=== PATIENT | male | born 1940 | race Caucasian/White ===

== ENCOUNTER 2018-03-14 10:21 | Emergency (ER) | payer MEDICARE, BC, SELFPAY ==
[2018-03-14 10:36] VITALS: BP 116/73; PULSE 77; RESP 20; TEMP 36.7; O2SAT 95
--- NOTE | 2018-03-14 11:10 | W.ED.GENAD ---
Discharge Plan Disposition Patient Disposition: HOME Condition: Improving Discharge Details Chief Complaint: EarProblem Clinical Impression: Bilateral impacted cerumen Primary Care Provider: ARACELI MOSER ED Provider: Leonila Cartagena Home Meds and New Rx's Prescriptions: Continue carbamide peroxide [Ear Wax Treatment] 15 ML drops 4 ml Otic DAILY PRN PRNQty: 1 RF: 0 atorvastatin [Lipitor] 20 MG tablet 20 mg PO QPM RF: 0 amlodipine 5 MG tablet 10 mg PO HS RF: 0 aspirin [Aspir-81] 81 MG tablet,delayed release (DR/EC) 81 mg PO QAM RF: 0 multivitamin 1 EACH capsule 1 ea PO QAM RF: 0 cholecalciferol (vitamin D3) 1,000 UNITS tablet 2,000 units PO HS RF: 0 lisinopril 20 MG tablet 20 mg PO HS RF: 0 tamsulosin [Flomax] 0.4 MG capsule 0.4 mg PO DAILY Qty: 13 RF: 0 Discharge Instructions Instructions: Cerumen Impaction (ED) Additional Instructions: Use the Debrox earwax softening drops for the next 4 days. Please instill 4-10 drops twice daily. Please follow-up with her primary care this week. Hoping with the use of the softening drops they may have an easier time at removal of the earwax. If you develop fever/chills, pain, or other new/worsening symptoms please seek care urgently once again Referrals: ARACELI MOSER [Primary Care Provider] - Discharge Data Discharge Date/Time-TO BE ENTERED AT DEPARTURE: 03/14/18 11:39 Medical Decision Making MDM Narrative Medical decision making narrative: Patient presents today with chief complaint of both ears being plugged. On exam, patient is noted to have impacted cerumen in the right and left ears with the right being worse than the left. His hearing seems to be fairly intact, and after raise my voice to speak with him. He has no change in his voice. He does not have any pain on palpation. No mastoid tenderness. No fevers or chills. Patient is afebrile and nontoxic-appearing. Exam is otherwise benign. I have asked nursing staff to flush his ears Nursing staff attempted to dislodge cerumen impaction. They cleaned out the right ear for unsuccessful at clearing at the central most aspect of the cerumen. Patient began endorsing dizziness when he was experiencing the flushing. Reports that when he has had this done at his local ER, they use a different method that is more continuous. He denies any pain. We do not have another option here to flush out the patient's ear in this department. I was able to see that much of the cerumen has been broken up on the right and I am now able to see around the cerumen to the eardrum on both the superior and inferior aspects of the collection. The left ear was not attempted. I did advise the patient that at this point as his hearing is improved in the right and cerumen does not appear much improved, we approached the left and see for able to break this up. Patient declines. Prefers to to follow-up with his primary care in [place]. I advised that he use Debrox ear softening drops for the next 4 days prior to being evaluated by them as this may help with more readily extracting the cerumen. Patient was given return precautions. All his questions and concerns were addressed and he is in agreement with this plan. HPI - General Adult General Mode of arrival: ambulatory. Date/Time Provider Initiated Documentation: 03/14/18 10:57. Limitations to Documentation: no limitations. Information obtained by: patient. HPI Narrative: Patient is a 77-year-old male presenting today with chief complaint of ears plugged. He reports that approximately once a year he needs to seek care medical professional have his ears flushed. Typically goes to the emergency department for this. Patient reports he is from [place] and has a primary care there. He states for the past 4 days his right ear has been plugged. Reports that the left ear is more intermittent. States that the right ear has diminished hearing but the left remains intact. He denies any pain. No fevers or chills. Feels that this is his typical of a buildup of cerumen. Does not use Q-tips to clean his ear. He does report that he occasionally uses a hairpin to clean out his ears. He has tried softening drops over the past few days which have not relieved his symptoms. Related Data Home Medications Medication Instructions Recorded Confirmed amlodipine 10 mg PO HS 01/09/13 03/14/18 aspirin [Aspir-81] 81 mg PO QAM 01/09/13 03/14/18 atorvastatin [Lipitor] 20 mg PO QPM 01/09/13 03/14/18 cholecalciferol (vitamin D3) 2,000 units PO HS 01/09/13 03/14/18 multivitamin 1 ea PO QAM 01/09/13 03/14/18 lisinopril 20 mg PO HS 01/14/18 03/14/18 Previous Rx's Medication Instructions Recorded carbamide peroxide [Ear Wax 4 ml OTIC DAILY PRN PRN #1 btl 01/09/13 Treatment] tamsulosin [Flomax] 0.4 mg PO DAILY #13 cap.er.24h 01/14/18 Allergies Allergy/AdvReac Type Severity Reaction Status Date / Time No Known Allergies Allergy Unverified 03/14/18 10:37 General Stated Complaint: EarProblem MAYELIN: 5 Review of Systems Constitutional Reports as per HPI, Denies chills, Denies fever(s) and Denies headache(s) Eyes Patient Reports system reviewed and no additional complaints, except as docu ENT Reports as per HPI, Reports abnormal hearing, Denies vertigo, Denies dizziness, Denies ear discharge, Denies headache(s), Denies hearing loss (diminished hearing in right ear), Denies nasal discharge and Denies nasal obstruction Cardiovascular Denies chest pain Respiratory Denies cough Integumentary/Breasts Reports system reviewed and no additional complaints, except as docu Neurologic Reports abnormal hearing, Denies vertigo, Denies dizziness and Denies headache(s) [facility] Social History Smoking/Tobacco Use Status: Never Exam Const General: cooperative, healthy appearing, comfortable, no acute distress, well developed and well groomed Nutritional Appearance: average body habitus Orientation: alert and awake [facility] Head: normal to inspection, normocephalic and atraumatic Ears: hearing grossly abnormal bilaterally (diminished on the right side), external ears normal and TM's abnormal bilaterally (unable to visualize secondayr to cerumen impaction bilaterally) General nose exam: external nose normal Mouth: oral mucosae normal, lip normal and moist mucous membranes Throat: posterior oropharynx normal Eyes General: appearance normal, both eyes and all related structures Resp Effort & Inspection: normal respiratory effort, able to speak in complete sentences and no respiratory distress Auscultation: clear to auscultation bilaterally Cardio Rate: regular rate Rhythm: regular rhythm Heart Sounds: S1 normal and S2 normal Skin General skin exam: no rashes or lesions noted Lesions: no lesions Rashes: no rashes Trauma: no lacerations or abrasions Neuro General: alert, awake and oriented x3 Cognition: normal cognition Speech: speech normal Gait: normal gait Psych Appearance: grossly normal and well kempt Mental Status: mental status grossly normal Speech and Movement: speech and movement normal Mood: congruent mood Course Vital Signs Temperature 36.7 C 03/14/18 10:36 Pulse 77 03/14/18 10:36 Respiratory Rate 20 03/14/18 10:36 Blood Pressure 116/73 03/14/18 10:36 Pulse Oximetry 95 03/14/18 10:36 Temperature 36.7 C 03/14/18 10:36 Pulse 77 03/14/18 10:36 Respiratory Rate 20 03/14/18 10:36 Blood Pressure 116/73 03/14/18 10:36 Pulse Oximetry 95 03/14/18 10:36
== END 2018-03-14 11:39 | disposition home or self-care (01) ==
LOC: ER 11:40
PROVIDERS: Emergency Provider Physician Assistant
DX: H61.23 Impacted cerumen, bilateral (principal)
CPT/HCPCS: 69209; 99282

== ENCOUNTER 2018-03-17 00:50 | Outpatient (CLI) | payer BC, SELFPAY ==
--- NOTE | 2018-03-17 09:18 | DI.US_ITS ---
SYMPTOM/DIAGNOSIS: RT URETERAL STONE N20.1, ? HYDRONEPHROSIS RENAL ULTRASOUND: Comparison is made with CT abdomen and pelvis dated 14 January 2018. The right kidney measures 11.6 cm in length. There is no evidence of hydronephrosis. Calcifications are again demonstrated at the lower pole, largest measuring 10 mm. A 10 mm calcification is seen at the lower pole of the left kidney. Left renal cysts are seen. Pre-void bladder volume measures 170 cc. There is a 20 cc post void residual. Both ureteral jets were visualized. IMPRESSION: Bilateral lower pole nephrolithiasis. No evidence of hydronephrosis.
== END 2018-03-17 01:10 ==
PROVIDERS: Visit Provider Urology
DX: N20.1 Calculus of ureter (principal); N20.0 Calculus of kidney
CPT/HCPCS: 76770

== ENCOUNTER → 2018-03-17 08:22 | Outpatient (BNVA) | payer MEDICARE, BC, SELFPAY | PROVIDERS: Visit Provider Urology | DX: N20.9 Urinary calculus, unspecified (principal); Z48.89 Encounter for other specified surgical aftercare | CPT/HCPCS: 99213 ==

== ENCOUNTER → 2018-05-01 07:47 | Outpatient (BNVA) | payer MEDICARE, BC, SELFPAY | PROVIDERS: Visit Provider Urology | DX: R82.90 Unspecified abnormal findings in urine (principal); Z87.442 Personal history of urinary calculi; I10 Essential (primary) hypertension | CPT/HCPCS: 81003; 99213 ==

== ENCOUNTER → 2018-07-06 08:00 | Outpatient (BNVA) | payer MEDICARE, BC, SELFPAY | PROVIDERS: Visit Provider Urology | DX: N20.9 Urinary calculus, unspecified (principal); I10 Essential (primary) hypertension | CPT/HCPCS: 81003; 99213 ==

== ENCOUNTER → 2019-01-04 07:53 | Outpatient (BNVA) | payer MEDICARE, BC, SELFPAY | PROVIDERS: Visit Provider Urology | DX: N20.0 Calculus of kidney (principal); R31.9 Hematuria, unspecified; I10 Essential (primary) hypertension | CPT/HCPCS: 81003; 99213 ==

== ENCOUNTER 2019-03-30 01:16 | Outpatient (CLI) | payer MEDICARE, BC, SELFPAY ==
--- NOTE | 2019-03-30 08:06 | DI.US_ITS ---
EXAM: US RENAL CLINICAL HISTORY: monitor known stones. TECHNIQUE: Ultrasound performed using standard protocol. COMPARISON: US renal from 03/17/2018 FINDINGS: Right kidney measures 13.5 cm and contains an 8 mm calculus. There is no evidence of obstruction. Th e left kidney measures 12.5 cm and contains an 8 mm calculus. There is no evidence of obstruction. T he prevoid bladder contains 128 cc, the postvoid bladder contains 25 cc. IMPRESSION: Bilateral non-obstructing nephrolithiasis is demonstrated.
== END 2019-03-30 01:36 ==
PROVIDERS: Visit Provider Urology
DX: N20.0 Calculus of kidney (principal); I10 Essential (primary) hypertension
CPT/HCPCS: 76770; 99213

== ENCOUNTER 2019-03-31 14:28 | Inpatient (IN) | payer MEDICARE, BC, SELFPAY ==
[2019-03-31] VITALS (36 sets, daily range): BP systolic 94–132; BP diastolic 61–94; PULSE 98–175; RESP 16–121; TEMP 36.6–37.9; O2SAT 91–94
--- NOTE | 2019-03-31 14:52 | ED.GENADUL_ITS ---
Discharge Plan Disposition Patient Disposition: [facility] INPATIENT Condition: Stable Discharge Details Chief Complaint: SOB Clinical Impression: Elevated troponin, Shortness of breath Primary Care Provider: Neha,Local ED Provider: Easton Bobby Home Meds and New Rx's Prescriptions: No Action omeprazole 40 mg capsule,delayed release(DR/EC) 40 mg PO DAILY RF: 0 carbamide peroxide [Ear Wax Treatment] 15 ML drops 4 ml Otic DAILY PRN PRNQty: 1 RF: 0 atorvastatin [Lipitor] 20 MG tablet 20 mg PO QPM RF: 0 amlodipine 5 MG tablet 10 mg PO HS RF: 0 aspirin [Aspir-81] 81 MG tablet,delayed release (DR/EC) 81 mg PO QAM RF: 0 multivitamin 1 EACH capsule 1 ea PO QAM RF: 0 cholecalciferol (vitamin D3) 1,000 UNITS tablet 2,000 units PO HS RF: 0 potassium chloride 10 mEq Capsule, Extended Release 10 meq PO DAILY AM RF: 0 lisinopril 20 MG tablet 20 mg PO HS RF: 0 Medical Decision Making 78 yo male with hx of htn, hld, comes in with 2 weeks of worsening shortness of breath and dry cough. Deepthi chest pain or pressure, denies any hx of smoking, alcohol use or drug use. No hx of heart disease. He is in no distress on exam, has o2 saturations on room air of 90-93% with crackles at the bases bilaterally, no wheezing. Will obtain ecg, lab work to eval for anemia, ischemic and xray to eval for possible pna given his coughthough I suspect based on his exams he has mild chf. Pt's labs show indeterminate troponin of 0.2 and probnp of over 3000. No infiltrates on xray. Given his symptoms and lab abnormalities will admit for observation and possible echo in the AM. will also give a dose of lasix Differential Diagnosis Differential Diagnosis: chf, pna, acs Medical Records Medical records reviewed: Yes I reviewed the patient's medical records. Imaging Data Radiologic Study: Attestation: I personally reviewed and interpreted this imaging study as follows: Imaging: X-Ray My impression: no acute findings Lab Data Lab results reviewed: Yes I reviewed the patient's lab results. ECG Data Attestation: I personally reviewed and interpreted this ECG (s) as follows: Prior ECG tracings: available for review Interpretation: sinus tachycardia rhythm, rate of 111, pr 172, no acute st t wave changes compared to old ekg HPI General Mode of arrival: ambulatory . Date/Time Provider Initiated Documentation: 03/31/19 14:49 . Limitations to Documentation: no limitations . Information obtained by: patient . History of Present Illness 78 year old M presents to the emergency department with the chief complaint of shortness of breath, described as moderate, and it has been constant. No relieving factors improve symptom(s), No exacerbating factors reported . Patient did receive the following treatments prior to arrival, none Related Data Home Medications Medication Instructions Recorded Confirmed amlodipine 10 mg PO HS 01/09/13 03/31/19 aspirin [Aspir-81] 81 mg PO QAM 01/09/13 03/31/19 atorvastatin [Lipitor] 20 mg PO QPM 01/09/13 03/31/19 carbamide peroxide [Ear Wax 4 ml OTIC DAILY PRN PRN #1 btl 01/09/13 03/31/19 Treatment] cholecalciferol (vitamin D3) 2,000 units PO HS 01/09/13 03/31/19 multivitamin 1 ea PO QAM 01/09/13 03/31/19 lisinopril 20 mg PO HS 01/14/18 03/31/19 omeprazole 40 mg capsule,delayed 40 mg PO DAILY 05/01/18 03/31/19 release potassium chloride 10 meq PO DAILY AM 03/31/19 03/31/19 Previous Rx's Medication Instructions Recorded carbamide peroxide [Ear Wax 4 ml OTIC DAILY PRN PRN #1 btl 01/09/13 Treatment] Allergies Allergy/AdvReac Type Severity Reaction Status Date / Time No Known Allergies Allergy Verified 03/31/19 14:46 General Stated Complaint: SOB MAYELIN: 2 Review of Systems Review of Systems ROS Unobtainable: All systems reviewed & are unremarkable except as noted in HPI and below Constitutional Constitutional: Denies chills, Denies fever(s) and Denies weakness ENT Ears, Nose, Mouth, and Throat: Denies change in voice Cardiovascular Cardiovascular: Denies chest pain Gastrointestinal Gastrointestinal: Denies abdominal pain, Denies nausea and Denies vomiting Musculoskeletal Musculoskeletal: Denies joint swelling Neurologic Neurologic: Denies weakness [facility] Medical History (Updated 03/17/18 @ 10:52 by Josiah Isaac MD) Hyperlipidemia (Chronic) Hypertension (Chronic) Uric acid stone in urine (Acute) Surgical History (Updated 03/17/18 @ 10:47 by Josiah Isaac MD) S/P cystoscopy with ureteral stent placement (Resolved) Social History (Updated 03/17/18 @ 09:13 by Sandra Corrigan RN) Smoking/Tobacco Use Status: Never Alcohol Intake: never Drug use: Never Substance use type: does not use Do you feel safe at home: Yes Do you feel safe in your relationship?: Yes Exam Const General: no acute distress Orientation: alert HENMT Head: normal to inspection Ears: external ears normal General nose exam: external nose normal Mouth: moist mucous membranes Eyes General: appearance normal, both eyes and all related structures Neck Neck: normal visual inspection Resp Effort & Inspection: normal respiratory effort and able to speak in complete sentences Cardio Rate: regular rate Skin General skin exam: no rashes or lesions noted Neuro General: alert and oriented x3 Extrem General: normal to inspection Psych Mental Status: mental status grossly normal Course Vital Signs Vital signs: Vital Signs Temperature 36.6 C 03/31/19 14:44 Pulse 114 H 03/31/19 14:44 Respiratory Rate 121 H 03/31/19 14:44 Blood Pressure 121/94 H 03/31/19 14:44 Pulse Oximetry 92 L 03/31/19 14:44 Temperature 36.6 C 03/31/19 14:44 Temperature Source Temporal Artery Scan 03/31/19 14:44 Pulse 114 H 03/31/19 14:44 Respiratory Rate 121 H 03/31/19 14:44 Blood Pressure 121/94 H 03/31/19 14:44 Blood Pressure Position Sitting 03/31/19 14:44 Pulse Oximetry 92 L 03/31/19 14:44 Oxygen Delivery Method Room Air 03/31/19 14:44 Oxygen Flow Rate 0 03/31/19 14:44 Pain Level 0 03/31/19 14:44
--- NOTE | 2019-03-31 15:03 | DI.RAD_ITS ---
EXAM: XR CHEST 2V PA LATERAL INDICATION: shortness of breath. COMPARISON: CHEST 2 VIEWS PA,LAT from 12/01/2010 TECHNIQUE: 2D digital imaging was performed. FINDINGS: Mild scarring is noted at the lung bases. There is no evidence of an infiltrate. There is no definit e pleural effusion. The heart is not enlarged. There is mild ectasia of the thoracic aorta. There i s no acute bony abnormality. IMPRESSION: No evidence of acute cardiopulmonary disease.
[2019-03-31 15:30] LABS: Abs Immature Grans 0.07 k/cumm (0.0-0.09); Absolute Basophil Count 0.03 k/cumm (0.0-0.2); Absolute Eosinophil Count 0.17 k/cumm (0.0-0.7); Absolute Lymphocyte Count 1.23 k/cumm (1.2-3.4); Basophils % 0.3; Eosinophils % 1.5; HCT 41.3 % (40.0-50.0); HGB 13.7 g/dL (13.5-17.5); Immature Grans % 0.6; Lymphocytes % 11.2; Mean Corp. HGB Concentration 33.2 g/dL (32.0-36.0); Mean Corpuscular Hemoglobin 30.8 pg (27.0-33.0); Mean Corpuscular Volume 92.8 fL (80-95); Mean Platelet Volume 10.5 fL (8.0-11.0); Monocytes % 9.1; Neutrophils % 77.3; Platelet Count 282 x1000/uL (130-400); RBC 4.45 m/cumm (4.50-6.00); RBC Distribution Width 14.3 % (11.8-14.1)
--- NOTE | 2019-03-31 15:30 | NUR.NOTE ---
Nursing Note: Difficulty obtaining IV access, MD Crane notified. states that he will wait for labs to assess if patient requires an IV
--- NOTE | 2019-03-31 15:30 | NUR.NOTE ---
Nursing Note: Pt resting in stretcher, no signs of distress. pt states, I have had this cough for two weeks and have been very tired. DENIES SOB
[2019-03-31 15:42] LABS: INR 1.1 (0.9-1.1); PTT Activated 18.4 sec (21.0-31.4); Prothrombin Time 11.1 sec (9.3-11.0)
[2019-03-31 16:06] LABS: NT-proBNP 3100 pg/mL
[2019-03-31 16:46] LABS: ALT 23 U/L (16-63); AST 17 U/L (15-37); Albumin 3.5 g/dL (3.4-5.0); Alkaline Phosphatase 112 U/L (46-116); Anion Gap 9.8 mmol/L (3-11); BUN 27 mg/dL (7-18); Bilirubin, Total 1.4 mg/dL (0.2-1.0); CO2 26.2 mmol/L (21.0-32.0); CREATININE 1.57 mg/dL (0.70-1.30); Calcium 9.2 mg/dL (8.5-10.1); Chloride 105 mmol/L (98-107); Estimated GFR 43.17 (mL/min/1.73m2); Glucose 98 mg/dL (70-100); Magnesium 2.1 mg/dL (1.8-2.4); Sodium 141 mmol/L (136-145); Total Protein 7.8 g/dL (6.4-8.2)
[2019-03-31 16:50] LABS: Potassium 4.9 mmol/L (3.5-5.1); Troponin I 0.27 ng/mL (0.00-0.06)
--- NOTE | 2019-03-31 16:53 | DI.VRAD_ITS ---
PROCEDURE INFORMATION: Exam: XR Chest, 2 Views Exam date and time: 03/31/2019 4:05 PM Clinical history: 78 years old, male; Shortness of breath TECHNIQUE: Imaging protocol: XR of the chest Views: 2 views. COMPARISON: No relevant prior studies available. FINDINGS: Lungs: There's mild scarring at the lung bases. There is no acute consolidation in the lungs. Pleural space: There is minimal blunting of the left costophrenic angle most likely minimal pleural thickening. Heart/Mediastinum: Unremarkable. No cardiomegaly. Vasculature: There is mild ectasia of the thoracic aorta. Bones/joints: There is mild spondylosis of the mid-lower thoracic spine. IMPRESSION: Chronic changes but no acute cardiopulmonary process. Dictated and Authenticated by: Easton Puente MD. Ordering:JENNIFER Mccormack MD
[2019-03-31] MEDS: Furosemide 20 MG/2 ML VIAL IVP (17:16)
[2019-03-31] MEDS: Aspirin 81 MG CHEW 324 MG CH (17:16)
--- NOTE | 2019-03-31 18:04 | W.PM.HP.N ---
Date of service: 03/31/19 Time of Service: 18:04 Assessment and Plan Assessment and plan (1) Congestive heart failure (CHF): Status: Chronic Assessment and plan: Markedly elevated B and P, dyspnea on exertion, elevated troponin. Suspicion is high for possible underlying coronary artery disease and acute coronary syndrome. We will trend his troponins and monitor on telemetry overnight. Check echocardiogram in the a.m. as we have no baseline functioning. His EKG's suggestive of anterior MN in the past though he has no history of this. I suspect that there could be some left ventricular dysfunction. He received a dose of furosemide in the ER and appears to be stable. Reassess in the a.m. Cardiac prudent diet. (2) Elevated troponin: Status: Acute Assessment and plan: Trend troponins overnight. Treat acute coronary syndrome as indicated. Monitor on telemetry. Hold on heparinization at this point. Continue low-dose aspirin therapy. History of Present Illness History of Present Illness Chief Complaint: Congestive heart failure Narrative: This is a 78-year-old man who divides his time between [place] and [place]. 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 He denied any chest pain or chest pressure. He did not have pain radiating to his neck or arm. He did describe some right sided chest discomfort that was fleeting. He has no history of congestive heart failure or myocardial infarction. Both he and his admit that this is unusual for him thus he was evaluated in the emergency room. In the emergency room his EKG was largely unremarkable other than poor anterior forces which were present in 2010. Initial troponin was 0.27. Chest x-ray unremarkable. He is admitted for telemetry and further trending of troponins. Review of Systems Review of Systems ROS Unobtainable: All systems reviewed & are unremarkable except as noted in HPI and below Constitutional Constitutional: Denies excessive sweating, Denies frequent falls, Denies headache(s) and Reports weakness Eyes Eyes: Reports system reviewed and no additional complaints, except as docu ENT Ears, Nose, Mouth, and Throat: Reports system reviewed and no additional complaints, except as docu, Denies dizziness, Denies headache(s) and Denies throat swelling Cardiovascular Cardiovascular: Reports chest pain (Right upper chest, resolved), Reports diaphoresis, Denies edema, Denies irregular heart rhythm, Reports dyspnea, Reports dyspnea on exertion, Denies orthopnea and Denies paroxysmal nocturnal dyspnea Respiratory Respiratory: Denies change in phlegm color, Denies cough, Denies excessive phlegm production, Reports dyspnea and Reports dyspnea on exertion Gastrointestinal Gastrointestinal: Denies diarrhea, Denies nausea and Denies vomiting Genitourinary Genitourinary: Denies urinary frequency and Denies urinary incontinence Musculoskeletal Musculoskeletal: Denies back pain, Reports deformity (Left ankle fused, limited range of motion) and Reports muscle weakness (Right leg) Integumentary/Breasts Skin/Breast: Denies rash, Denies sores and Reports wounds (Third-degree faulkner left lower leg greater than right, healed) Neurologic Neurologic: Denies confusion, Denies dizziness, Denies frequent falls, Denies headache(s), Reports focal weakness (Right leg), Denies sensory deficit and Reports weakness Psychiatric Psychiatric: Denies confusion, Denies depression and Denies suicidal ideation Endocrine Endocrine: Denies cold intolerance and Denies excessive sweating Hematologic/Lymphatic Hematologic/Lymphatic: Denies easy bleeding and Denies easy bruising Allergic/Immunologic Allergic/Immunologic: Denies urticaria and Denies throat swelling [facility] Medical History (Updated 03/31/19 @ 18:21 by Easton Loco MD) Faulkner classified according to extent of body surface involved (Acute) Age 12, playing with matches, history of multiple skin grafting HNP (herniated nucleus pulposus), lumbar (Acute) Hyperlipidemia (Chronic) Hypertension (Chronic) Uric acid stone in urine (Resolved) Surgical History (Updated 03/31/19 @ 18:11 by Easton Loco MD) H/O ankle fusion (Acute) S/P cystoscopy with ureteral stent placement (Resolved) Social History Smoking/Tobacco Use Status: Never Alcohol Intake: never Drug use: Never Substance use type: does not use Do you feel safe at home: Yes Do you feel safe in your relationship?: Yes Meds Home Medications and Allergies Home Medications Medication Instructions Recorded Confirmed Type amlodipine 10 mg PO HS 01/09/13 03/31/19 History aspirin [Aspir-81] 81 mg PO QAM 01/09/13 03/31/19 History atorvastatin [Lipitor] 20 mg PO QPM 01/09/13 03/31/19 History carbamide peroxide [Ear Wax 4 ml OTIC DAILY PRN PRN #1 btl 01/09/13 03/31/19 Rx Treatment] cholecalciferol (vitamin D3) 2,000 units PO HS 01/09/13 03/31/19 History multivitamin 1 ea PO QAM 01/09/13 03/31/19 History lisinopril 20 mg PO HS 01/14/18 03/31/19 History omeprazole 40 mg capsule,delayed 40 mg PO DAILY 05/01/18 03/31/19 History release potassium chloride 10 meq PO DAILY AM 03/31/19 03/31/19 History Allergies Allergy/AdvReac Type Severity Reaction Status Date / Time No Known Allergies Allergy Verified 03/31/19 14:46 Exam Const General: cooperative, no acute distress and disheveled Nutritional Appearance: overweight Orientation: alert, awake and oriented x3 HENMT Head: normal to inspection Ears: hearing grossly normal bilaterally General nose exam: external nose normal Face and sinus: normal facial exam Eyes General: appearance normal, both eyes and all related structures Neck Neck: other (Very full neck with redundant skin, symmetrical, no abnormality) Chest Chest: normal inspection of the chest Resp Effort & Inspection: normal respiratory effort Auscultation: clear to auscultation bilaterally Cardio Rate: regular rate Rhythm: regular rhythm Heart Sounds: no murmurs GI Inspection: normal to inspection Palpation: soft, no masses and nontender Back/Spine/Pelvis Back: no CVA tenderness Thoracic/Lumbar Spine: thoracic and lumbar spine normal to inspection Skin General skin exam: scars (Scars on both lower extremities left greater than right from previous faulkner) Neuro Motor: strength abnormal (Decreased strength of right lower extremity) Extrem Left lower extremity: ankle (Ankle joint fused with solid bony deformity, limited range of motion) Psych Appearance: grossly normal Mental Status: mental status grossly normal Speech and Movement: speech and movement normal Mood: congruent mood Results Labs Result diagrams: 03/31/19 15:17 03/31/19 16:20 Labs: Laboratory Results - last 24 hr 03/31/19 03/31/19 03/31/19 15:17 15:17 16:20 WBC 11.00 H RBC 4.45 L Hgb 13.7 Hct 41.3 MCV 92.8 MCH 30.8 MCHC 33.2 RDW 14.3 H Plt Count 282 MPV 10.5 Immature Gran % 0.6 Neutrophils % 77.3 Lymphocytes % 11.2 Monocytes % 9.1 Eosinophils % 1.5 Basophils % 0.3 Absolute Neutrophils 8.50 H Absolute Lymphocytes 1.23 Absolute Monocytes 1.00 H Absolute Eosinophils 0.17 Absolute Basophils 0.03 PT 11.1 H INR 1.1 APTT 18.4 L Sodium 141 Potassium 4.9 Chloride 105 Carbon Dioxide 26.2 Anion Gap 9.8 BUN 27 H Creatinine 1.57 H Estimated GFR/1.73 m2 43.17 Glucose 98 Calcium 9.2 Magnesium 2.1 Total Bilirubin 1.4 H AST 17 ALT 23 Alkaline Phosphatase 112 Troponin I 0.27 H* NT-Pro-B Natriuret Pep 3100 H Total Protein 7.8 Albumin 3.5 Last Vital Signs Temp 36.6 C 03/31/19 14:44 Pulse 100 H 03/31/19 15:30 Resp 16 03/31/19 16:31 BP 111/72 03/31/19 15:30 Pulse Ox 94 L 03/31/19 15:40
[2019-03-31] MEDS: Atorvastatin 20 MG TAB PO (20:08)
[2019-03-31 20:12] LABS: Troponin I 0.22 ng/mL (0.00-0.06)
--- NOTE | 2019-03-31 20:32 | NUR.NOTE ---
Nursing Note: Pt is admitted in Rm 207, AO X 3. presented with SOB on exertion this morning. Left leg and foot is very dry and scaly with white spots of skin, calluses noticed. Scars noticed due to previous surgery 2 yrs ago, skin graft done on left leg due to calcium deposits deficiency and left ankle was diffused, unable to bend knees and no sensation felt according to pt. Uses crutches on short interval walking.Toenails and fingernails long and dirty. Education provided and needs reinforcement. Oriented to call lights system.
[2019-03-31] MEDS: Lisinopril 20 MG TAB PO (21:37)
[2019-03-31] MEDS: amLODIPine 5 MG TAB 10 MG PO (21:37)
[2019-04-01] VITALS (9 sets, daily range): BP systolic 106–120; BP diastolic 75–84; PULSE 94–142; RESP 18–19; TEMP 37.2–37.5; O2SAT 93–95
[2019-04-01 01:17] LABS: Troponin I 0.15 ng/mL (0.00-0.06)
[2019-04-01] MEDS: Potassium Chloride 10 MEQ CAPCR PO (06:31)
[2019-04-01 07:35] LABS: HCT 40.2 % (40.0-50.0); HGB 13.4 g/dL (13.5-17.5); Mean Corp. HGB Concentration 33.3 g/dL (32.0-36.0); Mean Corpuscular Hemoglobin 30.7 pg (27.0-33.0); Mean Corpuscular Volume 92.2 fL (80-95); Mean Platelet Volume 10.4 fL (8.0-11.0); Platelet Count 273 x1000/uL (130-400); RBC 4.36 m/cumm (4.50-6.00); RBC Distribution Width 14.2 % (11.8-14.1); White Blood Cell Count 9.75 k/cumm (4.4-10.8)
[2019-04-01] MEDS: Aspirin E.C. 81 MG TABEC PO (07:40)
[2019-04-01] MEDS: Omeprazole 20 MG CAPCR 40 MG PO (07:40)
[2019-04-01] MEDS: Enoxaparin 40 MG/0.4 ML SYR SC (07:40)
[2019-04-01 07:45] LABS: Anion Gap 9.3 mmol/L (3-11); BUN 29 mg/dL (7-18); CO2 23.7 mmol/L (21.0-32.0); CREATININE 1.51 mg/dL (0.70-1.30); Calcium 8.8 mg/dL (8.5-10.1); Chloride 106 mmol/L (98-107); Estimated GFR 45.15 (mL/min/1.73m2); Glucose 103 mg/dL (70-100); Potassium 4.6 mmol/L (3.5-5.1); Sodium 139 mmol/L (136-145)
[2019-04-01 09:11] LABS: D-Dimer > 7500 ng/mlFEU (<500)
--- NOTE | 2019-04-01 10:30 | MERGE_ITS ---
*[facility]* *[facility]* [address] [place] [address] Date of study: 04/01/2019 Transthoracic Echocardiography M-mode, complete 2D, complete spectral Doppler, and color Doppler *STUDY CONCLUSIONS* Impressions: In the right clinical context the findings on echo could be consistent with a diagnosis of pulmonary embolus. Summary: 1. Left ventricle: The cavity size was normal. Wall thickness was normal. Systolic function was normal. The estimated ejection fraction was 55-60%. Wall motion was normal; there were no regional wall motion abnormalities. 2. Right ventricle: The cavity size was dilated. Systolic function was reduced. Severe hypokinesis of RV apex. 3. Ventricular septum: The contour showed systolic flattening. These changes are consistent with RV pressure overload. 4. Left atrium: The atrium was mildly dilated. 5. Pulmonary arteries: Pulmonary systolic pressure was increased, in the range of 50mm Hg to 55mm Hg. 6. Inferior vena cava: The vessel was normal in size. The respirophasic diameter changes were in the normal range (greater than or equal to 50%), consistent with normal central venous pressure. *PATIENT PRESENTATION* Height: 180.3cm (71in ) S/D Pressure: 132 / 90 Weight: 112.9kg (248.5lb ) BSA: 2.42m^2 Test start time: 10:30 AM. Test stop time: 11:20 AM. CONSULTING Easton Loco, Easton Scherer ERECTOR OPERATOR Danyell Curtis *PROCEDURE DATA* Procedure information: This study was interpreted by [facility]. Pertinent images and digital data are archived for permanent storage and are available for subsequent review. No prior study was available for comparison. Study status: Routine. Transthoracic echocardiography. M-mode, complete 2D, complete spectral Doppler, and color Doppler. A Transthoracic Echocardiogram was performed. Scanning was performed from the parasternal, apical, subcostal, and suprasternal notch acoustic windows. Images were obtained using an [employer] 2000 cardiac ultrasound machine. Study completion: The patient tolerated the procedure well. There were no complications. History: PMH: CHF. *CARDIAC ANATOMY* Left ventricle: The cavity size was normal. Wall thickness was normal. Systolic function was normal. The estimated ejection fraction was 55-60%. Wall motion was normal; there were no regional wall motion abnormalities. Aortic valve: Trileaflet; mildly thickened, mildly calcified leaflets. Mobility was not restricted. Doppler: Transvalvular velocity was within the normal range. There was no stenosis. There was no significant regurgitation. VTI ratio of LVOT to aortic valve: 1.06. Valve area (VTI): 3.6cm^2. Indexed valve area (VTI): 1.5cm^2/m^2. Peak velocity ratio of LVOT to aortic valve: 0.72. Valve area (Vmax): 2.4cm^2. Indexed valve area (Vmax): 1cm^2/m^2. Mean velocity ratio of LVOT to aortic valve: 0.6. Valve area (Vmean): 2cm^2. Indexed valve area (Vmean): 0.8cm^2/m^2. Mean gradient (S): 5.5mm Hg. Peak gradient (S): 8.2mm Hg. Aorta: Aortic root: The aortic root was normal in size. Ascending aorta: The ascending aorta was normal in size. Mitral valve: Structurally normal valve. Mobility was not restricted. Doppler: Transvalvular velocity was within the normal range. There was no evidence for stenosis. There was trivial regurgitation. Left atrium: The atrium was mildly dilated. Right ventricle: The cavity size was dilated. Systolic function was reduced. Severe hypokinesis of RV apex. Ventricular septum: The contour showed systolic flattening. These changes are consistent with RV pressure overload. Pulmonic valve: Poorly visualized. Doppler: Transvalvular velocity was within the normal range. There was no evidence for stenosis. There was no significant regurgitation. Tricuspid valve: Structurally normal valve. Doppler: Transvalvular velocity was within the normal range. There was no evidence for stenosis. There was mild regurgitation. Pulmonary artery: Poorly visualized. Pulmonary systolic pressure was increased, in the range of 50mm Hg to 55mm Hg. Right atrium: The atrium was dilated. Pericardium: There was no pericardial effusion. Systemic veins: Inferior vena cava: The vessel was normal in size. The respirophasic diameter changes were in the normal range (greater than or equal to 50%), consistent with normal central venous pressure. Measurements Left ventricle Value Reference LV ID, ED, PLAX 4.5 cm 3.5 - 6.0 LV ID, ES, PLAX 3.4 cm 2.1 - 4.0 LV PW thickness, ED, PLAX 0.8 cm LV e', lateral 0.042 m/sec Ventricular septum Value Reference IVS thickness, ED, PLAX 0.9 cm LVOT Value Reference LVOT ID, A-P 2.1 cm LVOT area 3.4 cm^2 LVOT peak velocity, S 1.04 m/sec LVOT mean velocity, S 0.69 m/sec LVOT VTI, S 19.1 cm LVOT peak gradient, S 4.3 mm Hg LVOT mean gradient, S 2.2 mm Hg Stroke volume (SV), LVOT DP 64 ml Stroke index (SV/bsa), LVOT DP 27 ml/m^2 Aortic valve Value Reference Aortic valve peak velocity, S 1.4 m/sec Aortic valve mean velocity, S 1.1 m/sec Aortic valve VTI, S 18.0 cm Aortic mean gradient, S 5.5 mm Hg Aortic peak gradient, S 8.2 mm Hg VTI ratio, LVOT/AV 1.06 Aortic valve area, VTI 3.6 cm^2 Velocity ratio, peak, LVOT/AV 0.72 Aortic valve area, peak velocity 2.4 cm^2 Velocity ratio, mean, LVOT/AV 0.6 Aortic valve area, mean velocity 2 cm^2 Aortic valve area/bsa, mean velocity 0.8 cm^2/m^2 Aorta Value Reference Aortic root ID, ED 3.4 cm Ascending aorta ID, A-P, S 3.7 cm Left atrium Value Reference LA ID, A-P, ES 3.3 cm LA ID/bsa, A-P 1.4 cm/m^2 <=2.2 LA/aortic root ratio 0.96 Tricuspid valve Value Reference Tricuspid regurg peak velocity 3.4 m/sec Tricuspid peak RV-RA gradient 47.3 mm Hg Right atrium Value Reference RA area, ES, A4C (H) 23.2 cm^2 8.3 - 19.5 Legend: (L) and (H) valeria values outside specified reference range. I have personally reviewed the images and have reviewed and edited the reported findings. Electronically signed by Todd Wright 04/01/2019 12:05
--- NOTE | 2019-04-01 12:09 | PHARADMIT ---
Addendum entered by Yoseph Emanuel III 04/02/19 10:17: Pharmacy Note Subjective MD reports PEs everywhere, Saddle too, to call [facility] to review this case. What's the end point. Objective VS-OK SA-O@-95% SCr-1.75 (up)Lytes,H&H,Plts,WBC-OK wgt-107.6 Kg Assessment On Lovenox 110mg SC q12hrs, Home meds ordered Plan Awaiting feed back from [facility] Original Note: Admission Pharmacy Clinical Review CHF/RO WV Code Status Full Code Current Weight 107.8 kg Renally Cleared and Narrow Therapeutic Index Meds CrCl ~52 based on ABW QTc Value / Action Taken QTc 448 BP Control, Fever BP 118/76, HR 94 this AM (142 at midnight) Electrolytes reviewed Na 139, K+ 4.6, Mg 2.1 DVT Prophylaxis LMWH 110mg BID Opiate Usage / Scheduled Bowel Regimen Ordered none, prn Plt/SCr for Heparin / Enoxaparin Plt 273, Scr 1.51 INR for Warfarin H/H stable, WBC/Bands H/H 13.4/40.2 Antibiotic appropriateness Cultures and Sensitivities Surgical ABX d/c within 24 hr DM control / Insulin Dosing Heart Failure (Check EF%) (FERNANDO's, B-Block, Diuretics) amlodipine, lisinopril IV to PO Switch Home Meds Reviewed Yes, all ok Home Meds Not Ordered Vitamin D3, MVI Comments Elevated troponin, received dose of furosemide in the ED, started on BID LMWH today
[2019-04-01] MEDS: Omnipaque 350 MG/ML 100 ML BTL IJ (12:55)
--- NOTE | 2019-04-01 12:59 | DI.CT_ITS ---
EXAM: CT CHEST PE CTA CLINICAL HISTORY: Congestive heart failure, suspected PE. TECHNIQUE: Axial CT angiography was performed with multi-slice acquisition and multi-planar and/or [address] angiography of the chest was performed with bolus infusion of 100 cc of Omnipaque 350. COMPARISON: RENAL COLIC WO CONTRAST from 01/14/2018 XR CHEST 2V PA LATERAL from 03/31/2019 FINDINGS: Images obtained through the upper abdomen show unremarkable appearance of visualized portions of live r, spleen, pancreas and adrenals. No mediastinal or hilar adenopathy seen. Tracheobronchial tree ap pears intact. There are areas of atelectasis in the right lung base and minimal areas of consolidati ve opacity may also be present in the right lung base. Otherwise lungs are predominantly clear, mini mal linear densities in left lung base. There is a saddle pulmonary embolus and there is embolus in all lobar vessels and multiple segmental and subsegmental vessels with a large clot burden. There is leftward convexity of the interventricul ar septum and enlargement of the right ventricle consistent with right heart strain. IMPRESSION: Findings consistent with major pulmonary embolus as described above with associated right heart strai n and possible small peripheral right basilar infarct.
--- NOTE | 2019-04-01 13:00 | PDOC.CMIN ---
- If Service Date Differs Date of service: 04/01/19 Time of Service: 13:00 Care Management Initial Assess REASON FOR HOSPITALIZATION:: Elevated Triponin, SOB PAST MEDICAL HISTORY/PAST SURGICAL HISTORY:: Medical History. Hyperlipidemia (Chronic). Hypertension (Chronic). Uric acid stone in urine (Acute). Surgical History. 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 He is very independent at baseline, although he has used crutches in recent history due to an unrelated injury. He is to Noemy Barrera who loves to cook and garden, and feeds him well. CURRENT FUNCTIONAL STATUS:: Josep was sitting up in his bed during the conversation with CM. He stated that he wants to go home, but he also wants to get to the bottom of what is happening to him. He reported that he isn't short of breath- he just gets tired easily and has to sit down after excerting himself. He also reported that he hopes that he will get to go home today. CM discussed with him that the Dr ordered tests in order to find out what is wrong and that they will want to review the results with him before he goes home. CM will continue to follow. ADVANCE DIRECTIVES:: None on file. Has patient been provided with information about the portal?: No Did the patient sign up for the portal?: No CODE STATUS:: Full Code INSURANCE COVERAGE / FINANCIAL ISSUES:: [facility]/ BCBS CURRENT HOME/COMMUNITY SERVICES/EQUIPMENT:: Josep has crutches from a previous, unrelated injury, but is otherwise independent. PRIMARY CARE PHYSICIAN:: Out of area POTENTIAL DISCHARGE NEEDS:: Evaluations for further needs, follow up appointments. PATIENT/FAMILY EDUCATION NEEDS:: Review of community based supports, discharge plan, discussion of self care needs including Ask Me Three ANTICIPATED BARRIERS TO DISCHARGE:: None identified TRANSPORTATION:: Josep's , Noemy Barrera, will drive him home via private vehicle. PLAN:: Anticipate Josep will return home with no additional services when medically cleared. He will have follow up appointments. CM will continue to support patient with decision making regarding discharge planning.
[2019-04-01] MEDS: Enoxaparin 80 MG/0.8 ML SYR 70 MG SC (13:16)
--- NOTE | 2019-04-01 19:16 | W.PM.PROGNOT ---
Date of Service Date of service: 04/01/19 Time of Service: 13:30 Assessment and Plan Assessment and plan (1) Multiple pulmonary emboli: Status: Acute Assessment and plan: causing R heart strain and acute pulmonary hypertension. This is the likely reason why the patient had an elevated troponin. Will treat with SC lovenox. Will consult with pulmonology as to when it is safe to transition this patient to a DOAC. Treat with gentle IVF, carefully monitoring respiratory status. (2) Pulmonary hypertension: Status: Acute Assessment and plan: As above (3) Right heart failure: Status: Acute Assessment and plan: As above (4) Elevated troponin: Status: Acute Assessment and plan: As above - no further ischemic workup. (5) CKD (chronic kidney disease): Status: Acute Assessment and plan: Hold micheal-i and provide gentle hydration since the patient received IV contrast (6) Hypertension: Status: Chronic Assessment and plan: Hold micheal-i. The patient has actually been borderline hypotensive, possibly as a result of the PE's. (7) Hyperlipidemia: Status: Chronic Assessment and plan: continue atorvastatin (8) DVT prophylaxis: Status: Acute Assessment and plan: On therapeutic lovenox (9) Discharge planning issues: Status: Acute Assessment and plan: Full code Subjective Subjective Interval history since last seen: Mr Comer gets angry when I ask him if he is short of breath - he states he is not, but he looks like he is. Denies dizziness, chest pain, palpitations, nausea, vomiting. He has remained in sinus tachycardia 90-120's on telemetry with a burst of atrial fibrillation for 4 seconds while asleep. He agrees to stay once I told him that he had multiple blood clots in his lungs, but initially wanted to leave [facility]. Exam Narrative Exam Narrative: General: impulsive, pleasant elderly male, mildly tachypnic while laying flat in bed HEENT: EOMI, MMM Heart: RRR, mildly tachycardic Lungs: CTAB GI: abdomen is soft, nontender, nondistended Extremities: distal BLE's with skin grafts and +1 edema Objective Objective Clinical Data: Abnormal lab results 03/31/19 04/01/19 04/01/19 Range/Units 19:25 00:30 07:15 RBC (4.50-6.00) m/cumm Hgb (13.5-17.5) g/dL RDW (11.8-14.1) % D-Dimer (<500) ng/mlFEU BUN 29 H (7-18) mg/dL Creatinine 1.51 H (0.70-1.30) mg/dL Glucose 103 H (70-100) mg/dL Troponin I 0.22 H* 0.15 H* (0.00-0.06) ng/mL 04/01/19 04/01/19 Range/Units 07:15 08:00 RBC 4.36 L (4.50-6.00) m/cumm Hgb 13.4 L (13.5-17.5) g/dL RDW 14.2 H (11.8-14.1) % D-Dimer > 7500 H (<500) ng/mlFEU BUN (7-18) mg/dL Creatinine (0.70-1.30) mg/dL Glucose (70-100) mg/dL Troponin I (0.00-0.06) ng/mL Vital Signs Temperature 37.2 C 04/01/19 16:12 Temperature Source Tympanic 04/01/19 16:12 Pulse 103 H 04/01/19 16:12 Pulse Rhythm Regular 04/01/19 15:30 Pulse 175 H 03/31/19 15:45 Respiratory Rate 18 04/01/19 16:12 Respiratory Effort 04/01/19 15:30 Respiratory Depth Normal 04/01/19 15:30 Respiratory Pattern Normal 04/01/19 15:30 Blood Pressure 112/77 04/01/19 16:12 Blood Pressure Mean 81 03/31/19 18:16 Blood Pressure Position Sitting 03/31/19 14:44 Pulse Oximetry 95 04/01/19 16:12 Oxygen Delivery Method Room Air 04/01/19 16:12 Oxygen Flow Rate 0 04/01/19 16:12 Pain Level 0 04/01/19 16:12 Comment 03/31/19 23:34 Intake & Output 03/31/19 04/01/19 04/01/19 23:59 11:59 23:59 Intake Total 200 / 440 240 / 440 Output Total 950 / 950 Balance -950 / -950 200 / 440 240 / 440 Weight 113.398 kg 107.8 kg Intake: Oral 200 / 440 240 / 440 Output: Urine 950 / 950 Other: Urine Color Yellow Urine Appearance Clear Voiding Methods Urinal Laboratory Results WBC 9.75 k/cumm (4.4-10.8) 04/01/19 07:15 RBC 4.36 m/cumm (4.50-6.00) L 04/01/19 07:15 Hgb 13.4 g/dL (13.5-17.5) L 04/01/19 07:15 Hct 40.2 % (40.0-50.0) 04/01/19 07:15 MCV 92.2 fL (80-95) 04/01/19 07:15 MCH 30.7 pg (27.0-33.0) 04/01/19 07:15 MCHC 33.3 g/dL (32.0-36.0) 04/01/19 07:15 RDW 14.2 % (11.8-14.1) H 04/01/19 07:15 Plt Count 273 x1000/uL (130-400) 04/01/19 07:15 MPV 10.4 fL (8.0-11.0) 04/01/19 07:15 Immature Gran % 0.6 03/31/19 15:17 Neutrophils % 77.3 03/31/19 15:17 Lymphocytes % 11.2 03/31/19 15:17 Monocytes % 9.1 03/31/19 15:17 Eosinophils % 1.5 03/31/19 15:17 Basophils % 0.3 03/31/19 15:17 Absolute Neutrophils 8.50 k/cumm (1.2-6.7) H 03/31/19 15:17 Absolute Lymphocytes 1.23 k/cumm (1.2-3.4) 03/31/19 15:17 Absolute Monocytes 1.00 k/cumm (0.11-0.7) H 03/31/19 15:17 Absolute Eosinophils 0.17 k/cumm (0.0-0.7) 03/31/19 15:17 Absolute Basophils 0.03 k/cumm (0.0-0.2) 03/31/19 15:17 PT 11.1 sec (9.3-11.0) H 03/31/19 15:17 INR 1.1 (0.9-1.1) 03/31/19 15:17 APTT 18.4 sec (21.0-31.4) L 03/31/19 15:17 D-Dimer > 7500 ng/mlFEU (<500) H 04/01/19 08:00 Sodium 139 mmol/L (136-145) 04/01/19 07:15 Potassium 4.6 mmol/L (3.5-5.1) 04/01/19 07:15 Chloride 106 mmol/L (98-107) 04/01/19 07:15 Carbon Dioxide 23.7 mmol/L (21.0-32.0) 04/01/19 07:15 Anion Gap 9.3 mmol/L (3-11) 04/01/19 07:15 BUN 29 mg/dL (7-18) H 04/01/19 07:15 Creatinine 1.51 mg/dL (0.70-1.30) H 04/01/19 07:15 Estimated GFR/1.73 m2 45.15 (mL/min/1.73m2) 04/01/19 07:15 Glucose 103 mg/dL (70-100) H 04/01/19 07:15 Calcium 8.8 mg/dL (8.5-10.1) 04/01/19 07:15 Magnesium 2.1 mg/dL (1.8-2.4) 03/31/19 16:20 Total Bilirubin 1.4 mg/dL (0.2-1.0) H 03/31/19 16:20 AST 17 U/L (15-37) 03/31/19 16:20 ALT 23 U/L (16-63) 03/31/19 16:20 Alkaline Phosphatase 112 U/L (46-116) 03/31/19 16:20 Troponin I 0.15 ng/mL (0.00-0.06) H* 04/01/19 00:30 NT-Pro-B Natriuret Pep 3100 pg/mL (-299) H 03/31/19 16:20 Total Protein 7.8 g/dL (6.4-8.2) 03/31/19 16:20 Albumin 3.5 g/dL (3.4-5.0) 03/31/19 16:20 Echo: Impressions: In the right clinical context the findings on echo could be consistent with a diagnosis of pulmonary embolus. Summary: 1. Left ventricle: The cavity size was normal. Wall thickness was normal. Systolic function was normal. The estimated ejection fraction was 55-60%. Wall motion was normal; there were no regional wall motion abnormalities. 2. Right ventricle: The cavity size was dilated. Systolic function was reduced. Severe hypokinesis of RV apex. 3. Ventricular septum: The contour showed systolic flattening. These changes are consistent with RV pressure overload. 4. Left atrium: The atrium was mildly dilated. 5. Pulmonary arteries: Pulmonary systolic pressure was increased, in the range of 50mm Hg to 55mm Hg. 6. Inferior vena cava: The vessel was normal in size. The respirophasic diameter changes were in the normal range (greater than or equal to 50%), consistent with normal central venous pressure. CTA chest: Findings consistent with major pulmonary embolus as described above with associated right heart strain and possible small peripheral right basilar infarct.
[2019-04-01] MEDS: Atorvastatin 20 MG TAB PO (20:52)
[2019-04-02] VITALS (9 sets, daily range): BP systolic 95–116; BP diastolic 62–76; PULSE 85–110; RESP 18–20; TEMP 36.7–37.9; O2SAT 95
[2019-04-02] MEDS: Potassium Chloride 10 MEQ CAPCR PO (07:12)
[2019-04-02] MEDS: Aspirin E.C. 81 MG TABEC PO (07:39)
[2019-04-02] MEDS: Omeprazole 20 MG CAPCR 40 MG PO (07:39)
[2019-04-02] MEDS: Normal Saline 1,000 ML 75 ML IV (07:55)
[2019-04-02] MEDS: Normal Saline Flush 10 ML SYR IVP (07:55)
--- NOTE | 2019-04-02 08:00 | DI.US_ITS ---
EXAM: US EXTREMITY VENOUS BI CLINICAL HISTORY: Multiple PE's, concern for DVT. TECHNIQUE: Ultrasound performed using standard protocol. COMPARISON: US ECHOCARDIOGRAM from 04/01/2019 FINDINGS: Duplex venous ultrasound of both lower extremities was performed according to the usual protocol. There is no evidence of deep venous thrombosis or superficial thrombosis in the left lower extremity. There is visible thrombus in the popliteal vein on the right axis standing into posterior tibial and peroneal veins. There is also lesser saphenous superficial thrombosis noted on the right. IMPRESSION: Conclusion examination is positive for DVT of the popliteal vein and calf veins on the right. Evaluation of the left lower extremity is negative for DVT.
[2019-04-02 08:41] LABS: Abs Immature Grans 0.05 k/cumm (0.0-0.09); Absolute Basophil Count 0.03 k/cumm (0.0-0.2); Absolute Lymphocyte Count 1.48 k/cumm (1.2-3.4); Absolute Neutrophil Count 7.41 k/cumm (1.2-6.7); Basophils % 0.3; HCT 41.5 % (40.0-50.0); HGB 13.7 g/dL (13.5-17.5); Immature Grans % 0.5; Lymphocytes % 14.6; Mean Corpuscular Hemoglobin 30.6 pg (27.0-33.0); Mean Corpuscular Volume 92.6 fL (80-95); Mean Platelet Volume 10.3 fL (8.0-11.0); Monocytes % 9.8; Neutrophils % 72.8; Platelet Count 294 x1000/uL (130-400); RBC 4.48 m/cumm (4.50-6.00); RBC Distribution Width 14.3 % (11.8-14.1); White Blood Cell Count 10.17 k/cumm (4.4-10.8)
[2019-04-02 08:56] LABS: Anion Gap 10.9 mmol/L (3-11); BUN 30 mg/dL (7-18); CO2 23.1 mmol/L (21.0-32.0); CREATININE 1.75 mg/dL (0.70-1.30); Calcium 8.4 mg/dL (8.5-10.1); Chloride 103 mmol/L (98-107); Estimated GFR 38.09 (mL/min/1.73m2); Glucose 132 mg/dL (70-100); Magnesium 2.1 mg/dL (1.8-2.4); Potassium 4.6 mmol/L (3.5-5.1); Sodium 137 mmol/L (136-145)
[2019-04-02 08:58] LABS: Troponin I < 0.05 ng/mL (0.00-0.06)
[2019-04-02] MEDS: Enoxaparin 120 MG/0.8 ML SYR 110 MG SC ×3 (11:20→23:58)
--- NOTE | 2019-04-02 12:08 | PDOC.CMPRO ---
- If Service Date Differs Date of service: 04/02/19 Time of Service: 12:09 Care Management Progress Note S/O: Josep was sitting in his chair when CM met with him. He was upset that he is still here and reported that he felt that he was chained here because he is receiving IV fluids. CM discussed with him that the providers are trying to keep him well and find out why he is having the symptoms he is experiencing in order to improve his quality of life. He was not agreeable during the conversation and stated that he knows that he can leave if he wants to. CM encouraged him to stay, but also supported his right to direct his plan of care. A: Josep is a 78 year old Male admitted on 03/31/2019 with multiple emboli. P: Anticipate Josep will transfer to [facility] by ambulance as soon as there is an available bed. CM will continue to follow.
--- NOTE | 2019-04-02 14:04 | NUR.NOTE ---
Nursing went in to check on patient, patient stated I've been waiting for hours though nursing had been in around 60 minutes prior. Patient proceeded to tell nursing The doctor told me I don't need this anymore Indicating his IV fluids. Nursing double checked and fluid order is still active. At this time patient is refusing to be connected to IV fluids. Charge nurse aware. Nursing Note:
--- NOTE | 2019-04-02 19:39 | W.PM.PROGNOT ---
Date of Service Date of service: 04/02/19 Time of Service: 15:00 Assessment and Plan Assessment and plan (1) Multiple pulmonary emboli: Status: Acute Assessment and plan: causing R heart strain and acute pulmonary hypertension. This is the likely reason why the patient had an elevated troponin. Continue SC lovenox for the next 24 hours prior to conversion to a DOAC D/c IVF. Will consult PT to evaluate mainly endurance - the patient needs to not get as tired/dyspneic when ambulating before we can discharge him home. (2) Deep vein thrombosis (DVT) of popliteal vein of right lower extremity: Status: Acute Assessment and plan: on anticoagulation with SC lovenox at this time (3) Pulmonary hypertension: Status: Acute Assessment and plan: As above (4) Right heart failure: Status: Acute Assessment and plan: As above (5) Elevated troponin: Status: Acute Assessment and plan: As above - no further ischemic workup. (6) CKD (chronic kidney disease): Status: Acute Assessment and plan: Cr a little worse today, possibly due to IV contrast with CTA yesterday. I d/c'ed IVF as I do not think that the patien can tolerate any more. Hold micheal-i and continue to monitor Cr. (7) Hypertension: Status: Chronic Assessment and plan: Hold micheal-i. The patient has actually been borderline hypotensive, possibly as a result of the PE's. (8) Hyperlipidemia: Status: Chronic Assessment and plan: continue atorvastatin (9) DVT prophylaxis: Status: Acute Assessment and plan: On therapeutic lovenox (10) Discharge planning issues: Status: Acute Assessment and plan: Full code Subjective Subjective Interval history since last seen: Mr Comer states that he is not so much short of breath on exertion as he gets so tired just from a few steps that he has to sit down. He denies dizziness, chest pain, shortness of breath, nausea, vomiting. His case was reviewed by [facility] PE team - he is not felt to be a candidate for thrombolysis. Recommendation was made to keep the patient in the hospital until he was no longer as symptomatic and to initiate DOACs prior to discharge. Exam Narrative Exam Narrative: General: elderly obese male, A&Ox3, very pleasant with me today HEENT: EOMI, MMM Heart: RRR, no m/r/g Lungs: wheezing on expiration B GI: abdomen is soft, nontender, nondistended Extremities: distal BLE's with skin grafts and +1 edema Objective Objective Clinical Data: Abnormal lab results 04/02/19 04/02/19 Range/Units 08:35 08:35 RBC 4.48 L (4.50-6.00) m/cumm RDW 14.3 H (11.8-14.1) % Absolute Neutrophils 7.41 H (1.2-6.7) k/cumm Absolute Monocytes 1.00 H (0.11-0.7) k/cumm BUN 30 H (7-18) mg/dL Creatinine 1.75 H (0.70-1.30) mg/dL Glucose 132 H (70-100) mg/dL Calcium 8.4 L (8.5-10.1) mg/dL Vital Signs Temperature 37.9 C H 04/02/19 19:35 Temperature Source Temporal Artery Scan 04/02/19 19:35 Pulse 102 H 04/02/19 19:35 Pulse Rhythm Regular 04/02/19 16:13 Pulse 175 H 03/31/19 15:45 Respiratory Rate 18 04/02/19 19:35 Respiratory Effort 04/02/19 16:13 Respiratory Depth Normal 04/02/19 16:13 Respiratory Pattern Normal 04/02/19 16:13 Blood Pressure 116/62 04/02/19 19:35 Blood Pressure Mean 81 03/31/19 18:16 Blood Pressure Position Sitting 03/31/19 14:44 Pulse Oximetry 95 04/02/19 19:35 Oxygen Delivery Method Room Air 04/02/19 19:35 Oxygen Flow Rate 0 04/02/19 19:35 Pain Level 0 04/02/19 19:35 Comment 04/02/19 11:05 Intake & Output 04/01/19 04/02/19 04/02/19 23:59 11:59 23:59 Intake Total 240 / 440 700 / 710 Balance 240 / 440 700 / 710 Weight 107.6 kg Intake: IV 460 / 470 Oral 240 / 440 240 / 240 Laboratory Results WBC 10.17 k/cumm (4.4-10.8) 04/02/19 08:35 RBC 4.48 m/cumm (4.50-6.00) L 04/02/19 08:35 Hgb 13.7 g/dL (13.5-17.5) 04/02/19 08:35 Hct 41.5 % (40.0-50.0) 04/02/19 08:35 MCV 92.6 fL (80-95) 04/02/19 08:35 MCH 30.6 pg (27.0-33.0) 04/02/19 08:35 MCHC 33.0 g/dL (32.0-36.0) 04/02/19 08:35 RDW 14.3 % (11.8-14.1) H 04/02/19 08:35 Plt Count 294 x1000/uL (130-400) 04/02/19 08:35 MPV 10.3 fL (8.0-11.0) 04/02/19 08:35 Immature Gran % 0.5 04/02/19 08:35 Neutrophils % 72.8 04/02/19 08:35 Lymphocytes % 14.6 04/02/19 08:35 Monocytes % 9.8 04/02/19 08:35 Eosinophils % 2.0 04/02/19 08:35 Basophils % 0.3 04/02/19 08:35 Absolute Neutrophils 7.41 k/cumm (1.2-6.7) H 04/02/19 08:35 Absolute Lymphocytes 1.48 k/cumm (1.2-3.4) 04/02/19 08:35 Absolute Monocytes 1.00 k/cumm (0.11-0.7) H 04/02/19 08:35 Absolute Eosinophils 0.20 k/cumm (0.0-0.7) 04/02/19 08:35 Absolute Basophils 0.03 k/cumm (0.0-0.2) 04/02/19 08:35 PT 11.1 sec (9.3-11.0) H 03/31/19 15:17 INR 1.1 (0.9-1.1) 03/31/19 15:17 APTT 18.4 sec (21.0-31.4) L 03/31/19 15:17 D-Dimer > 7500 ng/mlFEU (<500) H 04/01/19 08:00 Sodium 137 mmol/L (136-145) 04/02/19 08:35 Potassium 4.6 mmol/L (3.5-5.1) 04/02/19 08:35 Chloride 103 mmol/L (98-107) 04/02/19 08:35 Carbon Dioxide 23.1 mmol/L (21.0-32.0) 04/02/19 08:35 Anion Gap 10.9 mmol/L (3-11) 04/02/19 08:35 BUN 30 mg/dL (7-18) H 04/02/19 08:35 Creatinine 1.75 mg/dL (0.70-1.30) H 04/02/19 08:35 Estimated GFR/1.73 m2 38.09 (mL/min/1.73m2) 04/02/19 08:35 Glucose 132 mg/dL (70-100) H 04/02/19 08:35 Calcium 8.4 mg/dL (8.5-10.1) L 04/02/19 08:35 Magnesium 2.1 mg/dL (1.8-2.4) 04/02/19 08:35 Total Bilirubin 1.4 mg/dL (0.2-1.0) H 03/31/19 16:20 AST 17 U/L (15-37) 03/31/19 16:20 ALT 23 U/L (16-63) 03/31/19 16:20 Alkaline Phosphatase 112 U/L (46-116) 03/31/19 16:20 Troponin I < 0.05 ng/mL (0.00-0.06) 04/02/19 08:35 NT-Pro-B Natriuret Pep 3100 pg/mL (-299) H 03/31/19 16:20 Total Protein 7.8 g/dL (6.4-8.2) 03/31/19 16:20 Albumin 3.5 g/dL (3.4-5.0) 03/31/19 16:20 US venous BLE's: examination is positive for DVT of the popliteal vein and calf veins on the right. Evaluation of the left lower extremity is negative for DVT.
[2019-04-02] MEDS: Atorvastatin 20 MG TAB PO (19:52)
[2019-04-03] VITALS (9 sets, daily range): BP systolic 102–136; BP diastolic 70–90; PULSE 82–93; RESP 18–19; TEMP 36.6–37.2; O2SAT 95–96
[2019-04-03 07:40] LABS: Abs Immature Grans 0.09 k/cumm (0.0-0.09); Absolute Basophil Count 0.03 k/cumm (0.0-0.2); Absolute Eosinophil Count 0.25 k/cumm (0.0-0.7); Absolute Lymphocyte Count 1.53 k/cumm (1.2-3.4); Absolute Monocyte Count 0.82 k/cumm (0.11-0.7); Absolute Neutrophil Count 6.06 k/cumm (1.2-6.7); Basophils % 0.3; Eosinophils % 2.8; HCT 37.7 % (40.0-50.0); HGB 12.5 g/dL (13.5-17.5); Lymphocytes % 17.4; Mean Corp. HGB Concentration 33.2 g/dL (32.0-36.0); Mean Corpuscular Hemoglobin 30.8 pg (27.0-33.0); Mean Corpuscular Volume 92.9 fL (80-95); Mean Platelet Volume 10.5 fL (8.0-11.0); Monocytes % 9.3; Neutrophils % 69.2; Platelet Count 295 x1000/uL (130-400); RBC 4.06 m/cumm (4.50-6.00); White Blood Cell Count 8.78 k/cumm (4.4-10.8)
[2019-04-03] MEDS: Aspirin E.C. 81 MG TABEC PO (07:42)
[2019-04-03 07:48] LABS: Anion Gap 10.4 mmol/L (3-11); BUN 29 mg/dL (7-18); CO2 22.6 mmol/L (21.0-32.0); CREATININE 1.57 mg/dL (0.70-1.30); Calcium 8.2 mg/dL (8.5-10.1); Chloride 105 mmol/L (98-107); Estimated GFR 43.17 (mL/min/1.73m2); Glucose 130 mg/dL (70-100); Magnesium 2.2 mg/dL (1.8-2.4); Potassium 4.2 mmol/L (3.5-5.1); Sodium 138 mmol/L (136-145)
--- NOTE | 2019-04-03 09:55 | IN_ITS ---
Date of service: 04/03/19 Time of Service: 09:15 PT Notes Inpatient Physical Therapy Evaluation Date: 04/03/19 Referring Doctor: Dr. Escamilla PT Orders: PT CONSULT: limited ability to ambulate; evaluate endurance Precautions: fall, standard Patient Profile/Admitting Diagnosis: 78-year-old male admitted from the emergency room after presenting with CRZU. Patient was found to have multiple pulmonary emboli, pulmonary hypertension, CKD. 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 Normally ambulates independently, although has been using a single crutch since onset of RLE radiculopathy 3 weeks ago. He lives in a single level home with full flight of outdoor stairs to enter. Bilateral rails. 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 Current Functional Limitations: Patient denies any limitations. Denies CRUZ. Equipment Owned/DME: bilat ax crutches (currently utilizes single crutch) Subjective: Patient states that he is feeling fine. He is anxious to return home, which he is hoping to do today. He verbalizes his distrust of PTs and health pediatric critical care nurse in general, although agrees to PT consult today if it will get me out of here. Objective: General Observation: Resting in bed at initiation of session. No lines. Mental Status: A&Ox3. Agitated throughout session. Pain: denies Vital Signs: Resting HR 89, SaO2 98 on room air. ROM: Right Upper Extremity: WNL Left Upper Extremity: WNL Right Lower Extremity: WNL Left Lower Extremity: WNL, with the exception of left ankle, which allows 10 degree arc of motion into PF/DF. Strength: Right Upper Extremity: WFL Left Upper Extremity: WFL Right Lower Extremity: Hip flexion 4/5. Quads 4+/5. HS 5/5. Ankle DF 5/5. EHL 4/5. Left Lower Extremity: Hip flexion 5/5. Quads 5/5. HS 5/5. Ankle DF not assessed due to ankle fusion. EHL 4/5. Sensation: intact to light touch distally Bed Mobility/Transfers: supine-sit: independent Sit to stand: Independent Stand to sit: Independent Sit to supine: Independent Gait: Patient ambulates 15 feet with supervision, no assistive device. He demonstrates moderate antalgia, which he reports is his baseline. He ambulates longer distances in the hallways with single crutch and left upper extremity, with initial improvements in gait mechanics although increasing antalgia distance. He manages 6 inch therapeutic stairs with single rail x 2 steps, ascending and descending, with supervision only. 6MWT: Resting vitals show heart rate 89, SaO2 98% on room air. Patient ambulance 600 feet with single crutch in left upper extremity. Requires standing rest period x2 due to increasing CRUZ and heart rate, despite patient's insistence that he was not short of breath. Breathing rate increases to 24 bpm, heart rate at 130 at highest point. Rapidly recovers to low 100s with standing rest. Ending vitals show heart rate 110, SaO2 91%. After seated rest, heart rate 100, SaO2 95%. Balance: Static Sitting: Normal Dynamic Sitting: Normal Static Standing: Good Dynamic Standing: Fair Special Tests: Mobility Limitations Standardized Measure [facility] AM-PAC 6 clicks Basic Mobility Inpatient Short Form: Raw Score: 24 CMS Score: 0% deficit Informed Consent/Education: Patient instructed in purpose of PT consult and plan of care. Assessment: Patient is a 78 year old male referred to physical therapy services with the diagnosis of multiple PEs. Patient presents with clinical signs and symptoms consistent with decreased activity tolerance consistent with medical diagnosis, as demonstrated by the following impairment level findings: 1. 6-minute walk test results below age norm 2. CRUZ with community distance ambulation Impairments are contributing to the following functional limitations: 1. Decreased activity tolerance Patient is assessed as a Moderate 15397 complexity based on the following: History: 78-year-old male admitted for medical management of multiple PEs, and the presence of underlying mobility issues related to HNP with right lower extremity radiculopathy, and chronic left ankle fusion. Patient is extremely anxious to return home, and is quite agitated throughout today's session. Although he would benefit from ongoing PT intervention on an outpatient basis to maximize activity tolerance and mobility, patient is not agreeable to this plan. Examination: functional limitations as noted above Presentation: evolving Decision Making: moderate complexity Plan of Care/Treatment Plan: No further PT intervention in acute care setting. Patient demonstrates suffici ent safety and mobility to allow for safe transition home once medically stable. DISCHARGE RECOMMENDATIONS: Home TREATMENT CODE/TIME: 89581 (9:15-9:45) Claudine Hale, PT, DPT [facility]
--- NOTE | 2019-04-03 11:49 | W.PM.PROGNOT ---
Date of Service Date of service: 04/03/19 Time of Service: 11:49 Assessment and Plan Assessment and plan (1) Multiple pulmonary emboli: Status: Acute Assessment and plan: Multiple PEs with mention of saddle embolism, Emboli in all lobar vessels, and multiple segmantal and subsegmental vessels with large clot burden - also with concurrent evidence of RV strain, RV Systolic dysfunction, and PHTN by ECHO. As patient was deemed as hemodynamically stable Thrombolysis/Thrombectomy were bypassed. Mr. Wright remains stable, with resolution of tachycardia. He is normotensive, but is off his usual antihypertensive medications. - Continue therapeutic Enoxaparin. - Etiology may be long durations of inactivity, lengthy car trips in patient with hx of trauma to the Lower Extremities. However, no prior colonoscopy, and cannot definitively rule out malignancy - check CT a/p today. - Discussed with Heme/Onc at [facility] - recommendations for continuation of therapeutic lovenox as opposed to changing to a DOAC, with follow-up at the [facility] in the near future. - Also with recommendations for checking a Lovenox level - Unfortunately this test is a send out for this institution, and relayed to the [facility], and would not be drawn and sent until tomorrow evening, and patient is set for discharge prior to that. No levels were checked at this time. (2) Right heart failure: Status: Acute Assessment and plan: Evidence of RV strain and failure in setting of significant clot burden - also as likely cause for minimal elevation in troponin. Continue treatment of DVT/PE as above, and monitor clinically. May benefit from repeat ECHO in the future, and continued elevation in PAP, also consider sleep study as outpatient to rule out underlying SUAD in obese gentleman. (3) Deep vein thrombosis (DVT) of popliteal vein of right lower extremity: Status: Acute Assessment and plan: As above. (4) CKD (chronic kidney disease): Status: Acute Assessment and plan: Creatinine appears stable. FERNANDO-I remains on hold as creatinine had increased yesterday post IV Dye administration. Current value improved and stable. Monitor. (5) Hypertension: Status: Chronic Assessment and plan: Patient is normotensive but remains off his Amlodipine and Lisinopril - this is likely as a result of his PEs and significant Clot burden. Will continue to monitor vitals and blood pressure off antihypertensive therapy, and aim to reintroduce slowly as an outpatient. (6) DVT prophylaxis: Status: Acute Assessment and plan: On active anticoagulation as above. Subjective Subjective Interval history since last seen: 78 year old man admitted from [facility] Emergency Department on 04/01 with a diagnosis of PE. Mr. Wright has a past Medical History significant for CKD, b/l non-obstructive nephrolithiasis, HTN, and dyslipidemia. He also has a prior history of bilateral lower extremity faulkner as a child, with multiple prior skin grafts. The patient divides his time between his home locally and in [place], and drives back and forth approximately twice a week with lengthy car rides. He presented to the hospital with reported sensation of fatigue, and found to have a minimally elevated troponin. ECHO was obtained and showed evidence of right heart dysfunction and PHTN, with subsequent CTA of the chest showing PEs with significant clot burden - mention of saddle embolus, emboli in all lobar vessels, and large clot burden in multiple segmental/subsegmental vessels. There was also mention of right heart strain. Discussion was had regarding potential Thrombolysis or Thrombectomy, but given that he was hemodynamically stable the patient was maintained on active anticoagulation with SC Enoxaparin. This morning Mr. Wright reports improvement in his fatigue, and continues to deny dyspnea. His tachycardia has improved and he has a normal HR this morning. No overnight events reported. Remains afebrile. Exam Narrative Exam Narrative: General: Patient appears comfortable, AAOX3, NAD Neck: Supple CV: Regular, nontachycardic, S1S2, No rubs, murmurs, or gallops. Pulmonary: Clear to auscultation bilaterally, no crackles, wheezing, or rhonchi Abdomen: + Bowel Sounds, soft, nontender, nondistended, obese in contour Vascular: No lower extremity edema. B/l LEs with skin grafts. Psych: Normal mood and affect. Objective Objective Clinical Data: Abnormal lab results 04/03/19 04/03/19 Range/Units 06:25 06:25 RBC 4.06 L (4.50-6.00) m/cumm Hgb 12.5 L (13.5-17.5) g/dL Hct 37.7 L (40.0-50.0) % Absolute Monocytes 0.82 H (0.11-0.7) k/cumm BUN 29 H (7-18) mg/dL Creatinine 1.57 H (0.70-1.30) mg/dL Glucose 130 H (70-100) mg/dL Calcium 8.2 L (8.5-10.1) mg/dL Vital Signs Temperature 36.6 C 04/03/19 11:43 Temperature Source Tympanic 04/03/19 11:43 Pulse 88 04/03/19 11:43 Pulse Rhythm Regular 04/03/19 03:45 Pulse 175 H 03/31/19 15:45 Respiratory Rate 19 04/03/19 11:43 Respiratory Effort Non-Labored 04/03/19 07:43 Respiratory Depth Normal 04/03/19 07:43 Respiratory Pattern Normal 04/03/19 07:43 Blood Pressure 136/90 04/03/19 11:43 Blood Pressure Mean 81 03/31/19 18:16 Blood Pressure Position Sitting 03/31/19 14:44 Pulse Oximetry 96 04/03/19 11:43 Oxygen Delivery Method Room Air 04/03/19 11:43 Oxygen Flow Rate 0 04/03/19 11:43 Pain Level 0 04/03/19 11:43 Comment 04/02/19 11:05 Intake & Output 04/02/19 04/02/19 04/03/19 11:59 23:59 11:59 Intake Total 710 700 / 710 600 / 600 Balance 10 / 710 700 / 710 600 / 600 Weight 107.6 kg Intake: IV 10 / 470 460 / 470 Oral 240 / 240 600 / 600 Other: Urine Appearance Clear Comment reports voiding in BR independently Laboratory Results WBC 8.78 k/cumm (4.4-10.8) 04/03/19 06:25 RBC 4.06 m/cumm (4.50-6.00) L 04/03/19 06:25 Hgb 12.5 g/dL (13.5-17.5) L 04/03/19 06:25 Hct 37.7 % (40.0-50.0) L 04/03/19 06:25 MCV 92.9 fL (80-95) 04/03/19 06:25 MCH 30.8 pg (27.0-33.0) 04/03/19 06:25 MCHC 33.2 g/dL (32.0-36.0) 04/03/19 06:25 RDW 14.0 % (11.8-14.1) 04/03/19 06:25 Plt Count 295 x1000/uL (130-400) 04/03/19 06:25 MPV 10.5 fL (8.0-11.0) 04/03/19 06:25 Immature Gran % 1.0 04/03/19 06:25 Neutrophils % 69.2 04/03/19 06:25 Lymphocytes % 17.4 04/03/19 06:25 Monocytes % 9.3 04/03/19 06:25 Eosinophils % 2.8 04/03/19 06:25 Basophils % 0.3 04/03/19 06:25 Absolute Neutrophils 6.06 k/cumm (1.2-6.7) 04/03/19 06:25 Absolute Lymphocytes 1.53 k/cumm (1.2-3.4) 04/03/19 06:25 Absolute Monocytes 0.82 k/cumm (0.11-0.7) H 04/03/19 06:25 Absolute Eosinophils 0.25 k/cumm (0.0-0.7) 04/03/19 06:25 Absolute Basophils 0.03 k/cumm (0.0-0.2) 04/03/19 06:25 PT 11.1 sec (9.3-11.0) H 03/31/19 15:17 INR 1.1 (0.9-1.1) 03/31/19 15:17 APTT 18.4 sec (21.0-31.4) L 03/31/19 15:17 D-Dimer > 7500 ng/mlFEU (<500) H 04/01/19 08:00 Sodium 138 mmol/L (136-145) 04/03/19 06:25 Potassium 4.2 mmol/L (3.5-5.1) 04/03/19 06:25 Chloride 105 mmol/L (98-107) 04/03/19 06:25 Carbon Dioxide 22.6 mmol/L (21.0-32.0) 04/03/19 06:25 Anion Gap 10.4 mmol/L (3-11) 04/03/19 06:25 BUN 29 mg/dL (7-18) H 04/03/19 06:25 Creatinine 1.57 mg/dL (0.70-1.30) H 04/03/19 06:25 Estimated GFR/1.73 m2 43.17 (mL/min/1.73m2) 04/03/19 06:25 Glucose 130 mg/dL (70-100) H 04/03/19 06:25 Calcium 8.2 mg/dL (8.5-10.1) L 04/03/19 06:25 Magnesium 2.2 mg/dL (1.8-2.4) 04/03/19 06:25 Total Bilirubin 1.4 mg/dL (0.2-1.0) H 03/31/19 16:20 AST 17 U/L (15-37) 03/31/19 16:20 ALT 23 U/L (16-63) 03/31/19 16:20 Alkaline Phosphatase 112 U/L (46-116) 03/31/19 16:20 Troponin I < 0.05 ng/mL (0.00-0.06) 04/02/19 08:35 NT-Pro-B Natriuret Pep 3100 pg/mL (-299) H 03/31/19 16:20 Total Protein 7.8 g/dL (6.4-8.2) 03/31/19 16:20 Albumin 3.5 g/dL (3.4-5.0) 03/31/19 16:20 Objective Narrative Objective Narrative: Exam(s) a CT:CT chest PE CTA EXAM: CT CHEST PE CTA CLINICAL HISTORY: Congestive heart failure, suspected PE. TECHNIQUE: Axial CT angiography was performed with multi-slice acquisition and multi-planar and/or [address] angiography of the chest was performed with bolus infusion of 100 cc of Omnipaque 350. COMPARISON: RENAL COLIC WO CONTRAST from 01/14/2018 XR CHEST 2V PA LATERAL from 03/31/2019 FINDINGS: Images obtained through the upper abdomen show unremarkable appearance of visualized portions of liver, spleen, pancreas and adrenals. No mediastinal or hilar adenopathy seen. Tracheobronchial tree appears intact. There are areas of atelectasis in the right lung base and minimal areas of consolidative opacity may also be present in the right lung base. Otherwise lungs are predominantly clear, minimal linear densities in left lung base. There is a saddle pulmonary embolus and there is embolus in all lobar vessels and multiple segmental and subsegmental vessels with a large clot burden. There is leftward convexity of the interventricular septum and enlargement of the right ventricle consistent with right heart strain. IMPRESSION: Findings consistent with major pulmonary embolus as described above with associated right heart strain and possible small peripheral right basilar infarct. ------ Exam(s) a US:US extremity venous BI EXAM: US EXTREMITY VENOUS BI CLINICAL HISTORY: Multiple PE's, concern for DVT. TECHNIQUE: Ultrasound performed using standard protocol. COMPARISON: US ECHOCARDIOGRAM from 04/01/2019 FINDINGS: Duplex venous ultrasound of both lower extremities was performed according to the usual protocol. There is no evidence of deep venous thrombosis or superficial thrombosis in the left lower extremity. There is visible thrombus in the popliteal vein on the right axis standing into posterior tibial and peroneal veins. There is also lesser saphenous superficial thrombosis noted on the right. IMPRESSION: Conclusion examination is positive for DVT of the popliteal vein and calf veins on the right. Evaluation of the left lower extremity is negative for DVT. --------- Exam(s) a US:US echocardiogram Date of study: 04/01/2019 Transthoracic Echocardiography M-mode, complete 2D, complete spectral Doppler, and color Doppler *STUDY CONCLUSIONS* Impressions: In the right clinical context the findings on echo could be consistent with a diagnosis of pulmonary embolus. Summary: 1. Left ventricle: The cavity size was normal. Wall thickness was normal. Systolic function was normal. The estimated ejection fraction was 55-60%. Wall motion was normal; there were no regional wall motion abnormalities. 2. Right ventricle: The cavity size was dilated. Systolic function was reduced. Severe hypokinesis of RV apex. 3. Ventricular septum: The contour showed systolic flattening. These changes are consistent with RV pressure overload. 4. Left atrium: The atrium was mildly dilated. 5. Pulmonary arteries: Pulmonary systolic pressure was increased, in the range of 50mm Hg to 55mm Hg. 6. Inferior vena cava: The vessel was normal in size. The respirophasic diameter changes were in the normal range (greater than or equal to 50%), consistent with normal central venous pressure.
[2019-04-03] MEDS: Enoxaparin 120 MG/0.8 ML SYR 110 MG SC (12:30)
--- NOTE | 2019-04-03 13:55 | DI.CT_ITS ---
EXAM: CT ABDOMEN PELVIS WO CLINICAL HISTORY: PEs. TECHNIQUE: .Imaging Protocol: Axial computed tomography images with coronal and sagittal reformatted images were created and reviewed CONTRAST MATERIAL: Intravenous: Omnipaque 350 Contrast volume:0 mL contrast route:IV - Oral:Yes COMPARISON: RENAL COLIC WO CONTRAST from 01/14/2018 CT CHEST PE CTA from 04/01/2019 FINDINGS: ABDOMEN: Lung Bases: Small airspace opacities are present in the lower lobes. This may represent atelectasis or pneumonia. Please correlate clinically. Liver: Normal density. No measurable mass. Gallbladder and biliary tract: There are several stones seen within the gallbladder. There is no rogelio iary ductal dilatation. Pancreas: Normal density, no abnormal calcifications or inflammatory process. Spleen: Normal. Kidneys: Normal size, contour and axis. There is bilateral nephrolithiasis. There is no evidence of obstructive uropathy. There are bilateral renal cysts no masses seen. Adrenal glands: No masses seen. Abdominal Aorta: Abdominal portion non-dilated. No significant abdominal or pelvic adenopathy is pres ent. PELVIS: Bladder: Symmetric distention, no gross wall thickening. The reproductive organs are grossly unremark able. Bowel: There is colonic diverticulosis. There is no evidence of acute diverticulitis. There is a no rmal appendix in the right lower quadrant of the abdomen. There is a small hiatal hernia. There is no evidence of bowel obstruction or bowel inflammatory or infectious process. Peritoneal cavity: No ascites, collection or mesenteric inflammatory response. Bones: Multilevel degenerative changes are seen throughout the spine. IMPRESSION: No evidence of an acute abdominal or pelvic process Airspace opacities in the lung bases. This may represent scarring, atelectasis, or pneumonia. DATA REPOSITORY: All CT scans at this facility are submitted to the National Radiology Data Registry (NRDR) Dose Index Registry (DIR) with the [employer] (A[employer]). RADIATION OPTIMIZATION: All CT scans at this facility use at least one of these dose optimization te chniques: automated exposure control; mA and/or kV adjustment per patient size (includes targeted exa ms where dose is matched to clinical indication); or iterative reconstruction.
--- NOTE | 2019-04-03 14:40 | DI.VRAD_ITS ---
PROCEDURE INFORMATION: Exam: CT Abdomen and Pelvis Without Contrast Exam date and time: 04/03/2019 1:51 PM Clinical history: 78 years old, male; Other: Rule out occult malignancy TECHNIQUE: Imaging protocol: Computed tomography of the abdomen and pelvis without contrast. Radiation optimization: All CT scans at this facility use at least one of these dose optimization techniques: automated exposure control; mA and/or kV adjustment per patient size (includes targeted exams where dose is matched to clinical indication); or iterative reconstruction. COMPARISON: CT RENAL COLIC WO CONTRAST 01/14/2018 5:03 AM FINDINGS: Mild bibasilar lung scarring. Small hiatal hernia. Cholelithiasis. Nonobstructing bilateral nephrolithiasis. No ureteral stones. Appendix is normal. Air within the anterior abdominal wall subcutaneous tissues suggesting recent injections. Fat-containing left internal hernia. No focal inflammatory process. Note of bowel obstruction. No obstructive uropathy. No significant free fluid. IMPRESSION: Incidental findings as described with no other specific etiology identified for the patient's symptoms. Dictated and Authenticated by: Cem Zaman MD. Ordering:TILA Bolden MD
--- NOTE | 2019-04-03 17:07 | PDOC.CMPRO ---
- If Service Date Differs Date of service: 04/03/19 Time of Service: 17:07 Care Management Progress Note S/O: Josep is sitting up in his chair his family is present and supportive. Josep will need Lovenox as outpatient for anticoagulation due to his clot burden and cardiac involvement. He was seen by PT and cleared by PT including exhibiting the ability to do stairs. A: Josep is a 78 year old Male admitted on 03/31/2019 with multiple emboli with large clot burden and RV strain. P: Anticipate Josep will be discharged home on Lovenox teaching was ordered to patient and family. Josep will need new home health nursing, and follow up with his primary care. Spouse to transport when medically ready.
[2019-04-03] MEDS: Atorvastatin 20 MG TAB PO (19:58)
[2019-04-04] VITALS (9 sets, daily range): BP systolic 95–139; BP diastolic 66–86; PULSE 82–116; RESP 18–28; TEMP 36–36.9; O2SAT 94–98
[2019-04-04] MEDS: Enoxaparin 120 MG/0.8 ML SYR 110 MG SC ×2 (02:00→12:56)
[2019-04-04 07:17] LABS: Abs Immature Grans 0.09 k/cumm (0.0-0.09); Absolute Basophil Count 0.03 k/cumm (0.0-0.2); Absolute Eosinophil Count 0.28 k/cumm (0.0-0.7); Absolute Lymphocyte Count 1.52 k/cumm (1.2-3.4); Absolute Monocyte Count 0.65 k/cumm (0.11-0.7); Absolute Neutrophil Count 4.79 k/cumm (1.2-6.7); Basophils % 0.4; Eosinophils % 3.8; HCT 38.8 % (40.0-50.0); HGB 12.8 g/dL (13.5-17.5); Immature Grans % 1.2; Lymphocytes % 20.7; Mean Corpuscular Hemoglobin 30.4 pg (27.0-33.0); Mean Corpuscular Volume 92.2 fL (80-95); Mean Platelet Volume 10.5 fL (8.0-11.0); Monocytes % 8.8; Neutrophils % 65.1; Platelet Count 334 x1000/uL (130-400); RBC 4.21 m/cumm (4.50-6.00); RBC Distribution Width 14.1 % (11.8-14.1); White Blood Cell Count 7.36 k/cumm (4.4-10.8)
[2019-04-04 07:23] LABS: Anion Gap 10.6 mmol/L (3-11); BUN 25 mg/dL (7-18); CO2 24.4 mmol/L (21.0-32.0); CREATININE 1.45 mg/dL (0.70-1.30); Calcium 8.5 mg/dL (8.5-10.1); Chloride 104 mmol/L (98-107); Estimated GFR 47.32 (mL/min/1.73m2); Glucose 96 mg/dL (70-100); Magnesium 2.2 mg/dL (1.8-2.4); Potassium 4.7 mmol/L (3.5-5.1); Sodium 139 mmol/L (136-145)
[2019-04-04] MEDS: Aspirin E.C. 81 MG TABEC PO (07:58)
--- NOTE | 2019-04-04 09:21 | PDOC.CMDIS ---
- If Service Date Differs Date of service: 04/04/19 Time of Service: 09:21 LACE Index Scoring Tool - Questions: Length of Stay (in days): 4 - 6 Acuity (Admit via E.D.?): Yes E.D. Visits: 1 - Answers: Total Score: 8 Risk of Readmission: Low Risk Care Management Discharge Reason for Hospitalization: Elevated Triponin, SOB Discharge Plan: Josep will be discharged home today on Lovenox teaching was done by nursing and he was able to slef inject medication. He will need to follow up at [facility] hematology, hypercoagable clinic contact number is [phone] and their fax is [phone]. CM faxed referral with demographics they will contact patient directly to schedule an appointment. CM also sent a referral message to [facility]. Patient was discharged home with three doses of Lovenox and will has a prescription in hand for lovenox which he will bring to [facility] pharmacy. CM faxed a copy of the script to [facility] as well. Patient declines any new home health services. Patient/Family Education Needs: Discharge education, limitations and follow up plan of care including ask me three and self management.
--- NOTE | 2019-04-04 11:05 | DSE_ITS ---
Date of service: 04/04/19 Time of Service: 11:05 DS: Diagnosis Discharge Diagnosis (1) Multiple pulmonary emboli: Status: Acute (2) Right heart failure: Status: Acute (3) Deep vein thrombosis (DVT) of popliteal vein of right lower extremity: Status: Acute (4) CKD (chronic kidney disease): Status: Acute (5) Hypertension: Status: Chronic Discharge Plan Disposition Patient Disposition: HOME Condition: Stable Discharge Details Chief Complaint: SOB Clinical Impression: Elevated troponin, Shortness of breath Reason For Visit: CONGESTIVE HEART FAILURE/RULE OUT MO Admit Date/Time: 04/01/19 17:59 Admit Provider: Easton Loco Attending Provider: Easton Loco [facility] Easton Bobby Hospital Course Hospital Course: Chief Complaint: Fatigue HPI: 78 year old man admitted from [facility] Emergency Department on 04/01 with an initial evidence of elevated troponin, ultimately diagnosed with Pulmonary Emboli. Mr. Wright has a past Medical History significant for CKD, b/l non- obstructive nephrolithiasis, HTN, and dyslipidemia. He also has a prior history of bilateral lower extremity faulkner as a child, with multiple prior skin grafts. The patient divides his time between his home locally and in [place], and drives back and forth approximately twice a week with lengthy car rides. He has also been recently hampered by lower back discomfort with lower extremity radicular type symptoms, and has been much less active at home. He presented to the hospital with reported sensation of fatigue, and found to have a minimally elevated troponin. ECHO was obtained and showed evidence of right heart dysfunction and PHTN, with subsequent CTA of the chest showing PEs with significant clot burden - mention of saddle embolus, emboli in all lobar vessels, and large clot burden in multiple segmental/subsegmental vessels. There was also mention of right heart strain. Discussion was had regarding potential Thrombolysis or Thrombectomy, but given that he was hemodynamically stable the patient was maintained on active anticoagulation with SC Enoxaparin. This morning Mr. Wright reports improvement in his fatigue, and continues to deny dyspnea. His tachycardia has improved and he has a normal HR while at rest, and only minimally elevated with ambulation. He remains on room air even with a ctivity. Ultrasound findings showed residual RLE DVT burden in the popliteal and calf veins. CT abdomen and pelvis did not show evidence of malignancy, and the patient's confirms colonoscopy is up to date. No overnight events reported. Remains afebrile. Hospital Course: (1) Multiple pulmonary emboli: Multiple PEs with mention of saddle embolism, Emboli in all lobar vessels, and multiple segmantal and subsegmental vessels with large clot burden - also with concurrent evidence of RV strain, RV Systolic dysfunction, and PHTN by ECHO, as well as residual DVTs in the right popliteal and calf veins. As patient was deemed as hemodynamically stable Thrombolysis/Thrombectomy were bypassed. Mr. Wright remains stable, with resolution of tachycardia at rest. He is normotensive to minimally hypotensive, but is off his usual antihypertensive medications. Discussed case at length with Hem/Onc at [facility], with plans for the following. - Continue therapeutic Enoxaparin. Given uncertainty about etiology for thrombosis/thromboembolism, and given clot burden will hold off on DOAC therapy for now. - Follow-up is being arranged at the Thrombosis and Hemostasis Clinic at [facility] for the very near future. - Also with recommendations for checking a Lovenox level - Unfortunately this test is a send out for this institution, and relayed to the [facility], and would not be drawn and sent prior to discharge. Given patient's CKD, do recommend checking this once patient presents to the Hematology clinic. - Plan on holding off on home antihypertensive therapy until blood pressure become elevated. This needs to be followed up on, and as patient does not have a local PCP one will obtained for him prior to discharge, with follow-up scheduled within 1 week of hospital d/c. (2) Right heart failure: Evidence of RV strain and failure in setting of significant clot burden - also as likely cause for minimal elevation in troponin. Continue treatment of DVT/PE as above, and monitor clinically. May benefit from repeat ECHO in the future, and if continued elevation in Pulmonary pressures, also consider sleep study as outpatient to rule out underlying SUAD in obese gentleman. (3) Deep vein thrombosis (DVT) of popliteal vein of right lower extremity: As above. (4) CKD (chronic kidney disease): Creatinine appears stable. FERNANDO-I remains on hold as above. Current value improved and stable and improved. (5) Hypertension: Patient is normotensive to mildly hypotensive, but remains off his Amlodipine and Lisinopril - this is likely as a result of his PEs and significant Clot burden. Will continue to monitor vitals and blood pressure off antihypertensive therapy, and aim to reintroduce slowly as an outpatient. (6) Abnormal CT findings: CT of the a/p yesterday demonstrated atelectasis vs. infiltrates in the lung bases. Patient has remained afebrile, with a normal WBC, and lack of new cough or pulmonary symptoms. Clinically doubt infection. Monitor for any signs of developing infection following discharge. Home Meds and New Rx's Prescriptions: New enoxaparin [Lovenox] 120 mg/0.8 mL Syringe 110 mg subcut Q12H Qty: 0 RF: 0 Continued omeprazole 40 mg capsule,delayed release(DR/EC) 40 mg PO DAILY RF: 0 carbamide peroxide [Ear Wax Treatment] 15 ML drops 4 ml Otic DAILY PRN PRNQty: 1 RF: 0 atorvastatin [Lipitor] 20 MG tablet 20 mg PO QPM RF: 0 aspirin [Aspir-81] 81 MG tablet,delayed release (DR/EC) 81 mg PO QAM RF: 0 multivitamin 1 EACH capsule 1 ea PO QAM RF: 0 cholecalciferol (vitamin D3) 1,000 UNITS tablet 2,000 units PO HS RF: 0 potassium chloride 10 mEq Capsule, Extended Release 10 meq PO DAILY AM RF: 0 Discontinued amlodipine 5 MG tablet 10 mg PO HS RF: 0 lisinopril 20 MG tablet 20 mg PO HS RF: 0 Discharge Instructions Instructions: Pulmonary Embolism (DC), Pulmonary Embolism (GEN) Additional Instructions: Please see a primary care provider within 1 week of discharge - your block and case maker will be providing you information for an appointment. You should be evaluated at the [facility]'s Hematology and Oncology Thrombosis and Hemostasis clinic. We are actively working on providing you with an appointment, but their number is [phone] incase you need this. Activity:: No strenuous activity Equipment/Supplies:: No Equipment Needed Diet:: Low Sodium Discharge Orders Discharge Orders: Discharge Order (Routine); Ordered 04/04/19 Ordered By: Yuan Goldsmith DS: Summary Status at Discharge Functional status at discharge: independent ambulation Overall status at discharge: patient is back to baseline Mental Status: mental status grossly normal Speech and Movement: speech and movement normal Mood: congruent mood Affect: normal affect Exam Narrative Exam Narrative: General: Patient appears comfortable, AAOX3, NAD Neck: Supple CV: Regular, nontachycardic, S1S2, No rubs, murmurs, or gallops. Pulmonary: Clear to auscultation bilaterally, no crackles, wheezing, or rhonchi Abdomen: + Bowel Sounds, soft, nontender, nondistended, obese in contour Vascular: No lower extremity edema. B/l LEs with skin grafts. Psych: Normal mood and affect. Psych Mental Status: mental status grossly normal Speech and Movement: speech and movement normal Mood: congruent mood Affect: normal affect DS: Data Vitals/I&O Vitals and I&O: Vital Signs Temperature 36.0 C L 04/04/19 07:30 Temperature Source Tympanic 04/04/19 07:30 Pulse 102 H 04/04/19 10:15 Pulse Rhythm Regular 04/04/19 08:51 Pulse 175 H 03/31/19 15:45 Respiratory Rate 24 04/04/19 10:15 Respiratory Effort Non-Labored 04/04/19 08:51 Respiratory Depth Normal 04/04/19 08:51 Respiratory Pattern Normal 04/04/19 08:51 Blood Pressure 139/86 04/04/19 10:15 Blood Pressure Mean 81 03/31/19 18:16 Blood Pressure Position Sitting 03/31/19 14:44 Pulse Oximetry 97 04/04/19 10:15 Oxygen Delivery Method Room Air 04/04/19 10:22 Oxygen Flow Rate 0 04/04/19 10:22 Pain Level 0 04/04/19 07:30 Comment 04/04/19 10:15 Intake & Output 04/03/19 04/03/19 04/04/19 11:59 23:59 11:59 Intake Total 840 / 1080 240 / 1080 360 / 360 Balance 840 / 1080 240 / 1080 360 / 360 Intake: Oral 840 / 1080 240 / 1080 360 / 360 Other: Urine Color Yellow Pale Yellow Urine Appearance Clear Clear Urine Odor Normal None Comment reports voiding in BR independently Pt voiding ad angelica. Pt states it has been fine Stool Size Moderate Stool Characteristics Soft Formed Brown Voiding Methods Toilet Toilet Data Completed and Pending Completed studies during hospitalization [Text1]: Exam(s) 03/31 a RAD:XR chest 2V PA & lateral EXAM: XR CHEST 2V PA LATERAL INDICATION: shortness of breath. COMPARISON: CHEST 2 VIEWS PA,LAT from 12/01/2010 TECHNIQUE: 2D digital imaging was performed. FINDINGS: Mild scarring is noted at the lung bases. There is no evidence of an infiltrate. There is no definite pleural effusion. The heart is not enlarged. There is mild ectasia of the thoracic aorta. There is no acute bony abnormality. IMPRESSION: No evidence of acute cardiopulmonary disease. ------ Exam(s) a US:US echocardiogram Date of study: 04/01/2019 Transthoracic Echocardiography M-mode, complete 2D, complete spectral Doppler, and color Doppler *STUDY CONCLUSIONS* Impressions: In the right clinical context the findings on echo could be consistent with a diagnosis of pulmonary embolus. Summary: 1. Left ventricle: The cavity size was normal. Wall thickness was normal. Systolic function was normal. The estimated ejection fraction was 55-60%. Wall motion was normal; there were no regional wall motion abnormalities. 2. Right ventricle: The cavity size was dilated. Systolic function was reduced. Severe hypokinesis of RV apex. 3. Ventricular septum: The contour showed systolic flattening. These changes are consistent with RV pressure overload. 4. Left atrium: The atrium was mildly dilated. 5. Pulmonary arteries: Pulmonary systolic pressure was increased, in the range of 50mm Hg to 55mm Hg. 6. Inferior vena cava: The vessel was normal in size. The respirophasic diameter changes were in the normal range (greater than or equal to 50%), consistent with normal central venous pressure. Exam(s) 04/[address]:CT chest PE CTA EXAM: CT CHEST PE CTA CLINICAL HISTORY: Congestive heart failure, suspected PE. TECHNIQUE: Axial CT angiography was performed with multi-slice acquisition and multi-planar and/or [address] angiography of the chest was performed with bolus infusion of 100 cc of Omnipaque 350. COMPARISON: RENAL COLIC WO CONTRAST from 01/14/2018 XR CHEST 2V PA LATERAL from 03/31/2019 FINDINGS: Images obtained through the upper abdomen show unremarkable appearance of visualized portions of liver, spleen, pancreas and adrenals. No mediastinal or hilar adenopathy seen. Tracheobronchial tree appears intact. There are areas of atelectasis in the right lung base and minimal areas of consolidative opacity may also be present in the right lung base. Otherwise lungs are predominantly clear, minimal linear densities in left lung base. There is a saddle pulmonary embolus and there is embolus in all lobar vessels and multiple segmental and subsegmental vessels with a large clot burden. There is leftward convexity of the interventricular septum and enlargement of the right ventricle consistent with right heart strain. IMPRESSION: Findings consistent with major pulmonary embolus as described above with associated right heart strain and possible small peripheral right basilar infarct. -------- Exam(s) 04/02 a US:US extremity venous BI EXAM: US EXTREMITY VENOUS BI CLINICAL HISTORY: Multiple PE's, concern for DVT. TECHNIQUE: Ultrasound performed using standard protocol. COMPARISON: US ECHOCARDIOGRAM from 04/01/2019 FINDINGS: Duplex venous ultrasound of both lower extremities was performed according to the usual protocol. There is no evidence of deep venous thrombosis or superficial thrombosis in the left lower extremity. There is visible thrombus in the popliteal vein on the right axis standing into posterior tibial and peroneal veins. There is also lesser saphenous superficial thrombosis noted on the right. IMPRESSION: Conclusion examination is positive for DVT of the popliteal vein and calf veins on the right. Evaluation of the left lower extremity is negative for DVT. Exam(s) a CT:CT abdomen & pelvis wo EXAM: CT ABDOMEN PELVIS WO CLINICAL HISTORY: PEs. TECHNIQUE: .Imaging Protocol: Axial computed tomography images with coronal and sagittal reformatted images were created and reviewed CONTRAST MATERIAL: Intravenous: Omnipaque 350 Contrast volume:0 mL contrast route:IV - Oral:Yes COMPARISON: RENAL COLIC WO CONTRAST from 01/14/2018 CT CHEST PE CTA from 04/01/2019 FINDINGS: ABDOMEN: Lung Bases: Small airspace opacities are present in the lower lobes. This may represent atelectasis or pneumonia. Please correlate clinically. Liver: Normal density. No measurable mass. Gallbladder and biliary tract: There are several stones seen within the gallbladder. There is no biliary ductal dilatation. Pancreas: Normal density, no abnormal calcifications or inflammatory process. Spleen: Normal. Kidneys: Normal size, contour and axis. There is bilateral nephrolithiasis. There is no evidence of obstructive uropathy. There are bilateral renal cysts no masses seen. Adrenal glands: No masses seen. Abdominal Aorta: Abdominal portion non-dilated. No significant abdominal or pelvic adenopathy is present. PELVIS: Bladder: Symmetric distention, no gross wall thickening. The reproductive organs are grossly unremarkable. Bowel: There is colonic diverticulosis. There is no evidence of acute diverticulitis. There is a normal appendix in the right lower quadrant of the abdomen. There is a small hiatal hernia. There is no evidence of bowel obstruction or bowel inflammatory or infectious process. Peritoneal cavity: No ascites, collection or mesenteric inflammatory response. Bones: Multilevel degenerative changes are seen throughout the spine. IMPRESSION: No evidence of an acute abdominal or pelvic process Airspace opacities in the lung bases. This may represent scarring, atelectasis, or pneumonia. Labs on day of discharge: Labs from last 24 hours 04/04/19 04/04/19 06:43 06:43 WBC 7.36 RBC 4.21 L Hgb 12.8 L Hct 38.8 L MCV 92.2 MCH 30.4 MCHC 33.0 RDW 14.1 Plt Count 334 MPV 10.5 Immature Gran % 1.2 Neutrophils % 65.1 Lymphocytes % 20.7 Monocytes % 8.8 Eosinophils % 3.8 Basophils % 0.4 Absolute Neutrophils 4.79 Absolute Lymphocytes 1.52 Absolute Monocytes 0.65 Absolute Eosinophils 0.28 Absolute Basophils 0.03 Sodium 139 Potassium 4.7 Chloride 104 Carbon Dioxide 24.4 Anion Gap 10.6 BUN 25 H Creatinine 1.45 H Estimated GFR/1.73 m2 47.32 Glucose 96 Calcium 8.5 Magnesium 2.2 [facility] Medical History Faulkner classified according to extent of body surface involved (Acute) Age 12, playing with matches, history of multiple skin grafting HNP (herniated nucleus pulposus), lumbar (Acute) Hyperlipidemia (Chronic) Hypertension (Chronic) Uric acid stone in urine (Resolved) Surgical History H/O ankle fusion (Acute) S/P cystoscopy with ureteral stent placement (Resolved) Social History Smoking/Tobacco Use Status: Never Alcohol Intake: never Drug use: Never Substance use type: does not use Do you feel safe at home: Yes Do you feel safe in your relationship?: Yes
== END 2019-04-04 13:43 | disposition home or self-care (01) | DRG 176 ==
LOC: ER 18:05 → MS 18:44
PROVIDERS: Internal Medicine; Admitting Provider Family Medicine; Emergency Provider Emergency Medicine; Visit Provider Internal Medicine
DX: I26.02 Saddle embolus of pulmonary artery with acute cor pulmonale (principal); I82.431 Acute embolism and thrombosis of right popliteal vein; I13.0 Hypertensive heart and chronic kidney disease with heart failure and stage 1 through stage 4 chronic kidney disease, or unspecified chronic kidney disease; I82.4Z1 Acute embolism and thrombosis of unspecified deep veins of right distal lower extremity; I26.09 Other pulmonary embolism with acute cor pulmonale; I50.811 Acute right heart failure; R74.8 Abnormal levels of other serum enzymes; R53.83 Other fatigue; R91.8 Other nonspecific abnormal finding of lung field; N18.9 Chronic kidney disease, unspecified; E78.5 Hyperlipidemia, unspecified; R00.0 Tachycardia, unspecified
CPT/HCPCS: 36415; 71275; 80048; 80053; 85027; 93005; 93306; 97162; 99220; 99233; 99239; 99285; J1650; 71046; 74176; 83735; 83880; 84484; 85025; 85379; 85610; 85730; 93010; 93970; G0378; J1941; J3490

== ENCOUNTER → 2019-04-01 08:05 | Outpatient (BNVA) | payer MEDICARE, BC, SELFPAY | PROVIDERS: Visit Provider Internal Medicine Cardiovascular Disease | DX: R69 Illness, unspecified (principal) ==

== ENCOUNTER 2019-04-07 10:10 | Outpatient (CLI) | payer MEDICARE, BC, SELFPAY ==
[2019-04-07 22:47] LABS: Heparin Level, Low Mol Weight 1.55 IU/mL
== END 2019-04-07 10:30 ==
LOC: LOS 10:10 → LBO 10:30
PROVIDERS: PCP Family Medicine; Visit Provider Family Medicine
DX: Z79.899 Other long term (current) drug therapy; I26.99 Other pulmonary embolism without acute cor pulmonale
CPT/HCPCS: 36415; 85520

== ENCOUNTER 2019-04-26 23:43 | Inpatient (IN) | payer MEDICARE, BC, SELFPAY ==
--- NOTE | 2019-04-26 00:20 | DI.CT_ITS ---
EXAM: CT HEAD WO CLINICAL HISTORY: syncope, fell hit head TECHNIQUE: Noncontrast. COMPARISON: No exams were available for comparison FINDINGS: There is moderate atrophy. There is ventricular dilatation likely secondary to atrophy. There white m atter changes consistent with small vessel disease. No intracranial hemorrhage, mass or acute infarct is seen. There is no evidence of skull fracture. There is mucous retention in the right maxillary si nus. IMPRESSION: Atrophy and white matter changes of small vessel disease. No acute abnormality.
--- NOTE | 2019-04-26 00:45 | DI.CT_ITS ---
EXAM: CT ABDOMEN AND PELVIS WO CLINICAL HISTORY: right lower hip and back pain, on thinners TECHNIQUE: Noncontrast COMPARISON: CT ABDOMEN AND PELVIS WO from 04/03/2019 FINDINGS: The lung bases show minimal scarring. There is a small hiatal hernia. Gallstones are noted. There is no gallbladder distention, wall thickening or biliary dilatation. There is mild fatty infiltratio n of the liver. The spleen, adrenals and pancreas are unremarkable. There are bilateral nonobstruct ing stones at the lower poles of both kidneys as well as bilateral renal cysts. The aorta is normal in diameter. The bladder and prostate are unremarkable. There is increased stool seen in the rectum . There is mild diverticulosis of the descending and sigmoid colon but no evidence of diverticulitis . The appendix appears normal. There is no small bowel dilatation. There is a fatty-containing lef t inguinal hernia. There is some air in the anterior abdominal soft tissues related to injections. Degenerative changes are seen in the spine. IMPRESSION: No acute abnormality.
--- NOTE | 2019-04-26 00:50 | DI.CT_ITS ---
EXAM: CT LUMBAR SPINE WO CLINICAL HISTORY: right lower hip and back pain, on thinners TECHNIQUE: Noncontrast. The exam was reconstructed from the abdomen and pelvic CT. COMPARISON: No exams were available for comparison FINDINGS: There is no evidence of lumbar spine fracture. There are degenerative disc changes, greatest at L4-5 and L5-S1. There is disc bulging as well as facet joint degenerative changes. There is moderate chucho tral canal stenosis at L3-4 and severe central canal stenosis at L4-5. Neural foraminal narrowing is noted at multiple levels. IMPRESSION: Degenerative changes causing central canal stenosis and neural foraminal narrowing, greatest at L3-4 and L4-5. No evidence of acute fracture.
--- NOTE | 2019-04-26 01:42 | DI.CT_ITS ---
EXAM: CT CHEST PE CTA CLINICAL HISTORY: TECHNIQUE: Axial CT angiography was performed with multi-slice acquisition and multi-planar and/or 3 D reconstructions. COMPARISON: CT CHEST PE CTA from 04/01/2019 FINDINGS: Previously noted pulmonary emboli are no longer seen. There are no findings to indicate heart strain . There is no evidence of aortic aneurysm or dissection. There is basilar atelectasis. No pulmonar y infiltrates are seen. There are no pleural or pericardial effusions. There is a small hiatal yazan ia. Gallstones are incidentally noted. There are no thoracic compression fractures. IMPRESSION: Interval resolution of pulmonary emboli. No acute abnormality.
[2019-04-26 23:46] VITALS: PULSE 98; RESP 15; O2SAT 94
[2019-04-26 23:50] VITALS: PULSE 98; RESP 16; O2SAT 96
[2019-04-26 23:55] VITALS: BP 160/90; PULSE 88; RESP 16; O2SAT 97
[2019-04-26 23:58] VITALS: BP 120/76; PULSE 85; PULSE 91; RESP 20; O2SAT 95
[2019-04-26] MEDS: Normal Saline 500 ML IV (23:59)
[2019-04-27] VITALS (106 sets, daily range): BP systolic 107–145; BP diastolic 65–113; PULSE 67–130; RESP 10–32; TEMP 36–37.5; O2SAT 88–98
--- NOTE | 2019-04-27 00:07 | W.ED.GENAD ---
Discharge Plan Disposition Patient Disposition: [facility] Condition: Stable Discharge Details Chief Complaint: Dizzy/Sync Clinical Impression: Syncope, Leg pain, right Primary Care Provider: Patrick Han ED Provider: Pj Cristobal Home Meds and New Rx's Prescriptions: No Action omeprazole 40 mg capsule,delayed release(DR/EC) 40 mg PO DAILY RF: 0 carbamide peroxide [Ear Wax Treatment] 15 ML drops 4 ml Otic DAILY PRN PRNQty: 1 RF: 0 atorvastatin [Lipitor] 20 MG tablet 20 mg PO QPM RF: 0 aspirin [Aspir-81] 81 MG tablet,delayed release (DR/EC) 81 mg PO QAM RF: 0 multivitamin 1 EACH capsule 1 ea PO QAM RF: 0 cholecalciferol (vitamin D3) 1,000 UNITS tablet 2,000 units PO HS RF: 0 enoxaparin [Lovenox] 120 mg/0.8 mL Syringe 110 mg subcut Q12H Qty: 0 RF: 0 Medical Decision Making This 78-year-old male with a past medical history of CKD, b/l non-obstructive nephrolithiasis, HTN, chronic calcifications and subsequent burn/skin problems for his ankle and dyslipidemia, who was recently here 22 days ago, where he was diagnosed with multiple pulmonary emboli, right heart strain, and right lower extremity DVT. However towards the end of his therapy he was asymptomatic, vital signs were normal, and he showed no shortness of breath. He was eventually discharged with home Lovenox, and close scheduled follow-up with the outpatient clinic at the [facility] for further evaluation and assessment. Patient presents today via EMS for evaluation of syncope. Over the last 6 to 12 hours the patient has had 2 episodes of syncope, passing out with minimal exertion. He denies any chest pain, shortness of breath, chest heaviness, headache, or dizziness. He states that he does have right-sided sciatic pain, which is chronic for him, and states that this is unchanged. He feels that all of his symptoms are from this. His feels quite differently. He is a notable minimizer of his symptomatology. EMS noted that the patient's blood pressure was stable during his time transitioning here to the ED, however he had notable atypical rhythm changes. Physical exam is notably unremarkable, he does have chronic lesion on his left lower ankle, no calf tenderness. No neurovascular abnormalities can be appreciated at this time, no saddle anesthesia. No midline cervical thoracic or lumbar spine tenderness. He has good dorsiflexion of his great toe bilaterally. Bedside ultrasound was attempted to evaluate for right heart strain, however secondary to patient noncompliance and habitus I was unable to get an adequate view to evaluate for significant strain. However echo from 3 weeks ago does demonstrate notable strain at that time. Echo results have been included here. At this time I am concerned that the patient's multiple pulmonary emboli have been worsened by potential progression of the right lower extremity DVT. He is on his Lovenox and has been taking this as directed. With his concerning syncopal episodes, known right heart strain, I do feel that patient certainly a candidate for further evaluation and admission. Currently he is hemodynamically stable, and right now not a candidate for TPA. We will keep the patient on the monitor, pads are in place. 2:30 AM Patient's laboratory work-up is returned, notably improved from his last admission. White count is 10.9, troponin and proBNP are normal which is definitely improved from before. Creatinine is 1.67, GFR is 40. CT scan of the lumbar spine and abdomen pelvis demonstrate no acute process. CT PE study actually shows no evidence of current pulmonary embolism.. Patient remained stable here in the ED, monitor shows frequent PVCs. Patient remains mildly tachycardic after initial 500 cc bolus. We will give additional 1. We will give morphine for his continued sciatic pain. No current clinical or radiographic evidence of cauda equina syndrome. Because of the patient's notably concerning echo on his last visit, he is atypical EKG findings, his symptoms of syncope, he is high risk category based on Rogers syncope rule, I feel that he would benefit from admission, repeat cardiac echo, and cardiology evaluation. Currently at this time he shows no clinical evidence of cord compression syndrome, compartment syndrome in his leg, or significant neurovascular compromise, pulses are equal and symmetric, capillary refill is brisk, neurovascular exam is intact. I do feel that it would be beneficial for a repeat ultrasound of his extremity to evaluate for his clot. I contacted the hospitalist Dr. Muniz, he agrees with the assessment and plan. He has asked that I place admission orders. We will do this. Patient will be admitted to the ICU. I have extensively reviewed the treatment plan with the patient. I have addressed all patient concerns at this time. I have also discussed the plan with the admitting physician and they agree with the current assessment and plan and have agreed to assume responsibility for the patient. All parties demonstrate verbal understanding and agreement with our assessment and plan at this time. EKG 23: 50 Rate 97, OK 202, QTc 445, QRS 116, sinus rhythm, left anterior fascicular block, mild [address] elevation in V2 V3 V4 and V5. Inverted T wave in V1. Inverted T wave in lead III. Q wave in 3, 2, and aVF. Comparison from prior EKG on 04/02/2019 demonstrates similar findings, however the ST elevation seems to be slightly more pronounced now than previously. No clinical evidence of STEMI though. Candidate vein examined with linear array probe - confirmed collapsibility, lack of pulsatility, and proper anatomic location. Using aseptic technique, IV catheter inserted with flash of blood noted, flow of venous blood confirmed. Flushes easily and without pain. No hematoma or complications noted. IV secured. Patient tolerated well. FINDINGS: Pulmonary arteries: Normal. No pulmonary emboli. Aorta: Unremarkable. No aortic aneurysm. No aortic dissection. Lungs: Unremarkable. No consolidation. No masses. Pleural space: Unremarkable. No pneumothorax. No pleural effusion. Heart: Unremarkable. No cardiomegaly. No pericardial effusion. Mediastinum: Tiny hiatal hernia. Liver: Hepatic steatosis. Gallbladder and bile ducts: Cholelithiasis. Lymph nodes: Unremarkable. No enlarged lymph nodes. Bones/joints: Unremarkable. No acute fracture. Soft tissues: Unremarkable. IMPRESSION: No acute finding. Thank you for allowing us to participate in the care of your patient. Dictated and Authenticated by: Easton Lane MD FINDINGS: Brain: Minimal chronic ischemic white matter disease. No acute territorial infarct. Ventricles: Ventriculomegaly likely related to central predominant atrophy. Bones/joints: Unremarkable. No acute fracture. Sinuses: Mucosal thickening/mucous retention cyst right maxillary sinus. Mastoid air cells: Visualized mastoid air cells are well aerated. Soft tissues: Unremarkable. IMPRESSION: No acute intracranial findings. Thank you for allowing us to participate in the care of your patient. Dictated and Authenticated by: Easton Lane MD 04/27/2019 1:08 AM Eastern Time ([place] & [place]) FINDINGS: Vertebrae: No acute fracture. Normal alignment. Discs/Spinal canal/Neural foramina: Multilevel degenerative disk disease and facet arthropathy with lower lumbar predominant neuroforaminal and canal stenosis. Kidneys and ureters: Nonobstructing renal calculi. No obstructing urinary calculus or hydronephrosis. Soft tissues: Unremarkable. IMPRESSION: No acute finding. Thank you for allowing us to participate in the care of your patient. Dictated and Authenticated by: Easton Lane MD FINDINGS: Mediastinum: Small hiatal hernia. Liver: Hepatic steatosis. Gallbladder and bile ducts: Cholelithiasis. Pancreas: Normal. No ductal dilation. Spleen: Normal. No splenomegaly. Adrenals: Normal. No mass. Kidneys and ureters: Nonobstructing renal calculi. No obstructing urinary calculus or hydronephrosis. Renal cysts up to 1.3 cm. Stomach and bowel: Colonic diverticula. Appendix: No evidence of appendicitis. Intraperitoneal space: Unremarkable. No free air. No significant fluid collection. Vasculature: Unremarkable. No abdominal aortic aneurysm. Lymph nodes: Unremarkable. No enlarged lymph nodes. Bladder: Unremarkable as visualized. Reproductive: Unremarkable as visualized. Bones/joints: Multilevel degenerative disk disease and facet arthropathy with neuroforaminal and canal stenosis.. No acute fracture. Soft tissues: Fat-containing left in the hernia. IMPRESSION: No acute finding. Thank you for allowing us to participate in the care of your patient. Dictated and Authenticated by: Easton Lane MD OLD ECHO Impressions: In the right clinical context the findings on echo could be consistent with a diagnosis of pulmonary embolus. Summary: 1. Left ventricle: The cavity size was normal. Wall thickness was normal. Systolic function was normal. The estimated ejection fraction was 55-60%. Wall motion was normal; there were no regional wall motion abnormalities. 2. Right ventricle: The cavity size was dilated. Systolic function was reduced. Severe hypokinesis of RV apex. 3. Ventricular septum: The contour showed systolic flattening. These changes are consistent with RV pressure overload. 4. Left atrium: The atrium was mildly dilated. 5. Pulmonary arteries: Pulmonary systolic pressure was increased, in the range of 50mm Hg to 55mm Hg. 6. Inferior vena cava: The vessel was normal in size. The respirophasic diameter changes were in the normal range (greater than or equal to 50%), consistent with normal central venous pressure. HPI General Date/Time Provider Initiated Documentation: 04/26/19 23:56. HPI Narrative: This 78-year-old male with a past medical history of CKD, b/l non-obstructive nephrolithiasis, HTN, chronic calcifications and subsequent burn/skin problems for his ankle and dyslipidemia, who was recently here 22 days ago, where he was diagnosed with multiple pulmonary emboli, right heart strain, and right lower extremity DVT. However towards the end of his therapy he was asymptomatic, vital signs were normal, and he showed no shortness of breath. He was eventually discharged with home Lovenox, and close scheduled follow-up with the outpatient clinic at the [facility] for further evaluation and assessment. Patient presents today via EMS for evaluation of syncope. Over the last 6 to 12 hours the patient has had 2 episodes of syncope, passing out with minimal exertion. He denies any chest pain, shortness of breath, chest heaviness, headache, or dizziness. He states that he does have right-sided sciatic pain, which is chronic for him, and states that this is unchanged. He feels that all of his symptoms are from this. His feels quite differently. He is a notable minimizer of his symptomatology. EMS noted that the patient's blood pressure was stable during his time here in the ED, however he had notable atypical rhythm changes. Initial EKG was not available as it had water spilled on it, and findings were unassessable, however paramedics did note that there was significant abnormality noted in all leads. Currently aside for his right sciatic pain the patient has no other complaints at this time. He denies any saddle anesthesia, numbness, tingling, weakness, bowel or bladder incontinence, however he does admit to a single episode of accidentally urinating himself today but this is not happened since. When The patient did pass out he denies any trauma to his head. More episodes of hitting his head. He was in a seated position or in his bed when these episodes happen. Related Data Home Medications Medication Instructions Recorded Confirmed aspirin [Aspir-81] 81 mg PO QAM 01/09/13 04/07/19 atorvastatin [Lipitor] 20 mg PO QPM 01/09/13 04/07/19 carbamide peroxide [Ear Wax 4 ml OTIC DAILY PRN PRN #1 btl 01/09/13 04/07/19 Treatment] cholecalciferol (vitamin D3) 2,000 units PO HS 01/09/13 04/07/19 multivitamin 1 ea PO QAM 01/09/13 04/07/19 omeprazole 40 mg capsule,delayed 40 mg PO DAILY 05/01/18 04/07/19 release enoxaparin [Lovenox] 110 mg SUBCUT Q12H #0 ml 04/04/19 04/07/19 Previous Rx's Medication Instructions Recorded carbamide peroxide [Ear Wax 4 ml OTIC DAILY PRN PRN #1 btl 01/09/13 Treatment] enoxaparin [Lovenox] 110 mg SUBCUT Q12H #0 ml 04/04/19 Allergies Allergy/AdvReac Type Severity Reaction Status Date / Time No Known Allergies Allergy Verified 04/07/19 09:09 General Stated Complaint: Nk/Back Pain MAYELIN: 3 Review of Systems Review of Systems ROS Unobtainable: All systems reviewed & are unremarkable except as noted in HPI and below PFSH Social History Smoking/Tobacco Use Status: Never Alcohol Intake: never Drug use: Never Substance use type: does not use Do you feel safe at home: Yes Do you feel safe in your relationship?: Yes Exam Narrative Exam Narrative: 1.Const: Well-nourished, Well-developed, appearing stated age 2.Eyes: PERRL, no conjunctival injection, and symmetrical lids. 3.ENT: Atraumatic external nose and ears. Moist MM. Neck: Symmetric, trachea midline, No thyromegaly. 4.CVS: +S1/S2, No murmurs or gallops. Peripheral pulses 2+ and equal in all extremities. Brisk capillary refill in all extremities. 5.RESP: Unlabored respiratory effort. Clear to auscultation bilaterally. No wheezes rales or rhonchi 6.GI: Soft, Nontender/Nondistended, No hepatosplenomegaly. No guarding or rebound. 7.MSK: Normocephalic, chronic old deformity of the left ankle with chronic skin breakdown and mild bleeding., Extremities w/o deformity otherwise. No significant calf tenderness. No cyanosis or clubbing, Normal movement of all extremities. No midline cervical thoracic or lumbar spine pain. No significant pelvic pain. No reproducible pain over the greater trochanter. Mild pain with logroll of the right lower extremity. No shortening or internal or external rotation. No evidence of saddle anesthesia, no evidence of decreased rectal tone. Decreased strength of the right lower extremity secondary to pain, however he demonstrates good dorsiflexion of the great toe for both feet bilaterally. 8.Skin: Warm, Dry. No rashes or lesions. 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 Sensation grossly intact, no focal neurologic deficits. 10.Psych: (AAO) x3. Appropriate mood and affect Course Vital Signs Vital signs: Vital Signs Pulse 88 04/26/19 23:55 Respiratory Rate 16 04/26/19 23:55 Blood Pressure 160/90 H 04/26/19 23:55 Pulse Oximetry 97 04/26/19 23:55 Pulse 88 04/26/19 23:55 Respiratory Rate 16 04/26/19 23:55 Blood Pressure 160/90 H 04/26/19 23:55 Blood Pressure Position Supine 04/26/19 23:55 Pulse Oximetry 97 04/26/19 23:55 Oxygen Delivery Method Room Air 04/26/19 23:55 Oxygen Flow Rate 0 04/26/19 23:55 Pain Level 10 04/26/19 23:55
[2019-04-27 00:14] LABS: Absolute Basophil Count 0.02 k/cumm (0.0-0.2); Absolute Eosinophil Count 0.16 k/cumm (0.0-0.7); Absolute Lymphocyte Count 1.32 k/cumm (1.2-3.4); Absolute Monocyte Count 0.86 k/cumm (0.11-0.7); Basophils % 0.2; Eosinophils % 1.5; HCT 40.8 % (40.0-50.0); HGB 13.3 g/dL (13.5-17.5); Immature Grans % 0.9; Lymphocytes % 12.1; Mean Corp. HGB Concentration 32.6 g/dL (32.0-36.0); Mean Corpuscular Volume 95.1 fL (80-95); Mean Platelet Volume 10.1 fL (8.0-11.0); Monocytes % 7.9; Neutrophils % 77.4; Platelet Count 263 x1000/uL (130-400); RBC 4.29 m/cumm (4.50-6.00); RBC Distribution Width 14.8 % (11.8-14.1); White Blood Cell Count 10.93 k/cumm (4.4-10.8)
[2019-04-27 00:15] LABS: Absolute Neutrophil Count 8.46 k/cumm (1.2-6.7)
[2019-04-27 00:28] LABS: PTT Activated 30.1 sec (21.0-31.4); Prothrombin Time 10.5 sec (9.3-11.0)
[2019-04-27 00:39] LABS: ALT 141 U/L (16-63); AST 57 U/L (15-37); Albumin 3.7 g/dL (3.4-5.0); Alkaline Phosphatase 98 U/L (46-116); Anion Gap 8.6 mmol/L (3-11); BUN 20 mg/dL (7-18); Bilirubin, Total 0.8 mg/dL (0.2-1.0); CO2 26.4 mmol/L (21.0-32.0); CREATININE 1.67 mg/dL (0.70-1.30); Calcium 8.9 mg/dL (8.5-10.1); Chloride 104 mmol/L (98-107); Glucose 144 mg/dL (70-100); NT-proBNP 144 pg/mL; Potassium 4.8 mmol/L (3.5-5.1); Sodium 139 mmol/L (136-145); Total Protein 7.2 g/dL (6.4-8.2)
[2019-04-27 00:40] LABS: Troponin I < 0.05 ng/mL (0.00-0.06)
--- NOTE | 2019-04-27 01:08 | DI.VRAD_ITS ---
PROCEDURE INFORMATION: Exam: CT Head Without Contrast Exam date and time: 04/26/2019 11:59 PM Clinical history: 78 years old, male; Injury or trauma; Initial encounter; Concussion / head injury; Consciousness not specified; Patient HX: S/P fall, right lower hip and back pain. TECHNIQUE: Imaging protocol: Computed tomography of the head without contrast. Radiation optimization: All CT scans at this facility use at least one of these dose optimization techniques: automated exposure control; mA and/or kV adjustment per patient size (includes targeted exams where dose is matched to clinical indication); or iterative reconstruction. COMPARISON: No relevant prior studies available. FINDINGS: Brain: Minimal chronic ischemic white matter disease. No acute territorial infarct. Ventricles: Ventriculomegaly likely related to central predominant atrophy. Bones/joints: Unremarkable. No acute fracture. Sinuses: Mucosal thickening/mucous retention cyst right maxillary sinus. Mastoid air cells: Visualized mastoid air cells are well aerated. Soft tissues: Unremarkable. IMPRESSION: No acute intracranial findings. Dictated and Authenticated by: Easton Lane MD. Ordering:EBONY Oliva MD
--- NOTE | 2019-04-27 01:14 | DI.VRAD_ITS ---
PROCEDURE INFORMATION: Exam: CT Lumbar Spine Without Contrast Exam date and time: 04/26/2019 12:48 AM Clinical history: 78 years old, male; Injury or trauma; Initial encounter; Sprain or strain, lumbar ligaments; Patient HX: S/P fall, right lower hip and. Back pain. TECHNIQUE: Imaging protocol: Computed tomography images of the lumbar spine without contrast. Radiation optimization: All CT scans at this facility use at least one of these dose optimization techniques: automated exposure control; mA and/or kV adjustment per patient size (includes targeted exams where dose is matched to clinical indication); or iterative reconstruction. COMPARISON: No relevant prior studies available. FINDINGS: Vertebrae: No acute fracture. Normal alignment. Discs/Spinal canal/Neural foramina: Multilevel degenerative disk disease and facet arthropathy with lower lumbar predominant neuroforaminal and canal stenosis. Kidneys and ureters: Nonobstructing renal calculi. No obstructing urinary calculus or hydronephrosis. Soft tissues: Unremarkable. IMPRESSION: No acute finding. Dictated and Authenticated by: Easton Lane MD. Ordering:EBONY Oliva MD
--- NOTE | 2019-04-27 01:17 | DI.VRAD_ITS ---
PROCEDURE INFORMATION: Exam: CT Abdomen And Pelvis Without Contrast Exam date and time: 04/26/2019 12:39 AM Clinical history: 78 years old, male; Injury or trauma; Fall; Initial encounter; Sprain or strain; Patient HX: Right lower hip pain, on blood thinners TECHNIQUE: Imaging protocol: Computed tomography of the abdomen and pelvis without contrast. Radiation optimization: All CT scans at this facility use at least one of these dose optimization techniques: automated exposure control; mA and/or kV adjustment per patient size (includes targeted exams where dose is matched to clinical indication); or iterative reconstruction. COMPARISON: CT ABDOMEN PELVIS WO 04/03/2019 1:53 PM FINDINGS: Mediastinum: Small hiatal hernia. Liver: Hepatic steatosis. Gallbladder and bile ducts: Cholelithiasis. Pancreas: Normal. No ductal dilation. Spleen: Normal. No splenomegaly. Adrenals: Normal. No mass. Kidneys and ureters: Nonobstructing renal calculi. No obstructing urinary calculus or hydronephrosis. Renal cysts up to 1.3 cm. Stomach and bowel: Colonic diverticula. Appendix: No evidence of appendicitis. Intraperitoneal space: Unremarkable. No free air. No significant fluid collection. Vasculature: Unremarkable. No abdominal aortic aneurysm. Lymph nodes: Unremarkable. No enlarged lymph nodes. Bladder: Unremarkable as visualized. Reproductive: Unremarkable as visualized. Bones/joints: Multilevel degenerative disk disease and facet arthropathy with neuroforaminal and canal stenosis.. No acute fracture. Soft tissues: Fat-containing left in the hernia. IMPRESSION: No acute finding. Dictated and Authenticated by: Easton Lane MD. Ordering:EBONY Oliva MD
[2019-04-27] MEDS: Omnipaque 350 MG/ML 100 ML BTL 85 ML IJ (01:46)
--- NOTE | 2019-04-27 01:50 | DI.VRAD_ITS ---
PROCEDURE INFORMATION: Exam: CT Angiography Chest With Contrast Exam date and time: 04/26/2019 1:30 AM Clinical history: 78 years old, male; Patient HX: Known pe's, eval for signs of strains. TECHNIQUE: Imaging protocol: Computed tomographic angiography of the chest with intravenous contrast. 3D rendering: MIP reconstructed images were created and reviewed. Radiation optimization: All CT scans at this facility use at least one of these dose optimization techniques: automated exposure control; mA and/or kV adjustment per patient size (includes targeted exams where dose is matched to clinical indication); or iterative reconstruction. Contrast material: OMNI-PAQUE 350; Contrast volume: 85 ml; Contrast route: IV; COMPARISON: CT CHEST PE CTA 04/01/2019 12:55 PM FINDINGS: Pulmonary arteries: Normal. No pulmonary emboli. Aorta: Unremarkable. No aortic aneurysm. No aortic dissection. Lungs: Unremarkable. No consolidation. No masses. Pleural space: Unremarkable. No pneumothorax. No pleural effusion. Heart: Unremarkable. No cardiomegaly. No pericardial effusion. Mediastinum: Tiny hiatal hernia. Liver: Hepatic steatosis. Gallbladder and bile ducts: Cholelithiasis. Lymph nodes: Unremarkable. No enlarged lymph nodes. Bones/joints: Unremarkable. No acute fracture. Soft tissues: Unremarkable. IMPRESSION: No acute finding. Dictated and Authenticated by: Easton Lane MD. Ordering:EBONY Oliva MD
--- NOTE | 2019-04-27 02:30 | NUR.NOTE ---
Nursing Note: Pt has c/o right sciatic pain 04/15, provider aware.
[2019-04-27] MEDS: Normal Saline 500 ML IV (02:36)
[2019-04-27] MEDS: MORPHine 2 MG/ML SYR IVP (02:55)
[2019-04-27] MEDS: ACETAMINOPHEN 1,000 MG/100 ML BTL 400 MG IVPB (03:03)
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
[2019-04-27] MEDS: HYDROmorphone 2 MG/ML VIAL IVP ×2 (07:13→22:33)
[2019-04-27] MEDS: Metoprolol 25 MG TAB PO ×3 (07:14→23:38)
[2019-04-27] MEDS: Normal Saline 1,000 ML 125 ML IV ×3 (07:15→23:00)
[2019-04-27] MEDS: Normal Saline Flush 10 ML SYR IVP ×2 (07:15→22:34)
[2019-04-27 08:13] LABS: HCT 37.9 % (40.0-50.0); HGB 12.2 g/dL (13.5-17.5); Mean Corp. HGB Concentration 32.2 g/dL (32.0-36.0); Mean Corpuscular Hemoglobin 30.6 pg (27.0-33.0); Mean Platelet Volume 10.3 fL (8.0-11.0); Platelet Count 275 x1000/uL (130-400); RBC 3.99 m/cumm (4.50-6.00); RBC Distribution Width 14.9 % (11.8-14.1); White Blood Cell Count 11.35 k/cumm (4.4-10.8)
[2019-04-27 08:23] LABS: ALT 118 U/L (16-63); AST 43 U/L (15-37); Albumin 3.4 g/dL (3.4-5.0); Alkaline Phosphatase 92 U/L (46-116); Anion Gap 10.6 mmol/L (3-11); BUN 20 mg/dL (7-18); Bilirubin, Total 0.9 mg/dL (0.2-1.0); CO2 23.4 mmol/L (21.0-32.0); CREATININE 1.56 mg/dL (0.70-1.30); Calcium 8.5 mg/dL (8.5-10.1); Chloride 105 mmol/L (98-107); Estimated GFR 43.49 (mL/min/1.73m2); Glucose 133 mg/dL (70-100); Potassium 5.1 mmol/L (3.5-5.1); Sodium 139 mmol/L (136-145); Total Protein 6.8 g/dL (6.4-8.2)
--- NOTE | 2019-04-27 08:26 | W.PM.PROGNOT ---
Date of Service Date of service: 04/27/19 Time of Service: 16:09 Subjective Subjective Interval history since last seen: Received dilaudid for his R sciatica pain at 7 am - the pain has remained at 3/10 since. No longer nauseated. Will try regular food. BP 145/86. HR 95. Not requiring O2. Open area on L medial ankle. Maplex AG put on top of it. Interested in switching to pills from lovenox shots. Echo reviewed - no longer having RV strain. I agree with the admitter that the patient likely had a vasovagal episode due to pain/nausea/vomiting. We will continue to monitor him on tele, but he can be transferred out of ICU. Objective Objective Clinical Data: Abnormal lab results 04/26/19 04/26/19 04/27/19 Range/Units 23:59 23:59 07:51 WBC 10.93 H 11.35 H (4.4-10.8) k/cumm RBC 4.29 L 3.99 L (4.50-6.00) m/cumm Hgb 13.3 L 12.2 L (13.5-17.5) g/dL Hct 37.9 L (40.0-50.0) % MCV 95.1 H (80-95) fL RDW 14.8 H 14.9 H (11.8-14.1) % Absolute Neutrophils 8.46 H (1.2-6.7) k/cumm Absolute Monocytes 0.86 H (0.11-0.7) k/cumm BUN 20 H (7-18) mg/dL Creatinine 1.67 H (0.70-1.30) mg/dL Glucose 144 H (70-100) mg/dL AST 57 H (15-37) U/L ALT 141 H (16-63) U/L Vital Signs Temperature 36.0 C L 04/27/19 05:13 Temperature Source Temporal Artery Scan 04/27/19 05:13 Pulse 94 H 04/27/19 07:27 Pulse 84 04/27/19 08:00 Respiratory Rate 13 04/27/19 08:00 Respiratory Effort 04/27/19 05:13 Respiratory Depth Normal 04/27/19 05:13 Respiratory Pattern Normal 04/27/19 05:13 Blood Pressure 145/86 H 04/27/19 07:27 Blood Pressure Mean 100 10/22/19 07:27 Blood Pressure Position Supine 04/26/19 23:55 Pulse Oximetry 93 L 04/27/19 08:00 Oxygen Delivery Method Room Air 04/27/19 05:13 Oxygen Flow Rate 0 04/27/19 05:13 Pain Level 10 04/27/19 07:13 Intake & Output 04/26/19 04/26/19 04/27/19 11:59 23:59 11:59 Intake Total 1099 Balance 1099 Weight 117.934 kg 111.1 kg Intake: IV 1099 Laboratory Results WBC 11.35 k/cumm (4.4-10.8) H 04/27/19 07:51 RBC 3.99 m/cumm (4.50-6.00) L 04/27/19 07:51 Hgb 12.2 g/dL (13.5-17.5) L 04/27/19 07:51 Hct 37.9 % (40.0-50.0) L 04/27/19 07:51 MCV 95.0 fL (80-95) 04/27/19 07:51 MCH 30.6 pg (27.0-33.0) 04/27/19 07:51 MCHC 32.2 g/dL (32.0-36.0) 04/27/19 07:51 RDW 14.9 % (11.8-14.1) H 04/27/19 07:51 Plt Count 275 x1000/uL (130-400) 04/27/19 07:51 MPV 10.3 fL (8.0-11.0) 04/27/19 07:51 Immature Gran % 0.9 04/26/19 23:59 Neutrophils % 77.4 04/26/19 23:59 Lymphocytes % 12.1 04/26/19 23:59 Monocytes % 7.9 04/26/19 23:59 Eosinophils % 1.5 04/26/19 23:59 Basophils % 0.2 04/26/19 23:59 Absolute Neutrophils 8.46 k/cumm (1.2-6.7) H 04/26/19 23:59 Absolute Lymphocytes 1.32 k/cumm (1.2-3.4) 04/26/19 23:59 Absolute Monocytes 0.86 k/cumm (0.11-0.7) H 04/26/19 23:59 Absolute Eosinophils 0.16 k/cumm (0.0-0.7) 04/26/19 23:59 Absolute Basophils 0.02 k/cumm (0.0-0.2) 04/26/19 23:59 PT 10.5 sec (9.3-11.0) 04/26/19 23:59 INR 1.0 (0.9-1.1) 04/26/19 23:59 APTT 30.1 sec (21.0-31.4) 04/26/19 23:59 Sodium 139 mmol/L (136-145) 04/26/19 23:59 Potassium 4.8 mmol/L (3.5-5.1) 04/26/19 23:59 Chloride 104 mmol/L (98-107) 04/26/19 23:59 Carbon Dioxide 26.4 mmol/L (21.0-32.0) 04/26/19 23:59 Anion Gap 8.6 mmol/L (3-11) 04/26/19 23:59 BUN 20 mg/dL (7-18) H 04/26/19 23:59 Creatinine 1.67 mg/dL (0.70-1.30) H 04/26/19 23:59 Estimated GFR/1.73 m2 40.20 (mL/min/1.73m2) 04/26/19 23:59 Glucose 144 mg/dL (70-100) H 04/26/19 23:59 Calcium 8.9 mg/dL (8.5-10.1) 04/26/19 23:59 Total Bilirubin 0.8 mg/dL (0.2-1.0) 04/26/19 23:59 AST 57 U/L (15-37) H 04/26/19 23:59 ALT 141 U/L (16-63) H 04/26/19 23:59 Alkaline Phosphatase 98 U/L (46-116) 04/26/19 23:59 Troponin I < 0.05 ng/mL (0.00-0.06) 04/26/19 23:59 NT-Pro-B Natriuret Pep 144 pg/mL (-299) 04/26/19 23:59 Total Protein 7.2 g/dL (6.4-8.2) 04/26/19 23:59 Albumin 3.7 g/dL (3.4-5.0) 04/26/19 23:59
--- NOTE | 2019-04-27 08:56 | PDOC.CMIN ---
- If Service Date Differs Date of service: 04/27/19 Time of Service: 08:56 Care Management Initial Assess REASON FOR HOSPITALIZATION:: Syncope PAST MEDICAL HISTORY/PAST SURGICAL HISTORY:: Medical History. Hyperlipidemia (Chronic). Hypertension (Chronic). Uric acid stone in urine (Acute). Surgical History. 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 He has been staying most of the time in [place], [place]. 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 He is very independent at baseline, although he has used crutches in recent history due to an unrelated injury. He is to Noemy Barrera who loves to cook and garden, and feeds him well. CURRENT FUNCTIONAL STATUS:: Josep is having an echo during CM visit, His spouse is present and able to provide details related to his current status and readmission. Spouse states that Josep has been doing well at home up until the last few days. She reports he had just stop using his crutches and has been trying to be more independent. Josep has not met with Hematology clinic since his discharge, his appointment was schedule for Friday this week his spouse has canceled and will reschedule once she knows the discharge plan. ADVANCE DIRECTIVES:: None on file - not completed at this time offered packet. Has patient been provided with information about the portal?: Yes Did the patient sign up for the portal?: No CODE STATUS:: Full Code INSURANCE COVERAGE / FINANCIAL ISSUES:: [facility]/ BCBS CURRENT HOME/COMMUNITY SERVICES/EQUIPMENT:: Crutches at home. He does have an orthopedic,urology, and chiropractic provider in the community. Josep continues on Lovenox BID which he is able to inject on his own and obtains his prescription through [facility] in [place], [place]. PRIMARY CARE PHYSICIAN:: POTENTIAL DISCHARGE NEEDS:: Follow up with primary care. Josep is scheudled for May 31 for new patient work up. PATIENT/FAMILY EDUCATION NEEDS:: Discharge education, limitations and follow up plan of care including ask me three and self management. ANTICIPATED BARRIERS TO DISCHARGE:: None TRANSPORTATION:: Via private car with spouse at time of discharge. PLAN:: Josep is having an echo today, he will be discharged home when medically ready anticipate no additional services. His spouse will need to reschedule the hematology appointment if apporpiate at time of discharge. CM to continue to provide support discharge planning and anticipated needs. Readmission - Within the Past 30 Days Yes or No: Y - Date of First Admission Date of 1st Admission: 04/01/19 - Date of this Admission Date of Admission: 04/27/19 This admission was: Through ED - Office Visit Since 1st Admission Have you seen your PCP in the office since discharge?: Yes Date of PCP Appointment: 04/07/19 Had an appointment Been Scheduled?: Yes - Speicalist Appointments Have you seen any other specialist since your 1st Admission?: No - I. Interview patient and/or Family Difficulty reaching your doctor or getting an office appt?: No Have you had trouble purchasing/ or taking medication?: No How do you take your medications and set up your pills?: Spouse assist with medicaitons he is able to inject his own lovenox Have you had trouble with getting meals at home?: No Did you feel ready for discharge when you left the last time: Yes Did you call your physician beore you came to the ED?: No Did your physician tell you to come in?: No How do you think you became sick enough to come back?: Spouse states that he became spacey and he was vomiting prior to admission. - ED visits How many ED visits in the past 12 months: 2 - Assessment for Readmission Summary of readmission circumstances, based upon interviews: Josep was discharged home with no home health services. He is independent at home is able to take his medications. Josep felt ready for discharge home at the time he left. His spouse does describe the cost of Lovenox as a challenge however she has been able to find it at a lower cost at the local pharmacy and has been able to obtain the medication. Noemy Baker feels that Josep has been moving less than his baseline and she feels that his chronic pain has been an issue. She is worried that his energy levels are low. She states she does feel the admission are related.
[2019-04-27] MEDS: Enoxaparin 120 MG/0.8 ML SYR 110 MG SC ×2 (09:47→19:52)
[2019-04-27] MEDS: Aspirin E.C. 81 MG TABEC PO (09:47)
--- NOTE | 2019-04-27 10:41 | PHARADMIT ---
Admission Pharmacy Clinical Review SYNCOPE Code Status Full Code Current Weight 111.1 kg Renally Cleared and Narrow Therapeutic Index Meds CrCl~42ml/min QTc Value / Action Taken QTC 445 BP Control, Fever BP 14/86 Afebrile Hip Pain 10 (No pain meds ordered, had 1x doses ...just APAP and none given) Electrolytes reviewed K+ 5.1 DVT Prophylaxis Lovenox 110mg Q12h for Hx of multiple PE's....doppler today to rule out DVT's Opiate Usage / Scheduled Bowel Regimen Ordered some 1x doses-yes prn bowel meds Plt/SCr for Heparin / Enoxaparin Plt 275 SCr 1.56 INR for Warfarin H/H stable, WBC/Bands H/H 12.2/37.9 WBC 11.35 Antibiotic appropriateness Cultures and Sensitivities n/a Surgical ABX d/c within 24 hr DM control / Insulin Dosing BG 133 Heart Failure (Check EF%) (FERNANDO's, B-Block, Diuretics) Metoprolol IV to PO Switch Home Meds Reviewed Home Meds Not Ordered ok Comments troponin neg, CT negative for PE transfer to /S when bed avail
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
[2019-04-27 12:08] LABS: Magnesium 2.1 mg/dL (1.8-2.4)
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
[2019-04-27 12:29] LABS: Troponin I < 0.05 ng/mL (0.00-0.06)
[2019-04-27] MEDS: Acetaminophen 325 MG TAB 650 MG PO (22:15)
[2019-04-28] VITALS (67 sets, daily range): BP systolic 116–173; BP diastolic 62–94; PULSE 75–112; RESP 10–26; TEMP 37.4–37.7; O2SAT 83–98
[2019-04-28] MEDS: Normal Saline 1,000 ML 125 ML IV ×2 (06:45→16:15)
[2019-04-28] MEDS: Aspirin E.C. 81 MG TABEC PO (07:44)
[2019-04-28] MEDS: Metoprolol 25 MG TAB PO ×2 (07:44→16:14)
[2019-04-28] MEDS: Normal Saline Flush 10 ML SYR IVP ×2 (08:12→21:57)
[2019-04-28] MEDS: HYDROmorphone 2 MG/ML VIAL IVP ×4 (08:13→21:55)
--- NOTE | 2019-04-28 08:26 | W.PM.PROGNOT ---
Date of Service Date of service: 04/28/19 Time of Service: 08:26 Subjective Subjective Interval history since last seen: Bladder scan 623, difficulty urinating. Significant sciatica pain - got dilaudid both at 10:30 last night and also this morning. Feels worse today. Objective Objective Clinical Data: Abnormal lab results 04/27/19 Range/Units 07:51 BUN 20 H (7-18) mg/dL Creatinine 1.56 H (0.70-1.30) mg/dL Glucose 133 H (70-100) mg/dL AST 43 H (15-37) U/L ALT 118 H (16-63) U/L Vital Signs Temperature 37.5 C 04/27/19 20:25 Temperature Source Temporal Artery Scan 04/27/19 19:30 Pulse 82 04/28/19 07:47 Pulse Rhythm Regular 04/27/19 23:40 Pulse 87 04/28/19 07:47 Respiratory Rate 10 L 04/28/19 04:01 Respiratory Effort Non-Labored 04/27/19 23:40 Respiratory Depth Normal 04/27/19 23:40 Respiratory Pattern Normal 04/27/19 23:40 Blood Pressure 122/77 04/28/19 07:47 Blood Pressure Mean 89 04/28/19 07:47 Blood Pressure Position Supine 04/27/19 12:30 Pulse Oximetry 96 04/27/19 19:01 Oxygen Delivery Method Room Air 04/27/19 19:30 Oxygen Flow Rate 0 04/27/19 19:30 Pain Level 10 04/28/19 08:13 Intake & Output 04/27/19 04/27/19 04/28/19 11:59 23:59 11:59 Intake Total 1620 / 4266.667 2646.667 / 4266.667 1118.75 / 1118.75 Output Total 0 / 400 400 / 400 Balance 1620 / 3866.667 2246.667 / 3866.667 1118.75 / 1118.75 Weight 111.1 kg Intake: IV 1600 / 3516.667 1916.667 / 3516.667 968.75 / 968.75 Oral 20 / 750 730 / 750 150 / 150 Output: Urine 0 / 400 400 / 400 Other: Urine Color Yellow Straw Urine Appearance Clear Urine Odor Normal Comment Pt has not voided since his admission to the hospital, per his . Voiding Methods Urinal Laboratory Results WBC 11.35 k/cumm (4.4-10.8) H 04/27/19 07:51 RBC 3.99 m/cumm (4.50-6.00) L 04/27/19 07:51 Hgb 12.2 g/dL (13.5-17.5) L 04/27/19 07:51 Hct 37.9 % (40.0-50.0) L 04/27/19 07:51 MCV 95.0 fL (80-95) 04/27/19 07:51 MCH 30.6 pg (27.0-33.0) 04/27/19 07:51 MCHC 32.2 g/dL (32.0-36.0) 04/27/19 07:51 RDW 14.9 % (11.8-14.1) H 04/27/19 07:51 Plt Count 275 x1000/uL (130-400) 04/27/19 07:51 MPV 10.3 fL (8.0-11.0) 04/27/19 07:51 Immature Gran % 0.9 04/26/19 23:59 Neutrophils % 77.4 04/26/19 23:59 Lymphocytes % 12.1 04/26/19 23:59 Monocytes % 7.9 04/26/19 23:59 Eosinophils % 1.5 04/26/19 23:59 Basophils % 0.2 04/26/19 23:59 Absolute Neutrophils 8.46 k/cumm (1.2-6.7) H 04/26/19 23:59 Absolute Lymphocytes 1.32 k/cumm (1.2-3.4) 04/26/19 23:59 Absolute Monocytes 0.86 k/cumm (0.11-0.7) H 04/26/19 23:59 Absolute Eosinophils 0.16 k/cumm (0.0-0.7) 04/26/19 23:59 Absolute Basophils 0.02 k/cumm (0.0-0.2) 04/26/19 23:59 PT 10.5 sec (9.3-11.0) 04/26/19 23:59 INR 1.0 (0.9-1.1) 04/26/19 23:59 APTT 30.1 sec (21.0-31.4) 04/26/19 23:59 Sodium Cancelled 04/28/19 05:35 Potassium Cancelled 04/28/19 05:35 Chloride Cancelled 04/28/19 05:35 Carbon Dioxide Cancelled 04/28/19 05:35 Anion Gap Cancelled 04/28/19 05:35 BUN Cancelled 04/28/19 05:35 Creatinine Cancelled 04/28/19 05:35 Estimated GFR/1.73 m2 Cancelled 04/28/19 05:35 Glucose Cancelled 04/28/19 05:35 Calcium Cancelled 04/28/19 05:35 Magnesium 2.1 mg/dL (1.8-2.4) 04/27/19 07:51 Total Bilirubin 0.9 mg/dL (0.2-1.0) 04/27/19 07:51 AST 43 U/L (15-37) H 04/27/19 07:51 ALT 118 U/L (16-63) H 04/27/19 07:51 Alkaline Phosphatase 92 U/L (46-116) 04/27/19 07:51 Troponin I < 0.05 ng/mL (0.00-0.06) 04/27/19 07:51 NT-Pro-B Natriuret Pep 144 pg/mL (-299) 04/26/19 23:59 Total Protein 6.8 g/dL (6.4-8.2) 04/27/19 07:51 Albumin 3.4 g/dL (3.4-5.0) 04/27/19 07:51
[2019-04-28 09:11] LABS: ALT 105 U/L (16-63); AST 48 U/L (15-37); Albumin 3.4 g/dL (3.4-5.0); Alkaline Phosphatase 87 U/L (46-116); Anion Gap 11.5 mmol/L (3-11); BUN 20 mg/dL (7-18); Bilirubin, Total 1.2 mg/dL (0.2-1.0); CO2 22.5 mmol/L (21.0-32.0); CREATININE 1.49 mg/dL (0.70-1.30); Calcium 8.5 mg/dL (8.5-10.1); Chloride 106 mmol/L (98-107); Estimated GFR 45.85 (mL/min/1.73m2); Glucose 98 mg/dL (70-100); Potassium 4.4 mmol/L (3.5-5.1); Sodium 140 mmol/L (136-145)
[2019-04-28 09:12] LABS: Abs Immature Grans 0.06 k/cumm (0.0-0.09); Absolute Basophil Count 0.02 k/cumm (0.0-0.2); Absolute Eosinophil Count 0.13 k/cumm (0.0-0.7); Absolute Lymphocyte Count 1.12 k/cumm (1.2-3.4); Absolute Monocyte Count 1.19 k/cumm (0.11-0.7); Absolute Neutrophil Count 7.12 k/cumm (1.2-6.7); Basophils % 0.2; Eosinophils % 1.3; HCT 36.1 % (40.0-50.0); HGB 11.6 g/dL (13.5-17.5); Immature Grans % 0.6; Lymphocytes % 11.6; Mean Corp. HGB Concentration 32.1 g/dL (32.0-36.0); Mean Corpuscular Hemoglobin 31.1 pg (27.0-33.0); Mean Corpuscular Volume 96.8 fL (80-95); Mean Platelet Volume 10.8 fL (8.0-11.0); Monocytes % 12.3; Platelet Count 207 x1000/uL (130-400); RBC 3.73 m/cumm (4.50-6.00); White Blood Cell Count 9.64 k/cumm (4.4-10.8)
[2019-04-28] MEDS: Enoxaparin 120 MG/0.8 ML SYR 110 MG SC (10:44)
[2019-04-28] MEDS: Cyclobenzaprine 10 MG TAB PO (10:46)
--- NOTE | 2019-04-28 12:43 | CMPROGNOTE_ITS ---
- If Service Date Differs Date of service: 04/28/19 Time of Service: 12:43 Care Management Progress Note S/O: CM met with Josep at the bedside he remains acute at this time. He will be discharged home when he is medically ready. is following him for Urology as outpatient, Josep may be able to change from Lovenox to oral anticoagulation he uses [facility] in [place] for his prescriptions. The prescription will need to be faxed to pharmacy for verification of coverage. Josep will have a MRI today r/t pain and provider is treating urinary retention. A: Josep is a 78 year old male admitted with Syncope P: Josep will be discharged home when medically ready. Josep will not have any anticipated services. Anticipate Josep will have a new prescription for anticoagulation and will need a prescription sent to [facility] in [place], [place] for verification of coverage. His spouse Noemy Baker will transport home at time of discharge.
[2019-04-28] MEDS: Lidocaine 2% Jelly 11 ML SYR UR (12:58)
--- NOTE | 2019-04-28 13:09 | DI.MRI_ITS ---
EXAM: MR LUMBAR SPINE WO CLINICAL HISTORY: lumbar radiculopathy. TECHNIQUE: Multiplanar multisequence MRI was performed. The lumbar MRI was carried out according to the usual protocol. COMPARISON: No exams were available for comparison FINDINGS: There is no evidence of spondylolisthesis. Note is made of hemangioma of the L2 vertebra. Also, there is a prominent Schmorl's node at the inferior endplate of L4. The spinal cord is intact. There is n o evidence of cord compression. There is an L1-2 disc bulge. There is no evidence of spinal canal st enosis. There is no evidence of neural foraminal narrowing. At L2-3, a disc bulge is identified. Th ere is bilateral facet joint hypertrophy and mild spinal stenosis. Note is made of prominence of the ligamentum flavum. There is mild bilateral neural foraminal narrowing. At L3-4, there is a disc bulg e. There is a superimposed central and right-sided paracentral disc protrusion. There is bilateral fa cet joint DJD and prominence of the ligamentum flavum. There is evidence of severe spinal canal steno sis and moderate right and mild left neural foraminal narrowing. At L4-L5, a disc bulge is identified . Bilateral facet joint hypertrophy and prominence of ligamentum flavum are identified. There is mo derate spinal canal stenosis and moderate bilateral neural foraminal narrowing. At L5-S1, there is no evidence of significant disc disease. There is no evidence of spinal stenosis. The bony signal is intact. Note is made of fatty atrophy of the paraspinal musculature. IMPRESSION: No acute abnormality is demonstrated. There is multilevel degenerative disc disease with neural viviana inal narrowing. Mild bilateral neural foraminal narrowing is noted at L2-3, moderate right and mild l eft at L3-4 and moderate bilateral at L4-5. There is mild spinal canal stenosis at L2-3 and severe fi ndings are noted at L3-4 and moderate at L4-5.
--- NOTE | 2019-04-28 14:54 | DI.VRAD_ITS ---
PROCEDURE INFORMATION: Exam: MR Lumbar Spine Without Contrast. Exam date and time: 04/28/2019 1:10 PM Clinical history: 78 years old, male; Low back pain; Patient HX: Radiculopathy TECHNIQUE: Imaging protocol: Multiplanar magnetic resonance images of the lumbar spine without intravenous contrast. COMPARISON: CT LUMBAR SPINE WO 04/27/2019 12:49 AM FINDINGS: Vertebrae: No spondylolisthesis. Hemangioma of L2 vertebra. Prominent Schmorl's node at the inferior endplate of L4 vertebra. Spinal cord: Normal signal. No cord compression. L1-L2: Disc bulge. No spinal canal stenosis. No neural foramina narrowing. L2-L3: Disc bulge. Bilateral facet hypertrophy. Mild spinal canal stenosis. Ligamentum flavum hypertrophy. Mild bilateral neural foramina narrowing. L3-L4: Disc bulge. There is superimposed central and right paracentral disc protrusion. Bilateral facet and ligamentum flavum hypertrophy. Severe spinal canal stenosis. Moderate right and the mild left neural foramina narrowing. L4-L5: Disc bulge. Bilateral facet and ligamentum flavum hypertrophy. Moderate spinal canal stenosis. Moderate bilateral neural foramina narrowing. L5-S1: No significant disc disease. No significant spinal stenosis. Other bones/joints: No abnormal bone marrow signal. No acute fracture. Soft tissues: Fatty atrophy of the paraspinal musculature. Other findings: No abnormal STIR signal. IMPRESSION: No acute abnormality. Multilevel degenerative disc disease with neural foramina narrowing. Mild bilateral neural foramina narrowing at L2-L3, moderate right and mild left at L3-L4, moderate bilateral L4-L5. Mild spinal canal stenosis at the L2-L3, severe L3-L4 and moderate L4-L5. Dictated and Authenticated by: Anthony Oates MD. Ordering:JOSSELYN Yadav MD
[2019-04-28 15:34] LABS: Bilirubin Negative (Negative); Blood Trace-intact (Negative); Clarity Clear (Clear); Glucose Negative (Negative); Ketones Negative (Negative); Leukocyte Esterase Negative (Negative); Nitrite Negative (Negative); Urobilinogen 0.2 EU/dL (Up TO 0.2)
[2019-04-28 15:46] LABS: Creatine Kinase 403 U/L (39-308)
[2019-04-28 15:47] LABS: Bacteria Negative HPF (Negative); C & S Indicated? C&S Done As Ordered; Casts Negative LPF (Negative); Crystals Negative HPF (Negative); Epithelial Cells Few HPF (Negative); Mucus Negative (Negative); Other Cells Negative (Negative)
[2019-04-28] MEDS: Ciprofloxacin 0.3% 2.5 ML BTL OU (16:26)
[2019-04-28] MEDS: Tamsulosin 0.4 MG CAPCR PO (17:37)
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
[2019-04-28] MEDS: Acetaminophen 325 MG TAB 650 MG PO (19:46)
--- NOTE | 2019-04-28 22:36 | NUR.NOTE ---
2 mg hydromorphone given to nica ilda lfetcher for transsport- he will call back to report time given or return unused drug Nursing Note:
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
== END 2019-04-28 22:10 | DRG 312 ==
LOC: ER 04-27 03:05 → ICU 04-27 10:44
PROVIDERS: Admitting Provider Family Medicine; Emergency Provider Student in an Organized Health Care Education/Training Program; PCP Family Medicine; Visit Provider Internal Medicine
DX: R55 Syncope and collapse (principal); G83.4 Cauda equina syndrome; M48.061 Spinal stenosis, lumbar region without neurogenic claudication; M51.36 Other intervertebral disc degeneration, lumbar region; Z86.711 Personal history of pulmonary embolism; Z86.718 Personal history of other venous thrombosis and embolism; M54.31 Sciatica, right side; N18.9 Chronic kidney disease, unspecified; I12.9 Hypertensive chronic kidney disease with stage 1 through stage 4 chronic kidney disease, or unspecified chronic kidney disease; R33.9 Retention of urine, unspecified; E78.5 Hyperlipidemia, unspecified
CPT/HCPCS: 36415; 71275; 80048; 80053; 82550; 85027; 93005; 93306; 96361; 96365; 96375; 96376; 97162; 99223; 99285; 99291; NC; 70450; 72131; 72148; 74176; 81003; 81015; 83735; 83880; 84484; 85025; 85610; 85730; 87086; 93010; 99292; J0131; J1650; J3490

== ENCOUNTER 2019-05-19 09:59 | Emergency (ER) | payer MEDICARE, BC, SELFPAY ==
[2019-05-19 10:01] VITALS: BP 142/86; PULSE 97; RESP 16; TEMP 36.4; O2SAT 98
[2019-05-19] MEDS: Ondansetron O.D.T. 4 MG TABEF PO (11:33)
[2019-05-19] MEDS: HYDROmorphone 2 MG/ML VIAL 1 MG IVP ×2 (11:33→14:00)
[2019-05-19 11:34] LABS: Abs Immature Grans 0.23 k/cumm (0.0-0.09); Absolute Basophil Count 0.03 k/cumm (0.0-0.2); Absolute Eosinophil Count 0.27 k/cumm (0.0-0.7); Absolute Lymphocyte Count 1.23 k/cumm (1.2-3.4); Absolute Monocyte Count 0.81 k/cumm (0.11-0.7); Basophils % 0.3; Eosinophils % 2.8; HGB 9.7 g/dL (13.5-17.5); Immature Grans % 2.4; Lymphocytes % 12.9; Mean Corp. HGB Concentration 30.3 g/dL (32.0-36.0); Mean Corpuscular Hemoglobin 29.9 pg (27.0-33.0); Mean Corpuscular Volume 98.8 fL (80-95); Mean Platelet Volume 9.3 fL (8.0-11.0); Monocytes % 8.5; Neutrophils % 73.1; Platelet Count 486 x1000/uL (130-400); RBC 3.24 m/cumm (4.50-6.00); RBC Distribution Width 15.4 % (11.8-14.1); White Blood Cell Count 9.57 k/cumm (4.4-10.8)
[2019-05-19 11:51] LABS: Anisocytosis 1+; Diff Comment RBC Morph Reviewed; Polychromasia Present
[2019-05-19 11:54] LABS: ALT 89 U/L (16-63); AST 51 U/L (15-37); Albumin 3.3 g/dL (3.4-5.0); Alkaline Phosphatase 90 U/L (46-116); Anion Gap 7.9 mmol/L (3-11); BUN 18 mg/dL (7-18); Bilirubin, Total 0.7 mg/dL (0.2-1.0); CO2 26.1 mmol/L (21.0-32.0); CREATININE 1.52 mg/dL (0.70-1.30); Calcium 8.6 mg/dL (8.5-10.1); Chloride 105 mmol/L (98-107); Estimated GFR 44.81 (mL/min/1.73m2); Glucose 100 mg/dL (70-100); Sodium 139 mmol/L (136-145); Total Protein 6.8 g/dL (6.4-8.2)
--- NOTE | 2019-05-19 12:50 | W.ED.GENAD ---
Discharge Plan Disposition Patient Disposition: [facility] (LEVEL [facility] Condition: Stable Discharge Details Chief Complaint: Nk/Back Pain Clinical Impression: Back pain Primary Care Provider: Patrick Han ED Provider: Kristine Watts Home Meds and New Rx's Prescriptions: No Action aspirin [Aspir-81] 81 MG tablet,delayed release (DR/EC) 81 mg PO QAM RF: 0 enoxaparin [Lovenox] 120 mg/0.8 mL Syringe 110 mg subcut Q12H Qty: 0 RF: 0 Medical Decision Making Spoke with neurosurgeon at [facility] who is familiar with this patient. There is no scheduled surgical intervention at this time. Plan of care on discharge was to hopefully manage this patient's pain medically but if failed consider surgical intervention. Surgical intervention was deferred primarily due to his complicated medical history including recent PEs bilaterally. Surgeon reports he believes his PEs have cleared however the plan remained to medically manage patient's pain, he did receive an epidural. He did receive p.o. steroids while inpatient. Neurosurgery does recommend steroids at this time in addition to medication management for better pain control. PT eval; patient ultimately was deemed unsafe to go home on his own given his difficulty ambulating. refrigeration manager contacted. Able to place patient at the [facility] and rehab. Plan of care is discharged to [facility] Date/Time Provider Initiated Documentation: 05/19/19 10:16. [facility] Narrative: Is a 78-year-old Ethiopian who presents for complaints of back pain. Patient specifically reports right sciatic pain. Patient reports he was recently discharged from [facility] hospital 1 week ago. He did well at home for approximately 4 to 5 days before he had onset of lower back pain. Patient reports he did receive an epidural injection while in the hospital. Patient reports he does have a surgical cause of his back pain and did discuss with neurosurgery recently his options. Plan of care given his multiple medical conditions was to attempt medication management before any surgical intervention was pursued. Patient reports he has not had any follow-up physical therapy as he was seen at [facility] and they recommended a rehab facility in the area for follow-up purposes. Patient reports he is followed up over the phone but to drive to the facility is too far. Patient is accompanied by his reports he has had difficulty getting around in the last few days, required ambulance to get to the emergency room today. Patient has Dilaudid 2 mg tablets at home which he has been compliant with. He reports he is taken approximately 5 tablets in the last week. Patient reports he did take a tablet of medication today prior to arrival and does report no significant relief of his pain. Patient continues to have difficulty tolerating the pain. Patient reports the pain is in the similar location and similar in character to the previous back pain he has experienced. Patient specifically points to the sciatic area of his right buttocks as site of pain and reports pain has began to escalate in the last 24 hours. Denies any fevers, chills, nausea, vomiting. Denies any ill feeling. Labs were ordered for reassurance that there is no indication of infection. Patient has no significant change in his white blood cell count at this time. Patient was given Dilaudid 1 mg which was somewhat helpful to improve the pain he is experienced although does not fully relieve his pain. Patient evaluated by physical therapy for safety evaluation who feels patient is not safe for discharge home at this time. They do not feel he is able to ambulate at home. Spoke with window caser who will try to find a rehab facility for the patient for safety placement while pending medication management and reevaluation by neurosurgery. refrigeration manager was able to find a rehab facility at the [facility] who is able to take the patient tonight. Patient has sufficient amount of pain medication. Plan of care will include rehab with physical therapy and follow-up with neurosurgery if continues to fail outpatient treatment. Patient and agree with plan of care Related Data Home Medications Medication Instructions Recorded Confirmed aspirin [Aspir-81] 81 mg PO QAM 01/09/13 05/19/19 enoxaparin [Lovenox] 110 mg SUBCUT Q12H #0 ml 04/04/19 05/19/19 Previous Rx's Medication Instructions Recorded enoxaparin [Lovenox] 110 mg SUBCUT Q12H #0 ml 04/04/19 Allergies Allergy/AdvReac Type Severity Reaction Status Date / Time No Known Allergies Allergy Verified 05/19/19 10:05 General Stated Complaint: Nk/Back Pain MAYELIN: 3 PFSH Social History Smoking/Tobacco Use Status: Never Alcohol Intake: never Drug use: Never Substance use type: does not use Do you feel safe at home: Yes Do you feel safe in your relationship?: Yes Course Vital Signs Vital signs: Vital Signs Temperature 36.4 C L 05/19/19 10:01 Pulse 97 H 05/19/19 10:01 Respiratory Rate 16 05/19/19 10:01 Blood Pressure 142/86 H 05/19/19 10:01 Pulse Oximetry 98 05/19/19 10:01 Temperature 36.4 C L 05/19/19 10:01 Temperature Source Temporal Artery Scan 05/19/19 10:01 Pulse 97 H 05/19/19 10:01 Respiratory Rate 16 05/19/19 10:01 Respiratory Effort Non-Labored 05/19/19 10:04 Blood Pressure 142/86 H 05/19/19 10:01 Blood Pressure Position Supine 05/19/19 10:01 Pulse Oximetry 98 05/19/19 10:01 Oxygen Delivery Method Room Air 05/19/19 10:01 Oxygen Flow Rate 0 05/19/19 10:01 Pain Level 10 05/19/19 10:06 Lab/Test Results Lab/Test Results: Laboratory Tests Range/Units 05/19/19 05/19/19 11:26 11:26 WBC (4.4-10.8) k/cumm 9.57 RBC (4.50-6.00) m/cumm 3.24 L Hgb (13.5-17.5) g/dL 9.7 L Hct (40.0-50.0) % 32.0 L MCV (80-95) fL 98.8 H MCH (27.0-33.0) pg 29.9 MCHC (32.0-36.0) g/dL 30.3 L RDW (11.8-14.1) % 15.4 H Plt Count (130-400) x1000/uL 486 H D MPV (8.0-11.0) fL 9.3 Immature Gran % 2.4 Neutrophils % 73.1 Lymphocytes % 12.9 Monocytes % 8.5 Eosinophils % 2.8 Basophils % 0.3 Absolute Neutrophils (1.2-6.7) k/cumm 7.00 H Absolute Lymphocytes (1.2-3.4) k/cumm 1.23 Absolute Monocytes (0.11-0.7) k/cumm 0.81 H Absolute Eosinophils (0.0-0.7) k/cumm 0.27 Absolute Basophils (0.0-0.2) k/cumm 0.03 Differential Comment Rbc morph reviewed RBC Morphology See below Polychromasia Present Anisocytosis 1+ Sodium (136-145) mmol/L 139 Potassium (3.5-5.1) mmol/L 5.0 Chloride (98-107) mmol/L 105 Carbon Dioxide (21.0-32.0) mmol/L 26.1 Anion Gap (3-11) mmol/L 7.9 BUN (7-18) mg/dL 18 Creatinine (0.70-1.30) mg/dL 1.52 H Estimated GFR/1.73 m2 (mL/min/1.73m2) 44.81 Glucose (70-100) mg/dL 100 Calcium (8.5-10.1) mg/dL 8.6 Total Bilirubin (0.2-1.0) mg/dL 0.7 AST (15-37) U/L 51 H ALT (16-63) U/L 89 H Alkaline Phosphatase (46-116) U/L 90 Total Protein (6.4-8.2) g/dL 6.8 Albumin (3.4-5.0) g/dL 3.3 L
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
[2019-05-19] MEDS: Dexamethasone 10 MG/ML VIAL IVP (13:32)
--- NOTE | 2019-05-19 14:18 | CMPROGNOTE_ITS ---
Care Management Progress Note CM met with Josep and his , Noemy Baker at the bedside. Josep and his reviewed his stay at [facility] and his struggles since returning home. CM reviewed options. Josep was agreeable to rehab. CM coordinated referral and discharge to [facility], and coordinated [facility].
--- NOTE | 2019-05-19 14:18 | PDOC.ERCMPRO ---
Care Management Progress Note CM met with Josep and his , Noemy Baker at the bedside. Josep and his reviewed his stay at [facility] and his struggles since returning home. CM reviewed options. Josep was agreeable to rehab. CM coordinated referral and discharge to [facility], and coordinated transport via [facility].
[2019-05-19] MEDS: Acetaminophen 500 MG TAB 1000 MG PO (14:19)
[2019-05-19 15:10] VITALS: BP 119/75; PULSE 96; RESP 18; TEMP 36.6; O2SAT 99
== END 2019-05-19 15:30 | disposition skilled nursing facility (03) ==
PROVIDERS: Emergency Provider Physician Assistant; PCP Family Medicine
DX: M54.5 Low back pain (principal); N18.9 Chronic kidney disease, unspecified; I12.9 Hypertensive chronic kidney disease with stage 1 through stage 4 chronic kidney disease, or unspecified chronic kidney disease
CPT/HCPCS: 36415; 80053; 96374; 96375; 96376; 97162; 99284; 81003; 85025; J1100

== ENCOUNTER 2019-06-05 13:01 | Outpatient (REF) | payer MEDICARE, BC, SELFPAY ==
[2019-06-05 13:54] LABS: Abs Immature Grans 0.14 k/cumm (0.0-0.09); Absolute Basophil Count 0.03 k/cumm (0.0-0.2); Absolute Lymphocyte Count 1.29 k/cumm (1.2-3.4); Absolute Neutrophil Count 7.24 k/cumm (1.2-6.7); Basophils % 0.3; HCT 29.9 % (40.0-50.0); HGB 8.9 g/dL (13.5-17.5); Immature Grans % 1.4; Lymphocytes % 12.9; Mean Corp. HGB Concentration 29.8 g/dL (32.0-36.0); Mean Corpuscular Hemoglobin 28.4 pg (27.0-33.0); Mean Corpuscular Volume 95.5 fL (80-95); Mean Platelet Volume 9.8 fL (8.0-11.0); Neutrophils % 72.4; RBC 3.13 m/cumm (4.50-6.00); RBC Distribution Width 15.1 % (11.8-14.1)
[2019-06-05 14:03] LABS: Anion Gap 8.2 mmol/L (3-11); BUN 17 mg/dL (7-18); CO2 27.8 mmol/L (21.0-32.0); CREATININE 1.21 mg/dL (0.70-1.30); Chloride 104 mmol/L (98-107); Glucose 100 mg/dL (74-106); Potassium 5.2 mmol/L (3.5-5.1); Sodium 140 mmol/L (136-145)
[2019-06-05 14:21] LABS: Anisocytosis 1+; Diff Comment RBC Morph Reviewed; Hypochromasia 1+; Platelet Count 658 x1000/uL (130-400); Polychromasia Present
== END 2019-06-05 13:21 ==
LOC: LBN 13:01
PROVIDERS: Visit Provider Nurse Practitioner Adult Health
DX: D72.9 Disorder of white blood cells, unspecified (principal); D64.9 Anemia, unspecified
CPT/HCPCS: 80048; 85025

== ENCOUNTER 2019-08-05 10:14 | Outpatient (CLI) | payer MEDICARE, BC, SELFPAY ==
[2019-08-05 10:58] LABS: INR 1.1 (0.9-1.1); Prothrombin Time 10.6 sec (9.3-11.0)
== END 2019-08-05 10:34 ==
PROVIDERS: PCP Family Medicine; Visit Provider Internal Medicine
DX: D68.59 Other primary thrombophilia (principal); I26.99 Other pulmonary embolism without acute cor pulmonale; Z79.01 Long term (current) use of anticoagulants
CPT/HCPCS: 36415; 85610

== ENCOUNTER 2019-08-09 07:51 | Outpatient (CLI) | payer MEDICARE, BC, SELFPAY ==
[2019-08-09 08:34] LABS: INR 1.4 (0.9-1.1); Prothrombin Time 14.1 sec (9.3-11.0)
== END 2019-08-09 08:11 ==
PROVIDERS: PCP Family Medicine; Visit Provider Family Medicine
DX: D68.59 Other primary thrombophilia (principal)
CPT/HCPCS: 36415; 85610

== ENCOUNTER 2019-08-12 07:34 | Outpatient (CLI) | payer MEDICARE, BC, SELFPAY ==
[2019-08-12 08:24] LABS: INR 1.8 (0.9-1.1); Prothrombin Time 17.4 sec (9.3-11.0)
== END 2019-08-12 07:54 ==
PROVIDERS: PCP Family Medicine; Visit Provider Internal Medicine
DX: D68.59 Other primary thrombophilia (principal)
CPT/HCPCS: 36415; 85610

== ENCOUNTER 2019-08-18 09:02 | Emergency (ER) | payer MEDICARE, BC, SELFPAY ==
[2019-08-18 09:12] VITALS: BP 147/88; PULSE 80; RESP 20; TEMP 36.4; O2SAT 96
--- NOTE | 2019-08-18 09:16 | W.ED.GENAD ---
Discharge Plan Disposition Patient Disposition: HOME Condition: Stable Discharge Details Chief Complaint: EarProblem Clinical Impression: Cerumen impaction Primary Care Provider: Patrick Han ED Provider: Taylor Kidd Home Meds and New Rx's Prescriptions: Continued enoxaparin [Lovenox] 120 mg/0.8 mL syringe 110 mg subcut DAILY RF: 0 cyanocobalamin (vitamin B-12) 1,000 mcg capsule 1,000 mcg PO DAILY RF: 0 diltiazem HCl 60 mg tablet 60 mg PO QID Qty: 360 RF: 3 tamsulosin 0.4 mg capsule 0.8 mg PO DAILY Qty: 180 RF: 3 aspirin [Aspir-81] 81 MG tablet,delayed release (DR/EC) 81 mg PO QAM RF: 0 Discharge Instructions Instructions: Cerumen Impaction (ED) Additional Instructions: You may try to irrigate ear with a bulb syringe and warm tap water. Return to the ED if any worsening or concerns. Or ear pain. Follow up with primary care provider in 3-5 days. Return to ED sooner if any worsening or concerns. Increase oral fluids. Referrals: Patrick Han [Primary Care Provider] - Medical Decision Making 78-year-old male presents with decreased hearing in his left ear, reports cerumen impaction which he states happens every 3 to 4 years. 0931: Patient reports being able to hear much better out of his left ear. There is still a little bit of cerumen noted, I am able to visualize the tympanic membrane which is within normal limits. No erythema bulging or swelling. Discussed home care and follow-up with PCP and strict return instructions. Verbalized understanding. HPI General Mode of arrival: ambulatory. Date/Time Provider Initiated Documentation: 08/18/19 09:05. Limitations to Documentation: no limitations. Information obtained by: patient. HPI Narrative: Patient is here for left ear clogged reports trying [id number] cerumen removal without any success. He reports having had his ears cleaned every 3 to 4 years. Denies any fever pain. Does have decreased hearing in his left ear. He is alert and oriented x3. Related Data Home Medications Medication Instructions Recorded Confirmed aspirin [Aspir-81] 81 mg PO QAM 01/09/13 08/18/19 cyanocobalamin (vitamin B-12) 1,000 mcg PO DAILY 07/28/19 08/18/19 1,000 mcg capsule enoxaparin 120 mg/0.8 mL 110 mg SUBCUT DAILY ml 07/28/19 08/18/19 subcutaneous syringe diltiazem HCl 60 mg tablet 60 mg PO QID #360 tab 08/10/19 08/18/19 tamsulosin 0.4 mg capsule 0.8 mg PO DAILY #180 cap 08/10/19 08/18/19 Previous Rx's Medication Instructions Recorded diltiazem HCl 60 mg tablet 60 mg PO QID #360 tab 08/10/19 tamsulosin 0.4 mg capsule 0.8 mg PO DAILY #180 cap 08/10/19 Allergies Allergy/AdvReac Type Severity Reaction Status Date / Time No Known Allergies Allergy Verified 08/18/19 09:15 General Stated Complaint: EarProblem MAYELIN: 5 Review of Systems Narrative: Constitutional: Negative for weight loss, alert and oriented, well groomed, normal body habitus, appears comfortable. HEENT: Denies trauma, headaches, blurry vision, nasal discharge, sore throat, trouble swallowing. Decreased hearing to left ear. Chest: Denies chest pain, palpitations, irregular rhythm, hypertension. Respiratory: Denies Shortness of breath, cough, hemoptysis. GI: Denies abdominal pain, nausea, vomiting, diarrhea, constipation. : Denies dysuria, hematuria, flank pain, rectal bleeding. Neuro: Denies dizziness, blurry vision, weakness, syncope, headache or facial numbness. Hematologic: Denies easy bruising, intolerance to heat or cold, hair loss. [facility] Medical History Sena classified according to extent of body surface involved (Acute) Age 12, playing with matches, history of multiple skin grafting HNP (herniated nucleus pulposus), lumbar (Acute) Hyperlipidemia (Chronic) Hypertension (Chronic) Uric acid stone in urine (Resolved) Surgical History H/O ankle fusion (Acute) S/P cystoscopy with ureteral stent placement (Resolved) Family History Mother , age 98 No problems noted. Father , age96 No problems noted. Sister No problems noted. Son , age 22 No problems noted. Daughter , age 40 Alcohol abuse Hypertension Sepsis Paternal Grandmother , age 102 No problems noted. Social History Smoking/Tobacco Use Status: Never Alcohol Intake: never Drug use: Never Substance use type: does not use Caregiver/Support person: Yes Household members: spouse Housing: house Do you need help understanding health information?: Rarely Pets and animals: Yes Pets and animals: dog(s) Sexually active: No Do you think of yourself as: straight/heterosexual Current gender identity: male What is your relationship status?: How often do you talk on the phone with friends or family?: three or more times per week How often do you get together with friends or relatives?: twice per week How often do you attend hindu or moravian services?: decline to answer Do you belong to any clubs or organized social groups?: no Panel score (0-1 are the most socially isolated patients): 2 Duration: decline to answer Frequency: decline to answer Laurie/Nondenominational: No preference Special laurie needs: No Seatbelt use: sometimes Helmet use: Yes Helmet use: sometimes Drive intox 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 Appears stated age. Normal body habitus. Head: Normocephalic, no trauma. Eyes: Pupils PERRLA, Red reflex noted, EOM's intact. Eyelids symmetrical withour lesions, discharge, or swelling. ENT: Right TM within normal limits, some cerumen noted. Left TM is cerumen impacted. External ear normal to inspection, no mastoid TTP, swelling, or erythema, Nasal turbinates WNL, no nasal discharge. Normal dentition, Posterior pharynx WNL, no exudate. Chest: RRR, Normal S1, S2, distal pulses intact. Resp: Lungs clear to auscultation bilaterally, no wheezes, rales, or rhonchi. Musculoskeletal: Normal gait, 5/5 strength to all four extremities. Skin: No suspicious rashes or lesions. Capillary refill ?2 sec. Neurologic: Cranial nerves II-XII intact. Alert and oriented x 3. DTR's intact. Hematologic/Lymphatic: No ecchymosis, no lymphadenopathy. Course Vital Signs Vital signs: Vital Signs Temperature 36.4 C L 08/18/19 09:12 Pulse 80 08/18/19 09:12 Respiratory Rate 08/18/19 09:12 Blood Pressure 147/88 H 08/18/19 09:12 Pulse Oximetry 96 08/18/19 09:12 Temperature 36.4 C L 08/18/19 09:12 Temperature Source Skin 08/18/19 09:12 Pulse 80 08/18/19 09:12 Respiratory Rate 08/18/19 09:12 Blood Pressure 147/88 H 08/18/19 09:12 Blood Pressure Position Sitting 08/18/19 09:12 Pulse Oximetry 96 08/18/19 09:12 Oxygen Delivery Method Room Air 08/18/19 09:12 Oxygen Flow Rate 0 08/18/19 09:12 Pain Level 0 08/18/19 09:12
== END 2019-08-18 09:37 | disposition home or self-care (01) ==
PROVIDERS: Emergency Provider Registered Nurse Emergency; PCP Family Medicine
DX: H61.22 Impacted cerumen, left ear (principal); I10 Essential (primary) hypertension
CPT/HCPCS: 69209; 99282

== ENCOUNTER 2019-08-23 09:35 | Outpatient (CLI) | payer MEDICARE, BC, SELFPAY ==
[2019-08-23 10:12] LABS: INR 2.6 (0.9-1.1); Prothrombin Time 25.3 sec (9.3-11.0)
== END 2019-08-23 09:55 ==
PROVIDERS: PCP Family Medicine; Visit Provider Internal Medicine
DX: D68.59 Other primary thrombophilia (principal)
CPT/HCPCS: 36415; 85610

== ENCOUNTER 2019-08-26 01:40 | Outpatient (CLI) | payer MEDICARE, BC, SELFPAY ==
--- NOTE | 2019-08-26 07:29 | DI.US_ITS ---
APPROVED REPORT EXAM: Comprehensive 2D, Doppler, and color-flow Echocardiogram Patient Location: Out-Patient Print Designer: Adela Soler RDCS (AE) Rhythm: NSR Indications: pulmonary hypertension i27.20 hypercoagulable state D68.59 Conclusion Normal left ventricular chamber size and wall thickness. Estimated ejection fraction is 55 to 60%. There are no segmental wall motion abnormalities Both atria are normal in size Right ventricle is mildly enlarged. Right ventricular systolic function is normal The aortic valve is trileaflet and sclerotic with trace regurgitation. There is no aortic stenosis Mildly thickened mitral and tricuspid valves Mild mitral and tricuspid regurgitation Estimated right ventricular systolic pressure is 31 mmHg Wall motion Left Ventricle The left ventricle is normal size. The left ventricular ejection fraction is within the normal range. There is normal left ventricular wall thickness. There is normal LV segmental wall motion. Stage I d iastolic dysfunction LVEF is estimated to be 55-60%. Right Ventricle Right ventricle is mildly dilated. The right ventricular systolic function is normal. Atria The left atrium size is normal. The right atrium size is normal. Aortic Valve The Aortic valve is sclerotic. Aortic valve is trileaflet. There is no aortic valvular stenosis. Trac e aortic regurgitation. Mitral Valve Mitral valve leaflets are mildly thickened. Mild mitral regurgitation. Tricuspid Valve The tricuspid valve leaflets are thickened , but open well. Mild tricuspid regurgitation. Estimated R VSP 31 mmHg Great Vessels The aortic root is normal in size. IVC is normal in size and collapses >50% with inspiration. Pericardium There is no pericardial effusion. 2D Dimensions IVSD d PLAX 1.21 cm M: 0.6-1.2 LV Vol A2C d MOD 106.5 mL LVPW d PLAX 0.98 cm M: 0.6 - 1.2 LV Vol A4C d MOD 83.6 mL LVID d PLAX 4.31 cm M: 4.2 - 5.8 LA vol/ BSA A2C s A-L 24.4 mL/m2 Ao Root d 3.58 cm M: 3.1 - 3.7 LA vol/ BSA A4C s A-L 25.2 mL/m2 RVID Base (AP4) 4.41 cm (M/F) 2.5-4.1 LA Vol/ BSA Biplane s A-L 27.5 mL/m2 RA Area A4C 18.69 cm2 LA Area A4C s MOD 18.85 cm2 RA Vol/ BSA A4C s A-L 23.7 mL/m2 LA Area A2C s MOD 20.55 cm2 Ao Asc Diam d 3.71 cm M: 2.6 - 3.4 LV EF A4C MOD 56.5 % LVEF (Jackson's) 63.87 % M: 52 - 72 LV EF A2C MOD 64.3 % LV Volume 71.02 mL M: 62 - 150 LV EF Biplane MOD 63.9 % LV Volume Index 29.96 mL/m2 M: 34 - 74 IVC Diam exp d SLAX 1.46 cm LV Vol Biplane MOD 100.0 mL M-Mode TAPSE 2.44 cm (M/F) <1.7 LV Diastology MV E' medial 0.078 (>0.07 m/s) E/A Ratio 1.1 LV E/e MED 11.20 (<14) MV E Vmax 0.87 (0.4-1.3 m/s) MV E' lateral 0.093 (>0.1 m/s) MV A Vmax 0.80 (0.4-1.3 m/s) LV E/e LAT 9.35 (<14) MV E/A Ratio 1.08 MV E/E' medial 11.21 MV E/E' lateral 9.38 Aortic Valve LVOT Area 3.42 cm2 AoV Area Vmax 2.27 cm2 LVOT Vmax 1.18 m/s AoV Area/ BSA (Vmax) 0.95 cm2/m2 LVOT Mean Silvio. 0.78 m/s BRIDGET Mean Silvio. 2.09 cm2 LVOT Peak Grad 5.6 mmHg BRIDGET Mean Silvio. Index 0.88 cm2/m2 LVOT Mean Grad 2.9 mmHg LVOT VTI 0.229 m LVOT Diam s 2.05 cm (M/F) 1.5-2.5 AoV Vmax 1.78 (0.5-1.3 m/s) Velocity Ratio 0.66 AoV Mean Silvio. 1.27 m/s AoV Peak Grad 12.7 mmHg LVOT SV 78.25 mL AoV Mean Grad 7.1 (<5 mmHg) AoV VTI 0.375 (0.18-0.25 m) AoV Area VTI 2.09 (2.5-4.5 cm2) AoV Area/ BSA (VTI) 0.88 cm/m2 Mitral Valve MV DT 197 (160-240 msec) MR Vmax 5.26 m/s MV PHT 57 msec MR VTI 2.089 m MV Area PHT 3.85 cm2 MR Peak Grad 110.5 mmHg MV VTI 0.145 m MR Mean Grad 69.6 mmHg MV VTI Annulus 0.139 m MV Regurg Vol 53.82 mL MV Area VTI 5.16 (4.0-6.0 cm2) MV RF 40.75 % MV Diam AP 3.48 cm MV SV 132.07 mL Pulmonary Valve RVOT Peak Gr. 1.73 mmHg RVOT Mean Gr. 0.95 mmHg RVOT VTI 0.133 m RVOT Vmax 0.66 m/s Tricuspid Valve TR Peak Grad 28.2 mmHg TR Vmax 2.66 m/s RA Pressure 3.00 mmHg RVSP (TR) 31.2 mmHg
== END 2019-08-26 02:00 ==
PROVIDERS: PCP Family Medicine; Visit Provider Internal Medicine
DX: I27.20 Pulmonary hypertension, unspecified (principal); I35.1 Nonrheumatic aortic (valve) insufficiency; D68.59 Other primary thrombophilia; I10 Essential (primary) hypertension
CPT/HCPCS: 93306

== ENCOUNTER 2019-08-30 08:20 | Outpatient (CLI) | payer MEDICARE, BC, SELFPAY ==
[2019-08-30 08:53] LABS: INR 2.9 (0.9-1.1); Prothrombin Time 28.1 sec (9.3-11.0)
== END 2019-08-30 08:40 ==
PROVIDERS: PCP Family Medicine; Visit Provider Internal Medicine
DX: D68.59 Other primary thrombophilia (principal)
CPT/HCPCS: 36415; 85610

== ENCOUNTER 2019-09-13 10:08 | Outpatient (CLI) | payer MEDICARE, BC, SELFPAY ==
[2019-09-13 10:35] LABS: Prothrombin Time 19.9 sec (9.3-11.0)
== END 2019-09-13 10:28 ==
PROVIDERS: PCP Family Medicine; Visit Provider Internal Medicine
DX: D68.59 Other primary thrombophilia (principal)
CPT/HCPCS: 36415; 85610

== ENCOUNTER 2019-09-27 02:57 | Outpatient (CLI) | payer MEDICARE, BC, SELFPAY ==
[2019-09-27 10:02] LABS: INR 2.3 (0.9-1.1); Prothrombin Time 22.7 sec (9.3-11.0)
== END 2019-09-27 03:17 ==
PROVIDERS: PCP Family Medicine; Visit Provider Internal Medicine
DX: D68.59 Other primary thrombophilia (principal)
CPT/HCPCS: 36415; 85610

== ENCOUNTER 2019-10-27 01:48 | Outpatient (CLI) | payer MEDICARE, BC, SELFPAY ==
[2019-10-27 07:33] LABS: INR 2.1 (0.9-1.1); Prothrombin Time 20.5 sec (9.3-11.0)
== END 2019-10-27 02:08 ==
PROVIDERS: PCP Family Medicine; Visit Provider Internal Medicine
DX: D68.59 Other primary thrombophilia (principal)
CPT/HCPCS: 36415; 85610

== ENCOUNTER 2020-01-28 01:23 | Outpatient (CLI) | payer MEDICARE, BC, SELFPAY ==
[2020-01-28 12:40] LABS: HCT 47.8 % (40.0-50.0); HGB 15.4 g/dL (13.5-17.5); Mean Corp. HGB Concentration 32.2 g/dL (32.0-36.0); Mean Corpuscular Hemoglobin 27.2 pg (27.0-33.0); Mean Corpuscular Volume 84.3 fL (80-95); Mean Platelet Volume 11.1 fL (8.0-11.0); Platelet Count 313 x1000/uL (130-400); RBC 5.67 m/cumm (4.50-6.00)
[2020-01-28 12:50] LABS: Calculated LDL 167 mg/dL (<100); Cholesterol 224 mg/dL (<200); HDL Cholesterol 41 mg/dL (40-60); Triglyceride 81 mg/dL (<150)
== END 2020-01-28 01:43 ==
PROVIDERS: PCP Family Medicine; Visit Provider Family Medicine
DX: E78.5 Hyperlipidemia, unspecified (principal); I10 Essential (primary) hypertension
CPT/HCPCS: 36415; 80061; 85027

== ENCOUNTER 2020-02-25 00:54 | Outpatient (CLI) | payer MEDICARE, BC, SELFPAY ==
[2020-02-25 13:10] LABS: ALT 18 U/L (16-63); AST 16 U/L (15-37); Albumin 3.8 g/dL (3.4-5.0); Alkaline Phosphatase 124 U/L (46-116); Anion Gap 10.2 mmol/L (3-11); BUN 19 mg/dL (7-18); Bilirubin, Total 0.6 mg/dL (0.2-1.0); CO2 23.8 mmol/L (21.0-32.0); CREATININE 1.56 mg/dL (0.70-1.30); Calcium 8.8 mg/dL (8.5-10.1); Chloride 107 mmol/L (98-107); Estimated GFR 43.37 (mL/min/1.73m2); Glucose 90 mg/dL (74-106); Potassium 4.2 mmol/L (3.5-5.1); Sodium 141 mmol/L (136-145); Total Protein 7.1 g/dL (6.4-8.2)
== END 2020-02-25 01:14 ==
PROVIDERS: PCP Family Medicine; Visit Provider Family Medicine
DX: E78.5 Hyperlipidemia, unspecified (principal); I10 Essential (primary) hypertension
CPT/HCPCS: 36415; 80053

== ENCOUNTER 2020-03-24 03:12 | Outpatient (CLI) | payer MEDICARE, BC, SELFPAY ==
--- NOTE | 2020-03-24 06:45 | DI.US_ITS ---
EXAM: US RENAL CLINICAL HISTORY: monitor known stones,uric acid stone in urine,urinary calculus,n20.9 TECHNIQUE: Ultrasound performed using standard protocol. COMPARISON: US US ECHOCARDIOGRAM from 08/26/2019 FINDINGS: Kidneys are normal in size and shape. There is no evidence of hydronephrosis. No solid renal mass i dentified. Small bilateral renal cysts noted, largest measuring about 3.9 cm in diameter at the uppe r pole of the left kidney. There are echogenic foci of the lower poles both kidneys, the largest measuring about 8 millimeters i n diameter in the inferior pole of the right kidney. Urinary bladder contains cyst 63 cc. Patient was unable to void. IMPRESSION: Probable small nonobstructing bilateral renal calculi. No other significant findings. DATA REPOSITORY:
== END 2020-03-24 03:32 ==
PROVIDERS: PCP Family Medicine; Visit Provider Urology
DX: N20.9 Urinary calculus, unspecified (principal); N28.1 Cyst of kidney, acquired; I10 Essential (primary) hypertension
CPT/HCPCS: 76770; 99213

== ENCOUNTER 2020-04-06 05:35 | Outpatient (CLI) | payer MEDICARE, BC, SELFPAY ==
[2020-04-06 13:37] LABS: Calculated LDL 70 mg/dL (<100); Cholesterol 126 mg/dL (<200); HDL Cholesterol 38 mg/dL (40-60); Triglyceride 91 mg/dL (<150)
== END 2020-04-06 05:55 ==
PROVIDERS: PCP Family Medicine; Visit Provider Family Medicine
DX: I10 Essential (primary) hypertension (principal)
CPT/HCPCS: 36415; 80061

== ENCOUNTER 2020-04-20 02:52 | Outpatient (CLI) | payer MEDICARE, BC, SELFPAY ==
[2020-04-20 14:37] LABS: Prothrombin Time 19.8 sec (9.3-11.0)
== END 2020-04-20 03:12 ==
PROVIDERS: PCP Family Medicine; Visit Provider Family Medicine
DX: I26.99 Other pulmonary embolism without acute cor pulmonale (principal); Z79.01 Long term (current) use of anticoagulants
CPT/HCPCS: 36415; 85610

== ENCOUNTER 2020-04-28 01:37 | Outpatient (CLI) | payer MEDICARE, BC, SELFPAY ==
[2020-04-28 12:57] LABS: INR 2.5 (0.9-1.1); Prothrombin Time 24.2 sec (9.3-11.0)
== END 2020-04-28 01:57 ==
PROVIDERS: PCP Family Medicine; Visit Provider Family Medicine
DX: I26.99 Other pulmonary embolism without acute cor pulmonale (principal); Z79.01 Long term (current) use of anticoagulants
CPT/HCPCS: 36415; 85610

== ENCOUNTER 2020-05-30 04:16 | Outpatient (CLI) | payer MEDICARE, BC, SELFPAY ==
[2020-05-30 13:00] LABS: INR 3.4 (0.9-1.1); Prothrombin Time 33.4 sec (9.3-11.0)
== END 2020-05-30 04:36 ==
PROVIDERS: PCP Family Medicine; Visit Provider Family Medicine
DX: Z79.01 Long term (current) use of anticoagulants (principal); I26.99 Other pulmonary embolism without acute cor pulmonale
CPT/HCPCS: 36415; 85610

== ENCOUNTER 2020-06-07 03:16 | Outpatient (CLI) | payer MEDICARE, BC, SELFPAY ==
[2020-06-07 12:35] LABS: INR 3.8 (0.9-1.1); Prothrombin Time 36.5 sec (9.3-11.0)
== END 2020-06-07 03:36 ==
PROVIDERS: PCP Family Medicine; Visit Provider Family Medicine
DX: I26.99 Other pulmonary embolism without acute cor pulmonale (principal); Z79.01 Long term (current) use of anticoagulants
CPT/HCPCS: 36415; 85610

== ENCOUNTER 2020-06-14 03:07 | Outpatient (CLI) | payer MEDICARE, BC, SELFPAY ==
[2020-06-14 13:15] LABS: INR 1.6 (0.9-1.1); Prothrombin Time 15.7 sec (9.3-11.0)
== END 2020-06-14 03:27 ==
PROVIDERS: PCP Family Medicine; Visit Provider Family Medicine
DX: I26.99 Other pulmonary embolism without acute cor pulmonale (principal); Z79.01 Long term (current) use of anticoagulants
CPT/HCPCS: 36415; 85610

== ENCOUNTER 2020-06-21 02:36 | Outpatient (CLI) | payer MEDICARE, BC, SELFPAY ==
[2020-06-21 12:33] LABS: INR 2.3 (0.9-1.1); Prothrombin Time 22.7 sec (9.3-11.0)
== END 2020-06-21 02:56 ==
PROVIDERS: PCP Family Medicine; Visit Provider Family Medicine
DX: I26.99 Other pulmonary embolism without acute cor pulmonale (principal); Z79.01 Long term (current) use of anticoagulants
CPT/HCPCS: 36415; 85610

== ENCOUNTER 2020-06-28 03:22 | Outpatient (CLI) | payer MEDICARE, BC, SELFPAY ==
[2020-06-28 13:00] LABS: INR 2.9 (0.9-1.1); Prothrombin Time 28.2 sec (9.3-11.0)
== END 2020-06-28 03:42 ==
PROVIDERS: PCP Family Medicine; Visit Provider Family Medicine
DX: I26.99 Other pulmonary embolism without acute cor pulmonale (principal); Z79.01 Long term (current) use of anticoagulants
CPT/HCPCS: 36415; 85610

== ENCOUNTER 2020-07-05 02:28 | Outpatient (CLI) | payer MEDICARE, BC, SELFPAY ==
[2020-07-05 12:48] LABS: INR 3.4 (0.9-1.1); Prothrombin Time 33.2 sec (9.3-11.0)
== END 2020-07-05 02:48 ==
PROVIDERS: PCP Family Medicine; Visit Provider Family Medicine
DX: I26.99 Other pulmonary embolism without acute cor pulmonale (principal); Z79.01 Long term (current) use of anticoagulants
CPT/HCPCS: 36415; 85610

== ENCOUNTER 2020-07-12 04:20 | Outpatient (CLI) | payer MEDICARE, BC, SELFPAY ==
[2020-07-12 13:03] LABS: INR 2.3 (0.9-1.1); Prothrombin Time 22.9 sec (9.3-11.0)
== END 2020-07-12 04:40 ==
PROVIDERS: PCP Family Medicine; Visit Provider Family Medicine
DX: I26.99 Other pulmonary embolism without acute cor pulmonale (principal); Z79.01 Long term (current) use of anticoagulants
CPT/HCPCS: 36415; 85610

== ENCOUNTER 2020-08-02 03:21 | Outpatient (CLI) | payer MEDICARE, BC, SELFPAY ==
[2020-08-02 07:56] LABS: Abs Immature Grans 0.02 10^3/uL (0.0-0.06); Absolute Basophil Count 0.05 10^3/uL (0.0-0.2); Absolute Eosinophil Count 0.36 10^3/uL (0.0-0.7); Absolute Lymphocyte Count 1.16 10^3/uL (1.2-3.4); Absolute Monocyte Count 0.68 10^3/uL (0.1-0.8); Absolute Neutrophil Count 5.76 10^3/uL (1.2-6.7); Basophils % 0.6; Eosinophils % 4.5; HCT 46.5 % (40.0-50.0); Immature Grans % 0.2; Lymphocytes % 14.4; MCH 28.4 pg (27.0-33.0); MCHC 32.3 % (32.0-36.0); MCV 87.9 fL (80-95); MPV 10.2 fL (8.0-11.0); Monocytes % 8.5; Neutrophils % 71.8; Nucleated RBC 0 %; Platelet Count 325 10^3/uL (130-400); RBC 5.29 10^6/uL (4.36-5.78); RDW 14.7 % (11.8-14.1); RDW-SD 47.6 fL; WBC 8.03 10^3/uL (4.4-10.8)
[2020-08-02 08:14] LABS: INR 1.1 (0.9-1.1); PTT Activated 25.1 sec (21.0-27.5); Prothrombin Time 10.7 sec (9.3-11.0)
[2020-08-02 08:35] LABS: D-Dimer 1464 ng/mlFEU (<500)
[2020-08-02 09:12] LABS: Anion Gap 10.2 mmol/L (3-11); BUN 22 mg/dL (7-18); CO2 21.8 mmol/L (21.0-32.0); CREATININE 1.51 mg/dL (0.70-1.30); Calcium 8.7 mg/dL (8.5-10.1); Chloride 107 mmol/L (98-107); Estimated GFR 45.03 (mL/min/1.73m2); Glucose 100 mg/dL (74-106); Potassium 4.8 mmol/L (3.5-5.1); Sodium 139 mmol/L (136-145)
[2020-08-03 11:34] LABS: Dilute Russell Viper Venom 36.4 secs (27.2-36.9); LA Cascade Summary (See Note); Silica Clotting Time 38.6 secs (30.2-48.4)
[2020-08-03 17:16] LABS: Phospholipid Ab, IgG <9.4 GPL; Phospholipid Ab, IgM <9.4 MPL
[2020-08-03 17:50] LABS: Beta 2 GP1 Ab IgG <9.4 U/mL; Beta 2 GP1 Ab IgM <9.4 U/mL
[2020-08-03 21:01] LABS: Antithrombin Activity, Plasma 88 % (80 - 130)
[2020-08-04 14:33] LABS: Beta 2 Glycoprotein 1 Ab IgA <9.4 U/mL
[2020-08-09 11:26] LABS: Protein C, Functional 76 % (71-199); Protein S, Functional 101 % (73-156)
[2020-08-10 13:12] LABS: Factor 8 Assay 225 % (50-150)
== END 2020-08-02 03:41 ==
PROVIDERS: PCP Family Medicine; Visit Provider Internal Medicine
DX: D68.59 Other primary thrombophilia (principal)
CPT/HCPCS: 36415; 80048; 85300; 85306; 85307; 86146; 86147; 87116; 85025; 85240; 85303; 85379; 85610; 85730

== ENCOUNTER 2020-08-09 03:44 | Outpatient (CLI) | payer MEDICARE, BC, SELFPAY ==
[2020-08-09 13:59] LABS: INR 1.3 (0.9-1.1); Prothrombin Time 13.3 sec (9.3-11.0)
== END 2020-08-09 03:45 | disposition home or self-care (01) ==
LOC: LOS 03:44
PROVIDERS: PCP Family Medicine; Visit Provider Family Medicine
DX: I26.99 Other pulmonary embolism without acute cor pulmonale (principal); Z79.01 Long term (current) use of anticoagulants
CPT/HCPCS: 36415; 85610

== ENCOUNTER 2020-08-16 02:53 | Outpatient (CLI) | payer MEDICARE, BC, SELFPAY ==
[2020-08-16 12:44] LABS: INR 1.7 (0.9-1.1); Prothrombin Time 16.9 sec (9.3-11.0)
== END 2020-08-16 02:54 | disposition home or self-care (01) ==
LOC: LOS 02:53
PROVIDERS: PCP Family Medicine; Visit Provider Family Medicine
DX: I26.99 Other pulmonary embolism without acute cor pulmonale (principal); Z79.01 Long term (current) use of anticoagulants
CPT/HCPCS: 36415; 85610

== ENCOUNTER 2020-08-23 02:51 | Outpatient (CLI) | payer MEDICARE, BC, SELFPAY ==
[2020-08-23 13:03] LABS: Prothrombin Time 20.1 sec (9.3-11.0)
== END 2020-08-23 02:52 | disposition home or self-care (01) ==
PROVIDERS: PCP Family Medicine; Visit Provider Family Medicine
DX: I26.99 Other pulmonary embolism without acute cor pulmonale (principal); Z79.01 Long term (current) use of anticoagulants
CPT/HCPCS: 36415; 85610

== ENCOUNTER 2020-08-29 02:08 | Outpatient (CLI) | payer MEDICARE, BC, SELFPAY ==
[2020-08-29 12:58] LABS: INR 2.4 (0.9-1.1); Prothrombin Time 23.3 sec (9.3-11.0)
== END 2020-08-29 02:09 | disposition home or self-care (01) ==
LOC: LOS 02:08
PROVIDERS: PCP Family Medicine; Visit Provider Family Medicine
DX: I26.99 Other pulmonary embolism without acute cor pulmonale (principal); Z79.01 Long term (current) use of anticoagulants
CPT/HCPCS: 36415; 85610

== ENCOUNTER 2020-09-06 03:58 | Outpatient (CLI) | payer MEDICARE, BC, SELFPAY ==
[2020-09-06 12:53] LABS: Prothrombin Time 29.5 sec (9.3-11.0)
== END 2020-09-06 03:59 | disposition home or self-care (01) ==
LOC: LOS 03:58
PROVIDERS: PCP Family Medicine; Visit Provider Family Medicine
DX: I26.99 Other pulmonary embolism without acute cor pulmonale (principal); Z79.01 Long term (current) use of anticoagulants
CPT/HCPCS: 36415; 85610

== ENCOUNTER 2020-09-12 03:21 | Outpatient (CLI) | payer MEDICARE, BC, SELFPAY ==
[2020-09-12 14:04] LABS: Prothrombin Time 29.7 sec (9.3-11.0)
== END 2020-09-12 03:22 | disposition home or self-care (01) ==
LOC: LOS 03:21
PROVIDERS: PCP Family Medicine; Visit Provider Family Medicine
DX: I26.99 Other pulmonary embolism without acute cor pulmonale (principal); Z79.01 Long term (current) use of anticoagulants
CPT/HCPCS: 36415; 85610

== ENCOUNTER 2020-09-19 02:39 | Outpatient (CLI) | payer MEDICARE, BC, SELFPAY ==
[2020-09-19 12:50] LABS: INR 2.3 (0.9-1.1); Prothrombin Time 22.2 sec (9.3-11.0)
== END 2020-09-19 02:40 | disposition home or self-care (01) ==
LOC: LOS 02:39
PROVIDERS: PCP Family Medicine; Visit Provider Family Medicine
DX: I26.99 Other pulmonary embolism without acute cor pulmonale (principal); Z79.01 Long term (current) use of anticoagulants
CPT/HCPCS: 36415; 85610

== ENCOUNTER 2020-09-26 03:38 | Outpatient (CLI) | payer MEDICARE, BC, SELFPAY ==
[2020-09-26 12:38] LABS: INR 1.6 (0.9-1.1); Prothrombin Time 16.2 sec (9.3-11.0)
== END 2020-09-26 03:39 | disposition home or self-care (01) ==
LOC: LOS 03:39
PROVIDERS: PCP Family Medicine; Visit Provider Family Medicine
DX: I26.99 Other pulmonary embolism without acute cor pulmonale (principal); Z79.01 Long term (current) use of anticoagulants
CPT/HCPCS: 36415; 85610

== ENCOUNTER 2020-10-04 03:17 | Outpatient (CLI) | payer MEDICARE, BC, SELFPAY ==
[2020-10-04 13:01] LABS: INR 2.6 (0.9-1.1)
== END 2020-10-04 03:18 | disposition home or self-care (01) ==
LOC: LOS 03:17
PROVIDERS: PCP Family Medicine; Visit Provider Family Medicine
DX: I26.99 Other pulmonary embolism without acute cor pulmonale (principal); Z79.01 Long term (current) use of anticoagulants
CPT/HCPCS: 36415; 85610

== ENCOUNTER 2020-10-11 03:11 | Outpatient (CLI) | payer MEDICARE, BC, SELFPAY ==
[2020-10-11 12:08] LABS: INR 2.9 (0.9-1.1); Prothrombin Time 28.1 sec (9.3-11.0)
== END 2020-10-11 03:12 | disposition home or self-care (01) ==
LOC: LOS 03:12
PROVIDERS: PCP Family Medicine; Visit Provider Family Medicine
DX: I26.99 Other pulmonary embolism without acute cor pulmonale (principal); Z79.01 Long term (current) use of anticoagulants
CPT/HCPCS: 36415; 85610

== ENCOUNTER 2020-12-27 02:06 | Outpatient (CLI) | payer MEDICARE, BC, SELFPAY ==
[2020-12-27 12:51] LABS: Prothrombin Time 41.3 sec (9.3-11.0)
[2020-12-27 13:45] LABS: INR 4.3 (0.9-1.1)
== END 2020-12-27 02:07 | disposition home or self-care (01) ==
LOC: LOS 02:07
PROVIDERS: PCP Family Medicine; Visit Provider Family Medicine
DX: I26.99 Other pulmonary embolism without acute cor pulmonale (principal); Z79.01 Long term (current) use of anticoagulants
CPT/HCPCS: 36415; 85610

== ENCOUNTER 2021-01-02 02:59 | Outpatient (CLI) | payer MEDICARE, BC, SELFPAY ==
[2021-01-02 12:35] LABS: INR 3.8 (0.9-1.1); Prothrombin Time 36.9 sec (9.3-11.0)
== END 2021-01-02 03:00 | disposition home or self-care (01) ==
LOC: LOS 02:59
PROVIDERS: PCP Family Medicine; Visit Provider Family Medicine
DX: I26.99 Other pulmonary embolism without acute cor pulmonale (principal); Z79.01 Long term (current) use of anticoagulants
CPT/HCPCS: 36415; 85610

== ENCOUNTER 2021-01-17 03:22 | Outpatient (CLI) | payer MEDICARE, BC, SELFPAY ==
[2021-01-17 12:39] LABS: INR 2.8 (0.9-1.1); Prothrombin Time 27.7 sec (9.3-11.0)
== END 2021-01-17 03:23 | disposition home or self-care (01) ==
LOC: LOS 03:22
PROVIDERS: PCP Family Medicine; Visit Provider Family Medicine
DX: I26.99 Other pulmonary embolism without acute cor pulmonale (principal); Z79.01 Long term (current) use of anticoagulants
CPT/HCPCS: 36415; 85610

== ENCOUNTER 2021-03-27 00:09 | Outpatient (CLI) | payer MEDICARE, BC, SELFPAY ==
--- NOTE | 2021-03-27 07:00 | DI.US_ITS ---
Exam(s) US RENAL EXAM: US RENAL CLINICAL HISTORY: monitor known kidney stone,URIC ACID STONE,N20.9. TECHNIQUE: Agarwal scale, color and spectral Doppler were used. COMPARISON: US US RENAL from 03/24/2020 FINDINGS: Renal size in cm: Right: 11.8. Left: 12.1. Echogenicity: Normal. Hydronephrosis: No. Cyst or mass: Bilateral simple renal cysts. The largest measures 4.3 x 4 x 4 cm and is located in th e midpole of the left kidney. Nephrolithiasis: Bilateral echogenic foci suggesting nonobstructing stones. There is a 1.2 cm echoge markel focus in the inferior pole of the left kidney. There is a 5 mm echogenic focus in the inferior p ole of the right kidney. Other findings: None. Bladder:Incompletely distended. This limits evaluation of the urinary bladder sonographically. Ureteral jets: Right: Not visualized on this examination. Left: Not visualized on this examination. Prevoid vol:49 cc Renal color flow: Symmetric and within normal limits. IMPRESSION: 1. Bilateral nonobstructing nephrolithiasis. 2. Bilateral simple renal cysts. DATA REPOSITORY:
== END 2021-03-27 00:29 ==
PROVIDERS: PCP Family Medicine; Visit Provider Urology
DX: N20.0 Calculus of kidney (principal); N28.1 Cyst of kidney, acquired
CPT/HCPCS: 76770

== ENCOUNTER → 2021-03-30 07:56 | Outpatient (BNVA) | payer MEDICARE, BC, SELFPAY | PROVIDERS: PCP Family Medicine; Referring Provider Family Medicine; Visit Provider Urology | DX: N20.9 Urinary calculus, unspecified (principal) | CPT/HCPCS: 81003; 99213 ==

== ENCOUNTER 2022-07-16 03:22 | Outpatient (CLI) | payer MEDICARE, BC, SELFPAY ==
[2022-07-16 12:33] LABS: Abs Immature Grans 0.03 10^3/uL (0.0-0.06); Absolute Basophil Count 0.07 10^3/uL (0.0-0.2); Absolute Lymphocyte Count 1.53 10^3/uL (1.2-3.4); Absolute Monocyte Count 0.83 10^3/uL (0.1-0.8); Absolute Neutrophil Count 6.18 10^3/uL (1.2-6.7); Basophils % 0.8; Eosinophils % 4.4; HCT 48.4 % (40.0-50.0); HGB 15.4 g/dL (13.5-17.5); Immature Grans % 0.3; Lymphocytes % 16.9; MCH 28.4 pg (27.0-33.0); MCHC 31.8 % (32.0-36.0); MCV 89 fL (80-95); MPV 9.8 fL (8.0-11.0); Monocytes % 9.2; Neutrophils % 68.4; Platelet Count 392 10^3/uL (130-400); RBC 5.43 10^6/uL (4.36-5.78); RDW 14.9 % (11.8-14.1); RDW-SD 47.9 fL; WBC 9.04 10^3/uL (4.4-10.8)
[2022-07-16 12:51] LABS: INR 2.5 (0.9-1.1); Prothrombin Time 24.1 sec (9.3-11.0)
[2022-07-16 13:06] LABS: ALT 25 U/L (16-63); AST 27 U/L (15-37); Albumin 3.7 g/dL (3.4-5.0); Alkaline Phosphatase 132 U/L (46-116); Anion Gap 8.7 mmol/L (3-11); BUN 20 mg/dL (7-18); CO2 25.3 mmol/L (21.0-32.0); CREATININE 1.5 mg/dL (0.70-1.30); Calcium 8.7 mg/dL (8.5-10.1); Chloride 107 mmol/L (98-107); Estimated GFR 47.06 (mL/min/1.73m2); Glucose 89 mg/dL (74-106); Potassium 4.1 mmol/L (3.5-5.1); Sodium 141 mmol/L (136-145); Total Protein 7.7 g/dL (6.4-8.2)
== END 2022-07-16 03:23 | disposition home or self-care (01) ==
LOC: LOS 03:22
PROVIDERS: PCP Family Medicine; Visit Provider Family Medicine
DX: I12.9 Hypertensive chronic kidney disease with stage 1 through stage 4 chronic kidney disease, or unspecified chronic kidney disease (principal); N18.30 Chronic kidney disease, stage 3 unspecified; Z79.01 Long term (current) use of anticoagulants; Z00.00 Encounter for general adult medical examination without abnormal findings
CPT/HCPCS: 36415; 80053; 85025; 85610

== ENCOUNTER 2023-10-12 13:55 | Inpatient (IN) | payer MEDICARE, BC, SELFPAY ==
[2023-10-12] VITALS (91 sets, daily range): BP systolic 67–177; BP diastolic 18–122; PULSE 53–179; RESP 15–61; TEMP 36.1–37.6; O2SAT 87–99
--- NOTE | 2023-10-12 13:45 | RT.EKG_ITS ---
APPROVED REPORT Exam: Resting ECG Reason for Exam: AFIB Patient Location: E HR:159 bpm ECG Measurements Heart Rate 159 AXIS NH 92 P 92 QRSd 127 QRS -71 QT 280 T 10 QTc 465 Conclusion Wide-QRS tachycardia...V-rate>(220-age), QRSd>120 Right bundle branch block...QRSd>120, terminal axis(90,270) supraventricular tachycardia, left axis, later ekg demonstrating aflutter, thus aflutter rvr here
--- NOTE | 2023-10-12 14:00 | DI.RAD_ITS ---
Exam(s) XR PORTABLE CHEST AP EXAM: XR PORTABLE CHEST AP CLINICAL HISTORY: ams, cough. TECHNIQUE: 2D digital imaging was performed. COMPARISON: CT CT CHEST PE CTA from 04/27/2019 FINDINGS: Single AP portable view. Heart size is upper normal. The mediastinum is not widened. Increased markings in both lung bases noted which most probably represents scarring and were evident on CT scan of 04/27/2019. No pleural effusions. No pulmonary edema. No fractures evident. IMPRESSION: Bilateral lung base scarring which appears stable when compared to CT scan of 2019. No obvious acute pulmonary findings. DATA REPOSITORY: RADIATION DOSE DELIVERED:
--- NOTE | 2023-10-12 14:00 | DI.CT_ITS ---
Exam(s) CT HEAD WO EXAM: CT HEAD WO CLINICAL HISTORY: ams, falls, fever. TECHNIQUE: Imaging Protocol: Axial computed tomography images with coronal and sagittal reformatted images were created and reviewed COMPARISON: CT CT HEAD WO from 04/27/2019 FINDINGS: There are no skull fractures. There is no fluid in the visualized paranasal sinuses. There is no evidence of intracranial hemorrhage, mass effect, or shift of midline structures. There are no extra-axial fluid collections. The ventricles are not enlarged or shifted and there is no blo od within the ventricular system nor within the basal cisterns. There is involutional change consistent with this patient's advanced age. There is also bilateral pe riventricular hypodensity again noted consistent with chronic small vessel disease. IMPRESSION: No acute intracranial findings on this noninfused CT scan of the brain. Chronic bilateral white matter ischemic changes, similar to the previous study of 2019. RADIATION DOSE DELIVERED: Total DLP DATA REPOSITORY: All CT scans at this facility are submitted to the National Radiology Data Registry (NRDR) Dose Index Registry (DIR) with the [employer] (ACR). RADIATION OPTIMIZATION: All CT scans at this facility use at least one of these dose optimization te chniques: automated exposure control; mA and/or kV adjustment per patient size (includes targeted exa ms where dose is matched to clinical indication); or iterative reconstruction.
[2023-10-12] MEDS: Normal Saline 1,000 ML 1000 ML IV (14:15)
--- NOTE | 2023-10-12 14:17 | W.ED.GENAD ---
Discharge Plan Disposition Patient Disposition: Admit to [facility] Condition: Stable Discharge Details Chief Complaint: Arrhythmia Clinical Impression: Atrial flutter, Cellulitis of leg Primary Care Provider: Kareem Hart ED Provider: Mark Alvarez Home Meds and New Rx's Prescriptions: No Action cyanocobalamin (vitamin B-12) 1,000 mcg capsule 1,000 mcg PO DAILY cholecalciferol (vitamin D3) 10 mcg (400 unit) capsule 10 mcg PO DAILY atorvastatin 20 mg tablet 20 mg PO QHS Qty: 90 3RF valsartan 80 mg tablet 80 mg PO DAILY Qty: 90 3RF warfarin 5 mg tablet 5 mg PO DAILY Qty: 180 3RF Protocol: Dose Management Condition: Friday Dose/Route: 7.5 mg Instruction: 1.5 x 5 mg tablets Condition: Friday Dose/Route: 7.5 mg Instruction: 1.5 x 5 mg tablets Condition: Friday Dose/Route: 7.5 mg Instruction: 1.5 x 5 mg tablets Condition: Friday Dose/Route: 7.5 mg Instruction: 1.5 x 5 mg tablets Condition: Dose/Route: 7.5 mg Instruction: 1.5 x 5 mg tablets Condition: Friday Dose/Route: 5 mg Instruction: 1 x 5 mg tablet Condition: Friday Dose/Route: 7.5 mg Instruction: 1.5 x 5 mg tablets Protocol Text: Adjustment Start Date: Friday09/03/23 INR Value: 2.8 INR Date: 09/03/23 Recheck Date: 10/15/23 Rx Instructions: MANAGED BY [facility] diltiazem HCl 240 mg capsule,extended release 24hr 240 mg PO DAILY Qty: 90 3RF HPI General Date/Time Provider Initiated Documentation: 10/12/23 13:57. HPI Narrative: 82-year-old male history of obesity hypertension hyperlipidemia CKD PE anticoagulated A-fib, presents brought in for fever multiple falls of the last couple of days. Low blood pressure noted at home. Related Data Home Medications Medication Instructions Recorded Confirmed cyanocobalamin (vitamin B-12) 1,000 mcg PO DAILY 07/28/19 10/12/23 1,000 mcg capsule cholecalciferol (vitamin D3) 10 10 mcg PO DAILY 03/30/21 10/12/23 mcg (400 unit) capsule atorvastatin 20 mg tablet 20 mg PO QHS #90 tabs 01/01/23 10/12/23 valsartan 80 mg tablet 80 mg PO DAILY #90 tabs 01/01/23 10/12/23 warfarin 5 mg tablet 5 mg PO DAILY #180 tabs 01/01/23 10/12/23 diltiazem HCl 240 mg 240 mg PO DAILY #90 caps 02/25/23 10/12/23 capsule,extended release 24 hr Previous Rx's Medication Instructions Recorded atorvastatin 20 mg tablet 20 mg PO QHS #90 tabs 01/01/23 valsartan 80 mg tablet 80 mg PO DAILY #90 tabs 01/01/23 warfarin 5 mg tablet 5 mg PO DAILY #180 tabs 01/01/23 diltiazem HCl 240 mg 240 mg PO DAILY #90 caps 02/25/23 capsule,extended release 24 hr Allergies Allergy/AdvReac Type Severity Reaction Status Date / Time tamsulosin AdvReac Intermediate diarrhea Verified 10/12/23 14:01 General Stated Complaint: Arrhythmia MAYELIN: 2 Review of Systems Narrative: Review of Systems Constitutional: AMS, fever Eyes: negative ENT: negative Cardiovascular: negative Respiratory: negative Gastrointestinal: negative : negative Musculoskeletal: negative Skin: negative Neurologic: negative Psych: negative Exam Narrative Exam Narrative: Physical Examination General: Awake, globally confused HEENT: normocephalic, atraumatic; PERRL, EOM intact, tolerating secretions Neck: supple, trachea midline; full ROM Chest: normal to inspection Respiratory: normal respiratory effort, speaking in full sentences Cardiac: Irregularly irregular, tachycardia, S1S2 intact, no murmurs rubs or gallops GI: abdomen soft, non-tender, non-distended; no palpable mass or hepatosplenomegaly : Normal external genitalia Skin: Chronic venous stasis ulcers bilateral lower extremities, deep ulcerations with purulent material bilateral lower extremities right greater than left Neuro: Alert to self, not alert to time place or situation; moving all extremities without focality Extremities: See skin, full range of motion Course Vital Signs Vital signs: Vital Signs Temperature 37.6 C 10/12/23 13:54 Pulse 167 H 10/12/23 13:54 Respiratory Rate 36 H 10/12/23 13:54 Blood Pressure 177/122 H 10/12/23 13:54 Pulse Oximetry 97 10/12/23 13:54 Temperature 37.6 C 10/12/23 13:54 Temperature Source Oral 10/12/23 13:54 Pulse 143 H 10/12/23 14:00 Pulse 161 H 10/12/23 14:02 Respiratory Rate 39 H 10/12/23 14:02 Respiratory Effort Non-Labored 10/12/23 14:01 Blood Pressure 152/114 H 10/12/23 14:02 Blood Pressure Mean 122 10/12/23 14:02 Pulse Oximetry 98 10/12/23 14:02 Oxygen Delivery Method Nasal Cannula 10/12/23 13:54 Oxygen Flow Rate 3 10/12/23 13:54 Pain Level 0 10/12/23 13:54 Medical Decision Making 82-year-old male history of A-fib, CKD, PE on anticoagulation, hypertension hyperlipidemia obesity, brought in for evaluation of fever and altered mental status over the last day, increased falling since Friday, worsening bilateral lower extremity wounds temperature as high as 102.4, low blood pressure at home, patient globally confused alert to self however not to time place or situation, nonfocal on examination nonmeningeal, hypertensive on arrival, tachycardic A-fib RVR, moderately tachypneic however speaking in full sentences no retractions no hypoxia. High clinical suspicion for delirium in the setting of infectious process likely cellulitis of lower extremities versus pneumonia versus bacteremia low suspicion for meningitis or encephalitis; must also consider UTI or intracranial process given anticoagulated state will obtain CT head, chest x-ray, urinalysis urine culture, blood cultures, basic labs toxicologic labs, venous blood gas; will initiate crystalloid fluid bolus, broad-spectrum antibiotics vancomycin piperacillin tazobactam; admission likely pending results and reassessment 16: 55 patient clinically improving after antibiotics and fluids, mental status improving more interactive, perfusion to body appears improved, still persistently tachycardic A-fib RVR intermittent soft BPs however maintaining MAP greater than 65. Will continue with fluid resuscitation antibiotics, will consider loading with diltiazem. Per patient's p.o. intake has been poor over the last couple of days likely resultant in observed STEVO. Supratherapeutic INR likely related to warfarin use in the setting of STEVO. Will hold dose. 17: 49 consider component of CHF in the setting of uncontrolled A-fib given elevated BNP and new oxygen requirement noted by EMS came in on 2 to 3 L nasal cannula. No baseline home O2 use in the past. Will trial IV diltiazem for rate control. Close reassessment. 18: 23 patient initially responded to diltiazem bolus with reduction of rate from 160 to approximately 130s evidence of sawtooth waves suggestive of a flutter RVR, blood pressure 103/69 MAP of 80, will likely trial second bolus in 15 to 20 minutes. Patient does have some mild rales consider component of CHF in the setting of a flutter RVR and after initial fluid resuscitation; fluids been DC'd, 40 of Lasix ordered, Best catheter placed 19: 14 patient resting comfortably no acute distress. Patient rate controlled after second bolus of diltiazem. Rates ranging from 80-100 a flutter blood pressure 91/62 MAP of 68. Quality:SDOH Health Related Social Needs: Health related social needs risk of homeless PFSH All Active Problems (Updated 10/12/23 @ 19:21 by Mark Alvarez MD) Cellulitis of leg (Acute) Atrial flutter (Acute) History of skin graft (Acute) Obesity (Chronic) Hypertension (Chronic) Hyperlipidemia (Chronic) Chronic anticoagulation (Acute) History of pulmonary embolism (Acute ~03/2019) Hypertensive kidney disease with CKD stage III (Acute) Medical History COVID-19 (~11/12/21) Spinal stenosis Deep vein thrombosis (DVT) of popliteal vein of right lower extremity [place] classified according to extent of body surface involved Age 12, playing with matches, history of multiple skin grafting HNP (herniated nucleus pulposus), lumbar Right kidney stone (01/20/18) uric acid stone Surgical History Status post lumbar microdiscectomy (~2018) L3-4, at [facility] H/O ankle fusion S/P cystoscopy with ureteral stent placement Family History Mother , age 98 No problems noted. Father , age96 No problems noted. Sister No problems noted. Son , age 22 No problems noted. Daughter , age 40 Alcohol abuse Hypertension Sepsis Paternal Grandmother , age 102 No problems noted. Social History Smoking/Tobacco Use Status: Never Smoking risk assessment performed?: Yes Alcohol Intake: never Drug use: Never Substance use type: does not use Caregiver/Support person: Yes Household members: spouse Housing: house Do you need help understanding health information?: Rarely Pets and animals: Yes Pets and animals: dog(s) Sexually active: No Do you think of yourself as: straight/heterosexual Current gender identity: male What is your relationship status?: How often do you talk on the phone with friends or family?: three or more times per week How often do you get together with friends or relatives?: twice per week How often do you attend quaker or zoroastrianism services?: decline to answer Do you belong to any clubs or organized social groups?: no Panel score (0-1 are the most socially isolated patients): 2 Duration: decline to answer Frequency: decline to answer Laurie/Anglican: No preference Special laurie needs: No Seatbelt use: sometimes Helmet use: Yes Helmet use: sometimes 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
[2023-10-12 14:28] LABS: BE (Venous) -3 mmol/L (-2-3); HCO3 (Venous) 22 mmol/L (23-28); O2 Sat (Venous) 75 %; TCO2 (Venous) 19 mmol/L (24-29); pCO2 (Venous) 38 mmHg (41-51); pH (Venous) 7.37 (7.31-7.41); pO2 (Venous) 39 mmHg
[2023-10-12 14:36] LABS: Abs Immature Grans 0.13 10^3/uL (0.0-0.06); Absolute Eosinophil Count 0.02 10^3/uL (0.0-0.7); Basophils % 0.3; Eosinophils % 0.1; HCT 48.6 % (40.0-50.0); HGB 15.3 g/dL (13.5-17.5); Immature Grans % 0.7; Lymphocytes % 2.7; MCH 27.5 pg (27.0-33.0); MCHC 31.5 % (32.0-36.0); MCV 87 fL (80-95); MPV 9.7 fL (8.0-11.0); Monocytes % 6.6; Neutrophils % 89.6; Platelet Count 328 10^3/uL (130-400); RBC 5.56 10^6/uL (4.36-5.78); RDW 15.5 % (11.8-14.1); RDW-SD 49.8 fL; WBC 18.27 10^3/uL (4.4-10.8)
[2023-10-12] MEDS: PIPERACILLIN/TAZO 3.375 GM in Normal Saline 50 ML IVPB (14:37)
[2023-10-12 14:39] LABS: Absolute Basophil Count 0.05 10^3/uL (0.0-0.2); Absolute Lymphocyte Count 0.49 10^3/uL (1.2-3.4); Absolute Monocyte Count 1.21 10^3/uL (0.1-0.8); Absolute Neutrophil Count 16.37 10^3/uL (1.2-6.7)
[2023-10-12] MEDS: ACETAMINOPHEN 1,000 MG/100 ML BTL 400 MG IVPB (14:39)
[2023-10-12 14:49] LABS: Bilirubin Negative (Negative); Blood Large (Negative); Clarity Turbid (Clear); Glucose Negative (Negative); Ketones Negative (Negative); Leukocyte Esterase Large (Negative); Nitrite Negative (Negative); Specific Gravity 1.025 (1.005-1.025); Urobilinogen 0.2 mg/dL (Up to 0.2); pH 5.5 (5-8)
[2023-10-12 14:56] LABS: *AMPHETAMINES SCREEN URINE Negative (Negative); *BARBITURATES SCREEN URINE Negative (Negative); *BENZODIAZEPINES SCREEN URINE Negative (Negative); Cannabinoids THC Negative (Negative); Cocaine Screen,Urine Negative (Negative); METHADONE URINE SCREEN Negative (Negative); OPIATES URINE SCREEN Negative (Negative); Tricyclic Antidepressants Negative (Negative)
[2023-10-12 15:01] LABS: C & S Indicated? Yes; WBC >50 HPF (0-5)
[2023-10-12 15:12] LABS: ALT 19 U/L (16-63); AST 25 U/L (15-37); Alkaline Phosphatase 110 U/L (46-116); Anion Gap 12.5 mmol/L (3-11); BUN 43 mg/dL (7-18); Bilirubin, Total 2.5 mg/dL (0.2-1.0); CO2 21.5 mmol/L (21.0-32.0); Calcium 8.4 mg/dL (8.5-10.1); Chloride 106 mmol/L (98-107); Creatine Kinase 145 U/L (39-308); Estimated GFR 12.19 (mL/min/1.73m2); Glucose 115 mg/dL (74-106); Lipase 25 U/L (16-77); Magnesium 2.1 mg/dL (1.8-2.4); NT-proBNP 3664 pg/mL (<300); Potassium 4.9 mmol/L (3.5-5.1); Sodium 140 mmol/L (136-145); TSH (W/Ref FT4) 0.69 uIU/mL (0.36-3.74)
[2023-10-12 15:13] LABS: CREATININE 4.6 mg/dL (0.70-1.30)
--- NOTE | 2023-10-12 15:13 | DI.VRAD_ITS ---
PROCEDURE INFORMATION: Exam: XR Chest Exam date and time: 10/12/2023 2:28 PM Age: 82 years old Clinical indication: Other: AMS, cough TECHNIQUE: Imaging protocol: Radiologic exam of the chest. Views: 1 view. COMPARISON: CT CHEST PE CTA 04/27/2019 1:32 AM FINDINGS: Lungs: Minimal chronic scarring in left mid to lower lung zone and at the right base. No acute infiltrate identified compared to CT combination technician image from 04/27/2019. Pleural spaces: No large pleural effusions are seen. Heart/Mediastinum: Heart size appears stable to the 2019 exam. No significant vascular congestion. Bones/joints: No obvious acute abnormality. IMPRESSION: No acute cardiopulmonary abnormality detected on AP portable chest radiograph. Dictated and Authenticated by: Dae Stout MD. Ordering:JACQUIE Flores MD
[2023-10-12] MEDS: VANCOMYCIN/WATER (PEG) 2 GM/400 ML BAG IVPB (15:14)
[2023-10-12 15:18] LABS: PTT Activated 45.1 sec (23.6-32.8); Prothrombin Time 41.4 sec (9.1-11.1)
[2023-10-12 15:24] LABS: ETHANOL BLOOD < 3.0 mg/dL (<10); Troponin I < 50 ng/L (< or =60)
[2023-10-12 15:31] LABS: INR 4.7 (0.9-1.1)
--- NOTE | 2023-10-12 16:19 | DI.VRAD_ITS ---
PROCEDURE INFORMATION: Exam: CT Head Without Contrast Exam date and time: 10/12/2023 3:21 PM Age: 82 years old Clinical indication: Altered mental status/memory loss and fever; Patient HX: AMS, falls, fever TECHNIQUE: Imaging protocol: Computed tomography of the head without contrast. COMPARISON: CT HEAD WO 04/27/2019 12:35 AM FINDINGS: Brain: Cerebral volume loss noted. Scattered areas of decreased attenuation in the deep periventricular white matter consistent with small vessel ischemic change. No evidence for acute intracranial hemorrhage. Cerebral ventricles: No ventriculomegaly. Paranasal sinuses: Visualized sinuses are unremarkable. No fluid levels. Mastoid air cells: Visualized mastoid air cells are well aerated. Dental: Odontogenic disease noted. Bones/joints: Unremarkable. No acute fracture. Soft tissues: Unremarkable. IMPRESSION: Senescent changes noted. No acute intracranial abnormality. Dictated and Authenticated by: Shruthi Bridges MD. Ordering:JACQUIE Flores MD
[2023-10-12 16:23] LABS: COVID-19 PCR Negative (Negative); Influenza A PCR Negative (Negative); Influenza B PCR Negative (Negative); RSV PCR Negative (Negative)
[2023-10-12 16:25] LABS: Source NASOPHARYNX
[2023-10-12] MEDS: dilTIAZem 25 MG/5 ML VIAL 20 MG IVP (17:53)
[2023-10-12 18:08] LABS: Troponin I < 50 ng/L (< or =60)
[2023-10-12] MEDS: Furosemide 40 MG/4 ML VIAL IVP (18:28)
[2023-10-12] MEDS: dilTIAZem 25 MG/5 ML VIAL 30 MG IVP (18:55)
--- NOTE | 2023-10-12 19:00 | RT.EKG_ITS ---
APPROVED REPORT Exam: Resting ECG Reason for Exam: arrythmia Patient Location: E HR:82 bpm ECG Measurements Heart Rate 82 AXIS ME [id number] P [id number] QRSd 127 QRS -58 QT 389 T 11 QTc 456 Conclusion Atrial flutter with predominant 4:1 AV block...A-rate 333, multiple Ps Right bundle branch block...QRSd>120, terminal axis(90,270) Inferior infarct, old...Q >35mS, II III aVF aflutter, left axis
--- NOTE | 2023-10-12 19:40 | HPE_ITS ---
Date of service: 10/12/23 Time of Service: 19:41 Assessment and Plan Assessment and plan (1) UTI (urinary tract infection): Status: Acute Assessment and plan: First issue is infection. I am not terribly impressed with the ulcers as a source, which appear to be more a superficial colonization, and I think the urine is the source. In the meantime the hypotension is noted. Probably due to AFl/RVR, and seems to have improved with rate control, though emerging sepsis also possible. There may also be a residual hypotensive effect from the IV Cardizem. The STEVO is likely pre-renal, and the elevated INR from poor PO. 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 On arrival in ER findings of note for AFl/RVR @ 160, hypotension (low to 70s/sys), confusion, purulent d/c from LE ulcers, leukocytosis (18), STEVO (creat 4.6) and pyuria. Patient initially received IVF bolus, then Cardizem 30 IV in divided doses, with pulse down to approx 80, BP to low 100s. Blood cxx obtained and given Vanco/Zosyn. Patient then received dose Lasix due to oxygen requirement, since resolved. Other findings of note for INR 4.7. I was asked to evaluate for admission. At present patient states he feels fine. Notably he did not take his meds today, which include Cardizem. Review of Systems Narrative: per HPI PFSH All Active Problems (Updated 10/12/23 @ 19:55 by Dinesh Parry MD) UTI (urinary tract infection) (Acute) Cellulitis of leg (Acute) Atrial flutter (Acute) History of skin graft (Acute) Obesity (Chronic) Hypertension (Chronic) Hyperlipidemia (Chronic) Chronic anticoagulation (Acute) History of pulmonary embolism (Acute ~03/2019) Hypertensive kidney disease with CKD stage III (Acute) Medical History COVID-19 (~11/12/21) Spinal stenosis Deep vein thrombosis (DVT) of popliteal vein of right lower extremity [place] classified according to extent of body surface involved Age 12, playing with matches, history of multiple skin grafting HNP (herniated nucleus pulposus), lumbar Right kidney stone (01/20/18) uric acid stone Surgical History Status post lumbar microdiscectomy (~2018) L3-4, at [facility] H/O ankle fusion S/P cystoscopy with ureteral stent placement Family History Mother , age 98 No problems noted. Father , age96 No problems noted. Sister No problems noted. Son , age 22 No problems noted. Daughter , age 40 Alcohol abuse Hypertension Sepsis Paternal Grandmother , age 102 No problems noted. Social History Smoking/Tobacco Use Status: Never Smoking risk assessment performed?: Yes Alcohol Intake: never Drug use: Never Substance use type: does not use Caregiver/Support person: Yes Household members: spouse Housing: house Do you need help understanding health information?: Rarely Pets and animals: Yes Pets and animals: dog(s) Sexually active: No Do you think of yourself as: straight/heterosexual Current gender identity: male What is your relationship status?: How often do you talk on the phone with friends or family?: three or more times per week How often do you get together with friends or relatives?: twice per week How often do you attend worship or buddhist services?: decline to answer Do you belong to any clubs or organized social groups?: no Panel score (0-1 are the most socially isolated patients): 2 Duration: decline to answer Frequency: decline to answer Laurie/Orthodoxy: No preference Special laurie needs: No Seatbelt use: sometimes Helmet use: Yes Helmet use: sometimes 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 Do you feel safe at home: Yes Do you feel safe in your relationship?: Yes Meds Allergies and Home Medications Allergies Allergy/AdvReac Type Severity Reaction Status Date / Time tamsulosin AdvReac Intermediate diarrhea Verified 10/12/23 14:01 Home Medications Medication Instructions Recorded Confirmed Type cyanocobalamin (vitamin B-12) 1,000 mcg PO DAILY 07/28/19 10/12/23 History 1,000 mcg capsule cholecalciferol (vitamin D3) 10 10 mcg PO DAILY 03/30/21 10/12/23 History mcg (400 unit) capsule atorvastatin 20 mg tablet 20 mg PO QHS #90 tabs 01/01/23 10/12/23 Rx valsartan 80 mg tablet 80 mg PO DAILY #90 tabs 01/01/23 10/12/23 Rx warfarin 5 mg tablet 5 mg PO DAILY #180 tabs 01/01/23 10/12/23 Rx diltiazem HCl 240 mg 240 mg PO DAILY #90 caps 02/25/23 10/12/23 Rx capsule,extended release 24 hr Exam Narrative Exam Narrative: 103/45, 119, 37.6, 33, 94% RA. HEENT dry mucous membranes; neck supple; lungs clear; heart distant, irregular (variable flutter on monitor); abdomen soft and NT; extremities w/o edema, chronic stasis changes, pedal pulses 2+. grade 3 pretibial ulcers R>L with granualation and purulent debris Results Labs 10/12/23 14:15 10/12/23 14:15 Labs: Laboratory Results - last 24 hr 10/12/23 10/12/23 10/12/23 14:15 14:58 15:37 WBC 18.27 H RBC 5.56 Hgb 15.3 Hct 48.6 MCV 87 MCH 27.5 MCHC 31.5 L RDW 15.5 H Plt Count 328 MPV 9.7 Immature Gran % 0.7 Neutrophils % 89.6 Lymphocytes % 2.7 Monocytes % 6.6 Eosinophils % 0.1 Basophils % 0.3 Nucleated RBC % 0.0 Absolute Neutrophils 16.37 H Absolute Lymphocytes 0.49 L Absolute Monocytes 1.21 H Absolute Eosinophils 0.02 Absolute Basophils 0.05 PT Cancelled 41.4 H INR Cancelled 4.7 H* APTT Cancelled 45.1 H VBG pH 7.37 VBG pCO2 38 L VBG pO2 39 VBG HCO3 22 L VBG Total CO2 19 L VBG O2 Saturation 75 VBG Base Excess -3 L Sodium 140 Potassium 4.9 Chloride 106 Carbon Dioxide 21.5 Anion Gap 12.5 H BUN 43 H Creatinine 4.6 H* Est GFR (CKD-EPI 2020) 12.19 Glucose 115 H Calcium 8.4 L Magnesium 2.1 Total Bilirubin 2.5 H AST 25 ALT 19 Alkaline Phosphatase 110 Creatine Kinase 145 Troponin I < 50 NT-Pro-B Natriuret Pep 3664 H Total Protein 7.0 Albumin 3.0 L Lipase 25 TSH 0.69 Urine Color Yellow Urine Clarity Turbid Urine pH 5.5 Ur Specific [place] 1.025 Urine Protein 100 H Urine Ketones Negative Urine Blood Large H Urine Nitrite Negative Urine Bilirubin Negative Urine Urobilinogen 0.2 Ur Leukocyte Esterase Large H Urine RBC Not Applicable Urine WBC >50 H Ur Epithelial Cells Not Applicable Urine Crystals Not Applicable Urine Bacteria Not Applicable Urine Mucus Not Applicable Ur Culture Indicated? Yes Urine Glucose Negative Urine Opiates Screen Negative Urine Methadone Screen Negative Ur Barbiturates Screen Negative Ur Tricyclics Screen Negative Ur Amphetamines Screen Negative U Benzodiazepines Scrn Negative Urine Cocaine Screen Negative Ur THC Screen Negative Ethyl Alcohol < 3.0 COVID-19 Source NASOPHARYNX SARS-CoV-2 (PCR) Negative Influenza Type A (PCR) Negative Influenza Type B (PCR) Negative RSV (PCR) Negative 10/12/23 17:40 WBC RBC Hgb Hct MCV MCH MCHC RDW Plt Count MPV Immature Gran % Neutrophils % Lymphocytes % Monocytes % Eosinophils % Basophils % Nucleated RBC % Absolute Neutrophils Absolute Lymphocytes Absolute Monocytes Absolute Eosinophils Absolute Basophils PT INR APTT VBG pH VBG pCO2 VBG pO2 VBG HCO3 VBG Total CO2 VBG O2 Saturation VBG Base Excess Sodium Potassium Chloride Carbon Dioxide Anion Gap BUN Creatinine Est GFR (CKD-EPI 2020) Glucose Calcium Magnesium Total Bilirubin AST ALT Alkaline Phosphatase Creatine Kinase Troponin I < 50 NT-Pro-B Natriuret Pep Total Protein Albumin Lipase TSH Urine Color Urine Clarity Urine pH Ur Specific [place] Urine Protein Urine Ketones Urine Blood Urine Nitrite Urine Bilirubin Urine Urobilinogen Ur Leukocyte Esterase Urine RBC Urine WBC Ur Epithelial Cells Urine Crystals Urine Bacteria Urine Mucus Ur Culture Indicated? Urine Glucose Urine Opiates Screen Urine Methadone Screen Ur Barbiturates Screen Ur Tricyclics Screen Ur Amphetamines Screen U Benzodiazepines Scrn Urine Cocaine Screen Ur THC Screen Ethyl Alcohol COVID-19 Source SARS-CoV-2 (PCR) Influenza Type A (PCR) Influenza Type B (PCR) RSV (PCR) Last Vital Signs Temp 37.6 C 10/12/23 13:54 Pulse 156 H 10/12/23 18:55 Resp 38 H 10/12/23 15:15 BP 123/96 H 10/12/23 18:55 Pulse Ox 98 10/12/23 16:40 Time Spent Time spent with Patient: 55-74 minutes Time was spent: preparing to see the patient(eg.review tests), obtaining and/or reviewing separately otained hiistory, ordering medications,tests, procedures, referring, communicating with other health health care / medical job titles and indepentently interpreting results
[2023-10-12] MEDS: dilTIAZem CD 120 MG CAPCR 240 MG PO (20:59)
[2023-10-12] MEDS: Miconazole 2% Topical Powder 85 GM BTL (22:25)
[2023-10-12] MEDS: Atorvastatin 20 MG TAB PO (22:35)
[2023-10-12] MEDS: dilTIAZem 25 MG/5 ML VIAL (22:45)
[2023-10-12] MEDS: dilTIAZem 125 MG in Normal Saline 100 ML IV (22:50)
[2023-10-12] MEDS: Normal Saline Flush 10 ML SYR (22:56)
[2023-10-13] VITALS (29 sets, daily range): BP systolic 101–130; BP diastolic 58–86; PULSE 61–138; RESP 19–32; TEMP 36.9–37.9; O2SAT 92–96
--- NOTE | 2023-10-13 | DI.US_ITS ---
Exam(s) US RENAL EXAM: US RENAL CLINICAL HISTORY: STEVO, UTI, r/o obstruction TECHNIQUE: Ultrasound of both kidneys performed using standard protocol. COMPARISON: No exams were available for comparison FINDINGS: RIGHT KIDNEY: Measures 14.4 cm in length. There is a small 1.3 cm exophytic midpole level cyst. No solid lesions. However, there is moderate right-sided hydronephrosis noted. No obvious calculi seen in the right kidney. LEFT KIDNEY: Measures 13 cm in length. There is a I by 4 cm cyst in the superior pole. Also a small 1 cm exophyt ic cyst off the lateral cortex. There is a 9 millimeter hyperechoic focus at the midpole level. No hydronephrosis evident on this side. URINARY BLADDER: Prevoid volume is 126 cc Postvoid volume is 0 cc There is a Best catheter in the urinary bladder. There also appears to be a shadowing 1 cm size yecenia culus on the dependent wall of the urinary bladder. No evidence of bladder mass nor diverticuli. Ureterovesical jets: Both not visualized. IMPRESSION: 1. Mild-moderate right-sided hydronephrosis. 2. No hydronephrosis on the left side but there is a 9 millimeter nonobstructive calculus in the lef t kidney noted. 3. Benign cysts both kidneys, largest being superior pole left kidney measuring 5 cm. No solid nahid l masses. 4. 1 cm calculus noted in the urinary bladder. There is also Best catheter in the urinary bladder. DATA REPOSITORY:
[2023-10-13] MEDS: Lactated Ringers 1,000 ML 80 ML IV ×2 (00:21→15:52)
[2023-10-13] MEDS: PIPERACILLIN/TAZO 3.375 GM in Normal Saline 50 ML IVPB ×2 (01:02→06:02)
[2023-10-13 06:47] LABS: HGB 13.9 g/dL (13.5-17.5); MCH 27.5 pg (27.0-33.0); MCHC 31.6 % (32.0-36.0); MCV 87 fL (80-95); MPV 10.3 fL (8.0-11.0); Platelet Count 273 10^3/uL (130-400); RBC 5.05 10^6/uL (4.36-5.78); RDW 15.8 % (11.8-14.1); RDW-SD 50.4 fL; WBC 14.82 10^3/uL (4.4-10.8)
[2023-10-13 06:58] LABS: Anion Gap 15.6 mmol/L (3-11); BUN 53 mg/dL (7-18); CO2 18.4 mmol/L (21.0-32.0); Chloride 109 mmol/L (98-107); Estimated GFR 10.52 (mL/min/1.73m2); Glucose 116 mg/dL (74-106); Potassium 4.7 mmol/L (3.5-5.1); Sodium 143 mmol/L (136-145)
[2023-10-13 07:08] LABS: Prothrombin Time 55.5 sec (9.1-11.1)
[2023-10-13 07:09] LABS: CREATININE 5.2 mg/dL (0.70-1.30)
[2023-10-13 07:17] LABS: INR 6.5 (0.9-1.1)
[2023-10-13] MEDS: dilTIAZem CD 120 MG CAPCR 240 MG PO (08:17)
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
--- NOTE | 2023-10-13 10:44 | SCONE_ITS ---
Date of service: 10/13/23 Time of Service: 10:45 Assessment and Plan Assessment and plan (1) Cellulitis of leg: Status: Acute Assessment and plan: Status post multiple bilateral lower extremity procedures, skin grafting, and chronic skin changes There are 2 open wounds, with fibropurulent exudates, consistent with colonization There is no direct acute infection in the surrounding tissue, no abscesses, no fluctuance, there is no expression of purulent discharge on manual palpation and examination of the chronic wounds Recommendation: -Warm soapy compresses 2 times daily to open draining wound -Wound care consult local treatment of -Debridement of chronic noninfected tissue is not indicated as this can result in injury, and increased susceptibility to infection through the newly created wounds. Qualifiers: Laterality: unspecified laterality Qualified Code(s): L03.119 - Cellulitis of unspecified part of limb (2) Other skin changes: Status: Acute Assessment and plan: Chronic skin changes secondary to multiple surgeries, skin graft being History of Present Illness History of Present Illness Chief Complaint: 82-year-old male who presents with several days of weakness, fatigue Narrative: General surgery consulted for evaluation of chronic bilateral lower extremity wounds. 82-year-old male who had severe faulkner to his lower extremities as a child, long personal history of multiple surgeries, with skin grafting performed, development of scarring, chronic venous stasis, and disfiguration of the skin. Patient has the right lower extremity wound on the right distal medial and lateral pink, with chronic fibrous exudative discharge, with a green discoloration and appears to be colonized. Chronic skin changes surrounding the wound, with no evidence of erythema, induration, or acute infection of the surrounding tissue. Left lower extremity with similar left distal lateral oral chronic draining wound, there is no extension to the surrounding tissue. Bilateral lower extremities affected by chronic venous skin changes,, there is fibrous and collagenous fibrosis over the skin and. These areas areas of chronic skin changes are not infected, and do not require debridement. Debridement would result in injury to the full-thickness skin, and could result in increased susceptibility to infection and otherwise noninfected chronic scar tissue. Additionally patient was noted to have acute on chronic renal injury, elevated BNP suggestive of congestive heart failure, leukocytosis greater than 12,000, requiring admission to the intensive care unit for ongoing evaluation, and stabilization. Review of Systems Narrative: Generalized weakness, fatigue, no acute complaints, no chest pain, no shortness of breath, no nausea, no vomiting, no abdominal pain, no changes in bowel movements. He is not having any lower extremity pain or discomfort. PFSH All Active Problems (Updated 10/13/23 @ 16:22 by Fernandez Ferrell MD) Other skin changes (Acute) PVD (peripheral vascular disease) (Chronic) Hydronephrosis, right (Acute) Severe sepsis with acute organ dysfunction (Acute) STEVO (acute kidney injury) (Acute) UTI (urinary tract infection) (Acute) Cellulitis of leg (Acute) Atrial flutter (Acute) History of skin graft (Acute) Obesity (Chronic) Hypertension (Chronic) Hyperlipidemia (Chronic) Chronic anticoagulation (Acute) History of pulmonary embolism (Acute ~03/2019) Hypertensive kidney disease with CKD stage III (Acute) Medical History COVID-19 (~11/12/21) Spinal stenosis Deep vein thrombosis (DVT) of popliteal vein of right lower extremity [place]ulkner classified according to extent of body surface involved Age 12, playing with matches, history of multiple skin grafting HNP (herniated nucleus pulposus), lumbar Right kidney stone (01/20/18) uric acid stone Surgical History Status post lumbar microdiscectomy (~2018) L3-4, at [facility] H/O ankle fusion S/P cystoscopy with ureteral stent placement Family History Mother , age 98 No problems noted. Father , age96 No problems noted. Sister No problems noted. Son , age 22 No problems noted. Daughter , age 40 Alcohol abuse Hypertension Sepsis Paternal Grandmother , age 102 No problems noted. Social History Smoking/Tobacco Use Status: Never Smoking risk assessment performed?: Yes Alcohol Intake: never Drug use: Never Substance use type: does not use Caregiver/Support person: Yes Household members: spouse Housing: house Do you need help understanding health information?: Rarely Pets and animals: Yes Pets and animals: dog(s) Sexually active: No Do you think of yourself as: straight/heterosexual Current gender identity: male What is your relationship status?: How often do you talk on the phone with friends or family?: three or more times per week How often do you get together with friends or relatives?: twice per week How often do you attend episcopal or catholic services?: decline to answer Do you belong to any clubs or organized social groups?: no Panel score (0-1 are the most socially isolated patients): 2 Duration: decline to answer Frequency: decline to answer Laurie/Pentecostal: No preference Special laurie needs: No Seatbelt use: sometimes Helmet use: Yes Helmet use: sometimes Drive intox 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 special client bus driver: No Do you feel safe at home: Yes Do you feel safe in your relationship?: Yes Exam Narrative Exam Narrative: gen: No acute distress, resting peacefully, aroused easily to voice Neuro: No focal neurologic deficits Psych: He is a good historian, responds appropriately, makes good eye contact HEENT: Atraumatic, normocephalic Neck: Trachea midline Heart: RRR, no m/r/g Lungs: ctab Chest: Bilateral excursion with respiration, does not localize chest pain Abdomen: Obese abdomen, soft, nontender to palpation, no peritonitis MSK: MAEx4, follows commands, bilateral lower extremities affected by faulkner and multiple skin grafts Integument: There are 2 open draining wounds the distal right lower extremity, and the left distal lower extremity. They appear to be colonized, there is fibropurulent discharge but there is no extension into the immediate surrounding tissue. Presents colonization with environmental galina Results Last Vital Signs Temp 98.4 F 10/13/23 08:02 Pulse 99 H 10/13/23 08:02 Resp 22 10/13/23 08:02 BP 120/80 10/13/23 08:02 Pulse Ox 94 10/13/23 08:02 Labs 10/13/23 05:50 10/13/23 05:50 Labs: Laboratory Results - last 24 hr 10/12/23 10/12/23 10/12/23 14:15 14:58 15:37 WBC 18.27 H RBC 5.56 Hgb 15.3 Hct 48.6 MCV 87 MCH 27.5 MCHC 31.5 L RDW 15.5 H Plt Count 328 MPV 9.7 Immature Gran % 0.7 Neutrophils % 89.6 Lymphocytes % 2.7 Monocytes % 6.6 Eosinophils % 0.1 Basophils % 0.3 Nucleated RBC % 0.0 Absolute Neutrophils 16.37 H Absolute Lymphocytes 0.49 L Absolute Monocytes 1.21 H Absolute Eosinophils 0.02 Absolute Basophils 0.05 PT Cancelled 41.4 H INR Cancelled 4.7 H* APTT Cancelled 45.1 H VBG pH 7.37 VBG pCO2 38 L VBG pO2 39 VBG HCO3 22 L VBG Total CO2 19 L VBG O2 Saturation 75 VBG Base Excess -3 L Sodium 140 Potassium 4.9 Chloride 106 Carbon Dioxide 21.5 Anion Gap 12.5 H BUN 43 H Creatinine 4.6 H* Est GFR (CKD-EPI 2020) 12.19 Glucose 115 H Calcium 8.4 L Magnesium 2.1 Total Bilirubin 2.5 H AST 25 ALT 19 Alkaline Phosphatase 110 Creatine Kinase 145 Troponin I < 50 NT-Pro-B Natriuret Pep 3664 H Total Protein 7.0 Albumin 3.0 L Lipase 25 TSH 0.69 Urine Color Yellow Urine Clarity Turbid Urine pH 5.5 Ur Specific [place] 1.025 Urine Protein 100 H Urine Ketones Negative Urine Blood Large H Urine Nitrite Negative Urine Bilirubin Negative Urine Urobilinogen 0.2 Ur Leukocyte Esterase Large H Urine RBC Not Applicable Urine WBC >50 H Ur Epithelial Cells Not Applicable Urine Crystals Not Applicable Urine Bacteria Not Applicable Urine Mucus Not Applicable Ur Culture Indicated? Yes Urine Glucose Negative Urine Opiates Screen Negative Urine Methadone Screen Negative Ur Barbiturates Screen Negative Ur Tricyclics Screen Negative Ur Amphetamines Screen Negative U Benzodiazepines Scrn Negative Urine Cocaine Screen Negative Ur THC Screen Negative Ethyl Alcohol < 3.0 COVID-19 Source NASOPHARYNX SARS-CoV-2 (PCR) Negative Influenza Type A (PCR) Negative Influenza Type B (PCR) Negative RSV (PCR) Negative 10/12/23 10/13/23 17:40 05:50 WBC 14.82 H RBC 5.05 Hgb 13.9 Hct 44.0 MCV 87 MCH 27.5 MCHC 31.6 L RDW 15.8 H Plt Count 273 MPV 10.3 Immature Gran % Neutrophils % Lymphocytes % Monocytes % Eosinophils % Basophils % Nucleated RBC % Absolute Neutrophils Absolute Lymphocytes Absolute Monocytes Absolute Eosinophils Absolute Basophils PT 55.5 H INR 6.5 H* APTT VBG pH VBG pCO2 VBG pO2 VBG HCO3 VBG Total CO2 VBG O2 Saturation VBG Base Excess Sodium 143 Potassium 4.7 Chloride 109 H Carbon Dioxide 18.4 L Anion Gap 15.6 H BUN 53 H Creatinine 5.2 H* Est GFR (CKD-EPI 2020) 10.52 Glucose 116 H Calcium 8.0 L Magnesium Total Bilirubin AST ALT Alkaline Phosphatase Creatine Kinase Troponin I < 50 NT-Pro-B Natriuret Pep Total Protein Albumin Lipase TSH Urine Color Urine Clarity Urine pH Ur Specific [place] Urine Protein Urine Ketones Urine Blood Urine Nitrite Urine Bilirubin Urine Urobilinogen Ur Leukocyte Esterase Urine RBC Urine WBC Ur Epithelial Cells Urine Crystals Urine Bacteria Urine Mucus Ur Culture Indicated? Urine Glucose Urine Opiates Screen Urine Methadone Screen Ur Barbiturates Screen Ur Tricyclics Screen Ur Amphetamines Screen U Benzodiazepines Scrn Urine Cocaine Screen Ur THC Screen Ethyl Alcohol COVID-19 Source SARS-CoV-2 (PCR) Influenza Type A (PCR) Influenza Type B (PCR) RSV (PCR)
--- NOTE | 2023-10-13 12:02 | PHA.REVIEW2 ---
Pharmacy Admission Review Admission Clinical Review Admission Pharmacy Review: Severe sepsis with acute organ dysfunction (Acute) STEVO (acute kidney injury) (Acute) UTI (urinary tract infection) (Acute) Cellulitis of leg (Acute) Atrial flutter (Acute) History of skin graft (Acute) Chronic anticoagulation (Acute) Hypertensive kidney disease with CKD stage III (Acute) tamsulosin Adverse Reaction (Intermediate, Verified 10/12/23 14:01) diarrhea Resuscitation Status DNR/DNI Height 6 ft Weight 123.1 kg Pharmacy Admission Review Renal Dosing Renal Dosing: BUN 53 mg/dL (7-18) H 10/13/23 05:50 Creatinine 5.2 mg/dL (0.70-1.30) H* 10/13/23 05:50 Medications needing adjustments: Intervened (CrCl 15.3 mL/min, BUN and SCr continue to increase) List of meds needing interventions: Changed Zosyn dosing from 3.375g q6h to 2.25g q8h Anticoagulation Anticoagulation: Hgb 13.9 g/dL (13.5-17.5) 10/13/23 05:50 Hct 44.0 % (40.0-50.0) 10/13/23 05:50 Plt Count 273 10^3/uL (130-400) 10/13/23 05:50 INR 6.5 (0.9-1.1) H* 10/13/23 05:50 Creatinine 5.2 mg/dL (0.70-1.30) H* 10/13/23 05:50 DVT Prophylaxis: Reviewed (Takes warfarin at home, on hold due to elevated INR. INR increased today from 4.7 to 6.5) Relevant Labs Relevant Labs: Sodium 143 mmol/L (136-145) 10/13/23 05:50 Potassium 4.7 mmol/L (3.5-5.1) 10/13/23 05:50 Chloride 109 mmol/L (98-107) H 10/13/23 05:50 Magnesium 2.1 mg/dL (1.8-2.4) 10/12/23 14:15 Electrolytes, C-Reactive P, ESR: Reviewed (Glucose 116 at 0550) Cardiac Review Cardiac Review: Troponin I < 50 ng/L (< or =60) 10/12/23 17:40 NT-Pro-B Natriuret Pep 3664 pg/mL (<300) H 10/12/23 14:15 BP, HR, EF%: Reviewed (HR/BP WNL, respiratory rate 26) QTc Review QTc: Reviewed (EKG report pending) IV to PO Switch IV Medications: Reviewed (Diltiazem and Zosyn) Home Meds Home Med List reviewed: Reviewed Relevent Home Meds Not ordered & why?: Vitamin D3, Vitamin B12, valsartan (on hold due to low BPs) and warfarin (on hold due to supratherapeutic INR) Current Meds Current Medication Order Review: Reviewed Comments: Diltiazem drip currently at 5mL/hr, last decreased today at 0958 Pharmacy Antibiotic Review Pharmacy Antibiotic Activity: Abx regimen adjustment and C/S review Comments: Patient is on day 2 of Zosyn, renally adjusted today to 2.25g q8h for UTI. WBC decreased from 18.27 to 14.82. Blood and urine cultures pending.
[2023-10-13 13:29] LABS: MRSA PCR Negative (Negative)
--- NOTE | 2023-10-13 14:03 | W.UROLOGYCON ---
Date of service: 10/13/23 Time of Service: 14:03 Assessment and Plan Assessment and plan (1) Hydronephrosis, right: Status: Acute Assessment and plan: With the hydronephrosis, probable urinary tract infection and renal function compromise, I believe placing a ureteral stent would be our best option. We would not plan on addressing his stones initially until any underlying infection has been treated. We would likely bring him back as an outpatient to finish his treatment with cystoscopy, holmium laser lithotripsy of his bladder stone, ureteroscopy and treatment of any obstructing ureteral stone. History of Present Illness History of Present Illness Chief Complaint: right hydronephrosis Narrative: This is an 82-year-old gentleman who has a long history of urolithiasis. He has had multiple surgical treatment both in [place] and here at [facility]. His stones have been composed of 100% uric acid. We have been attempting to alkalinize his urine with potassium citrate. His last surgical treatment was back in 2018. We did ureteroscopy for an obstructing right ureteral stone. His follow-up renal ultrasound showed no hydronephrosis. He is now admitted to the hospital with sepsis and an elevated serum creatinine. Blood and urine cultures are still pending. A renal ultrasound shows right hydronephrosis along with stone in the bladder. I have been asked to see him for possible stent placement The patient tells me he is not having any renal colic type symptoms. He had not been seeing blood in the urine prior to his admission. Review of Systems Constitutional Comments: No fevers or chills No vision change or dysphasia No diabetes or thyroid dysfunction Hx PE. No shortness of breath, cough or hemoptysis Atrial fibrillation. No chest pain Diarrhea. No nausea, vomiting, hepatitis, ulcers, jaundice No seizures, strokes or peripheral neuropathy Anticoagulated. No gout PFSH All Active Problems (Updated 10/13/23 @ 14:09 by Josiah Isaac MD) Hydronephrosis, right (Acute) Severe sepsis with acute organ dysfunction (Acute) STEVO (acute kidney injury) (Acute) UTI (urinary tract infection) (Acute) Cellulitis of leg (Acute) Atrial flutter (Acute) History of skin graft (Acute) Obesity (Chronic) Hypertension (Chronic) Hyperlipidemia (Chronic) Chronic anticoagulation (Acute) History of pulmonary embolism (Acute ~03/2019) Hypertensive kidney disease with CKD stage III (Acute) Medical History COVID-19 (~11/12/21) Spinal stenosis Deep vein thrombosis (DVT) of popliteal vein of right lower extremity [place] classified according to extent of body surface involved Age 12, playing with matches, history of multiple skin grafting HNP (herniated nucleus pulposus), lumbar Right kidney stone (01/20/18) uric acid stone Surgical History Status post lumbar microdiscectomy (~2018) L3-4, at [facility] H/O ankle fusion S/P cystoscopy with ureteral stent placement Family History Mother , age 98 No problems noted. Father , age96 No problems noted. Sister No problems noted. Son , age 22 No problems noted. Daughter , age 40 Alcohol abuse Hypertension Sepsis Paternal Grandmother , age 102 No problems noted. Social History Smoking/Tobacco Use Status: Never Smoking risk assessment performed?: Yes Alcohol Intake: never Drug use: Never Substance use type: does not use Caregiver/Support person: Yes Household members: spouse Housing: house Do you need help understanding health information?: Rarely Pets and animals: Yes Pets and animals: dog(s) Sexually active: No Do you think of yourself as: straight/heterosexual Current gender identity: male What is your relationship status?: How often do you talk on the phone with friends or family?: three or more times per week How often do you get together with friends or relatives?: twice per week How often do you attend orthodox or christian services?: decline to answer Do you belong to any clubs or organized social groups?: no Panel score (0-1 are the most socially isolated patients): 2 Duration: decline to answer Frequency: decline to answer Laurie/Rastafari: No preference Special laurie needs: No Seatbelt use: sometimes Helmet use: Yes Helmet use: sometimes Drive intox 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 funeral driver: No Do you feel safe at home: Yes Do you feel safe in your relationship?: Yes Exam Narrative Exam Narrative: He is an obese gentleman. He is sleepy but awakes rather easily His vital signs are documented elsewhere His abdomen is soft with no peritoneal signs There is a Best catheter in place that is draining clear urine He is awake and alert I reviewed his renal ultrasound on the PACS system and compared the ultrasound to his previous scans. He has new onset right hydronephrosis and right ureteral dilation. There appears to be a stone in the bladder. Results Last Vital Signs Temp 36.9 C 10/13/23 08:02 Pulse 86 10/13/23 11:00 Resp 26 H 10/13/23 11:00 BP 115/70 10/13/23 11:00 Pulse Ox 96 10/13/23 11:00 Labs 10/13/23 05:50 10/13/23 05:50 Labs: Laboratory Results - last 24 hr 10/12/23 10/12/23 10/12/23 14:15 14:58 15:37 WBC 18.27 H RBC 5.56 Hgb 15.3 Hct 48.6 MCV 87 MCH 27.5 MCHC 31.5 L RDW 15.5 H Plt Count 328 MPV 9.7 Immature Gran % 0.7 Neutrophils % 89.6 Lymphocytes % 2.7 Monocytes % 6.6 Eosinophils % 0.1 Basophils % 0.3 Nucleated RBC % 0.0 Absolute Neutrophils 16.37 H Absolute Lymphocytes 0.49 L Absolute Monocytes 1.21 H Absolute Eosinophils 0.02 Absolute Basophils 0.05 PT Cancelled 41.4 H INR Cancelled 4.7 H* APTT Cancelled 45.1 H VBG pH 7.37 VBG pCO2 38 L VBG pO2 39 VBG HCO3 22 L VBG Total CO2 19 L VBG O2 Saturation 75 VBG Base Excess -3 L Sodium 140 Potassium 4.9 Chloride 106 Carbon Dioxide 21.5 Anion Gap 12.5 H BUN 43 H Creatinine 4.6 H* Est GFR (CKD-EPI 2020) 12.19 Glucose 115 H Calcium 8.4 L Magnesium 2.1 Total Bilirubin 2.5 H AST 25 ALT 19 Alkaline Phosphatase 110 Creatine Kinase 145 Troponin I < 50 NT-Pro-B Natriuret Pep 3664 H Total Protein 7.0 Albumin 3.0 L Lipase 25 TSH 0.69 Urine Color Yellow Urine Clarity Turbid Urine pH 5.5 Ur Specific [place] 1.025 Urine Protein 100 H Urine Ketones Negative Urine Blood Large H Urine Nitrite Negative Urine Bilirubin Negative Urine Urobilinogen 0.2 Ur Leukocyte Esterase Large H Urine RBC Not Applicable Urine WBC >50 H Ur Epithelial Cells Not Applicable Urine Crystals Not Applicable Urine Bacteria Not Applicable Urine Mucus Not Applicable Ur Culture Indicated? Yes Urine Glucose Negative Urine Opiates Screen Negative Urine Methadone Screen Negative Ur Barbiturates Screen Negative Ur Tricyclics Screen Negative Ur Amphetamines Screen Negative U Benzodiazepines Scrn Negative Urine Cocaine Screen Negative Ur THC Screen Negative Ethyl Alcohol < 3.0 COVID-19 Source NASOPHARYNX SARS-CoV-2 (PCR) Negative Influenza Type A (PCR) Negative Influenza Type B (PCR) Negative RSV (PCR) Negative 10/12/23 10/13/23 17:40 05:50 WBC 14.82 H RBC 5.05 Hgb 13.9 Hct 44.0 MCV 87 MCH 27.5 MCHC 31.6 L RDW 15.8 H Plt Count 273 MPV 10.3 Immature Gran % Neutrophils % Lymphocytes % Monocytes % Eosinophils % Basophils % Nucleated RBC % Absolute Neutrophils Absolute Lymphocytes Absolute Monocytes Absolute Eosinophils Absolute Basophils PT 55.5 H INR 6.5 H* APTT VBG pH VBG pCO2 VBG pO2 VBG HCO3 VBG Total CO2 VBG O2 Saturation VBG Base Excess Sodium 143 Potassium 4.7 Chloride 109 H Carbon Dioxide 18.4 L Anion Gap 15.6 H BUN 53 H Creatinine 5.2 H* Est GFR (CKD-EPI 2020) 10.52 Glucose 116 H Calcium 8.0 L Magnesium Total Bilirubin AST ALT Alkaline Phosphatase Creatine Kinase Troponin I < 50 NT-Pro-B Natriuret Pep Total Protein Albumin Lipase TSH Urine Color Urine Clarity Urine pH Ur Specific [place] Urine Protein Urine Ketones Urine Blood Urine Nitrite Urine Bilirubin Urine Urobilinogen Ur Leukocyte Esterase Urine RBC Urine WBC Ur Epithelial Cells Urine Crystals Urine Bacteria Urine Mucus Ur Culture Indicated? Urine Glucose Urine Opiates Screen Urine Methadone Screen Ur Barbiturates Screen Ur Tricyclics Screen Ur Amphetamines Screen U Benzodiazepines Scrn Urine Cocaine Screen Ur THC Screen Ethyl Alcohol COVID-19 Source SARS-CoV-2 (PCR) Influenza Type A (PCR) Influenza Type B (PCR) RSV (PCR)
[2023-10-13] MEDS: PIPERACILLIN/TAZO 2.25 GM in Normal Saline 50 ML IVPB ×2 (14:15→22:00)
[2023-10-13] MEDS: Phytonadione 5 MG TABLET 1 MG PO (15:43)
[2023-10-13 18:00] LABS: Bilirubin Negative (Negative); Blood Large (Negative); Clarity Cloudy (Clear); Glucose Negative (Negative); Ketones Negative (Negative); Leukocyte Esterase Small (Negative); Nitrite Negative (Negative); Urobilinogen 0.2 mg/dL (Up to 0.2)
[2023-10-13 18:24] LABS: Epithelial Cells Rare HPF (Negative); Other Cells Rare Transitional (Negative); RBC >50 HPF (0-2)
[2023-10-13 18:25] LABS: Bacteria Rare HPF (Negative); C & S Indicated? Yes; Casts 3-5 Fine Granular LPF (Negative); Crystals Negative HPF (Negative); Mucus Negative (Negative)
[2023-10-13 19:12] LABS: C Diff PCR Negative (Negative)
[2023-10-13] MEDS: Phytonadione 5 MG TABLET 2.5 MG PO (19:26)
[2023-10-13] MEDS: Atorvastatin 20 MG TAB PO (19:26)
[2023-10-13] MEDS: Normal Saline Flush 10 ML SYR IVP ×2 (22:01→22:22)
[2023-10-13] MEDS: dilTIAZem 25 MG/5 ML VIAL 10 MG IVP (22:04)
[2023-10-13] MEDS: Ondansetron 4 MG/2 ML VIAL IVP (22:22)
[2023-10-14] VITALS (25 sets, daily range): BP systolic 107–143; BP diastolic 54–86; PULSE 55–124; RESP 18–24; TEMP 36.6–37.6; O2SAT 91–98; BMI 35.9
[2023-10-14] MEDS: dilTIAZem 25 MG/5 ML VIAL 10 MG IVP ×4 (03:15→17:34)
[2023-10-14] MEDS: Lactated Ringers 1,000 ML 80 ML IV (03:29)
[2023-10-14] MEDS: PIPERACILLIN/TAZO 2.25 GM in Normal Saline 50 ML IVPB ×3 (05:05→21:33)
[2023-10-14] MEDS: Normal Saline Flush 10 ML SYR IVP ×3 (05:05→20:06)
[2023-10-14] MEDS: dilTIAZem CD 120 MG CAPCR 240 MG PO (06:19)
[2023-10-14 06:57] LABS: Abs Immature Grans 0.06 10^3/uL (0.0-0.06); Absolute Basophil Count 0.05 10^3/uL (0.0-0.2); Absolute Eosinophil Count 0.38 10^3/uL (0.0-0.7); Absolute Lymphocyte Count 0.69 10^3/uL (1.2-3.4); Absolute Monocyte Count 1.26 10^3/uL (0.1-0.8); Basophils % 0.4; Eosinophils % 3.3; HCT 43.5 % (40.0-50.0); HGB 13.5 g/dL (13.5-17.5); Immature Grans % 0.5; MCH 27.2 pg (27.0-33.0); MCV 88 fL (80-95); MPV 10.4 fL (8.0-11.0); Neutrophils % 78.8; Platelet Count 294 10^3/uL (130-400); RBC 4.96 10^6/uL (4.36-5.78); RDW 15.9 % (11.8-14.1); RDW-SD 51.1 fL; WBC 11.47 10^3/uL (4.4-10.8)
[2023-10-14 06:59] LABS: INR 2.7 (0.9-1.1); Prothrombin Time 25.1 sec (9.1-11.1)
[2023-10-14 07:04] LABS: Anion Gap 13.8 mmol/L (3-11); BUN 59 mg/dL (7-18); CO2 18.2 mmol/L (21.0-32.0); Calcium 8.2 mg/dL (8.5-10.1); Chloride 109 mmol/L (98-107); Estimated GFR 10.77 (mL/min/1.73m2); Glucose 115 mg/dL (74-106); Potassium 4.4 mmol/L (3.5-5.1); Sodium 141 mmol/L (136-145)
[2023-10-14 07:07] LABS: Absolute Neutrophil Count 9.04 10^3/uL (1.2-6.7); CREATININE 5.1 mg/dL (0.70-1.30)
--- NOTE | 2023-10-14 07:09 | NUR.NOTE ---
Accesed pt chart to reconcile EKG orders with EKG's in [facility]. Nursing Note:
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
[2023-10-14] MEDS: dilTIAZem 30 MG TAB 60 MG PO ×2 (10:23→20:05)
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
--- NOTE | 2023-10-14 13:52 | ANES.PREOP_ITS ---
General Info Date of Service Date Performed: 10/14/23 Height: 6 ft Weight: 120.1 kg Body Mass Index (BMI): 35.9 Surgical Procedure: Operation Date: 10/14/23 13:25 Proposed Procedure Side Surgeon p Cystoscopy/Retrograde/Stent Placement Right Josiah Isaac MD Pre-Op Diagnosis Post-Op Diagnosis Hydronephrosis, right: Meds Allergies and Home Medications Allergies Allergy/AdvReac Type Severity Reaction Status Date / Time tamsulosin AdvReac Intermediate diarrhea Verified 10/12/23 14:01 Home Medication Medication Instructions Recorded cyanocobalamin (vitamin B-12) 1,000 mcg PO DAILY 07/28/19 1,000 mcg capsule cholecalciferol (vitamin D3) 10 10 mcg PO DAILY 03/30/21 mcg (400 unit) capsule atorvastatin 20 mg tablet 20 mg PO QHS #90 tabs 01/01/23 valsartan 80 mg tablet 80 mg PO DAILY #90 tabs 01/01/23 warfarin 5 mg tablet 5 mg PO DAILY #180 tabs 01/01/23 diltiazem HCl 240 mg 240 mg PO DAILY #90 caps 02/25/23 capsule,extended release 24 hr Current Visit Medications: Current Medications Generic Name Dose Route Start Last Admin Trade Name Freq PRN Reason Stop Dose Admin Atorvastatin Calcium 20 mg 10/12/23 21:00 10/13/23 19:26 Atorvastatin 20 Mg Tab PO 20 mg HS LIBORIO Administration Diltiazem HCl 10 mg 10/13/23 14:34 10/14/23 08:17 Diltiazem 25 Mg/5 Ml Vial IVP 10 mg Q2H PRN PRN Administration Diltiazem HCl 180 mg 10/14/23 20:00 Diltiazem Cd 180 Mg Capcr PO Q12H LIBORIO Sodium Chloride 500 mls @ 0 mls/hr 10/13/23 08:45 Saline 500ml Bag IV DIRECTED PRN As Directed Piperacillin Sod/Tazobactam 50 mls @ 100 mls/hr 10/13/23 14:00 10/14/23 05:56 Sod 2.25 gm/ Sodium Chloride IVPB Infused Q8H LIBORIO Infusion IV Miscellaneous Supplies 1 each 10/13/23 08:45 Iv Access IV DIRECTED LIBORIO Ondansetron HCl 4 mg 10/13/23 22:07 10/13/23 22:22 Ondansetron 4 Mg/2 Ml Vial IVP 4 mg Q4H PRN PRN Administration Sodium Chloride 0 ml 10/13/23 07:01 Normal Saline Flush 10 Ml Syr IVP PRN PRN Sodium Chloride 0 ml 10/13/23 08:45 10/14/23 05:05 Normal Saline Flush 10 Ml Syr IVP 20 ml PRN PRN Administration PFSH Active Problems Active Problems: Problem Status Onset Code Other skin changes R23.8 PVD (peripheral vascular disease) I73.9 Hydronephrosis, right N13.30 Severe sepsis with acute organ dysfunction A41.9, R65.20 STEVO (acute kidney injury) N17.9 UTI (urinary tract infection) N39.0 Cellulitis of leg L03.119 Atrial flutter I48.92 History of skin graft Z94.5 Obesity E66.9 Hypertension I10 Hyperlipidemia E78.5 Chronic anticoagulation Z79.01 History of pulmonary embolism ~03/2019 Z86.711 Hypertensive kidney disease with CKD stage III I12.9, N18.30 Medical History Medical History COVID-19 (~11/12/21) Spinal stenosis Deep vein thrombosis (DVT) of popliteal vein of right lower extremity Sena classified according to extent of body surface involved Age 12, playing with matches, history of multiple skin grafting HNP (herniated nucleus pulposus), lumbar Right kidney stone (01/20/18) uric acid stone Surgical History Surgical History Status post lumbar microdiscectomy (~2018) L3-4, at [facility] H/O ankle fusion S/P cystoscopy with ureteral stent placement Tobacco Smoking/Tobacco Use Status: Never Passive smoking exposure: No Alcohol Alcohol Intake: never Substance Use Substance use: Never Substance use type: does not use Vital Signs and Lab Results Vital Signs Most Recent Vital Signs in EMR: Most Recent Vital Signs Temp Pulse Resp BP Pulse Ox 36.7 C 81 18 116/69 94 10/14/23 11:31 10/14/23 11:31 10/14/23 11:31 10/14/23 11:31 10/14/23 11:31 Point of Care Results Point of Care Results: Finger Stick Blood Glucose 93 10/14/23 07:53 Lab Results 10/14/23 06:30 10/14/23 06:30 Blood Type / Crossmatch: 2 No Data to Display Complete Blood Count: 2 White Blood Count 11.47 10^3/uL (4.4-10.8) H 10/14/23 06:30 Red Blood Count 4.96 10^6/uL (4.36-5.78) 10/14/23 06:30 Hemoglobin 13.5 g/dL (13.5-17.5) 10/14/23 06:30 Hematocrit 43.5 % (40.0-50.0) 10/14/23 06:30 Platelet Count 294 10^3/uL (130-400) 10/14/23 06:30 Complete Metabolic Panel: 2 Sodium 141 mmol/L (136-145) 10/14/23 06:30 Potassium 4.4 mmol/L (3.5-5.1) 10/14/23 06:30 Chloride 109 mmol/L (98-107) H 10/14/23 06:30 Carbon Dioxide 18.2 mmol/L (21.0-32.0) L 10/14/23 06:30 BUN 59 mg/dL (7-18) H 10/14/23 06:30 Creatinine 5.1 mg/dL (0.70-1.30) H* 10/14/23 06:30 Est GFR (CKD-EPI 2020) 10.77 (mL/min/1.73m2) 10/14/23 06:30 Magnesium 2.1 mg/dL (1.8-2.4) 10/12/23 14:15 Calcium 8.2 mg/dL (8.5-10.1) L 10/14/23 06:30 Albumin 3.0 g/dL (3.4-5.0) L 10/12/23 14:15 Glucose 115 mg/dL (74-106) H 10/14/23 06:30 Liver Function Panel: 2 Alanine Aminotransferase (ALT/SGPT) 19 U/L (16-63) 10/12/23 14: 15 Aspartate Amino Transf (AST/SGOT) 25 U/L (15-37) 10/12/23 14:15 Coagulation Panel: 2 INR International Normalized Ratio 2.7 (0.9-1.1) H 10/14/23 06 :30 Prothrombin Time 25.1 sec (9.1-11.1) H 10/14/23 06:30 Activated Partial Thromboplast Time 45.1 sec (23.6-32.8) H 10/12/23 14:58 Cardiac Panel: 2 Troponin I < 50 ng/L (< or =60) 10/12/23 NT-Pro-B Natriuret Pep 3664 pg/mL (<300) H 10/12/23 Creatine Kinase 145 U/L (39-308) 10/12/23 Arterial Blood Gas: 2 No Data to Display Venous Blood Gas: 2 Venous Blood pH 7.37 (7.31-7.41) 10/12/23 14:15 Venous Blood Partial Pressure O2 39 mmHg 10/12/23 14:15 Venous Blood Partial Pressure CO2 38 mmHg (41-51) L 10/12/23 14 :15 Venous Blood Oxygen Saturation 75 % 10/12/23 14:15 Venous Blood HCO3 22 mmol/L (23-28) L 10/12/23 14:15 Venous Blood Base Excess -3 mmol/L (-2-3) L 10/12/23 14:15 Venous Blood Total Carbon Dioxide 19 mmol/L (24-29) L 10/12/23 14:15 Pancreas Panel: 2 Lipase 25 U/L (16-77) 10/12/23 14:15 Thyroid Panel: 2 Thyroid Stimulating Hormone (TSH) 0.69 uIU/mL (0.36-3.74) 10/11 14:15 Infectious Disease: 2 Coronavirus (COVID-19)(PCR) Negative (Negative) 10/12/23 15:37 Coronavirus 2019 Source NASOPHARYNX 10/12/23 15:37 Influenza Virus Type A (PCR) Negative (Negative) 10/12/23 15:3 7 Influenza Virus Type B (PCR) Negative (Negative) 10/12/23 15:3 7 Respiratory Syncytial Virus (PCR) Negative (Negative) 10/12/23 15:37 Blood Cultures: 2 No Data to Display Toxicology Panel: 2 Ethyl Alcohol Level < 3.0 mg/dL (<10) 10/12/23 14:15 Urine Amphetamines Screen Negative (Negative) 10/12/23 14:15 Urine Benzodiazepines Screen Negative (Negative) 10/12/23 14:1 5 Urine Barbiturates Screen Negative (Negative) 10/12/23 14:15 Urine Cocaine Screen Negative (Negative) 10/12/23 14:15 Urine Methadone Screen Negative (Negative) 10/12/23 14:15 Urine Opiates Screen Negative (Negative) 10/12/23 14:15 Ur Tricyclic Antidepressants Screen Negative (Negative) 14:15 Ur Tetrahydrocannabinol (THC) Scrn Negative (Negative) 4 14:15 Imaging and Studies Imaging and Studies Study information below may be from another EMR and interpreted by another provider. Please see original notes in EMR for more complete details. EKG Summary: EKG PATIENT NAME: Josep Comer UNIT #: [id number] ORDERING PROVIDER: Mark Alvarez M.D. PRIMARY CARE PROVIDER: ADRIANA JACK MD DATE/TIME OF SERVICE: 10/12/231906 : 1940 PERFORMING LOCATION: [place] APPROVED REPORT Exam: Resting ECG Reason for Exam: arrythmia Patient Location: E HR:82 bpm ECG Measurements Heart Rate 82 [place] [id number] P [id number] QRSd 127 QRS -58 QT 389 T11 QTc 456 Conclusion Atrial flutter with predominant 4:1 AV block...A-rate 333, multiple Ps Right bundle branch block...QRSd>120, terminal axis(90,270) Inferior infarct, old...Q >35mS, II III aVF aflutter, left axis - <Electronically signed by Mark Alvarez M.D. 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 Electronically signed by: <Electronically signed by Noemy Dickson M.D. in [place]> 10/14/23 0816 Cosigned by: Echocardiogram Summary: Patient Name: JOSEP COMER Unit #: [id number] Loc: DI Ordering Provider: Burt Mcpherson Status: REG [facility] Primary Care Provider: Patrick Han Date of Exam: 08/26/19 Sex: M Admission Date: 08/26/19 : 1940 Age: 78 Exam(s) a US:US echocardiogram APPROVED REPORT EXAM: Comprehensive 2D, Doppler, and color-flow Echocardiogram Patient Location: Out-Patient [employer]: Adela Soler RDCS (AE) Rhythm: NSR Indications: pulmonary hypertension i27.20 hypercoagulable state D68.59 Conclusion Normal left ventricular chamber size and wall thickness. Estimated ejection fraction is 55 to 60%. There are no segmental wall motion abnormalities Both atria are normal in size Right ventricle is mildly enlarged. Right ventricular systolic function is normal The aortic valve is trileaflet and sclerotic with trace regurgitation. There is no aortic stenosis Mildly thickened mitral and tricuspid valves Mild mitral and tricuspid regurgitation Estimated right ventricular systolic pressure is 31 mmHg Wall motion Left Ventricle The left ventricle is normal size. The left ventricular ejection fraction is within the normal range. There is normal left ventricular wall thickness. There is normal LV segmental wall motion. Stage I diastolic dysfunction LVEF is estimated to be 55-60%. Right Ventricle Right ventricle is mildly dilated. The right ventricular systolic function is normal. Atria The left atrium size is normal. The right atrium size is normal. Aortic Valve The Aortic valve is sclerotic. Aortic valve is trileaflet. There is no aortic valvular stenosis. Trace aortic regurgitation. Mitral Valve Mitral valve leaflets are mildly thickened. Mild mitral regurgitation. Tricuspid Valve The tricuspid valve leaflets are thickened , but open well. Mild tricuspid regurgitation. Estimated RVSP 31 mmHg Great Vessels The aortic root is normal in size. IVC is normal in size and collapses >50% with inspiration. Pericardium There is no pericardial effusion. 2D Dimensions IVSD d PLAX 1.21 cm M: 0.6-1.2LV Vol A2C d MOD 106.5 mL LVPW d PLAX 0.98 cm M: 0.6 - 1.2LV Vol A4C d MOD 83.6 mL LVID d PLAX 4.31 cm M: 4.2 - 5.8LA vol/ BSA A2C s A-L24.4 mL/m2 Ao Root d 3.58 cm M: 3.1 - 3.7LA vol/ BSA A4C s A-L25.2 mL/m2 RVID Base (AP4)4.41 cm (M/F) 2.5-4.1LA Vol/ BSA Biplane s A-L 27.5 mL/m2 RA Area A4C18.69 cm2LA Area A4C s MOD 18.85 cm2 RA Vol/ BSA A4C s A-L 23.7 mL/m2LA Area A2C s MOD 20.55 cm2 Ao Asc Diam d 3.71 cm M: 2.6 - 3.4LV EF A4C MOD 56.5 % LVEF (Jackson's)63.87 % M: 52 - 72LV EF A2C MOD 64.3 % LV Ixnjuf69.02 mL M: 62 - 150LV EF Biplane MOD 63.9 % LV Volume Index29.96 mL/m2 M: 34 - 74IVC Diam exp d SLAX 1.46 cm LV Vol Biplane MOD 100.0 mL M-Mode TAPSE 2.44 cm (M/F) <1.7 LV Diastology MV E' medial0.078 (>0.07 m/s)E/A Ratio 1.1 LV E/e MED11.20 (<14)MV E Vmax 0.87 (0.4-1.3 m/s) MV E' lateral0.093 (>0.1 m/s)MV A Vmax 0.80 (0.4-1.3 m/s) LV E/e LAT9.35 (<14)MV E/A Ratio 1.08 MV E/E' medial 11.21 MV E/E' lateral9.38 Aortic Valve LVOT Area3.42 cm2AoV Area Vmax2.27 cm2 LVOT Vmax 1.18 m/sAoV Area/ BSA (Vmax)0.95 cm2/m2 LVOT Mean Silvio.0.78 m/sAVA Mean Silvio.2.09 cm2 LVOT Peak Grad 5.6 mmHgAVA Mean Silvio. Index0.88 cm2/m2 LVOT Mean Grad 2.9 mmHg LVOT VTI0.229 m LVOT Diam s 2.05 cm (M/F) 1.5-2.5 AoV Vmax1.78 (0.5-1.3 m/s) Velocity Ratio 0.66 AoV Mean Silvio.1.27 m/s AoV Peak Grad12.7 mmHg LVOT SV 78.25 mL AoV Mean Grad7.1 (<5 mmHg) AoV VTI0.375 (0.18-0.25 m) AoV Area VTI2.09 (2.5-4.5 cm2) AoV Area/ BSA (VTI)0.88 cm/m2 Mitral Valve MV DT 197 (160-240 msec)MR Vmax 5.26 m/s MV PHT57 msecMR VTI 2.089 m MV Area PHT 3.85 cm2MR Peak Grad 110.5 mmHg MV VTI 0.145 mMR Mean Grad 69.6 mmHg MV VTI Annulus 0.139 mMV Regurg Vol 53.82 mL MV Area VTI 5.16 (4.0-6.0 cm2)MV RF40.75 % MV Diam AP 3.48 cm MV SV 132.07 mL Pulmonary Valve RVOT Peak Gr.1.73 mmHg RVOT Mean Gr.0.95 mmHg RVOT VTI0.133 m RVOT Vmax 0.66 m/s Tricuspid Valve TR Peak Grad 28.2 mmHgTR Vmax 2.66 m/s RA Pressure 3.00 mmHg RVSP (TR) 31.2 mmHg Ordered By: Burt Mcpherson CC: Dictated By: oNemy Dickson M.D. 08/26/19 0842 <Electronically signed by Noemy Dickson M.D. in [place]> 08/26/19 0854 Transcribed By: Noemy Dickson MD This is privileged, confidential information intended only for the provider named. Any use or distribution by any person other than this provider is strictly prohibited. If you receive this report in error, please notify us immediately at [phone] and return the original report to us at the address above. Thank-you. Anesthesia Assessment and Plan Anesthesia History Personal History: No History of Anesthesia Complications Family History: No Family History of Anesthesia Complications Exercise Tolerance Exercise Tolerance: Metabolic Equivalents<4 Pertinent Negatives Pertinent Negatives: No Symptoms of GERD Cardiac & Pulmonary Exam Cardiac Exam: Normal S1/S2 Heart Sounds Pulmonary Exam: Wheezing Present Implantable Cardiac Device Does patient have a Pacemaker or an ICD?: No Airway Exam Known Difficult Airway: No Mallampati Class: 3 Mouth Opening: Normal (> 3cm) Thyromental Distance: Greater than 3 cm Neck Range of Motion: Full ROM Neck Circumference: Thick Teeth Condition: Normal Dentition (Some missing teeth) ASA Classification ASA Score: ASA 3 Emergency Case?: No NPO Status NPO Status: NPO Clears >2 hours, Solids >8 hours Anesthesia Plan Resuscitation Status: Full Code Anesthesia Technique: MAC Anesthesia Airway Planned: Natural Airway Monitors Used: Standard Monitors
[2023-10-14] MEDS: Normal Saline 500 ML 30 ML IV (14:00)
[2023-10-14] MEDS: Lidocaine 2% Jelly 11 ML SYR (14:18)
[2023-10-14] MEDS: Omnipaque 300 MG/ML 50 ML BTL (14:18)
--- NOTE | 2023-10-14 14:33 | ROE_ITS ---
Date of service: 10/14/23 Time of Service: 14:33 Operative Note Operative Note DATE OF PROCEDURE: 10/14/23 PRE-OP DIAGNOSIS: Right hydronephrosis POST-OP DIAGNOSIS: same PROCEDURE: cystoscopy, right retrograde pyelogram, insertr right ureteral stent SURGEON: Josiah Isaac ANESTHESIA TYPE: Local By Surgeon and General:No Airway Refer to Anesthesia Record ESTIMATED BLOOD LOSS: 5 PATHOLOGY: none sent COMPLICATIONS: None Patient was transported to: PACU Patient's condition: stable Implants: 6 guatemalan by 22 to 30 cm right ureteral stent Indications: This is an 82-year-old gentleman who presented to to the hospital with sepsis and an elevated serum creatinine. He has a history of kidney stones and on ultrasound, he was found to have right hydronephrosis. He presents for placement of a ureteral stent on the right Findings: Right hydronephrosis and hydroureter Procedure Description: The patient was brought to the operating room on 10/14/2023. After successful induction of general anesthesia without intubation, he was placed in the dorsal lithotomy position. His indwelling Best catheter was removed. His genitalia was prepped and draped. 2% Xylocaine jelly was instilled into the urethra to act as a local anesthetic. A 22 Mongolian rigid cystoscope was passed through the urethra into the bladder. The urethra and bladder were inspected with the 30 degree lens. The pendulous, bulbar and membranous urethra appeared normal with no strictures. The prostatic urethra showed some lateral lobe enlargement but no significant median lobe. The bladder neck was entered and the bladder mucosa was inspected. The right ureteral orifice was visualized and was cannulated with a 5 Mongolian access catheter. Retrograde pyelogram was obtained by injecting Omnipaque through the access catheter under fluoroscopic guidance. The ureter appeared dilated from the pelvic brim upwards. The collecting system appeared dilated as well. I then passed a guidewire through the lumen of the access catheter and the catheter was removed. A 6 Mongolian variable length stent was advanced over the wire. Once the stent was placed, a hydronephrotic drip was identified. The wire was removed leaving the stent placed with the proximal end curled in the upper pole calyx and the distal end curled in the bladder. The positioning of the stent was confirmed both fluoroscopically and cystoscopically. The scope was then removed. A 16 Mongolian Best catheter was passed back through the urethra into the bladder. The catheter balloon was inflated with 10 cc of sterile water. The catheter was hooked to gravity drainage. The patient tolerated the procedure well with no complications.
--- NOTE | 2023-10-14 14:37 | DI.RAD_ITS ---
Exam(s) XR RETROGRADE IN OR EXAM: XR RETROGRADE IN OR CLINICAL HISTORY: RIGHT HYDRONEPHROSIS. TECHNIQUE: Fluoroscopy was provided for the referring physician for guidance with performing retrogr dain procedure. COMPARISON: US US RENAL from 10/13/2023 FINDINGS: Please see procedure note for details. Fluoro time: 16.4 seconds RADIATION DOSE DELIVERED: efren De Jesus=8.33 mGy
--- NOTE | 2023-10-14 14:37 | PDOC.CMPRO ---
Date of service: 10/14/23 Time of Service: 14:37 Care Management Progress Note Progress Note Text Progress Note Text: S/O: Josep transitioned out to the Medical/Surgical floor. He will be brought to the OR today for hydronephrosis stent placement-per MD. CM continues to follow. A: 82 year old male admitted to [facility] 10/13/23 for UTI, Aflutter P: Josep is being closely monitored and treated in the ICU. Surgical, Urology and wound consults are ordered. Anticipate Josep will discharge home when medically ready with [facility] services, if recommended. He will follow up with his community providers and discharge plan of care as instructed. PCP follow up previously scheduled for Friday. SDOH(Care Management) Screening Will the Patient Participate in the Screening?: Unable to obtain Do you worry about having a steady place to live?: yes Problems where you live: no known problems In the past 12 months, have you had to go without electric, gas, oil or water in your home?: no Have you or anyone in your house had to go without enough food to eat?: no Has lack of transportation kept you from medical appointments or from doing things needed for daily living?: no Has anyone in your support network made you feel unsafe for any reason?: no Health Related Social Needs Health related social needs: housing instability, housed, with risk of homelessness(Z59.811)
--- NOTE | 2023-10-14 15:11 | W.ANESPOSTOP ---
Postoperative Evaluation Date, Time and Location Date Performed: 10/14/23 Time Performed: 15:11 Patient Location: PACU Vital Signs Most Recent Imported Vital Signs: Most Recent Vital Signs Temp Pulse Resp BP Pulse Ox 36.6 C 107 H 24 123/62 95 10/14/23 15:02 10/14/23 15:02 10/14/23 15:02 10/14/23 15:02 10/14/23 15:02 Pain Score Most Recent Pain Score: Most Recent Pain Score Pain Level 0 10/14/23 15:02 Assessment Mental Status: Arousable with meaningful communication Airway and Respiratory Function: Patent airway with normal (patient baseline) respiratory exam Cardiovascular Function: Hemodynamically Stable Hydration Status: Adequately Hydrated Nausea & Vomiting: No Nausea or Vomiting Pain: Pt. Denies Any Pain Peripheral Nerve Block: Patient did not receive a nerve block
[2023-10-14] MEDS: VANCOMYCIN/WATER (PEG) 1.5 GM/300 ML BAG IV (17:10)
[2023-10-14] MEDS: Atorvastatin 20 MG TAB PO (20:05)
[2023-10-14] MEDS: Warfarin 5 MG TAB PO (20:06)
[2023-10-15] VITALS (10 sets, daily range): BP systolic 104–140; BP diastolic 47–82; PULSE 54–126; RESP 15–26; TEMP 36–37.5; O2SAT 91–94
[2023-10-15] MEDS: PIPERACILLIN/TAZO 2.25 GM in Normal Saline 50 ML IVPB ×3 (05:39→21:19)
[2023-10-15] MEDS: Normal Saline Flush 10 ML SYR IVP ×3 (05:40→20:54)
[2023-10-15 07:05] LABS: INR 1.8 (0.9-1.1)
[2023-10-15 07:12] LABS: Vancomycin, Random 21.6 ug/mL
[2023-10-15] MEDS: Cholecalciferol (Vitamin D3) 400 UNIT TAB PO (08:11)
[2023-10-15] MEDS: Valsartan 80 MG TAB PO (08:11)
[2023-10-15] MEDS: Cyanocobalamin 500 MCG TAB 1000 MCG PO (08:11)
[2023-10-15] MEDS: dilTIAZem 25 MG/5 ML VIAL 10 MG IVP (08:11)
[2023-10-15] MEDS: dilTIAZem CD 180 MG CAPCR PO ×2 (08:53→20:52)
[2023-10-15] MEDS: Metoprolol 25 MG TAB PO ×3 (08:54→23:27)
--- NOTE | 2023-10-15 08:56 | CMPROGNOTE_ITS ---
Date of service: 10/15/23 Time of Service: 08:57 Care Management Progress Note Progress Note Text Progress Note Text: S/O: Josep was sitting up in bed when CM met with him. He is eating his lunch and Noemy Baker is sitting next to him. shares that Josep was unable to get out of bed on his own prior to his admission and she is concerned with his ability to ambulate safely at home when he is ready to discharge. Josep has been to [facility] a few times, if that became the recommendation Noemy Barrera would prefer [facility]. Josep went to the OR yesterday for a Urology procedure. He requires close monitoring and medical treatment. see progress notes. PT consult will be needed when pt is more stable. Awaiting discharge recommendations from PT. CM continues to follow. A: 82 year old male admitted to [facility] 10/13/23 for UTI, Aflutter P: Josep is being closely monitored and treated. Anticipate pt will discharge home when medically ready with [facility]. Awaiting PT recommendations. He will follow up with his community providers and discharge plan of care as instructed. SDOH(Care Management) Screening Will the Patient Participate in the Screening?: Yes Do you worry about having a steady place to live?: no Problems where you live: no known problems In the past 12 months, have you had to go without electric, gas, oil or water in your home?: no Have you or anyone in your house had to go without enough food to eat?: no Has lack of transportation kept you from medical appointments or from doing things needed for daily living?: no Has anyone in your support network made you feel unsafe for any reason?: no
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
[2023-10-15 13:29] LABS: Abs Immature Grans 0.08 10^3/uL (0.0-0.06); Absolute Basophil Count 0.06 10^3/uL (0.0-0.2); Absolute Lymphocyte Count 0.86 10^3/uL (1.2-3.4); Absolute Monocyte Count 1.41 10^3/uL (0.1-0.8); Absolute Neutrophil Count 8.22 10^3/uL (1.2-6.7); Basophils % 0.5; Eosinophils % 5.3; HGB 12.7 g/dL (13.5-17.5); Immature Grans % 0.7; Lymphocytes % 7.7; MCH 27.3 pg (27.0-33.0); MCHC 31.8 % (32.0-36.0); MCV 86 fL (80-95); MPV 10.3 fL (8.0-11.0); Monocytes % 12.6; Neutrophils % 73.2; Platelet Count 332 10^3/uL (130-400); RBC 4.66 10^6/uL (4.36-5.78); RDW 16.1 % (11.8-14.1); RDW-SD 50.7 fL; WBC 11.23 10^3/uL (4.4-10.8)
[2023-10-15] MEDS: Enoxaparin 120 MG/0.8 ML SYR SC (14:00)
[2023-10-15 14:04] LABS: Anion Gap 8.8 mmol/L (3-11); BUN 48 mg/dL (7-18); CO2 22.2 mmol/L (21.0-32.0); CREATININE 3.5 mg/dL (0.70-1.30); Calcium 7.9 mg/dL (8.5-10.1); Chloride 109 mmol/L (98-107); Estimated GFR 16.92 (mL/min/1.73m2); Glucose 126 mg/dL (74-106); Potassium 4.2 mmol/L (3.5-5.1); Sodium 140 mmol/L (136-145)
--- NOTE | 2023-10-15 17:59 | NUR.NOTE ---
Nursing Note: Pt denies pain t/o shift, refusing to get up OOB to chair and ambulate with multiple staff attempts. Educated on pressure sores and other complications that arise from being sedentary. Pt wheezing seems to have worsened during shift. wheezing bilaterally t/o lung flores. RR has increased from 16/18-, appears SOB, denies dyspnea, SATs 91% on RA. HR irregular in 105-125 range. Was given one dose of PRN IVP diltiazem by LIANE RN this shift for sustained HR into 140s. pt has good appetite. Best is patent, yellow, with good output and some sediment. Catheter care done. Makes needs known. Pt encouraged to turn and reposition but is refusing most care including getting washed up, states Im not dirty, with multiple attempts from multiple staff members. Pt educated on importance of good hygiene while in hospital to prevent further infection risk.. Dressings to bilateral legs done per MD order.
[2023-10-15] MEDS: Atorvastatin 20 MG TAB PO (20:52)
[2023-10-15] MEDS: Warfarin 5 MG TAB PO (20:52)
[2023-10-16 05:00] VITALS: BP 134/81; PULSE 89; RESP 22; TEMP 37; O2SAT 93
[2023-10-16] MEDS: PIPERACILLIN/TAZO 2.25 GM in Normal Saline 50 ML IVPB ×2 (06:00→14:31)
[2023-10-16 07:00] LABS: Abs Immature Grans 0.17 10^3/uL (0.0-0.06); Absolute Basophil Count 0.08 10^3/uL (0.0-0.2); Absolute Eosinophil Count 0.68 10^3/uL (0.0-0.7); Absolute Lymphocyte Count 1.31 10^3/uL (1.2-3.4); Absolute Neutrophil Count 10.01 10^3/uL (1.2-6.7); Basophils % 0.6; Eosinophils % 5.1; HCT 45.1 % (40.0-50.0); HGB 14.1 g/dL (13.5-17.5); Immature Grans % 1.3; Lymphocytes % 9.8; MCH 27.3 pg (27.0-33.0); MCHC 31.3 % (32.0-36.0); MCV 87 fL (80-95); MPV 10.4 fL (8.0-11.0); Monocytes % 8.4; Neutrophils % 74.8; Platelet Count 372 10^3/uL (130-400); RBC 5.17 10^6/uL (4.36-5.78); RDW 16.2 % (11.8-14.1); RDW-SD 52.1 fL; WBC 13.38 10^3/uL (4.4-10.8)
[2023-10-16 07:06] LABS: Absolute Monocyte Count 1.12 10^3/uL (0.1-0.8)
[2023-10-16 07:10] LABS: Prothrombin Time 18.9 sec (9.1-11.1)
[2023-10-16 07:19] LABS: Anion Gap 11.7 mmol/L (3-11); BUN 41 mg/dL (7-18); CO2 21.3 mmol/L (21.0-32.0); CREATININE 2.9 mg/dL (0.70-1.30); Calcium 8.5 mg/dL (8.5-10.1); Chloride 109 mmol/L (98-107); Estimated GFR 21.07 (mL/min/1.73m2); Glucose 130 mg/dL (74-106); Potassium 4.2 mmol/L (3.5-5.1); Sodium 142 mmol/L (136-145)
[2023-10-16 08:00] VITALS: BP 137/87; PULSE 88; RESP 16; TEMP 36.6; O2SAT 94
[2023-10-16] MEDS: Cyanocobalamin 500 MCG TAB 1000 MCG PO (09:51)
[2023-10-16] MEDS: Cholecalciferol (Vitamin D3) 400 UNIT TAB PO (09:51)
[2023-10-16] MEDS: dilTIAZem CD 180 MG CAPCR PO ×2 (09:52→21:20)
[2023-10-16] MEDS: Valsartan 80 MG TAB PO (09:52)
[2023-10-16] MEDS: Normal Saline Flush 10 ML SYR IVP ×3 (09:52→21:21)
[2023-10-16] MEDS: Metoprolol 25 MG TAB PO ×3 (09:53→23:57)
[2023-10-16 11:58] VITALS: BP 139/89; PULSE 87; RESP 17; TEMP 36.7; O2SAT 96
--- NOTE | 2023-10-16 13:36 | PDOC.CMPRO ---
Date of service: 10/16/23 Time of Service: 13:36 Care Management Progress Note Progress Note Text Progress Note Text: S/O: Josep was laying in bed visiting with his when CM met with him. He continues to require close monitoring and medical treatment. PT consult pending, awaiting recommendations; home with full [facility] services vs. STR. [facility] is the preference if he needs rehab. CM continues to follow. A: 82 year old male admitted to [facility] 10/13/23 for UTI, Aflutter P: Josep is being closely monitored and treated. Anticipate pt will discharge home when medically ready with New Full [facility] Services. Awaiting PT recommendations. He will follow up with his community providers and discharge plan of care as instructed. SDOH(Care Management) Screening Will the Patient Participate in the Screening?: Yes Do you worry about having a steady place to live?: no Problems where you live: no known problems In the past 12 months, have you had to go without electric, gas, oil or water in your home?: no Have you or anyone in your house had to go without enough food to eat?: no Has lack of transportation kept you from medical appointments or from doing things needed for daily living?: no Has anyone in your support network made you feel unsafe for any reason?: no Health Related Social Needs Health related social needs: housing instability, housed, with risk of homelessness(Z59.811)
[2023-10-16] MEDS: Enoxaparin 120 MG/0.8 ML SYR SC (14:32)
[2023-10-16 15:12] VITALS: BP 132/77; PULSE 84; RESP 17; TEMP 36.8; O2SAT 94
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
[2023-10-16] MEDS: VANCOMYCIN 500 MG in Normal Saline 100 ML 100 MG IVPB (17:17)
[2023-10-16] MEDS: Fosfomycin Tromethamine 3 GM PACKET PO (17:55)
[2023-10-16 19:40] VITALS: BP 122/88; PULSE 84; RESP 15; TEMP 37.4; O2SAT 92
[2023-10-16] MEDS: DOXYCYCLINE 100 MG in Normal Saline 100 ML IVPB (21:18)
[2023-10-16] MEDS: cefTRIAXone 2 GM/50 ML BAG IVPB (21:19)
[2023-10-16] MEDS: Warfarin 5 MG TAB PO (21:20)
[2023-10-16] MEDS: Atorvastatin 20 MG TAB PO (21:20)
[2023-10-16 23:15] VITALS: BP 125/77; PULSE 69; RESP 15; TEMP 36.9; O2SAT 94
[2023-10-17 03:07] VITALS: BP 132/85; PULSE 84; RESP 15; TEMP 36.5; O2SAT 95
[2023-10-17 07:03] LABS: Abs Immature Grans 0.29 10^3/uL (0.0-0.06); Absolute Eosinophil Count 0.76 10^3/uL (0.0-0.7); Absolute Lymphocyte Count 1.33 10^3/uL (1.2-3.4); Absolute Neutrophil Count 9.82 10^3/uL (1.2-6.7); Basophils % 0.7; Eosinophils % 5.7; HCT 43.8 % (40.0-50.0); HGB 13.9 g/dL (13.5-17.5); INR 2.6 (0.9-1.1); Immature Grans % 2.2; Lymphocytes % 9.9; MCH 27.3 pg (27.0-33.0); MCHC 31.7 % (32.0-36.0); MCV 86 fL (80-95); MPV 11.1 fL (8.0-11.0); Monocytes % 8.3; Neutrophils % 73.2; Platelet Count 289 10^3/uL (130-400); Prothrombin Time 23.8 sec (9.1-11.1); RBC 5.09 10^6/uL (4.36-5.78); RDW 16.2 % (11.8-14.1); RDW-SD 50.9 fL; WBC 13.42 10^3/uL (4.4-10.8)
[2023-10-17 07:09] LABS: Absolute Basophil Count 0.09 10^3/uL (0.0-0.2); Absolute Monocyte Count 1.11 10^3/uL (0.1-0.8)
[2023-10-17 07:14] LABS: Anion Gap 14.7 mmol/L (3-11); BUN 30 mg/dL (7-18); CO2 17.3 mmol/L (21.0-32.0); CREATININE 2.3 mg/dL (0.70-1.30); Calcium 8.1 mg/dL (8.5-10.1); Chloride 110 mmol/L (98-107); Estimated GFR 27.83 (mL/min/1.73m2); Glucose 103 mg/dL (74-106); Potassium 4.1 mmol/L (3.5-5.1); Sodium 142 mmol/L (136-145)
[2023-10-17 07:34] VITALS: BP 136/87; PULSE 82; RESP 20; O2SAT 93
[2023-10-17 07:49] VITALS: TEMP 36.5
[2023-10-17] MEDS: Valsartan 80 MG TAB PO (08:12)
[2023-10-17] MEDS: Cholecalciferol (Vitamin D3) 400 UNIT TAB PO (08:13)
[2023-10-17] MEDS: dilTIAZem CD 180 MG CAPCR PO (08:13)
[2023-10-17] MEDS: Cyanocobalamin 500 MCG TAB 1000 MCG PO (08:14)
[2023-10-17] MEDS: Metoprolol 25 MG TAB PO (08:15)
[2023-10-17 11:04] VITALS: BP 126/78; PULSE 85; RESP 20; TEMP 36.8; O2SAT 94
[2023-10-17] MEDS: Normal Saline Flush 10 ML SYR IVP (11:08)
[2023-10-17] MEDS: Enoxaparin 120 MG/0.8 ML SYR SC (13:53)
--- NOTE | 2023-10-17 14:39 | DSE_ITS ---
Date of service: 10/17/23 Time of Service: 14:39 DS: Diagnosis Discharge Diagnosis (1) Severe sepsis with acute organ dysfunction: Status: Acute (2) STEVO (acute kidney injury): Status: Acute (3) UTI (urinary tract infection): Status: Acute (4) Cellulitis of leg: Status: Acute (5) Atrial flutter: Status: Acute (6) Hypertensive kidney disease with CKD stage III: Status: Acute (7) History of skin graft: Status: Acute (8) Hypertension: Status: Chronic (9) Chronic anticoagulation: Status: Acute (10) Discharge planning issues: Status: Resolved Discharge Plan Disposition Patient Disposition: [facility]) Condition: Improving Discharge Details Reason For Visit: UTI, Aflutter Admit Date/Time: 10/13/23 07:58 Admit Provider: Dinesh Parry Attending Provider: Dinesh Parry Primary Care Provider: Kareem Hart Hospital Course Hospital Course: The patient is an 82-year-old male with a history of faulkner to the lower extremities (LEs) in childhood, status post multiple grafts, 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 He presented with several days of fever, weakness, and falling. Upon arrival in the ER, he was found to have atrial fibrillation with rapid ventricular response (AFl/RVR) at 160 bpm, hypotension (systolic BP in the low 70s), confusion, purulent discharge from LE ulcers, leukocytosis (WBC count of 18), acute kidney injury (STEVO) with a creatinine of 4.6, and pyuria. Initial management in the ER included IV fluid bolus, Cardizem 30 IV in divided doses to control heart rate, resulting in a pulse decrease to approximately 80 bpm and BP improvement to the low 100s. Blood cultures were obtained, and the patient was started on empiric antibiotic therapy with Vancomycin and Zosyn. Additionally, the patient received a dose of Lasix due to oxygen requirement, which has since resolved. Notably, the INR was elevated at 4.7. Given the patient's complex medical history and acute presentation, patient was admitted to the medical floor for further evaluation, monitoring, and management of his atrial fibrillation, hypotension, infection, and renal dysfunction. Patient was seen by urology and was found to have hydronephrosis, probable urinary tract infection, and compromised renal function. The patient was found to have an obstructing stone on the right and some non obstructing stones on the left. Considering these factors, the patient was brought to the OR and a ureteral stent was placed on the right. Management of his bladder and ureteral stones is deferred until after the infection has been adequately treated. Patient has two chronic wounds, one on each lower leg that do not appear to be infected. His INR normalized and on discharge is 2.6. On discharge patient should start Doxycycline 100 mg twice a day for 7 days. Home Meds and New Rx's Prescriptions: New doxycycline hyclate 100 mg capsule 100 mg PO BID Qty: 14 0RF Continued cyanocobalamin (vitamin B-12) 1,000 mcg capsule 1,000 mcg PO DAILY cholecalciferol (vitamin D3) 10 mcg (400 unit) capsule 10 mcg PO DAILY atorvastatin 20 mg tablet 20 mg PO QHS Qty: 90 3RF valsartan 80 mg tablet 80 mg PO DAILY Qty: 90 3RF warfarin 5 mg tablet 5 mg PO DAILY Qty: 180 3RF Protocol: Dose Management Condition: Friday Dose/Route: 7.5 mg Instruction: 1.5 x 5 mg tablets Condition: Friday Dose/Route: 7.5 mg Instruction: 1.5 x 5 mg tablets Condition: Friday Dose/Route: 7.5 mg Instruction: 1.5 x 5 mg tablets Condition: Friday Dose/Route: 7.5 mg Instruction: 1.5 x 5 mg tablets Condition: Dose/Route: 7.5 mg Instruction: 1.5 x 5 mg tablets Condition: Friday Dose/Route: 5 mg Instruction: 1 x 5 mg tablet Condition: Friday Dose/Route: 7.5 mg Instruction: 1.5 x 5 mg tablets Protocol Text: Adjustment Start Date: Friday09/03/23 INR Value: 2.8 INR Date: 09/03/23 Recheck Date: 10/15/23 Rx Instructions: MANAGED BY UV diltiazem HCl 240 mg capsule,extended release 24hr 240 mg PO DAILY Qty: 90 3RF Discharge Instructions Additional Instructions: Start Doxycycline 100 mg twice a day for 7 days Keep indwelling urinary catheter until follow up with urology; Dr Isaac Stand Alone Forms: Nursing Discharge Form Referrals: Josiah Isaac MD [ [facility] STAFF PHYSICIAN] - () Activity:: Activity as Tolerated Equipment/Supplies:: No Equipment Needed Diet:: As Tolerated DS: Summary Time Spent with Patient providing and/or coordinating discharge services: Greater than 30 minutes Status at Discharge Functional status at discharge: uses cane/walker Overall status at discharge: patient is progressing back to baseline Mental Status: mental status grossly normal Speech and Movement: speech and movement normal Mood: congruent mood Affect: normal affect Quality:SDOH Health Related Social Needs: Health related social needs risk of homeless Exam Const General: cooperative, comfortable and no acute distress Nutritional Appearance: obese Orientation: alert and awake Chest Chest: normal inspection of the chest and normal palpation of entire chest wall Resp Effort & Inspection: normal respiratory effort and able to speak in complete sentences Auscultation: clear to auscultation bilaterally Cardio Jugular venous pressure: no JVD Palpation: normal PMI Rate: regular rate Rhythm: regular rhythm GI Inspection: normal to inspection Palpation: soft Percussion: normal to percussion Auscultation: normal bowel sounds Extrem Right lower extremity: edema Details: pitting and 1+ Left lower extremity: edema Details: pitting and 1+ Psych Mental Status: mental status grossly normal Speech and Movement: speech and movement normal Mood: congruent mood Affect: normal affect DS: Data Vitals/I&O Vitals and I&O: Vital Signs Temperature 36.8 C 10/17/23 11:04 Temperature Source Tympanic 10/17/23 11:04 Pulse 85 10/17/23 11:04 Pulse Rhythm Irregular 10/17/23 11:29 Pulse 82 10/13/23 16:00 Respiratory Rate 20 10/17/23 11:04 Respiratory Effort Short of Breath 10/17/23 11:29 Respiratory Depth Shallow 10/17/23 11:29 Respiratory Pattern Normal 10/17/23 11:29 Blood Pressure 126/78 10/17/23 11:04 Blood Pressure Mean 85 10/13/23 15:38 Blood Pressure Position Supine 10/13/23 12:00 Pulse Oximetry 94 10/17/23 11:04 Respiratory End-tidal CO2 29 10/14/23 15:02 Oxygen Delivery Method Room Air 10/17/23 11:04 Oxygen Flow Rate 0 10/17/23 11:04 Pain Level 0 10/17/23 11:04 Comment wheezing and RR has increased 10/15/23 17:20 Intake & Output 10/16/23 10/17/23 10/17/23 23:59 11:59 23:59 Intake Total 150 / 300 120 / 120 Output Total 2049 250 1950 Balance -300 / -1750 -1580 / -1830 -250 / -1830 Weight 122.2 kg Intake: IV 150 / 200 Oral 120 / 120 Output: Urine 2049 250 / 1950 Other: Urine Color Light Ann Marie Yellow Yellow Urine Appearance Clear Clear Clear Stool Size Large Moderate Stool Characteristics Soft Liquid Brown Brown Green Data Completed and Pending Labs on day of discharge: Labs from last 24 hours 10/17/23 05:40 WBC 13.42 H RBC 5.09 Hgb 13.9 Hct 43.8 MCV 86 MCH 27.3 MCHC 31.7 L RDW 16.2 H Plt Count 289 MPV 11.1 H Immature Gran % 2.2 Neutrophils % 73.2 Lymphocytes % 9.9 Monocytes % 8.3 Eosinophils % 5.7 Basophils % 0.7 Nucleated RBC % 0.0 Absolute Neutrophils 9.82 H Absolute Lymphocytes 1.33 Absolute Monocytes 1.11 H Absolute Eosinophils 0.76 H Absolute Basophils 0.09 PT 23.8 H INR 2.6 H Sodium 142 Potassium 4.1 Chloride 110 H Carbon Dioxide 17.3 L Anion Gap 14.7 H BUN 30 H Creatinine 2.3 H Est GFR (CKD-EPI 2020) 27.83 Glucose 103 Calcium 8.1 L Preliminary micro results at discharge 10/14/23 16:51 Blood Culture - Preliminary Blood NO GROWTH 48 HOURS 10/14/23 16:40 Blood Culture - Preliminary Blood NO GROWTH 48 HOURS 10/13/23 13:15 Blood Culture - Preliminary Blood NO GROWTH 72 HOURS PFSH All Active Problems (Updated 10/13/23 @ 16:22 by Fernandez Ferrell MD) Other skin changes (Acute) PVD (peripheral vascular disease) (Chronic) Hydronephrosis, right (Acute) Severe sepsis with acute organ dysfunction (Acute) STEVO (acute kidney injury) (Acute) UTI (urinary tract infection) (Acute) Cellulitis of leg (Acute) Atrial flutter (Acute) History of skin graft (Acute) Obesity (Chronic) Hypertension (Chronic) Hyperlipidemia (Chronic) Chronic anticoagulation (Acute) History of pulmonary embolism (Acute ~03/2019) Hypertensive kidney disease with CKD stage III (Acute) Medical History COVID-19 (~11/12/21) Spinal stenosis Deep vein thrombosis (DVT) of popliteal vein of right lower extremity Faulkner classified according to extent of body surface involved Age 12, playing with matches, history of multiple skin grafting HNP (herniated nucleus pulposus), lumbar Right kidney stone (01/20/18) uric acid stone Surgical History Status post lumbar microdiscectomy (~2018) L3-4, at [facility] H/O ankle fusion S/P cystoscopy with ureteral stent placement Family History Mother , age 98 No problems noted. Father , age96 No problems noted. Sister No problems noted. Son , age 22 No problems noted. Daughter , age 40 Alcohol abuse Hypertension Sepsis Paternal Grandmother , age 102 No problems noted. Social History Smoking/Tobacco Use Status: Never Smoking risk assessment performed?: Yes Alcohol Intake: never Drug use: Never Substance use type: does not use Caregiver/Support person: Yes Household members: spouse Housing: house Do you need help understanding health information?: Rarely Pets and animals: Yes Pets and animals: dog(s) Sexually active: No Do you think of yourself as: straight/heterosexual Current gender identity: male What is your relationship status?: How often do you talk on the phone with friends or family?: three or more times per week How often do you get together with friends or relatives?: twice per week How often do you attend scientologist or church services?: decline to answer Do you belong to any clubs or organized social groups?: no Panel score (0-1 are the most socially isolated patients): 2 Duration: decline to answer Frequency: decline to answer Laurie/Episcopal: No preference Special laurie needs: No Seatbelt use: sometimes Helmet use: Yes Helmet use: sometimes 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
--- NOTE | 2023-10-17 14:59 | CMDISCH_ITS ---
Date of service: 10/17/23 Time of Service: 14:59 LACE Index Scoring Tool Questions: Length of Stay (in days): 4 - 6 Was the patient admitted via the E.D.?: Yes Comorbidities: Liver or Renal Disease E.D. Visits: 0 Answers: Total Score: 12 Risk of Readmission: High Risk Care Management Discharge Plan Reason for Hospitalization: UTI, Aflutter Discharge Plan: Josep transferred to [facility] today for short term rehab prior to returning home. His was in the room, and agreed that SNF is the best option for him currently, and expects that it will be short term. He will transport via facility w/c van, coordinated by CM. He will follow up with his PCP, Urology, and his discharge plan of care. Patient/Family Education Needs: Review discharge instructions and limitations, discussion of self care needs including ask me three. Services Needed at Discharge: [facility] Facility ([facility]) and Transportation (facility w/c van) SDOH Health Related Social Needs: Health related social needs risk of homeless Health related social needs: housing instability, housed, with risk of homelessness(Z59.811)
== END 2023-10-17 15:00 | disposition skilled nursing facility (03) | DRG 854 ==
LOC: ER 20:28 → ICU 10-13 07:57 → MS 10-14 08:04 → ICU 10-14 11:39
PROVIDERS: Internal Medicine; Urology; Admitting Provider General Practice; Emergency Provider Emergency Medicine; PCP Family Medicine; Visit Provider General Practice
PROC: 0T768DZ Dilation of Right Ureter with Intraluminal Device, Via Natural or Artificial Opening Endoscopic (ICD-10-PCS; CPT 74450; principal; 2023-10-14 13:15)
DX: A41.9 Sepsis, unspecified organism; I48.3 Typical atrial flutter; N13.6 Pyonephrosis; N17.9 Acute kidney failure, unspecified; L97.818 Non-pressure chronic ulcer of other part of right lower leg with other specified severity; L97.828 Non-pressure chronic ulcer of other part of left lower leg with other specified severity; R65.20 Severe sepsis without septic shock; N18.30 Chronic kidney disease, stage 3 unspecified; I12.9 Hypertensive chronic kidney disease with stage 1 through stage 4 chronic kidney disease, or unspecified chronic kidney disease; Z79.01 Long term (current) use of anticoagulants; R23.8 Other skin changes; I73.9 Peripheral vascular disease, unspecified; E66.9 Obesity, unspecified; Z86.711 Personal history of pulmonary embolism; N21.0 Calculus in bladder; Z87.442 Personal history of urinary calculi; R53.1 Weakness; R29.6 Repeated falls; M48.00 Spinal stenosis, site unspecified; I83.018 Varicose veins of right lower extremity with ulcer other part of lower leg; I83.028 Varicose veins of left lower extremity with ulcer other part of lower leg; R09.02 Hypoxemia; R41.82 Altered mental status, unspecified
CPT/HCPCS: 52332; 00123; 36410; 36415; 51702; 76770; 80048; 80053; 80307; 82550; 82805; 83690; 85027; 87040; 87077; 87493; 87637; 87641; 93005; 96365; 96366; 96368; 96375; 96376; 97162; 97530; 99222; 99285; 70450; 71045; 74420; 80202; 80320; 81003; 81015; 83735; 83880; 84443; 84484; 85025; 85610; 85730; 87086; 87186; 93010; 99223; 99231; 99232; 99239; 99291; J0131; J0696; J1650; J1940; J2405; J2543; J2704; J3370; J3372; J3490; Q9967

== ENCOUNTER → 2023-10-14 13:40 | Outpatient (BNVA) | payer MEDICARE, BC, SELFPAY | PROVIDERS: PCP Family Medicine; Referring Provider Family Medicine; Visit Provider Urology ==

== ENCOUNTER 2023-10-22 15:58 | Outpatient (REF) | payer MEDICARE, BC, SELFPAY ==
[2023-10-23 06:56] LABS: INR 2.5 (0.9-1.1); Prothrombin Time 23.4 sec (9.1-11.1)
== END 2023-10-22 15:59 | disposition home or self-care (01) ==
LOC: LBN 15:58
PROVIDERS: PCP Family Medicine; Visit Provider Family Medicine
DX: I48.92 Unspecified atrial flutter (principal); Z79.01 Long term (current) use of anticoagulants
CPT/HCPCS: 80048; 85610

== ENCOUNTER 2023-11-01 10:24 | Outpatient (REF) | payer MEDICARE, BC, SELFPAY ==
[2023-11-01 15:59] LABS: INR 3.5 (0.9-1.1); Prothrombin Time 31.3 sec (9.1-11.1)
== END 2023-11-01 10:25 | disposition home or self-care (01) ==
LOC: LBN 10:24
PROVIDERS: PCP Family Medicine; Visit Provider Family Medicine
DX: I48.92 Unspecified atrial flutter (principal); Z86.711 Personal history of pulmonary embolism; Z79.01 Long term (current) use of anticoagulants
CPT/HCPCS: 85610

== ENCOUNTER 2023-11-03 06:11 | Day surgery (SDC) | payer MEDICARE, BC, SELFPAY ==
[2023-11-03] VITALS (9 sets, daily range): BP systolic 94–118; BP diastolic 35–77; PULSE 69–92; RESP 16–22; TEMP 36–36.4; O2SAT 94–100; BMI 35.2
--- NOTE | 2023-11-03 06:49 | W.PM.HP.N ---
Date of service: 11/03/23 Time of Service: 06:49 Assessment and Plan Assessment and plan (1) Hydronephrosis, right: Assessment and plan: We will plan to do cystoscopy, remove his right ureteral stent and do ureteroscopy with holmium laser lithotripsy of any visible ureteral stone and bladder stone History of Present Illness History of Present Illness Chief Complaint: Ureteral stone Narrative: This is an 83-year-old gentleman who has a history of uric acid kidney stones. He had a recent hospitalization with sepsis and an elevated serum creatinine. He was found to have right-sided hydronephrosis on ultrasound. We suspected a right ureteral stone. Based on the ultrasound, he also had nonobstructing stones on the left and possibly bladder stones. As he was acutely ill, we placed a ureteral stent but did not do ureteroscopy. Now that his medical condition has stabilized, he returns for ureteroscopy and possible holmium laser lithotripsy of ureteral and bladder stones. In the past, he has been treated with ureteroscopy and open surgeries for his kidney stones. Review of Systems Narrative: No fevers or chills No vision change or dysphasia No diabetes or thyroid dysfunction No shortness of breath, cough or hemoptysis Atrial fibrillation. Hx pulmonary emboli. No chest pain No nausea, vomiting, hepatitis, ulcers, jaundice No seizures, strokes or peripheral neuropathy Chronically anticoagulated. No anemia Lower extremity faulkner and infected wounds. No gout PFSH All Active Problems (Updated 11/03/23 @ 07:01 by Josiah Isaac MD) PVD (peripheral vascular disease) (Chronic) UTI (urinary tract infection) (Acute) Cellulitis of leg (Acute) Atrial flutter (Acute) Obesity (Chronic) History of pulmonary embolism (Acute ~03/2019) Hyperlipidemia (Chronic) Medical History (Updated 11/03/23 @ 07:01 by Josiah Isaac MD) Hydronephrosis, right Hx of sepsis Hypertensive kidney disease with CKD stage III Chronic anticoagulation Hypertension COVID-19 (~11/12/21) Spinal stenosis Deep vein thrombosis (DVT) of popliteal vein of right lower extremity Faulkner classified according to extent of body surface involved Age 12, playing with matches, history of multiple skin grafting HNP (herniated nucleus pulposus), lumbar Right kidney stone (01/20/18) uric acid stone Surgical History History of skin graft Status post lumbar microdiscectomy (~2018) L3-4, at [facility] H/O ankle fusion S/P cystoscopy with ureteral stent placement Family History Mother , age 98 No problems noted. Father , age96 No problems noted. Sister No problems noted. Son , age 22 No problems noted. Daughter , age 40 Alcohol abuse Hypertension Sepsis Paternal Grandmother , age 102 No problems noted. Social History Smoking/Tobacco Use Status: Never Smoking risk assessment performed?: Yes Alcohol Intake: never Drug use: Never Substance use type: does not use Caregiver/Support person: Yes Household members: spouse Housing: house Do you need help understanding health information?: Rarely Pets and animals: Yes Pets and animals: dog(s) Sexually active: No Do you think of yourself as: straight/heterosexual Current gender identity: male What is your relationship status?: How often do you talk on the phone with friends or family?: three or more times per week How often do you get together with friends or relatives?: twice per week How often do you attend synagogue or congregational services?: decline to answer Do you belong to any clubs or organized social groups?: no Panel score (0-1 are the most socially isolated patients): 2 Duration: decline to answer Frequency: decline to answer Laurie/Tenriism: No preference Special laurie needs: No Seatbelt use: sometimes Helmet use: Yes Helmet use: sometimes 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 Meds Allergies and Home Medications Allergies Allergy/AdvReac Type Severity Reaction Status Date / Time tamsulosin AdvReac Intermediate diarrhea Verified 11/03/23 06:13 Home Medications Medication Instructions Recorded Confirmed Type cyanocobalamin (vitamin B-12) 1,000 mcg PO DAILY 07/28/19 11/03/23 History 1,000 mcg capsule cholecalciferol (vitamin D3) 10 10 mcg PO DAILY 03/30/21 11/03/23 History mcg (400 unit) capsule atorvastatin 20 mg tablet 20 mg PO QHS #90 tabs 01/01/23 11/03/23 Rx valsartan 80 mg tablet 80 mg PO DAILY #90 tabs 01/01/23 11/03/23 Rx warfarin 5 mg tablet 5 mg PO DAILY #180 tabs 01/01/23 11/03/23 Rx diltiazem HCl 240 mg 240 mg PO DAILY #90 caps 02/25/23 11/03/23 Rx capsule,extended release 24 hr doxycycline hyclate 100 mg capsule 100 mg PO BID #14 caps 10/17/23 11/03/23 Rx acidophilus 100 million cap PO DAILY 11/03/23 History cell-pectin, citrus 10 mg capsule (Probiotic Acidophilus-Pectin) Exam Const General: cooperative Neck Neck: supple Resp Effort & Inspection: normal respiratory effort Auscultation: wheezes expiratory wheezes Cardio Rate: regular rate Rhythm: abnormal rhythm GI Palpation: soft Neuro General: patient alert and patient awake Time Spent Time spent with Patient: <40 minutes Time was spent: other
--- NOTE | 2023-11-03 07:00 | W.ANESPRE ---
General Info Date of Service Date Performed: 11/03/23 Height: 6 ft Weight: 117.7 kg Body Mass Index (BMI): 35.2 Surgical Procedure: Operation Date: 11/03/23 07:40 Proposed Procedure Side Surgeon p Cystoscopy/Possible Laser/Ureteroscopy/ Stent Removal Right Josiah Isaac MD Meds Allergies and Home Medications Allergies Allergy/AdvReac Type Severity Reaction Status Date / Time tamsulosin AdvReac Intermediate diarrhea Verified 11/03/23 06:13 Home Medication Medication Instructions Recorded cyanocobalamin (vitamin B-12) 1,000 mcg PO DAILY 07/28/19 1,000 mcg capsule cholecalciferol (vitamin D3) 10 10 mcg PO DAILY 03/30/21 mcg (400 unit) capsule atorvastatin 20 mg tablet 20 mg PO QHS #90 tabs 01/01/23 valsartan 80 mg tablet 80 mg PO DAILY #90 tabs 01/01/23 warfarin 5 mg tablet 5 mg PO DAILY #180 tabs 01/01/23 diltiazem HCl 240 mg 240 mg PO DAILY #90 caps 02/25/23 capsule,extended release 24 hr doxycycline hyclate 100 mg capsule 100 mg PO BID #14 caps 10/17/23 acidophilus 100 million cap PO DAILY 11/03/23 cell-pectin, citrus 10 mg capsule (Probiotic Acidophilus-Pectin) Current Visit Medications: Current Medications Generic Name Dose Route Start Last Admin Trade Name Freq PRN Reason Stop Dose Admin Ringer's Solution 1,000 mls @ 80 mls/hr 11/03/23 06:00 IV 11/03/23 23:59 INFUSION LIBORIO Cefazolin Sodium/Dextrose 2 gm in 50 mls @ 100 mls/hr 11/03/23 06:00 Ancef Duplex IVPB 11/03/23 23:59 PREOP LIBORIO IV Miscellaneous Supplies 1 each 11/03/23 06:00 Iv Access IV 11/03/23 23:59 DIRECTED LIBORIO Sodium Chloride 0 ml 11/03/23 06:00 Normal Saline Flush 10 Ml Syr IV 11/03/23 23:59 PRN PRN Sodium Chloride 0 ml 11/03/23 06:00 Normal Saline 10 Ml Vial IJ 11/03/23 23:59 DIRECTED PRN Sterile Water 0 ml 11/03/23 06:00 Water,Injection,Sterile 10 Ml Vial IJ 11/03/23 23:59 DIRECTED PRN PFSH Active Problems Active Problems: Problem Status Onset Code PVD (peripheral vascular disease) I73.9 UTI (urinary tract infection) N39.0 Cellulitis of leg L03.119 Atrial flutter I48.92 Obesity E66.9 History of pulmonary embolism ~03/2019 Z86.711 Hyperlipidemia E78.5 Medical History Medical History (Updated 11/03/23 @ 07:01 by Josiah Isaac MD) Hydronephrosis, right Hx of sepsis Hypertensive kidney disease with CKD stage III Chronic anticoagulation Hypertension COVID-19 (~11/12/21) Spinal stenosis Deep vein thrombosis (DVT) of popliteal vein of right lower extremity Sena classified according to extent of body surface involved Age 12, playing with matches, history of multiple skin grafting HNP (herniated nucleus pulposus), lumbar Right kidney stone (01/20/18) uric acid stone Surgical History Surgical History History of skin graft Status post lumbar microdiscectomy (~2018) L3-4, at [facility] H/O ankle fusion S/P cystoscopy with ureteral stent placement Tobacco Smoking/Tobacco Use Status: Never Passive smoking exposure: No Alcohol Alcohol Intake: never Substance Use Substance use: Never Substance use type: does not use Vital Signs and Lab Results Vital Signs Most Recent Vital Signs in EMR: Most Recent Vital Signs Temp Pulse Resp BP Pulse Ox 36.4 C L 92 H 18 112/73 97 11/03/23 06:15 11/03/23 06:15 11/03/23 06:15 11/03/23 06:15 11/03/23 06:15 Lab Results Blood Type / Crossmatch: No Data to Display Complete Blood Count: White Blood Count 13.42 10^3/uL (4.4-10.8) H 10/17/23 05:40 Red Blood Count 5.09 10^6/uL (4.36-5.78) 10/17/23 05:40 Hemoglobin 13.9 g/dL (13.5-17.5) 10/17/23 05:40 Hematocrit 43.8 % (40.0-50.0) 10/17/23 05:40 Platelet Count 289 10^3/uL (130-400) 10/17/23 05:40 Complete Metabolic Panel: Sodium 142 mmol/L (136-145) 10/17/23 05:40 Potassium 4.1 mmol/L (3.5-5.1) 10/17/23 05:40 Chloride 110 mmol/L (98-107) H 10/17/23 05:40 Carbon Dioxide 17.3 mmol/L (21.0-32.0) L 10/17/23 05:40 BUN 30 mg/dL (7-18) H 10/17/23 05:40 Creatinine 2.3 mg/dL (0.70-1.30) H 10/17/23 05:40 Est GFR (CKD-EPI 2020) 27.83 (mL/min/1.73m2) 10/17/23 05:40 Magnesium 2.1 mg/dL (1.8-2.4) 10/12/23 14:15 Calcium 8.1 mg/dL (8.5-10.1) L 10/17/23 05:40 Albumin 3.0 g/dL (3.4-5.0) L 10/12/23 14:15 Glucose 103 mg/dL (74-106) 10/17/23 05:40 Liver Function Panel: Alanine Aminotransferase (ALT/SGPT) 19 U/L (16-63) 10/12/23 14:15 Aspartate Amino Transf (AST/SGOT) 25 U/L (15-37) 10/12/23 14:15 Coagulation Panel: INR International Normalized Ratio 2.3 (0.9-1.1) H 11/03/23 07:15 Prothrombin Time 21.9 sec (9.1-11.1) H 11/03/23 07:15 Activated Partial Thromboplast Time 45.1 sec (23.6-32.8) H 10/12/23 14:58 Cardiac Panel: Troponin I < 50 ng/L (< or =60) 10/12/23 NT-Pro-B Natriuret Pep 3664 pg/mL (<300) H 10/12/23 Creatine Kinase 145 U/L (39-308) 10/12/23 Arterial Blood Gas: No Data to Display Venous Blood Gas: Venous Blood pH 7.37 (7.31-7.41) 10/12/23 14:15 Venous Blood Partial Pressure O2 39 mmHg 10/12/23 14:15 Venous Blood Partial Pressure CO2 38 mmHg (41-51) L 10/12/23 14:15 Venous Blood Oxygen Saturation 75 % 10/12/23 14:15 Venous Blood HCO3 22 mmol/L (23-28) L 10/12/23 14:15 Venous Blood Base Excess -3 mmol/L (-2-3) L 10/12/23 14:15 Venous Blood Total Carbon Dioxide 19 mmol/L (24-29) L 10/12/23 14:15 Pancreas Panel: Lipase 25 U/L (16-77) 10/12/23 14:15 Thyroid Panel: Thyroid Stimulating Hormone (TSH) 0.69 uIU/mL (0.36-3.74) 10/12/23 14:15 Infectious Disease: Coronavirus (COVID-19)(PCR) Negative (Negative) 10/12/23 15:37 Coronavirus 2019 Source NASOPHARYNX 10/12/23 15:37 Influenza Virus Type A (PCR) Negative (Negative) 10/12/23 15:37 Influenza Virus Type B (PCR) Negative (Negative) 10/12/23 15:37 Respiratory Syncytial Virus (PCR) Negative (Negative) 10/12/23 15:37 Blood Cultures: No Data to Display Toxicology Panel: Ethyl Alcohol Level < 3.0 mg/dL (<10) 10/12/23 14:15 Urine Amphetamines Screen Negative (Negative) 10/12/23 14:15 Urine Benzodiazepines Screen Negative (Negative) 10/12/23 14:15 Urine Barbiturates Screen Negative (Negative) 10/12/23 14:15 Urine Cocaine Screen Negative (Negative) 10/12/23 14:15 Urine Methadone Screen Negative (Negative) 10/12/23 14:15 Urine Opiates Screen Negative (Negative) 10/12/23 14:15 Ur Tricyclic Antidepressants Screen Negative (Negative) 10/12/23 14:15 Ur Tetrahydrocannabinol (THC) Scrn Negative (Negative) 10/12/23 14:15 Imaging and Studies Imaging and Studies Study information below may be from another EMR and interpreted by another provider. Please see original notes in EMR for more complete details. EKG Summary: EKG PATIENT NAME: Josep Comer Patricia UNIT #: [id number] ORDERING PROVIDER: Mark Alvarez M.D. 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 Electronically signed by: <Electronically signed by Noemy Dickson M.D. in OV> 10/14/23 0816 Cosigned by: Echocardiogram Summary: Patient Name: JOSEP COMER Unit #: [id number] Loc: DI Ordering Provider: Burt Mcpherson Status: REG CLI Primary Care Provider: Patrick Han Date of Exam: 08/26/19 Sex: M Admission Date: 08/26/19 : 1940 Age: 78 Exam(s) a US:US echocardiogram APPROVED REPORT EXAM: Comprehensive 2D, Doppler, and color-flow Echocardiogram Patient Location: Out-Patient Quality Assurance Assessor: Adela Soler RDCS (AE) Rhythm: NSR Indications: pulmonary hypertension i27.20 hypercoagulable state D68.59 Conclusion Normal left ventricular chamber size and wall thickness. Estimated ejection fraction is 55 to 60%. There are no segmental wall motion abnormalities Both atria are normal in size Right ventricle is mildly enlarged. Right ventricular systolic function is normal The aortic valve is trileaflet and sclerotic with trace regurgitation. There is no aortic stenosis Mildly thickened mitral and tricuspid valves Mild mitral and tricuspid regurgitation Estimated right ventricular systolic pressure is 31 mmHg Wall motion Left Ventricle The left ventricle is normal size. The left ventricular ejection fraction is within the normal range. There is normal left ventricular wall thickness. There is normal LV segmental wall motion. Stage I diastolic dysfunction LVEF is estimated to be 55-60%. Right Ventricle Right ventricle is mildly dilated. The right ventricular systolic function is normal. Atria The left atrium size is normal. The right atrium size is normal. Aortic Valve The Aortic valve is sclerotic. Aortic valve is trileaflet. There is no aortic valvular stenosis. Trace aortic regurgitation. Mitral Valve Mitral valve leaflets are mildly thickened. Mild mitral regurgitation. Tricuspid Valve The tricuspid valve leaflets are thickened , but open well. Mild tricuspid regurgitation. Estimated RVSP 31 mmHg Great Vessels The aortic root is normal in size. IVC is normal in size and collapses >50% with inspiration. Pericardium There is no pericardial effusion. 2D Dimensions IVSD d PLAX 1.21 cm M: 0.6-1.2LV Vol A2C d MOD 106.5 mL LVPW d PLAX 0.98 cm M: 0.6 - 1.2LV Vol A4C d MOD 83.6 mL LVID d PLAX 4.31 cm M: 4.2 - 5.8LA vol/ BSA A2C s A-L24.4 mL/m2 Ao Root d 3.58 cm M: 3.1 - 3.7LA vol/ BSA A4C s A-L25.2 mL/m2 RVID Base (AP4)4.41 cm (M/F) 2.5-4.1LA Vol/ BSA Biplane s A-L 27.5 mL/m2 RA Area A4C18.69 cm2LA Area A4C s MOD 18.85 cm2 RA Vol/ BSA A4C s A-L 23.7 mL/m2LA Area A2C s MOD 20.55 cm2 Ao Asc Diam d 3.71 cm M: 2.6 - 3.4LV EF A4C MOD 56.5 % LVEF (Jackson's)63.87 % M: 52 - 72LV EF A2C MOD 64.3 % LV Nutvbi35.02 mL M: 62 - 150LV EF Biplane MOD 63.9 % LV Volume Index29.96 mL/m2 M: 34 - 74IVC Diam exp d SLAX 1.46 cm LV Vol Biplane MOD 100.0 mL M-Mode TAPSE 2.44 cm (M/F) <1.7 LV Diastology MV E' medial0.078 (>0.07 m/s)E/A Ratio 1.1 LV E/e MED11.20 (<14)MV E Vmax 0.87 (0.4-1.3 m/s) MV E' lateral0.093 (>0.1 m/s)MV A Vmax 0.80 (0.4-1.3 m/s) LV E/e LAT9.35 (<14)MV E/A Ratio 1.08 MV E/E' medial 11.21 MV E/E' lateral9.38 Aortic Valve LVOT Area3.42 cm2AoV Area Vmax2.27 cm2 LVOT Vmax 1.18 m/sAoV Area/ BSA (Vmax)0.95 cm2/m2 LVOT Mean Silvio.0.78 m/sAVA Mean Silvio.2.09 cm2 LVOT Peak Grad 5.6 mmHgAVA Mean Silvio. Index0.88 cm2/m2 LVOT Mean Grad 2.9 mmHg LVOT VTI0.229 m LVOT Diam s 2.05 cm (M/F) 1.5-2.5 AoV Vmax1.78 (0.5-1.3 m/s) Velocity Ratio 0.66 AoV Mean Silvio.1.27 m/s AoV Peak Grad12.7 mmHg LVOT SV 78.25 mL AoV Mean Grad7.1 (<5 mmHg) AoV VTI0.375 (0.18-0.25 m) AoV Area VTI2.09 (2.5-4.5 cm2) AoV Area/ BSA (VTI)0.88 cm/m2 Mitral Valve MV DT 197 (160-240 msec)MR Vmax 5.26 m/s MV PHT57 msecMR VTI 2.089 m MV Area PHT 3.85 cm2MR Peak Grad 110.5 mmHg MV VTI 0.145 mMR Mean Grad 69.6 mmHg MV VTI Annulus 0.139 mMV Regurg Vol 53.82 mL MV Area VTI 5.16 (4.0-6.0 cm2)MV RF40.75 % MV Diam AP 3.48 cm MV SV 132.07 mL Pulmonary Valve RVOT Peak Gr.1.73 mmHg RVOT Mean Gr.0.95 mmHg RVOT VTI0.133 m RVOT Vmax 0.66 m/s Tricuspid Valve TR Peak Grad 28.2 mmHgTR Vmax 2.66 m/s RA Pressure 3.00 mmHg RVSP (TR) 31.2 mmHg Ordered By: Burt Mcpherson CC: Dictated By: Noemy Dickson M.D. 08/26/19 0842 <Electronically signed by Noemy Dickson M.D. in [place]> 08/26/19 0854 Transcribed By: Noemy Dickson MD This is privileged, confidential information intended only for the provider named. Any use or distribution by any person other than this provider is strictly prohibited. If you receive this report in error, please notify us immediately at [phone] and return the original report to us at the address above. Thank-you. Anesthesia Assessment and Plan Anesthesia History Personal History: Unknown Anesthesia History Family History: No Family History of Anesthesia Complications Exercise Tolerance Exercise Tolerance: Metabolic Equivalents<4 Cardiac & Pulmonary Exam Cardiac Exam: Normal S1/S2 Heart Sounds Pulmonary Exam: Clear Bilateral Breath Sounds Implantable Cardiac Device Does patient have a Pacemaker or an ICD?: No Airway Exam Known Difficult Airway: No Mallampati Class: 3 Mouth Opening: Normal (> 3cm) Thyromental Distance: Greater than 3 cm Neck Range of Motion: Full ROM Neck Circumference: Thick Teeth Condition: Normal Dentition (Some missing teeth) ASA Classification ASA Score: ASA 3 Emergency Case?: No NPO Status NPO Status: NPO Clears >2 hours, Solids >8 hours Anesthesia Plan Resuscitation Status: Full Code Anesthesia Technique: General Anesthesia Airway Planned: LMA Monitors Used: Standard Monitors
[2023-11-03] MEDS: Lactated Ringers 1,000 ML 80 ML IV (07:01)
[2023-11-03 07:31] LABS: INR 2.3 (0.9-1.1); Prothrombin Time 21.9 sec (9.1-11.1)
[2023-11-03] MEDS: ceFAZolin 2 GM/50 ML BAG IVPB (08:16)
[2023-11-03] MEDS: Lidocaine 2% Jelly 6 ML SYR ×2 (08:25→08:28)
[2023-11-03] MEDS: Omnipaque 300 MG/ML 50 ML BTL (08:30)
--- NOTE | 2023-11-03 08:59 | W.PM.DSUDISC ---
Date of service: 11/03/23 Time of Service: 08:59 Discharge Plan Disposition Patient Disposition: Other Disposition Not Listed Other Facility: [facility] Condition: Stable Discharge Details Reason For Visit: ureteroscopy Attending Provider: Josiah Isaac Primary Care Provider: Kareem Hart Home Meds and New Rx's Prescriptions: New sulfamethoxazole-trimethoprim [Bactrim DS] 800-160 mg tablet 1 tab PO BID Qty: 10 0RF No Action cyanocobalamin (vitamin B-12) 1,000 mcg capsule 1,000 mcg PO DAILY cholecalciferol (vitamin D3) 10 mcg (400 unit) capsule 10 mcg PO DAILY atorvastatin 20 mg tablet 20 mg PO QHS Qty: 90 3RF valsartan 80 mg tablet 80 mg PO DAILY Qty: 90 3RF warfarin 5 mg tablet 5 mg PO DAILY Qty: 180 3RF Protocol: Dose Management Condition: Friday Dose/Route: 7.5 mg Instruction: 1.5 x 5 mg tablets Condition: Friday Dose/Route: 7.5 mg Instruction: 1.5 x 5 mg tablets Condition: Friday Dose/Route: 7.5 mg Instruction: 1.5 x 5 mg tablets Condition: Friday Dose/Route: 7.5 mg Instruction: 1.5 x 5 mg tablets Condition: Dose/Route: 7.5 mg Instruction: 1.5 x 5 mg tablets Condition: Friday Dose/Route: 5 mg Instruction: 1 x 5 mg tablet Condition: Friday Dose/Route: 7.5 mg Instruction: 1.5 x 5 mg tablets Protocol Text: Adjustment Start Date: 10/23/23 INR Value: 2.5 INR Date: 10/23/23 Recheck Date: 12/04/23 Rx Instructions: MANAGED BY UV diltiazem HCl 240 mg capsule,extended release 24hr 240 mg PO DAILY Qty: 90 3RF doxycycline hyclate 100 mg capsule 100 mg PO BID Qty: 14 0RF acidophilus-pectin, citrus [Probiotic Acidophilus-Pectin] 100 million cell-10 mg capsule PO DAILY Discharge Instructions Additional Instructions: may restart Warfarin 11/03 no need to strain urine followup visit 6 to 8 weeks with renal US prior to visit prescription for Bactrim DS 1 PO BID for 5 days Activity:: Activity as Tolerated Shower/Bathe:: 24 hours Diet:: As Tolerated Discharge Orders Discharge Orders: Discharge Order (Routine); Ordered 11/03/23 Ordered By: Josiah Isaac DS: Diagnosis Discharge Diagnosis (1) Hydronephrosis, right:
--- NOTE | 2023-11-03 09:05 | DI.RAD_ITS ---
Exam(s) XR RETROGRADE IN OR EXAM: XR RETROGRADE IN OR CLINICAL HISTORY: Hydronephrosis, right. TECHNIQUE: 2D digital imaging was performed. COMPARISON: No exams were available for comparison FINDINGS: Fluoroscopy provided during right side urologic procedure. See procedure report for details. Total fluoroscopy time 28 seconds IMPRESSION: Radiation exposure index/cumulative dose: Lizaefren= 14.762 mGy DATA REPOSITORY: RADIATION DOSE DELIVERED:
--- NOTE | 2023-11-03 09:06 | W.PM.OP ---
Date of service: 11/03/23 Time of Service: 09:06 Operative Note Operative Note DATE OF PROCEDURE: 11/03/23 PRE-OP DIAGNOSIS: right hydronephrosis POST-OP DIAGNOSIS: same PROCEDURE: cystoscopy, remove right ureteral stent, right retrograde pyelogram, right ureteroscopy with stone extraction SURGEON: Josiah Isaac ANESTHESIA TYPE: Local By Surgeon and General LMA/ETT Refer to Anesthesia Record ESTIMATED BLOOD LOSS: 5 PATHOLOGY: other (stone for chemical analysis) COMPLICATIONS: None Patient was transported to: PACU Patient's condition: stable Implants: none Indications: This is an 83-year-old gentleman who has a past history of uric acid stones. He was recently hospitalized with sepsis and worsening renal function. We found right hydronephrosis and I placed a ureteral stent. He has completed his course of antibiotics. He presents now for stent removal, ureteroscopy and treatment of his ureteral stones. Findings: Stent had become encrusted No significant stones along the course of the ureter, but the stone in the right upper pole calyx Procedure Description: The patient was given IV antibiotics and brought to the operating room on 11/03/2023. After successful induction of general anesthesia, he was placed in the dorsal lithotomy position. His indwelling urethral catheter was removed. His genitalia was prepped and draped. 2% Xylocaine jelly was instilled into the urethra to act as a local anesthetic. A 22 [place] rigid cystoscope was passed through the urethra into the bladder. The urethra and bladder were inspected using a 30 degree lens. The pendulous, bulbar and membranous urethra appeared normal with no strictures. The prostatic urethra showed lateral lobe enlargement but no significant median lobe. The bladder neck was entered and the bladder was inspected. A stent could be seen protruding from the right ureteral orifice. The stent was encrusted with yellow stone debris. No large stone was found within the lumen of the bladder. The stent was grasped with alligator forceps and brought to the level of the urethral meatus. A guidewire was passed through the lumen of the stent and the wire was advanced up the ureter under fluoroscopic guidance. The stent was removed leaving the wire in place. I then advanced a 5 [place] access catheter over the wire and subsequently remove the wire once the catheter was in the distal ureter. I injected Omnipaque through the access catheter under fluoroscopic guidance. No filling defect was identified within the ureter. The ureter was much less dilated than it had been when the stent was placed. I replaced the wire through the lumen of the access catheter. The access catheter was then removed leaving the wire in place. I then utilized a semirigid ureteroscope to inspect the distal ureter. The scope was passed through the urethra, into the bladder and advanced up the right ureter to the pelvic brim. No large stone burden was seen in this portion of the ureter. The scope was then removed. A dual-lumen catheter was advanced over the wire and a second wire was positioned. We chose one of the wires as a working wire and the other as a safety wire. I then passed the ureteral access sheath over the working wire leaving the safety wire in place. The flexible ureteroscope was passed through the lumen of the access sheath and each of the calyces were inspected. Multiple very small stone particles were identified but up in the upper pole calyx a larger stone was identified. I was able to grasp the stone in the 0 tip stone basket and remove the stone in its entirety. The stone was then sent to pathology for chemical analysis. The flexible ureteroscope was reintroduced and we withdrew the scope while inspecting the ureter. No additional large stone burden was identified. We elected not to replace the stent and not to replace the urethral catheter. The patient tolerated this procedure well with no complications.
--- NOTE | 2023-11-03 09:30 | RT.EKG_ITS ---
APPROVED REPORT Exam: Resting ECG Reason for Exam: baseline exam Patient Location: O HR:79 bpm ECG Measurements Heart Rate 79 AXIS MS 242 P 51 QRSd 102 QRS -45 QT 399 T -2 QTc 453 Conclusion Sinus rhythm...normal P axis, V-rate 60- 99 Atrial premature complex...SV complex w/ short R-R interval Prolonged MS interval...MS >220, V-rate 50- 90 IVCD
--- NOTE | 2023-11-03 10:03 | DI.RAD_ITS ---
Exam(s) XR PORTABLE CHEST AP EXAM: XR PORTABLE CHEST AP CLINICAL HISTORY: Prolonged Extubation. TECHNIQUE: 2D digital imaging was performed. COMPARISON: CT CT CHEST PE CTA from 04/27/2019 CR,XR XR PORTABLE CHEST AP from 10/12/2023 FINDINGS: Single AP portable view. Heart size is upper normal. The mediastinum is not widened. There is some infiltrate in the posterior basal segment of the left lower lobe. Mild increased manju ngs also noted in the posterior basal segment of the right lower lobe. No obvious pleural effusions. No pulmonary edema. No pneumothorax. No fractures. IMPRESSION: Mild bibasilar infiltrates noted. Probable element of chronicity given the findings on CT scan of . There are no obvious pleural effusions. DATA REPOSITORY: RADIATION DOSE DELIVERED:
[2023-11-03 10:28] LABS: NT-proBNP 298 pg/mL (<300)
--- NOTE | 2023-11-03 10:43 | W.ANESPOSTOP ---
Postoperative Evaluation Date, Time and Location Date Performed: 11/03/23 Time Performed: 10:43 Patient Location: Day Surgery Unit Vital Signs Most Recent Imported Vital Signs: Most Recent Vital Signs Temp Pulse Resp BP Pulse Ox 36.3 C L 81 19 112/64 96 11/03/23 10:07 11/03/23 10:07 11/03/23 10:07 11/03/23 10:07 11/03/23 10:07 Pain Score Most Recent Pain Score: Most Recent Pain Score Pain Level 0 11/03/23 10:07 Assessment Mental Status: Awake (Alert & Oriented to Patient Baseline) Airway and Respiratory Function: Patent airway with normal (patient baseline) respiratory exam Cardiovascular Function: Hemodynamically Stable Hydration Status: Adequately Hydrated Nausea & Vomiting: No Nausea or Vomiting Pain: Pt. Denies Any Pain Peripheral Nerve Block: Patient did not receive a nerve block
[2023-11-07 12:19] LABS: Source: Right Ureter
== END 2023-11-03 12:00 | disposition other institution (70) ==
PROVIDERS: Student in an Organized Health Care Education/Training Program; PCP Family Medicine; Visit Provider Urology
PROC: (CPT 52310; principal; 2023-11-03 07:30)
DX: N13.30 Unspecified hydronephrosis (principal); N20.1 Calculus of ureter; I10 Essential (primary) hypertension; Z86.711 Personal history of pulmonary embolism
CPT/HCPCS: 52310; 36415; 71045; 74420; 82365; 83880; 85610; 93005; 93010; J0131; J0690; J1100; J1805; J2001; J2371; J2405; J2704; Q9967

== ENCOUNTER → 2023-12-17 00:35 | Outpatient (CLI) | payer MEDICARE, BC, SELFPAY ==
--- NOTE | 2023-12-17 10:20 | DI.US_ITS ---
Exam(s) US RENAL EXAM: US RENAL CLINICAL HISTORY: ? hydronephrosis,CALCULUS PROXIMAL RT URETER,N20.1 TECHNIQUE: Ultrasound of both kidneys performed using standard protocol. COMPARISON: CT CT CHEST PE CTA from 04/27/2019 US US RENAL from 10/13/2023 FINDINGS: RIGHT KIDNEY: Measures 11.8 cm in length. No cysts evident. Normal cortical thickness and corticomedullary differen tiation .No solid masses No intrarenal calculi nor hydronephrosis. LEFT KIDNEY: Measures 1 cm in length. There is of 5 cm cyst in the lower pole of the left kidney. Other smaller cysts are noted towards the mid-upper pole region. There is a shadowing intrarenal calculus measurin g 1.3 cm. No hydronephrosis. URINARY BLADDER: Prevoid volume is 121 cc Postvoid volume is patient cannot void cc No evidence of bladder mass nor diverticuli. Ureterovesical jets: Both not able to be identified. IMPRESSION: 1. Left kidney contains a 1.3 cm nonobstructive calculus. 2. There are 3 cysts in the left kidney measuring up to 5 cm. No solid renal masses. No hydronephr osis. 3. No obvious mass in the urinary bladder. Patient was apparently not able to void. DATA REPOSITORY:
== END ==
PROVIDERS: PCP Family Medicine; Visit Provider Urology
DX: N20.1 Calculus of ureter (principal)
CPT/HCPCS: 76770

== ENCOUNTER → 2023-12-23 14:08 | Outpatient (BNVA) | payer MEDICARE, BC, SELFPAY | PROVIDERS: PCP Family Medicine; Referring Provider Family Medicine; Visit Provider Urology | DX: N20.0 Calculus of kidney (principal) | CPT/HCPCS: 99213 ==

== ENCOUNTER 2024-01-31 13:46 | Emergency (ER) | payer MEDICARE, BC, SELFPAY ==
[2024-01-31] VITALS (24 sets, daily range): BP systolic 103–147; BP diastolic 37–78; PULSE 77–96; RESP 16–28; TEMP 36.8; O2SAT 94–98
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
--- NOTE | 2024-01-31 14:15 | DI.CT_ITS ---
Exam(s) CT ABDOMEN PELVIS WO EXAM: CT ABDOMEN PELVIS WO CLINICAL HISTORY: History of stone urinary retention. TECHNIQUE: Imaging Protocol: Axial computed tomography images with coronal and sagittal reformatted images were created and reviewed. COMPARISON: CT CT ABDOMEN PELVIS WO from 04/27/[address] CHEST PE CTA from 04/27/2019 FINDINGS: ABDOMEN: Lung Bases: There is a small hiatal hernia. Coronary artery calcifications are present. There is at electasis or scarring in the lung bases. Liver: Normal density. No measurable mass. Gallbladder and biliary tract: Cholelithiasis. No CT evidence to suggest cholecystitis. There is no biliary ductal dilatation. Pancreas: Normal density, no abnormal calcifications or inflammatory process. There is a small duoden al diverticulum again seen adjacent to the pancreatic head. Spleen: Normal. Kidneys: Normal size, contour and axis.Left nephrolithiasis. No evidence of obstructive uropathy. T here are several exophytic nodules along the kidneys likely reflecting cysts. Adrenal glands: No mass is seen. Lymph nodes: Within normal limits. Abdominal Aorta: Abdominal portion non-dilated. Atherosclerotic calcification is present. PELVIS: Bladder:There is a Best catheter in the decompressed urinary bladder. There is a small amount of ai r seen in the urinary bladder likely reflecting the catheterization. Bowel: There are diverticula seen in the colon without evidence of acute diverticulitis. There is no evidence of bowel obstruction or bowel wall thickening. There is no evidence of appendicitis. Ther e is a moderate amount of stool in the rectum but no rectal wall thickening. The stomach is incomple tely distended but grossly unremarkable. Peritoneal cavity: No ascites, collection or mesenteric inflammatory response. No free air. Reproductive organs: Unremarkable as visualized. Bones: Within normal limits. Soft Tissues: There is a fat containing left inguinal hernia. IMPRESSION: 1. Nephrolithiasis without evidence of obstructive uropathy. 2. Colonic diverticulosis without evidence of acute diverticulitis. 3. Moderate amount of stool in the rectum but no rectal wall thickening. 4. Cholelithiasis without CT evidence of acute cholecystitis. 5. Bilateral exophytic nodules on the kidneys likely reflecting cysts, but some are indeterminate on this examination. Nonemergent MRI of the kidneys should be considered. RADIATION DOSE DELIVERED: Total DLP DATA REPOSITORY: All CT scans at this facility are submitted to the National Radiology Data Registry (NRDR) Dose Index Registry (DIR) with the [employer] (A[employer]). RADIATION OPTIMIZATION: All CT scans at this facility use at least one of these dose optimization te chniques: automated exposure control; mA and/or kV adjustment per patient size (includes targeted exa ms where dose is matched to clinical indication); or iterative reconstruction.
--- NOTE | 2024-01-31 14:59 | DI.RAD_ITS ---
Exam(s) XR PORTABLE CHEST AP EXAM: XR PORTABLE CHEST AP CLINICAL HISTORY: Sepsis TECHNIQUE: 2D digital imaging was performed of the chest. One image was obtained. An AP view was ob tained. COMPARISON: CR,XR XR CHEST 2V PA LATERAL from 03/31/2019 CR,XR XR PORTABLE CHEST AP from 10/12/2023 CR XR PORTABLE CHEST AP from 11/03/2023 FINDINGS: MEDIASTINUM: Normal. HEART: Normal. PULMONARY VASCULATURE: Normal. LUNGS: Chronic scarring is again seen in the left lung base. No focal consolidating infiltrates are present. PLEURAL SPACE: No pleural effusion or pneumothorax. BONE:Within normal limits for the patient's age. There is old left clavicular for fracture deformity. Old left rib fractures are seen. OTHER FINDINGS:Normal. IMPRESSION: No acute pulmonary findings. DATA REPOSITORY: RADIATION DOSE DELIVERED:
[2024-01-31 15:02] LABS: Lactate 0.8 mmol/L (0.6-1.4)
[2024-01-31 15:04] LABS: Absolute Basophil Count 0.08 10^3/uL (0.0-0.2); Absolute Eosinophil Count 0.06 10^3/uL (0.0-0.7); Absolute Lymphocyte Count 0.76 10^3/uL (1.2-3.4); Absolute Monocyte Count 1.13 10^3/uL (0.1-0.8); Absolute Neutrophil Count 17.38 10^3/uL (1.2-6.7); Basophils % 0.4 %; Eosinophils % 0.3 %; HCT 45.3 % (40.0-50.0); HGB 14.5 g/dL (13.5-17.5); Immature Grans % 0.5 %; Lymphocytes % 3.9 %; MCH 29.2 pg (27.0-33.0); MCV 91 fL (80-95); MPV 9.7 fL (8.0-11.0); Monocytes % 5.8 %; Neutrophils % 89.1 %; Platelet Count 406 10^3/uL (130-400); RBC 4.97 10^6/uL (4.36-5.78); RDW 15.1 % (11.8-14.1); RDW-SD 50.9 fL; WBC 19.51 10^3/uL (4.4-10.8)
[2024-01-31] MEDS: Normal Saline 50 ML (15:13)
[2024-01-31] MEDS: cefTRIAXone 2 GM/50 ML BAG IVPB (15:13)
[2024-01-31 15:14] LABS: Anion Gap 7.7 mmol/L (3-11); BUN 26 mg/dL (7-18); CO2 26.3 mmol/L (21.0-32.0); CREATININE 2.3 mg/dL (0.70-1.30); Calcium 8.8 mg/dL (8.5-10.1); Chloride 107 mmol/L (98-107); Estimated GFR 27.83 (mL/min/1.73m2); Glucose 107 mg/dL (74-106); Potassium 5.2 mmol/L (3.5-5.1); Prothrombin Time 31.9 sec (9.1-11.1); Sodium 141 mmol/L (136-145)
[2024-01-31] MEDS: Normal Saline 500 ML IV (15:14)
[2024-01-31 15:16] LABS: INR 3.5 (0.9-1.1)
[2024-01-31 15:25] LABS: Bilirubin Negative (Negative); Blood Moderate (Negative); Clarity Sl Cloudy (Clear); Glucose Negative (Negative); Ketones Negative (Negative); Leukocyte Esterase Moderate (Negative); Nitrite Negative (Negative); Urobilinogen 0.2 mg/dL (Up to 0.2); pH 5.5 (5-8)
--- NOTE | 2024-01-31 15:30 | RT.EKG_ITS ---
APPROVED REPORT Exam: Resting ECG Reason for Exam: Hyperkalemia Patient Location: E HR:95 bpm ECG Measurements Heart Rate 95 AXIS OH 219 P 58 QRSd 131 QRS -60 QT 349 T 13 QTc 438 Conclusion Sinus rhythm...normal P axis, V-rate 60- 99 Prolonged OH interval...OH >215, V-rate 91-120 RBBB and LAFB...QRSd >120mS, axis(-40,240) ST elevation suggests acute pericarditis...ST >0.10mV, ant/lat/inf Normal sinus rhythm at a rate of 95 with interventricular conduction delay and a QRS of 131 ms. Firs t-degree AV block. Right bundle branch block and left anterior fascicular block. Mild diffuse ST se gment elevations. Appears similar to prior. Prior dated earlier this year. No acute injury pattern . Significant artifact in V3.
[2024-01-31 15:31] LABS: RBC 20-50 HPF (0-2); WBC >50 HPF (0-5)
[2024-01-31 15:32] LABS: Bacteria Few HPF (Negative); C & S Indicated? C&S Done As Ordered; Crystals Negative HPF (Negative); Epithelial Cells Negative HPF (Negative); Mucus Negative (Negative)
--- NOTE | 2024-01-31 15:36 | DI.VRAD_ITS ---
PROCEDURE INFORMATION: Exam: XR Chest Exam date and time: 01/31/2024 2:57 PM Age: 83 years old Clinical indication: Other: Sepsis TECHNIQUE: Imaging protocol: Radiologic exam of the chest. Views: 1 view. COMPARISON: CR XR PORTABLE CHEST AP 11/03/2023 10:02 AM FINDINGS: Lungs: Minimal left lower lobe atelectasis noted. Pleural spaces: Unremarkable. No pleural effusion. No pneumothorax. Heart/Mediastinum: No change cardiomegaly. Bones/joints: Unremarkable. Soft tissues: There is some overlying chin artifact. IMPRESSION: Minimal left lower lobe atelectasis. Dictated and Authenticated by: Shruthi Bridges MD. Ordering:NIKOLAY Sharp MD
--- NOTE | 2024-01-31 15:58 | DI.VRAD_ITS ---
PROCEDURE INFORMATION: Exam: CT Abdomen And Pelvis Without Contrast Exam date and time: 01/31/2024 3:31 PM Age: 83 years old Clinical indication: Other: History of stone urinary retention TECHNIQUE: Imaging protocol: Computed tomography of the abdomen and pelvis without contrast. Radiation optimization: All CT scans at this facility use at least one of these dose optimization techniques: automated exposure control; mA and/or kV adjustment per patient size (includes targeted exams where dose is matched to clinical indication); or iterative reconstruction. COMPARISON: CT ABDOMEN PELVIS WO 04/27/2019 12:40 AM FINDINGS: Lungs: Minimal left lower lobe atelectasis. Diaphragm: Small hiatal hernia. Liver: Normal. No mass. Gallbladder and biliary ducts: Gallstones. Pancreas: Normal. No ductal dilation. Spleen: Normal. No splenomegaly. Adrenal glands: Normal. No mass. Kidneys and ureters: Bilateral renal cysts, some atypical. Nonobstructing left renal lower pole calculus, possible staghorn. Smaller upper pole nonobstructing calculus new since prior study. Stomach and bowel: Unremarkable. No obstruction. No mucosal thickening. Appendix: No evidence of appendicitis. Intraperitoneal space: Unremarkable. No free air. No significant fluid collection. Vasculature: Moderate atherosclerotic change seen in the vasculature. Lymph nodes: Unremarkable. No enlarged lymph nodes. Urinary bladder: Best catheter drains the bladder. Reproductive: Unremarkable as visualized. Bones/joints: Unremarkable. No acute fracture. Soft tissues: Unremarkable. IMPRESSION: Nonobstructing left renal calculi. No obstructing ureteral calculus. Dictated and Authenticated by: Shruthi Bridges MD. Ordering:NIKOLAY Sharp MD
[2024-01-31] MEDS: Calcium Gluconate 4.65 MEQ/10 ML VIAL 4.65 MG IVP (16:26)
--- NOTE | 2024-01-31 16:36 | NUR.NOTE ---
Referral faxed to Urology for follow up to a UTI and needs a new cath within 1 week. Referral faxed to [facility] for an INR on Friday with his Primary Care Provider.
== END 2024-01-31 17:39 | disposition home or self-care (01) ==
PROVIDERS: Emergency Provider Emergency Medicine; PCP Family Medicine
DX: N39.0 Urinary tract infection, site not specified (principal); E87.5 Hyperkalemia; R79.1 Abnormal coagulation profile; D75.839 Thrombocytosis, unspecified; D72.829 Elevated white blood cell count, unspecified; I44.0 Atrioventricular block, first degree; I45.2 Bifascicular block; I48.92 Unspecified atrial flutter; Z86.711 Personal history of pulmonary embolism; Z86.718 Personal history of other venous thrombosis and embolism; Z79.01 Long term (current) use of anticoagulants; Z79.899 Other long term (current) drug therapy
CPT/HCPCS: 80048; 87040; 87077; 93005; 96374; 96375; 99285; 71045; 74176; 81003; 81015; 83605; 85025; 85610; 87086; 87186; 93010; J0612; J0696

== ENCOUNTER → 2024-02-02 14:47 | Outpatient (BNVA) | payer MEDICARE, BC, SELFPAY | PROVIDERS: PCP Family Medicine; Referring Provider Family Medicine; Visit Provider Nurse Practitioner Gerontology | DX: N39.0 Urinary tract infection, site not specified (principal); R33.8 Other retention of urine; N20.0 Calculus of kidney | CPT/HCPCS: 99214 ==

== ENCOUNTER → 2024-02-05 08:30 | Outpatient (BNVA) | payer MEDICARE, BC, SELFPAY | PROVIDERS: PCP Family Medicine; Referring Provider Family Medicine; Visit Provider Urology ==

== ENCOUNTER 2024-02-05 15:08 | Outpatient (CLI) | payer MEDICARE, BC, SELFPAY ==
[2024-02-05 09:52] LABS: Abs Immature Grans 0.08 10^3/uL (0.0-0.06); Absolute Basophil Count 0.08 10^3/uL (0.0-0.2); Absolute Eosinophil Count 0.62 10^3/uL (0.0-0.7); Absolute Lymphocyte Count 1.55 10^3/uL (1.2-3.4); Absolute Monocyte Count 0.77 10^3/uL (0.1-0.8); Absolute Neutrophil Count 5.87 10^3/uL (1.2-6.7); Basophils % 0.9 %; Eosinophils % 6.9 %; HCT 45.4 % (40.0-50.0); HGB 14.6 g/dL (13.5-17.5); Immature Grans % 0.9 %; Lymphocytes % 17.3 %; MCH 28.6 pg (27.0-33.0); MCHC 32.2 % (32.0-36.0); MCV 89 fL (80-95); MPV 9.9 fL (8.0-11.0); Monocytes % 8.6 %; Neutrophils % 65.4 %; Platelet Count 462 10^3/uL (130-400); RDW 14.8 % (11.8-14.1); RDW-SD 48.8 fL; WBC 8.97 10^3/uL (4.4-10.8)
[2024-02-05 10:27] LABS: Anion Gap 8.8 mmol/L (3-11); BUN 16 mg/dL (7-18); CO2 26.2 mmol/L (21.0-32.0); CREATININE 1.8 mg/dL (0.70-1.30); Calcium 9.3 mg/dL (8.5-10.1); Chloride 107 mmol/L (98-107); Estimated GFR 37.35 (mL/min/1.73m2); Glucose 99 mg/dL (74-106); Potassium 4.2 mmol/L (3.5-5.1); Sodium 142 mmol/L (136-145)
== END 2024-02-05 15:09 | disposition home or self-care (01) ==
LOC: LBO 15:09
PROVIDERS: PCP Family Medicine; Visit Provider Nurse Practitioner Family
DX: D72.829 Elevated white blood cell count, unspecified (principal); D75.839 Thrombocytosis, unspecified; E87.5 Hyperkalemia
CPT/HCPCS: 36415; 80048; 85025

== ENCOUNTER 2024-03-16 01:11 | Outpatient (CLI) | payer MEDICARE, BC, SELFPAY ==
--- NOTE | 2024-03-16 07:00 | DI.US_ITS ---
Exam(s) US RENAL EXAM: US RENAL CLINICAL HISTORY: monitor known kidney stones,n20.0. TECHNIQUE: Agarwal scale, color and spectral Doppler were used. COMPARISON: CT CT ABDOMEN PELVIS WO from 01/31/2024 FINDINGS: Right kidney: 12.8cm Echogenicity: Normal Hydronephrosis: No Cyst or mass: 3 small cysts, measuring 9-11 millimeters in size. Nephrolithiasis: No Left kidney: 12.3cm Echogenicity: Normal Hydronephrosis: No Cyst or mass: 5.1 centimeter cyst lower pole left kidney. Two smaller cysts noted in the mid left ki dney measuring 1.9 and 0.9 cm. Nephrolithiasis: 17 millimeter stone noted near the lower pole of the left kidney. Additional stone measuring 5 millimeters is noted on prior CT which is not seen on the today's exam. Bladder:Layering debris. Left ureteral jet not visualized.. Prevoid vol:254 cc Postvoid vol:165 cc Prostate volume 26 cc. IMPRESSION: 17 millimeter stone lower pole left kidney. No hydronephrosis. Bilateral renal cysts. Elevated postvoid residual. Dependent debris in urinary bladder. DATA REPOSITORY:
== END 2024-03-16 01:31 ==
LOC: DI 01:11
PROVIDERS: PCP Family Medicine; Visit Provider Urology
DX: N20.0 Calculus of kidney (principal)
CPT/HCPCS: 76770

== ENCOUNTER → 2024-04-02 13:34 | Outpatient (BNVA) | payer MEDICARE, BC, SELFPAY | PROVIDERS: PCP Family Medicine; Visit Provider Urology | DX: N20.0 Calculus of kidney (principal) | CPT/HCPCS: 99213 ==

== ENCOUNTER 2024-07-22 14:00 | Outpatient (CLI) | payer MEDICARE, BC, SELFPAY ==
[2024-07-22 13:10] LABS: Anion Gap 7.6 mmol/L (3-11); BUN 21 mg/dL (7-18); CO2 26.4 mmol/L (21.0-32.0); CREATININE 2.1 mg/dL (0.70-1.30); Calcium 8.5 mg/dL (8.5-10.1); Chloride 108 mmol/L (98-107); Estimated GFR 31.04 (mL/min/1.73m2); Glucose 92 mg/dL (74-106); Potassium 4.9 mmol/L (3.5-5.1); Sodium 142 mmol/L (136-145)
== END 2024-07-22 14:01 | disposition home or self-care (01) ==
LOC: LBO 14:01
PROVIDERS: PCP Family Medicine; Visit Provider Student in an Organized Health Care Education/Training Program
DX: N20.0 Calculus of kidney (principal)
CPT/HCPCS: 36415; 80048

== ENCOUNTER 2024-09-04 20:05 | Inpatient (IN) | payer MEDICARE, BC, SELFPAY ==
[2024-09-04] VITALS (32 sets, daily range): BP systolic 102–170; BP diastolic 56–117; PULSE 87–122; RESP 17–36; TEMP 38.2; O2SAT 93–97
--- NOTE | 2024-09-04 20:00 | RT.EKG_ITS ---
APPROVED REPORT Exam: Resting ECG Reason for Exam: [facility] Patient Location: E HR:120 bpm ECG Measurements Heart Rate 120 AXIS DC 189 P 0 QRSd 128 QRS -69 QT 301 T 33 QTc 426 Conclusion Sinus tachycardia at a rate of 120 with a RBBB without acute ischemic change.
--- NOTE | 2024-09-04 20:28 | DI.RAD_ITS ---
Exam(s) XR CHEST 2V PA LATERAL EXAM: XR CHEST 2V PA LATERAL CLINICAL HISTORY: fever, AMS TECHNIQUE: 2D digital imaging was performed. Two views. COMPARISON: No exams were available for comparison FINDINGS: HEART: Normal size. Aorta: Not dilated. PULMONARY VASCULATURE: Normal. MEDIASTINUM: Unremarkable. LUNGS: Bilateral scarring and fibrotic changes. No evidence of infiltrate. PLEURAL SPACE: No pleural effusion or pneumothorax. BONE:Unremarkable for age. SOFT TISSUES: Unremarkable. IMPRESSION: No acute abnormality. DATA REPOSITORY: RADIATION DOSE DELIVERED:
[2024-09-04 20:35] LABS: Lactate 1.6 mmol/L (<or=2.0)
[2024-09-04 20:36] LABS: Abs Immature Grans 0.08 10^3/uL (0.0-0.06); Absolute Basophil Count 0.04 10^3/uL (0.0-0.2); Absolute Eosinophil Count 0.01 10^3/uL (0.0-0.7); Absolute Lymphocyte Count 0.66 10^3/uL (1.2-3.4); Absolute Monocyte Count 1.25 10^3/uL (0.1-0.8); Absolute Neutrophil Count 12.64 10^3/uL (1.2-6.7); Basophils % 0.3 %; Eosinophils % 0.1 %; HCT 47.3 % (40.0-50.0); HGB 14.8 g/dL (13.5-17.5); Immature Grans % 0.5 %; Lymphocytes % 4.5 %; MCH 28.4 pg (27.0-33.0); MCHC 31.3 % (32.0-36.0); MCV 91 fL (80-95); MPV 9.4 fL (8.0-11.0); Monocytes % 8.5 %; Neutrophils % 86.1 %; Platelet Count 355 10^3/uL (130-400); RBC 5.21 10^6/uL (4.36-5.78); RDW 14.5 % (11.8-14.1); RDW-SD 48.1 fL; WBC 14.68 10^3/uL (4.4-10.8)
[2024-09-04] MEDS: ACETAMINOPHEN 1,000 MG/100 ML BAG 400 MG IVPB (20:40)
--- NOTE | 2024-09-04 20:42 | ED.GENADUL_ITS ---
Discharge Plan Disposition Patient Disposition: Admit to [facility] Condition: Improving Discharge Details Clinical Impression: Acute UTI, Sepsis Admit Date/Time: 09/04/24 23:44 Admit Provider: Forest Burton Attending Provider: Forest Burton Primary Care Provider: Kareem Hart ED Provider: Leonie Rachel Discharge Data Discharge Date/Time-TO BE ENTERED AT DEPARTURE: 09/05/24 08:47 HPI General Date/Time Provider Initiated Documentation: 09/04/24 20:07 . HPI Narrative: The patient is an 83-year-old male with a history of bacteremia, atrial flutter on Coumadin, kidney stone who comes to the emergency department for fever. History is obtained from patient and EMS. Reports that patient was found to be febrile. Patient is unsure how long he has had a fever for. Denies any chest pain with this. Denies feeling short of breath. Patient denies abdominal pain. Denies feeling nauseous. Patient is unsure if he is vomited or if he has had diarrhea. Patient is unsure of any urinary symptoms. Patient is unsure if he has got any medication prior to emergency room arrival. Reports that he lives with his . Related Data Home Medications ?Medication ?Instructions ?Recorded ?Confirmed cyanocobalamin (vitamin B-12) 1,000 mcg PO DAILY 07/28/19 09/04/24 1,000 mcg capsule cholecalciferol (vitamin D3) 10 1,000 unit PO DAILY 03/30/21 09/04/24 mcg (400 unit) capsule atorvastatin 20 mg tablet 20 mg PO QHS #90 tabs 01/30/24 09/04/24 diltiazem HCl 240 mg 240 mg PO DAILY #90 caps 01/30/24 09/04/24 capsule,extended release 24 hr valsartan 80 mg tablet 80 mg PO DAILY #90 tabs 01/30/24 09/04/24 warfarin 5 mg tablet 5 mg PO DAILY 01/31/24 09/05/24 sodium bicarbonate 650 mg tablet 650 mg PO BID 07/26/24 09/04/24 Previous Rx's ?Medication ?Instructions ?Recorded atorvastatin 20 mg tablet 20 mg PO QHS #90 tabs 01/30/24 diltiazem HCl 240 mg 240 mg PO DAILY #90 caps 01/30/24 capsule,extended release 24 hr valsartan 80 mg tablet 80 mg PO DAILY #90 tabs 01/30/24 Allergies Allergy/AdvReac Type Severity Reaction Status Date / Time tamsulosin AdvReac Intermediate diarrhea Verified 09/04/24 20:23 General Stated Complaint: AMS/LOC MAYELIN: 3 Review of Systems Narrative: I am unable to obtain a full review of systems secondary to altered mental status. Exam Const General: cooperative and comfortable Orientation: alert, awake, oriented to person, oriented to place and not oriented to time (The patient thought the year is 1844) Eyes Other: Yellow drainage noted to the eyelids of the right eye. Resp Effort & Inspection: able to speak in complete sentences Auscultation: other (Coarse lung sounds bilaterally) Cardio Rate: regular rate and tachycardic Pulses: radial pulses present GI Palpation: soft and nontender Auscultation: normal bowel sounds Back/Spine/Pelvis Other: No CVA tenderness is noted to palpation bilaterally. Neuro General: patient alert and patient awake Cognition: normal cognition (Confused, unable to give a complete history) Other: Speech is clear. Has no facial asymmetry. Cranial nerves 2-12 motor function are intact and equal. He has equal golf club maker strength bilaterally. Extrem Other: Patient has changes of chronic venous stasis to bilateral lower extremities without calf tenderness or lower extremity edema. Course Vital Signs Vital signs: Vital Signs Pulse 112 H 09/04/24 20:16 Respiratory Rate 18 09/04/24 20:16 Blood Pressure 170/117 H 09/04/24 20:16 Pulse Oximetry 96 09/04/24 20:16 Temperature 38.2 C H 09/04/24 20:22 Temperature Source Oral 09/04/24 20:22 Pulse 112 H 09/04/24 20:16 Respiratory Rate 36 H 09/04/24 20:34 Respiratory Effort Non-Labored 09/04/24 20:34 Respiratory Depth Normal 09/04/24 20:34 Respiratory Pattern Tachypnea 09/04/24 20:34 Blood Pressure 170/117 H 09/04/24 20:16 Blood Pressure Position Sitting 09/04/24 20:16 Pulse Oximetry 96 09/04/24 20:16 Oxygen Delivery Method Nasal Cannula 09/04/24 20:16 Oxygen Flow Rate 2 09/04/24 20:16 Lab/Test Results Lab/Test Results: 09/04/24 20:30 Blood Blood Culture - Pending 09/04/24 20:26 Blood Blood Culture - Pending Laboratory Tests Range/Units 09/04/24 20:26 WBC (4.4-10.8) 10^3/uL 14.68 H RBC (4.36-5.78) 10^6/uL 5.21 Hgb (13.5-17.5) g/dL 14.8 Hct (40.0-50.0) % 47.3 MCV (80-95) fL 91 MCH (27.0-33.0) pg 28.4 MCHC (32.0-36.0) % 31.3 L RDW (11.8-14.1) % 14.5 H Plt Count (130-400) 10^3/uL 355 MPV (8.0-11.0) fL 9.4 Immature Gran % % 0.5 Neutrophils % % 86.1 Lymphocytes % % 4.5 Monocytes % % 8.5 Eosinophils % % 0.1 Basophils % % 0.3 Nucleated RBC % (0.0-0.3) % 0.0 Absolute Neutrophils (1.2-6.7) 10^3/uL 12.64 H Absolute Lymphocytes (1.2-3.4) 10^3/uL 0.66 L Absolute Monocytes (0.1-0.8) 10^3/uL 1.25 H Absolute Eosinophils (0.0-0.7) 10^3/uL 0.01 Absolute Basophils (0.0-0.2) 10^3/uL 0.04 VBG Lactate (<or=2.0) mmol/L 1.6 Medical Decision Making The patient arrived febrile and tachycardic. Septic workup is started. I have ordered IV Tylenol at this point as well. The patient's has arrived. She tells me that she called 911 because this evening the patient seemed to have no energy and could not move. Reports that the patient recently had stent placed for kidney stone at [facility] this Friday and was given a few pills of antibiotic. She was unaware that he had a fever. Reports he has not been coughing. Reports he has not been vomiting. Reports he has not had any changes of bowel habits. Reports however that this has happened in the past and he had been septic from it. Urine specimen was obtained and per RN, patient's urine appeared purulent. Blood work is back. He does have white count elevation however lactic acid is unremarkable. His renal function is his baseline. He does have bilirubin elevation which is not new. Chest x-ray is nondiagnostic. I have started the patient on IV antibiotics. I did order imaging study of the abdomen pelvis given recent surgery. The results of this is pending. CAT scan is back and he is found to have no hydroureteronephrosis but possible left perinephric stranding which could be from the stent versus pyelonephritis. I have updated the patient and his of workup result. She informs that the patient does appear improved and now able to speak with him does not get back to his baseline. I told her of my recommendation for hospitalization and she agrees. Imaging Data Radiologic Study: Imaging: CT Scan (CT abdomen and pelvis) Radiologist's impression: V-rad: 1. Cystitis. 2. Left ureteral stent in place, appears adequately position. No hydroureteronephrosis; however, there is mild diffuse left perinephric stranding which is nonspecific and may be related to the presence of the stent, may signify pyelonephritis, or may be residual perinephric stranding due to recently decompressed obstructive uropathy. 3. L3-L4 disc bulge/herniation causing moderate to severe central canal stenosis. 4. Small focus of gas in the non dependent lumen of the urinary bladder may be due to the stent catheter placement or related urologic intervention if recent. Otherwise, the presence of gas in the setting of cystitis with significant emphysematous cystitis. 5. Hepatic cirrhosis with splenomegaly. Radiologic Study #2: Imaging: X-Ray (Chest x-ray) Radiologist's impression: V-rad: No acute finding ECG Data Attestation: I personally reviewed and interpreted this ECG (s) as follows: (Sinus tachycardia at a rate of 120 with a RBBB without acute ischemic change) Quality:SDOH Health Related Social Needs: No Data to Display PFSH All Active Problems (Updated 09/05/24 @ 08:30 by Aron Villegas) Acute respiratory failure with hypoxia (Acute) Pyelonephritis (Acute) Sepsis (Acute) Acute UTI (Acute) Kidney stones (Chronic) Bacteremia (Acute) PVD (peripheral vascular disease) (Chronic) Cellulitis of leg (Acute) Atrial flutter (Acute) Obesity (Chronic) History of pulmonary embolism (Acute ~03/2019) Hyperlipidemia (Chronic) Medical History (Updated 09/05/24 @ 08:30 by Aron Villegas) CKD (chronic kidney disease) Cirrhosis of liver Hydronephrosis UTI (urinary tract infection) Hydronephrosis, right Hx of sepsis Hypertensive kidney disease with CKD stage III Chronic anticoagulation Hypertension COVID-19 (~11/12/21) Spinal stenosis Deep vein thrombosis (DVT) of popliteal vein of right lower extremity Sena classified according to extent of body surface involved Age 12, playing with matches, history of multiple skin grafting HNP (herniated nucleus pulposus), lumbar Right kidney stone (01/20/18) uric acid stone Surgical History History of skin graft Status post lumbar microdiscectomy (~2018) L3-4, at [facility] H/O ankle fusion S/P cystoscopy with ureteral stent placement Family History Mother , age 98 No problems noted. Father , age96 No problems noted. Sister No problems noted. Son , age 22 No problems noted. Daughter , age 40 Alcohol abuse Hypertension Sepsis Paternal Grandmother , age 102 No problems noted. Social History Smoking/Tobacco Use Status: Never Smoking risk assessment performed?: Yes Alcohol Intake: never Drug use: Never Substance use type: does not use Caregiver/Support person: Yes Household members: spouse Housing: house Do you need help understanding health information?: Rarely Pets and animals: Yes Pets and animals: dog(s) Sexually active: No Do you think of yourself as: straight/heterosexual Current gender identity: male What is your relationship status?: How often do you talk on the phone with friends or family?: three or more times per week How often do you get together with friends or relatives?: twice per week How often do you attend confucianist or oriental orthodox services?: decline to answer Do you belong to any clubs or organized social groups?: no Panel score (0-1 are the most socially isolated patients): 2 Duration: decline to answer Frequency: decline to answer Laurie/Baptism: No preference Special laurie needs: No Seatbelt use: sometimes Helmet use: Yes Helmet use: sometimes Drive 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
[2024-09-04 20:52] LABS: ALT 31 U/L (16-63); AST 35 U/L (15-37); Albumin 3.2 g/dL (3.4-5.0); Alkaline Phosphatase 112 U/L (46-116); Anion Gap 11.4 mmol/L (3-11); BUN 31 mg/dL (7-18); Bilirubin, Total 2.82 mg/dL (0.2-1.0); CO2 24.6 mmol/L (21.0-32.0); CREATININE 2.1 mg/dL (0.70-1.30); Calcium 8.9 mg/dL (8.5-10.1); Chloride 104 mmol/L (98-107); Estimated GFR 31.04 (mL/min/1.73m2); Glucose 129 mg/dL (74-106); Potassium 4.7 mmol/L (3.5-5.1); Sodium 140 mmol/L (136-145); Total Protein 7.5 g/dL (6.4-8.2)
[2024-09-04] MEDS: Lidocaine 2% Jelly 6 ML SYR (21:00)
[2024-09-04 21:01] LABS: INR 1.5 (0.9-1.1)
[2024-09-04 21:05] LABS: Bilirubin Negative (Negative); Blood Large (Negative); Glucose Negative (Negative); Ketones Negative (Negative); Leukocyte Esterase Moderate (Negative); Nitrite Negative (Negative); Urobilinogen 0.2 mg/dL (Up to 0.2)
[2024-09-04 21:06] LABS: Clarity Cloudy (Clear)
[2024-09-04 21:08] LABS: COVID-19 PCR Negative (Negative); Influenza A PCR Negative (Negative); Influenza B PCR Negative (Negative); RSV PCR Negative (Negative); Source Nasopharynx
[2024-09-04 21:16] LABS: WBC >50 HPF (0-5)
[2024-09-04 21:17] LABS: C & S Indicated? Yes
[2024-09-04 21:28] LABS: Procalcitonin 0.85 ng/mL
--- NOTE | 2024-09-04 21:30 | DI.CT_ITS ---
Exam(s) CT ABDOMEN PELVIS WO EXAM: CT ABDOMEN PELVIS WO CLINICAL HISTORY: fever, recent ureteral stent placement. TECHNIQUE: Imaging Protocol: Axial computed tomography images with coronal and sagittal reformatted images were created and reviewed. Oral: / no COMPARISON: CT CT ABDOMEN PELVIS WO from 01/31/2024 FINDINGS: Lung Bases: No acute findings. Scarring/atelectasis at the lung bases. Basilar pulmonary cysts. Small hiatal hernia. Liver: Normal density. No suspicious mass. Gallbladder and biliary tract: Cholelithiasis. No wall thickening or distention. No biliary dilati on. Pancreas: Normal density. No abnormal calcifications or inflammatory process. Spleen: Normal. Kidneys: Normal size, contour and axis. Left ureteral stent in place. Upper pigtail is located with in the renal pelvis. Mild perinephric stranding bilateral renal cysts. Nonobstructing stone right k idney. No suspicious masses seen. Adrenal glands: No masses seen. Lymph nodes: Within normal limits. Vasculature: Abdominal aorta non-dilated. Atherosclerotic changes. Soft tissues: Fat containing left inguinal hernia. Bladder: Urinary bladder is nearly empty. Small amount of air. Lower pigtail of the ureteral stent is positioned within the bladder. No mass or calculi. Bowel: No obstruction or bowel wall thickening. Diverticulosis. No evidence of diverticulitis. The appendix appears normal. Peritoneal cavity: No ascites. No focal collection. No mesenteric inflammatory response. Reproductive organs: Unremarkable. Bones: Unremarkable for age. IMPRESSION: Left ureteral stent appears appropriately positioned. There is mild perinephric stranding but no ilya dence of hydronephrosis or perinephric collection. The urinary bladder is nearly empty and contains an air bubble. Cystitis not excluded. Clinical correlation recommended. RADIATION DOSE DELIVERED: Total DLP DATA REPOSITORY: All CT scans at this facility are submitted to the National Radiology Data Registry (NRDR) Dose Index Registry (DIR) with the [employer] (ACR). RADIATION OPTIMIZATION: All CT scans at this facility use at least one of these dose optimization te chniques: automated exposure control; mA and/or kV adjustment per patient size (includes targeted exa ms where dose is matched to clinical indication); or iterative reconstruction.
--- NOTE | 2024-09-04 23:19 | DI.VRAD_ITS ---
PROCEDURE INFORMATION: Exam: XR Chest Exam date and time: 09/04/2024 9:08 PM Age: 83 years old Clinical indication: Other: Fever, AMS TECHNIQUE: Imaging protocol: Radiologic exam of the chest. Views: 2 views. COMPARISON: CR XR PORTABLE CHEST AP 01/31/2024 2:57 PM FINDINGS: Lungs: Low lung volumes. Lungs are clear. Pleural spaces: Unremarkable. No pleural effusion. No pneumothorax. Heart/Mediastinum: Unremarkable. No cardiomegaly. Bones/joints: Healed fracture deformity of the left clavicle. Healed fracture deformities of multiple left-sided ribs. IMPRESSION: No acute findings. Dictated and Authenticated by: Tray Hernandez MD. Orderin Wilson Hadley MD
--- NOTE | 2024-09-04 23:25 | DI.VRAD_ITS ---
PROCEDURE INFORMATION: Exam: CT Abdomen And Pelvis Without Contrast Exam date and time: 09/04/2024 10:03 PM Age: 83 years old Clinical indication: Other: Fever, recent ureteral stent placement TECHNIQUE: Imaging protocol: Computed tomography of the abdomen and pelvis without contrast. COMPARISON: CT ABDOMEN PELVIS WO 01/31/2024 3:31 PM FINDINGS: Tubes, catheters and devices: Small focus of gas in the non dependent lumen of the urinary bladder may be due to the stent catheter placement or related urologic intervention if recent. Otherwise, the presence of gas in the setting of cystitis with significant emphysematous cystitis. Lungs: Bibasilar atelectasis. Liver: Hepatic cirrhosis. Gallbladder and biliary ducts: Cholelithiasis. No cholecystitis or biliary ductal dilatation. Pancreas: Unremarkable. Spleen: Splenomegaly. Adrenal glands: Normal. No mass. Kidneys and ureters: Left ureteral stent in place, appears adequately position. No hydroureteronephrosis; however, there is mild diffuse left perinephric stranding which is nonspecific and may be related to the presence of the stent , may signify pyelonephritis, or may be residual perinephric stranding due to recently decompressed obstructive uropathy. Bilateral renal cysts. Nonobstructive nephrolithiasis right kidney. Iso to slightly hyperdense 2 cm exophytic lesion of the upper pole the left kidney is unchanged since 2019, compatible with hyperdense cyst. Stomach and bowel: No pneumatosis or portal/mesenteric venous gas. No bowel wall thickening or intestinal obstruction. Colonic diverticulosis. No diverticulitis. No pneumatosis or portal/mesenteric venous gas. Appendix: Normal appendix. Intraperitoneal space: No pneumoperitoneum or abscess. No pneumoperitoneum or abscess. Vasculature: See Stomach and bowel finding. Lymph nodes: Unremarkable. Urinary bladder: Inflammatory thickening of the wall of the urinary bladder consistent with cystitis. Reproductive: Unremarkable as visualized. Bones/joints: L3-L4 disc bulge/herniation causing moderate to severe central canal stenosis. Soft tissues: Left inguinal hernia containing fat only. IMPRESSION: 1. Cystitis. 2. Left ureteral stent in place, appears adequately position. No hydroureteronephrosis; however, there is mild diffuse left perinephric stranding which is nonspecific and may be related to the presence of the stent , may signify pyelonephritis, or may be residual perinephric stranding due to recently decompressed obstructive uropathy. 3. L3-L4 disc bulge/herniation causing moderate to severe central canal stenosis. 4. Small focus of gas in the non dependent lumen of the urinary bladder may be due to the stent catheter placement or related urologic intervention if recent. Otherwise, the presence of gas in the setting of cystitis with significant emphysematous cystitis. 5. Hepatic cirrhosis with splenomegaly. Dictated and Authenticated by: Tray Hernandez MD. Orderin Wilson Hadley MD
--- NOTE | 2024-09-04 23:45 | W.PM.HP.N ---
Date of service: 09/04/24 Time of Service: 23:45 Assessment and Plan Assessment and plan (1) Sepsis: Status: Acute Assessment and plan: -patient met sepsis criteria on admission with temp of 100.8oF, HR >100, WBC 14 and source being perinephric stranding s/p ureteral stent placement ~4 days ago -did not have signs of end-organ damage and therefore does not meet criteria for severe sepsis -started on zosyn in the ED, will continue -started on linezolid given recent procedure and possibility that this may be Hospital acquired infection -f/u urine and blood culture results (2) Pyelonephritis: Status: Acute Assessment and plan: -likel source of infection as noted above (3) Atrial flutter: Status: Acute Assessment and plan: continue home dilt and warfarin (4) Hyperlipidemia: Status: Chronic Assessment and plan: -continue home statin (5) Hypertension: Assessment and plan: -continue home valsartan (6) Acute respiratory failure with hypoxia: Status: Acute Assessment and plan: -patient has been on 2L NC in ED though pulse ox has been between 94 and 98% -patient also appears to heavily breath through his mouth while sleeping -CXR without acute findings -if patient remains hypoxic while awake, would consider CTA chest, though patient if on warfarin -wean O2 as tolerated History of Present Illness History of Present Illness Chief Complaint: lethargic Narrative: 83yo male with PMH a-flutter on warfarin, HTN, and HLD who presents to the ED via EMS for lethargy. Patients states that the patient just had a ureteral stent placed at [facility] on Friday and that he was sent home with a few pills of antibiotics. She states that the patient had been doing well until earlier in the day when he became very weak and letharic promting her to call EMS. Patient denies any fever, chills, cough, headache, lightheadedness, dizziness, nausea, vomtiing, diarrhea, abdominal pain or dysuria. In the ED the patient was noted to have HR >100, temp of 100.8oF, and was lethargic appearing. CBC showed WBC 14 but his CMP did not show any acute findings and his LA was <2.0. CXR was unremarkable but his CT abdo/pelvis showed some perinephric stranding that maybe secondary to recent stent placement or pyelonephritis. ED physician started the patient on zosyn and paged hospitalist for admission of a patient with sepsis secondary to acute pyelonephritis. Review of Systems All systems reviewed & are unremarkable except as noted in HPI and below PFSH All Active Problems (Updated 09/05/24 @ 06:46 by Forest Burton MD) Acute respiratory failure with hypoxia (Acute) Pyelonephritis (Acute) Sepsis (Acute) Acute UTI (Acute) Kidney stones (Chronic) Bacteremia (Acute) PVD (peripheral vascular disease) (Chronic) Cellulitis of leg (Acute) Atrial flutter (Acute) Obesity (Chronic) History of pulmonary embolism (Acute ~03/2019) Hyperlipidemia (Chronic) Medical History (Updated 09/05/24 @ 06:46 by Forest Burton MD) Hydronephrosis UTI (urinary tract infection) Hydronephrosis, right Hx of sepsis Hypertensive kidney disease with CKD stage III Chronic anticoagulation Hypertension COVID-19 (~11/12/21) Spinal stenosis Deep vein thrombosis (DVT) of popliteal vein of right lower extremity Sena classified according to extent of body surface involved Age 12, playing with matches, history of multiple skin grafting HNP (herniated nucleus pulposus), lumbar Right kidney stone (01/20/18) uric acid stone Surgical History History of skin graft Status post lumbar microdiscectomy (~2018) L3-4, at [facility] H/O ankle fusion S/P cystoscopy with ureteral stent placement Family History Mother , age 98 No problems noted. Father , age96 No problems noted. Sister No problems noted. Son , age 22 No problems noted. Daughter , age 40 Alcohol abuse Hypertension Sepsis Paternal Grandmother , age 102 No problems noted. Social History Smoking/Tobacco Use Status: Never Smoking risk assessment performed?: Yes Alcohol Intake: never Drug use: Never Substance use type: does not use Caregiver/Support person: Yes Household members: spouse Housing: house Do you need help understanding health information?: Rarely Pets and animals: Yes Pets and animals: dog(s) Sexually active: No Do you think of yourself as: straight/heterosexual Current gender identity: male What is your relationship status?: How often do you talk on the phone with friends or family?: three or more times per week How often do you get together with friends or relatives?: twice per week How often do you attend baptism or scientology services?: decline to answer Do you belong to any clubs or organized social groups?: no Panel score (0-1 are the most socially isolated patients): 2 Duration: decline to answer Frequency: decline to answer Laurie/Yarsani: No preference Special laurie needs: No Seatbelt use: sometimes Helmet use: Yes Helmet use: sometimes Drive 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 Meds Allergies and Home Medications Allergies Allergy/AdvReac Type Severity Reaction Status Date / Time tamsulosin AdvReac Intermediate diarrhea Verified 09/04/24 20:23 Home Medications ?Medication ?Instructions ?Recorded ?Confirmed ?Type cyanocobalamin (vitamin B-12) 1,000 mcg PO DAILY 07/28/19 09/04/24 History 1,000 mcg capsule cholecalciferol (vitamin D3) 10 1,000 unit PO DAILY 03/30/21 09/04/24 History mcg (400 unit) capsule atorvastatin 20 mg tablet 20 mg PO QHS #90 tabs 01/30/24 09/04/24 Rx diltiazem HCl 240 mg 240 mg PO DAILY #90 caps 01/30/24 09/04/24 Rx capsule,extended release 24 hr valsartan 80 mg tablet 80 mg PO DAILY #90 tabs 01/30/24 09/04/24 Rx warfarin 5 mg tablet 7.5 mg PO DAILY 01/31/24 09/04/24 History sodium bicarbonate 650 mg tablet 650 mg PO BID 07/26/24 09/04/24 History Exam Narrative Exam Narrative: Fatigued, acutely ill-appearing older gentleman laying in bed in no acute distress, awakens to verbal stimuli, oriented to person place, heart mildly tachycardic, regular rhythm, lungs clear to auscultation bilaterally, abdomen soft, nontender, nondistended Results Labs 09/05/24 05:55 09/05/24 05:55 Labs: Laboratory Results - last 24 hr 09/04/24 09/04/24 09/04/24 20:22 20:26 20:57 WBC 14.68 H RBC 5.21 Hgb 14.8 Hct 47.3 MCV 91 MCH 28.4 MCHC 31.3 L RDW 14.5 H Plt Count 355 MPV 9.4 Immature Gran % 0.5 Neutrophils % 86.1 Lymphocytes % 4.5 Monocytes % 8.5 Eosinophils % 0.1 Basophils % 0.3 Nucleated RBC % 0.0 Absolute Neutrophils 12.64 H Absolute Lymphocytes 0.66 L Absolute Monocytes 1.25 H Absolute Eosinophils 0.01 Absolute Basophils 0.04 PT 15.0 H INR 1.5 H VBG Lactate 1.6 Sodium 140 Potassium 4.7 Chloride 104 Carbon Dioxide 24.6 Anion Gap 11.4 H BUN 31 H Creatinine 2.1 H Est GFR (CKD-EPI 2020) 31.04 Glucose 129 H Calcium 8.9 Total Bilirubin 2.82 H AST 35 ALT 31 Alkaline Phosphatase 112 Total Protein 7.5 Albumin 3.2 L Procalcitonin 0.85 Urine Color Yellow Urine Clarity Cloudy Urine pH 7.0 Ur Specific [place] 1.020 Urine Protein >=300 H Urine Ketones Negative Urine Blood Large H Urine Nitrite Negative Urine Bilirubin Negative Urine Urobilinogen 0.2 Ur Leukocyte Esterase Moderate H Urine RBC Urine WBC >50 H Ur Epithelial Cells Not Applicable Urine Crystals Not Applicable Urine Bacteria Not Applicable Urine Mucus Not Applicable Ur Culture Indicated? Yes Urine Glucose Negative COVID-19 Source Nasopharynx SARS-CoV-2 (PCR) Negative Influenza Type A (PCR) Negative Influenza Type B (PCR) Negative RSV (PCR) Negative Last Vital Signs Temp 100.8 F H 09/04/24 20:22 Pulse 93 H 09/04/24 22:41 Resp 28 H 09/04/24 22:41 BP 110/67 09/04/24 22:30 Pulse Ox 94 09/04/24 22:41 Time Spent Time spent with Patient: >75 minutes Time was spent: preparing to see the patient(eg.review tests), obtaining and/or reviewing separately otained hiistory, ordering medications,tests, procedures, referring, communicating with other health critical care registered nurse, indepentently interpreting results, counseling the patient and care coordination
[2024-09-05] VITALS (83 sets, daily range): BP systolic 90–159; BP diastolic 47–103; PULSE 80–134; RESP 5–38; TEMP 36.6–38.6; O2SAT 92–98
[2024-09-05] MEDS: Albuterol/Ipratropium 3 ML UPD VIAL UPD (03:03)
[2024-09-05] MEDS: ACETAMINOPHEN 1,000 MG/100 ML BAG 400 MG IVPB (04:41)
--- NOTE | 2024-09-05 05:59 | NUR.NOTE ---
Addendum entered by Bam Andrews RN 09/05/24 06:14: 0613 MD Burton notified of pts WBC count, increased from 14.68 on arrival to 19.08 on morning labs. Original Note: Nursing Note: 0245 Pt with increasing tachycardia HR up to 120s from 90s-100s, increasing tachypnea RR 32-38. Pt audibly wheezing, breath sounds coarse and dim bilaterally. Afebrile. Pt straight cathed for 200mL urine, pus-like and cloudy. Pt stated he felt chills. MD Burton notified, given PRN order for duoneb. Administered with improvement in breathing, RR 28-32. 0430 Temp recheck with abx administration, 101F orally. MD Burton notified, 1g IV Ofirmev ordered and administered. Pt resting in bed, eyes closed, HR 110-120, RR 28-32. Side rails up and call fuentes within reach. 0600 Temp recheck with AM lab draw, 101F orally. MD Burton notified, no new orders at this time. HR 121 BP 109/65 RR 30 O2 95 on 2L NC, etCO2 30.
[2024-09-05 06:01] LABS: HGB 14.2 g/dL (13.5-17.5); MCH 28.5 pg (27.0-33.0); MCHC 31.6 % (32.0-36.0); MCV 90 fL (80-95); MPV 9.4 fL (8.0-11.0); Platelet Count 295 10^3/uL (130-400); RBC 4.98 10^6/uL (4.36-5.78); RDW 14.5 % (11.8-14.1); RDW-SD 47.8 fL; WBC 19.08 10^3/uL (4.4-10.8)
[2024-09-05 06:12] LABS: Anion Gap 9.6 mmol/L (3-11); BUN 35 mg/dL (7-18); CO2 23.4 mmol/L (21.0-32.0); CREATININE 2.3 mg/dL (0.70-1.30); Calcium 8.7 mg/dL (8.5-10.1); Chloride 107 mmol/L (98-107); Estimated GFR 27.83 (mL/min/1.73m2); Glucose 113 mg/dL (74-106); INR 1.5 (0.9-1.1); Potassium 4.7 mmol/L (3.5-5.1); Prothrombin Time 14.9 sec (9.1-11.1); Sodium 140 mmol/L (136-145)
--- NOTE | 2024-09-05 08:17 | PGE_ITS ---
Date of Service Date of service: 09/05/24 Time of Service: 08:17 Assessment and Plan Assessment and plan (1) Sepsis: Status: Acute Assessment and plan: -patient met sepsis criteria on admission with temp of 100.8oF, HR >100, WBC 14 and source being perinephric stranding s/p ureteral stent placement ~4 days ago -did not have signs of acute end-organ damage and therefore does not meet criteria for severe sepsis -started on zosyn and linezolid given recent procedure. -blood/urine cultures pending. -He is hypoxic but CXR and symptoms don't suggest pulmonary infection. -Chronic wounds on legs but they don't look infected -After discussion of acuity of his illness he is willing to stay. (2) Pyelonephritis: Status: Acute Assessment and plan: -likel source of infection as noted above (3) Atrial flutter: Status: Acute Assessment and plan: continue home dilt and warfarin, continue. INR low and missed dose yesterday, give make up dose now and regular dose today, follow INR. (4) Hypertension: Assessment and plan: -continue home valsartan (5) Acute respiratory failure with hypoxia: Status: Acute Assessment and plan: -patient was on 2L NC in ED -patient also appeared to heavily breath through his mouth while sleeping, may have undiagnosed SUAD -CXR without acute findings. I don't see signs of CHF -Has been weaned since arriving on the floor, which is reassuring. (6) Cirrhosis of liver: Assessment and plan: Noted on CT. He was not aware of this diagnosis. Liver/spleen reported as normal on 01/31/24 CT so should review with radiology. Precautions for now. (7) CKD (chronic kidney disease): Assessment and plan: He is near baselin GFR around 30, continue to monitor Subjective Subjective Patient reports: denies nausea or vomiting Interval history since last seen: Message by RN, patient wanted to leave AMA He denies new complaints. Denies pain in abdomen, chest, or otherwise. He doesn't feel SOB at rest, no cough. He doesn't feel fever. He is thirsty, not very hungry but could eat. Exam Narrative Exam Narrative: Fatigued, older gentleman laying in bed in no acute distress, alert and interactive, oriented to person/place/situation. CV:mildly tachycardic, regular rhythm, no M/G/R. Lungs clear to auscultation bilaterally, increased WOB with sitting up, NC in place. abdomen soft, nontender, nondistended, no fluid wave. Extremities without edema, rogelio scaring and overlying scale below knees, wounds around ankles dressed rogelio, but no significant drainage or local redness. Objective Last Vital Signs Temp 37.6 C 09/05/24 07:34 Pulse 105 H 09/05/24 08:10 Resp 30 H 09/05/24 08:10 BP 102/71 09/05/24 08:01 Pulse Ox 94 09/05/24 08:10 Laboratory Results - last 24 hr 09/04/24 09/04/24 09/04/24 20:22 20:26 20:57 WBC 14.68 H RBC 5.21 Hgb 14.8 Hct 47.3 MCV 91 MCH 28.4 MCHC 31.3 L RDW 14.5 H Plt Count 355 MPV 9.4 Immature Gran % 0.5 Neutrophils % 86.1 Lymphocytes % 4.5 Monocytes % 8.5 Eosinophils % 0.1 Basophils % 0.3 Nucleated RBC % 0.0 Absolute Neutrophils 12.64 H Absolute Lymphocytes 0.66 L Absolute Monocytes 1.25 H Absolute Eosinophils 0.01 Absolute Basophils 0.04 PT 15.0 H INR 1.5 H VBG Lactate 1.6 Sodium 140 Potassium 4.7 Chloride 104 Carbon Dioxide 24.6 Anion Gap 11.4 H BUN 31 H Creatinine 2.1 H Est GFR (CKD-EPI 2020) 31.04 Glucose 129 H Calcium 8.9 Magnesium Total Bilirubin 2.82 H AST 35 ALT 31 Alkaline Phosphatase 112 Total Protein 7.5 Albumin 3.2 L Procalcitonin 0.85 Urine Color Yellow Urine Clarity Cloudy Urine pH 7.0 Ur Specific [place] 1.020 Urine Protein >=300 H Urine Ketones Negative Urine Blood Large H Urine Nitrite Negative Urine Bilirubin Negative Urine Urobilinogen 0.2 Ur Leukocyte Esterase Moderate H Urine RBC Urine WBC >50 H Ur Epithelial Cells Not Applicable Urine Crystals Not Applicable Urine Bacteria Not Applicable Urine Mucus Not Applicable Ur Culture Indicated? Yes Urine Glucose Negative COVID-19 Source Nasopharynx SARS-CoV-2 (PCR) Negative Influenza Type A (PCR) Negative Influenza Type B (PCR) Negative RSV (PCR) Negative 09/05/24 05:55 WBC 19.08 H RBC 4.98 Hgb 14.2 Hct 45.0 MCV 90 MCH 28.5 MCHC 31.6 L RDW 14.5 H Plt Count 295 MPV 9.4 Immature Gran % Neutrophils % Lymphocytes % Monocytes % Eosinophils % Basophils % Nucleated RBC % Absolute Neutrophils Absolute Lymphocytes Absolute Monocytes Absolute Eosinophils Absolute Basophils PT 14.9 H INR 1.5 H VBG Lactate Sodium 140 Potassium 4.7 Chloride 107 Carbon Dioxide 23.4 Anion Gap 9.6 BUN 35 H Creatinine 2.3 H Est GFR (CKD-EPI 2020) 27.83 Glucose 113 H Calcium 8.7 Magnesium 2.0 Total Bilirubin AST ALT Alkaline Phosphatase Total Protein Albumin Procalcitonin Urine Color Urine Clarity Urine pH Ur Specific [place] Urine Protein Urine Ketones Urine Blood Urine Nitrite Urine Bilirubin Urine Urobilinogen Ur Leukocyte Esterase Urine RBC Urine WBC Ur Epithelial Cells Urine Crystals Urine Bacteria Urine Mucus Ur Culture Indicated? Urine Glucose COVID-19 Source SARS-CoV-2 (PCR) Influenza Type A (PCR) Influenza Type B (PCR) RSV (PCR) Time Spent with Patient Time Spent with Patient: 35-49 minutes Time was spent: preparing to see the patient(eg.review tests), obtaining and/or reviewing separately otained hiistory, ordering medications,tests, procedures, referring, communicating with other health care support representative, indepentently interpreting results, counseling the patient and care coordination
--- NOTE | 2024-09-05 08:17 | W.PC.ACHO ---
Registration Status: Primary Language: Preferred Language: ED Information & Data Chief Complaint AMS/LOC 09/04/24 20:44 Triage Note BIBA, hasnt moved well all 09/04/24 20:16 day, altered. struggling to clear secretions. on morphine at home . doesnt wear o2 at home. symptoms started this morning Medical / Surgical History (Last Updated 12/25/23 @ 15:21 by Josiah Isaac MD) Hydronephrosis UTI (urinary tract infection) Hydronephrosis, right Hx of sepsis Hypertensive kidney disease with CKD stage III Chronic anticoagulation Hypertension COVID-19 (~11/12/21) Spinal stenosis Deep vein thrombosis (DVT) of popliteal vein of right lower extremity [place] classified according to extent of body surface involved HNP (herniated nucleus pulposus), lumbar Right kidney stone (01/20/18) (Last Reviewed 11/03/23 @ 06:48 by Corinne Rahman) History of skin graft Status post lumbar microdiscectomy (~2018) H/O ankle fusion S/P cystoscopy with ureteral stent placement Most Recent Vital Signs Temperature 37.6 C 09/05/24 07:34 Temperature Source Temporal Artery Scan 09/05/24 07:34 Pulse 107 H 09/05/24 07:10 Pulse 108 H 09/05/24 07:10 Respiratory Rate 10 L 09/05/24 07:10 Respiratory Effort Non-Labored 09/04/24 20:34 Respiratory Depth Normal 09/04/24 20:34 Respiratory Pattern Tachypnea 09/04/24 20:34 Blood Pressure 106/69 09/05/24 07:01 Blood Pressure Mean 80 09/05/24 07:01 Blood Pressure Position Sitting 09/04/24 20:16 Pulse Oximetry 95 09/05/24 07:10 Respiratory End-tidal CO2 16 09/05/24 07:10 Oxygen Delivery Method Nasal Cannula 09/05/24 03:03 Oxygen Flow Rate 2 09/04/24 20:16 Allergies tamsulosin Adverse Reaction (Intermediate, Verified 09/04/24 20:23) diarrhea Precautions Isolation Standard precaution 09/04/24 20:22 Active Medications Generic Name Dose Route Start Last Admin Trade Name Freq PRN Reason Stop Dose Admin Albuterol/Ipratropium 3 ml 09/05/24 02:59 09/05/24 03:03 Albuterol/Ipratropium 3 Ml Upd Vial UPD 3 ml Q4H PRN PRN Administration Atorvastatin Calcium 20 mg 09/05/24 02:00 09/05/24 01:58 Atorvastatin 20 Mg Tab PO Not Given HS LIBORIO IV IV Catheter Type [Left Wrist] Saline Lock IV Catheter Type [Right Peripheral IV Antecubital] IV Catheter Gauge [Left Wrist] 18 IV Catheter Gauge [Right 18 Antecubital] Diet Orders Category Date Time Status Heart Healthy Eating [DIET] Nutrition 09/05/24 Breakfast Active Diagnostics 09/05/24 09/04/24 09/04/24 Range/Units 05:55 20:57 20:26 WBC 19.08 H 14.68 H (4.4-10.8) 10^3/uL RBC 4.98 5.21 (4.36-5.78) 10^6/uL Hgb 14.2 14.8 (13.5-17.5) g/dL Hct 45.0 47.3 (40.0-50.0) % MCV 90 91 (80-95) fL MCH 28.5 28.4 (27.0-33.0) pg MCHC 31.6 L 31.3 L (32.0-36.0) % RDW 14.5 H 14.5 H (11.8-14.1) % Plt Count 295 355 (130-400) 10^3/uL MPV 9.4 9.4 (8.0-11.0) fL Immature Gran % 0.5 % Neutrophils % 86.1 % Lymphocytes % 4.5 % Monocytes % 8.5 % Eosinophils % 0.1 % Basophils % 0.3 % Nucleated RBC % 0.0 (0.0-0.3) % Absolute Neutrophils 12.64 H (1.2-6.7) 10^3/uL Absolute Lymphocytes 0.66 L (1.2-3.4) 10^3/uL Absolute Monocytes 1.25 H (0.1-0.8) 10^3/uL Absolute Eosinophils 0.01 (0.0-0.7) 10^3/uL Absolute Basophils 0.04 (0.0-0.2) 10^3/uL PT 14.9 H 15.0 H (9.1-11.1) sec INR 1.5 H 1.5 H (0.9-1.1) VBG Lactate 1.6 (<or=2.0) mmol/L Sodium 140 140 (136-145) mmol/L Potassium 4.7 4.7 (3.5-5.1) mmol/L Chloride 107 104 (98-107) mmol/L Carbon Dioxide 23.4 24.6 (21.0-32.0) mmol/L Anion Gap 9.6 11.4 H (3-11) mmol/L BUN 35 H 31 H (7-18) mg/dL Creatinine 2.3 H 2.1 H (0.70-1.30) mg/dL Est GFR (CKD-EPI 2020) 27.83 31.04 (mL/min/1.73m2) Glucose 113 H 129 H (74-106) mg/dL Calcium 8.7 8.9 (8.5-10.1) mg/dL Magnesium 2.0 (1.8-2.4) mg/dL Total Bilirubin 2.82 H (0.2-1.0) mg/dL AST 35 (15-37) U/L ALT 31 (16-63) U/L Alkaline Phosphatase 112 (46-116) U/L Total Protein 7.5 (6.4-8.2) g/dL Albumin 3.2 L (3.4-5.0) g/dL Procalcitonin 0.85 ng/mL Urine Color Yellow (Yellow) Urine Clarity Cloudy (Clear) Urine pH 7.0 (5-8) Ur Specific [place] 1.020 (1.005-1.025) Urine Protein >=300 H (Neg-Trace) mg/dL Urine Ketones Negative (Negative) mg/dL Urine Blood Large H (Negative) Urine Nitrite Negative (Negative) Urine Bilirubin Negative (Negative) Urine Urobilinogen 0.2 (Up to 0.2) mg/dL Ur Leukocyte Esterase Moderate H (Negative) Urine RBC (0-2) HPF Urine WBC >50 H (0-5) HPF Ur Epithelial Cells Not Applicable Urine Crystals Not Applicable Urine Bacteria Not Applicable Urine Mucus Not Applicable Ur Culture Indicated? Yes Urine Glucose Negative (Negative) mg/dL COVID-19 Source SARS-CoV-2 (PCR) (Negative) Influenza Type A (PCR) (Negative) Influenza Type B (PCR) (Negative) RSV (PCR) (Negative) 09/04/24 Range/Units 20:22 WBC (4.4-10.8) 10^3/uL RBC (4.36-5.78) 10^6/uL Hgb (13.5-17.5) g/dL Hct (40.0-50.0) % MCV (80-95) fL MCH (27.0-33.0) pg MCHC (32.0-36.0) % RDW (11.8-14.1) % Plt Count (130-400) 10^3/uL MPV (8.0-11.0) fL Immature Gran % % Neutrophils % % Lymphocytes % % Monocytes % % Eosinophils % % Basophils % % Nucleated RBC % (0.0-0.3) % Absolute Neutrophils (1.2-6.7) 10^3/uL Absolute Lymphocytes (1.2-3.4) 10^3/uL Absolute Monocytes (0.1-0.8) 10^3/uL Absolute Eosinophils (0.0-0.7) 10^3/uL Absolute Basophils (0.0-0.2) 10^3/uL PT (9.1-11.1) sec INR (0.9-1.1) VBG Lactate (<or=2.0) mmol/L Sodium (136-145) mmol/L Potassium (3.5-5.1) mmol/L Chloride (98-107) mmol/L Carbon Dioxide (21.0-32.0) mmol/L Anion Gap (3-11) mmol/L BUN (7-18) mg/dL Creatinine (0.70-1.30) mg/dL Est GFR (CKD-EPI 2020) (mL/min/1.73m2) Glucose (74-106) mg/dL Calcium (8.5-10.1) mg/dL Magnesium (1.8-2.4) mg/dL Total Bilirubin (0.2-1.0) mg/dL AST (15-37) U/L ALT (16-63) U/L Alkaline Phosphatase (46-116) U/L Total Protein (6.4-8.2) g/dL Albumin (3.4-5.0) g/dL Procalcitonin ng/mL Urine Color (Yellow) Urine Clarity (Clear) Urine pH (5-8) Ur Specific [place] (1.005-1.025) Urine Protein (Neg-Trace) mg/dL Urine Ketones (Negative) mg/dL Urine Blood (Negative) Urine Nitrite (Negative) Urine Bilirubin (Negative) Urine Urobilinogen (Up to 0.2) mg/dL Ur Leukocyte Esterase (Negative) Urine RBC (0-2) HPF Urine WBC (0-5) HPF Ur Epithelial Cells Urine Crystals Urine Bacteria Urine Mucus Ur Culture Indicated? Urine Glucose (Negative) mg/dL COVID-19 Source Nasopharynx SARS-CoV-2 (PCR) Negative (Negative) Influenza Type A (PCR) Negative (Negative) Influenza Type B (PCR) Negative (Negative) RSV (PCR) Negative (Negative) 09/04/24 20:57 Urine Culture - Pending Urine - Reflex from Ua 09/04/24 20:30 Blood Culture - Pending Blood 09/04/24 20:26 Blood Culture - Pending Blood Intake and Output - 24 Hour Total 09/04/24 19:57 thru 09/05/24 04:57 Intake Total 300 Output Total 200 Balance 100 Weight 121.109 kg Intake: IV 300 Output: Urine 200 Other: Urine Color Straw Urine Appearance Cloudy Purulent Falls Risk Assessment History of Falls Previous History 09/04/24 20:22 Contributing Factors Unstable,Impairments 09/04/24 20:22 Ambulatory Aids Uses ambulatory device 09/04/24 20:22 Tubes/Lines None 09/04/24 20:22 Gait Evaluation W/no contributing factors 09/04/24 20:22 Cognition No cognitive impairment 09/04/24 20:22 Fall Total Score 46 09/04/24 20:22 Level of Risk Moderate Risk 09/04/24 20:22 Problems (Last Updated 12/25/23 @ 15:21 by Josiah Isaac MD) Acute respiratory failure with hypoxia (Acute) Pyelonephritis (Acute) Sepsis (Acute) Atrial flutter (Acute) Hyperlipidemia (Chronic) Notes 09/05/24 05:59 Nursing Notes by Bam Andrews Addendum entered by Bam Andrews RN 09/05/24 06:14: 0613 MD Burton notified of pts WBC count, increased from 14.68 on arrival to 19.08 on morning labs. Original Note: Nursing Note: 0245 Pt with increasing tachycardia HR up to 120s from 90s-100s, increasing tachypnea RR 32-38. Pt audibly wheezing, breath sounds coarse and dim bilaterally. Afebrile. Pt straight cathed for 200mL urine, pus-like and cloudy. Pt stated he felt chills. MD Burton notified, given PRN order for duoneb. Administered with improvement in breathing, RR 28-32. 0430 Temp recheck with abx administration, 101F orally. MD Burton notified, 1g IV Ofirmev ordered and administered. Pt resting in bed, eyes closed, HR 110-120, RR 28-32. Side rails up and call fuentes within reach. 0600 Temp recheck with AM lab draw, 101F orally. MD Burton notified, no new orders at this time. HR 121 BP 109/65 RR 30 O2 95 on 2L NC, etCO2 30. Initialized on 09/05/24 05:59 - END OF NOTE v v v v v v v v v Sending and/or Receiving Nurses: Please use comment section below to note any information pertinent to the patient hand-off not included above. Information / Comments: Report recieved. Pt going to room 227 Report received from: MARY Zhao @ 0840
[2024-09-05] MEDS: LINEZOLID 600 MG/300 ML BAG 300 MG IVPB ×2 (08:20→20:11)
[2024-09-05] MEDS: dilTIAZem CD 120 MG CAPCR 240 MG PO (08:20)
[2024-09-05] MEDS: Normal Saline Flush 10 ML SYR IVP ×2 (09:01→20:10)
[2024-09-05] MEDS: Valsartan 80 MG TAB PO (09:26)
--- NOTE | 2024-09-05 09:58 | INITIAL_ITS ---
Date of service: 09/05/24 Time of Service: 09:58 Care Management Initial Assmt Initial Assessment Reason for Hospitalization: sepsis, pyelonephritis Functional Status/Living Situation Patient Presentation: Josep was lying in bed when CM met with him. He appeared tired, and had a difficult time keeping his eyes open during the conversation, to which he answered short replies. He stated that he lives in [place] with his , Noemy Baker. 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 He stated that they do not have children, and his only support is his . He reported that he is in dependent at baseline, still drives, and uses a cane. PT has been consulted, but was unable to work with him today. CM will continue to follow. Town of Residence: [place] Resides with: Spouse Significant Other/Family: Local Caregiver/Guardian: Thais mckeon Natural Supports: Thais Employment Status: Retired Instrumental Activities of Daily Living (ADLs): Requires support Medications Medication Management: No Issues/Barriers identified Physical Functioning/Mobility Assistive Device: cane Advance Directives Advance Directives: Do you have an Advance Directive: N 01/14/18 07:[address] [facility]: N 01/09/13 07:52 Date Asked 09/04/24 09/04/24 20:33 AD Date Reviewed COLST On File at [facility] Yes 08/19/19 10:16 COLST Date Scanned 05/21/19 08/19/19 10:16 Code Status Resuscitation Status DNR/DNI Insurance Coverage/Financial Issues Insurance: [facility]/ Care Team Visit Care Team Role Provider Type Aron Villegas MD [facility] STAFF PHYSICIAN Kareem Hart MD Primary Care Provider [facility] STAFF PHYSICIAN Leonie Rachel DO Emergency Provider [facility] STAFF PHYSICIAN Forest Burton MD Admit Provider [facility] STAFF PHYSICIAN Attending Provider Discharge Potential Discharge Needs: PCP F/U Appt Anticipated Barriers to Discharge: None Identified Patient/Family Education Needs: Review discharge instructions, discuss Ask Me Three Transportation: Private vehicle Plan: Anticipate Josep will return home once medically cleared. His will transport him home via private vehicle when ready. He will follow up with his PCP and discharge plan of care. CM will continue to follow. Social Determinants of Health Screening Will the Patient Participate in the Screening?: Declined to provide PFSH All Active Problems (Updated 09/05/24 @ 08:30 by Aron Villegas) Acute respiratory failure with hypoxia (Acute) Pyelonephritis (Acute) Sepsis (Acute) Acute UTI (Acute) Kidney stones (Chronic) Bacteremia (Acute) PVD (peripheral vascular disease) (Chronic) Cellulitis of leg (Acute) Atrial flutter (Acute) Obesity (Chronic) History of pulmonary embolism (Acute ~03/2019) Hyperlipidemia (Chronic) Medical History (Updated 09/05/24 @ 08:30 by Aron Villegas) CKD (chronic kidney disease) Cirrhosis of liver Hydronephrosis UTI (urinary tract infection) Hydronephrosis, right Hx of sepsis Hypertensive kidney disease with CKD stage III Chronic anticoagulation Hypertension COVID-19 (~11/12/21) Spinal stenosis Deep vein thrombosis (DVT) of popliteal vein of right lower extremity [place] classified according to extent of body surface involved Age 12, playing with matches, history of multiple skin grafting HNP (herniated nucleus pulposus), lumbar Right kidney stone (01/20/18) uric acid stone Surgical History History of skin graft Status post lumbar microdiscectomy (~2018) L3-4, at [facility] H/O ankle fusion S/P cystoscopy with ureteral stent placement Family History Mother , age 98 No problems noted. Father , age96 No problems noted. Sister No problems noted. Son , age 22 No problems noted. Daughter , age 40 Alcohol abuse Hypertension Sepsis Paternal Grandmother , age 102 No problems noted. Social History Smoking/Tobacco Use Status: Never Smoking risk assessment performed?: Yes Alcohol Intake: never Drug use: Never Substance use type: does not use Caregiver/Support person: Yes Household members: spouse Housing: house Do you need help understanding health information?: Rarely Pets and animals: Yes Pets and animals: dog(s) Sexually active: No Do you think of yourself as: straight/heterosexual Current gender identity: male What is your relationship status?: How often do you talk on the phone with friends or family?: three or more times per week How often do you get together with friends or relatives?: twice per week How often do you attend evangelical or buddhist services?: decline to answer Do you belong to any clubs or organized social groups?: no Panel score (0-1 are the most socially isolated patients): 2 Duration: decline to answer Frequency: decline to answer Laurie/Moravian: No preference Special laurie needs: No Seatbelt use: sometimes Helmet use: Yes Helmet use: sometimes Drive intox 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 explosives truck driver: No
[2024-09-05] MEDS: WARFARIN 5 MG, WARFARIN 2 MG 7 MG PO (12:03)
--- NOTE | 2024-09-05 12:24 | PT.INIE ---
PT Notes Visit Reasons: Sepsis Pyelonephritis Inpatient Physical Therapy Evaluation Date: September 05, 2024 Referring Doctor: Dr. Aron Villegas PT Orders: PT CONSULT: Safety consult for DC Precautions: [] Patient Profile/Admitting Diagnosis: Patient is an 83-year-old male who presented to ED on September 04, 2024 with acute respiratory failure with hypoxia and lethargy.. He was admitted secondary to sepsis/polynephritis. Has a history of leg trauma/faulkner with limited mobility. His PMH includes a-flutter on warfarin, HTN, and HLD who presents to the ED via EMS for lethargy. Patients states that the patient just had a ureteral stent placed at [facility] on Friday and that he was sent home with a few pills of antibiotics. She states that the patient had been doing well until earlier in the day when he became very weak and letharic promting her to call EMS. PMHX: PFSH All Active Problems (Updated 09/05/24 @ 06:46 by Forest Burton MD) Acute respiratory failure with hypoxia (Acute) Pyelonephritis (Acute) Sepsis (Acute) Acute UTI (Acute) Kidney stones (Chronic) Bacteremia (Acute) PVD (peripheral vascular disease) (Chronic) Cellulitis of leg (Acute) Atrial flutter (Acute) Obesity (Chronic) History of pulmonary embolism (Acute ~03/2019) Hyperlipidemia (Chronic) Medical History (Updated 09/05/24 @ 06:46 by Forest Burton MD) Hydronephrosis UTI (urinary tract infection) Hydronephrosis, right Hx of sepsis Hypertensive kidney disease with CKD stage III Chronic anticoagulation Hypertension COVID-19 (~11/12/21) Spinal stenosis Deep vein thrombosis (DVT) of popliteal vein of right lower extremity [place] classified according to extent of body surface involved Age 12, playing with matches, history of multiple skin graftingHNP (herniated nucleus pulposus), lumbar Right kidney stone (01/20/18) uric acid stone Surgical History History of skin graft Status post lumbar micro[facility]ce[facility] (~2018[facility] S/P cystoscopy with ureteral stent placement Social History/Home Situation: [] Current Functional Limitations: [] Equipment Owned/DME: [] Subjective: [] Objective: [] General Observation: [] Mental Status: [] Pain: [] Vital Signs: [] ROM: Right Upper Extremity: [] Left Upper Extremity: [] Right Lower Extremity: [] Left Lower Extremity: [] Strength: Right Upper Extremity: [] Left Upper Extremity: [] Right Lower Extremity: [] Left Lower Extremity: [] Sensation: [] Bed Mobility/Transfers: [] Gait: [] Balance: [] Static Sitting: [] Dynamic Sitting: [] Static Standing: [] Dynamic Standing: [] Special Tests: Mobility Limitations Standardized Measure [facility] AM[facility] 6 clicks Basic Mobility Inpatient Short Form: Raw Score: [] Standardized Score: [] CMS Score: [] Informed Consent/Education: Patient instructed in purpose of PT consult and plan of care. Assessment: Patient is an 83 year old male referred to physical therapy services with the diagnosis of sepsis polynephritis. Patient presents with clinical signs and symptoms consistent with admitting diagnosis, as demonstrated by the following impairment level findings: []. Impairments are contributing to the following functional limitations: AMPAC score. Patient is assessed as a [] Low 93910 [] Moderate 60773 [] High 98137 complexity based on the following: History: [] Examination: [] Presentation: [] Decision Making: [] Goals: Goals X1 week 1. Supine-Sit [] 2. Sit-Supine [] 3. Sit-Stand [] 4. Stand-Sit [] 5. Bed-Chair [] 6. Chair-Bed [] 7. Gait [] 8. Stairs [] 9. Independent with home exercise program [] 10. Balance [] Plan of Care/Treatment Plan: 1-2x/day, 7 days/week x 1 week. Plan of care has been reviewed with the CHUTE PULLER providing the service under Physical Therapy direction. Initiate Physical Therapy intervention for strengthening, bed mobility, transfers, gait, stairs, balance training, use of assistive device. DISCHARGE RECOMMENDATIONS: [] [] Home with no services [] [] Home with services [specify] [] Home with outpatient PT [] [] SNF for continued rehabilitation [] [] [facility] [] [] SNF versus LTC based on ability to participate and progress [] TREATMENT CODE/TIME: []
[2024-09-05] MEDS: Acetaminophen 325 MG TAB PO (15:16)
--- NOTE | 2024-09-05 15:30 | PT.INNT ---
PT Notes Visit Reasons: Sepsis Pyelonephritis PT inpatient initial evaluation deferred for today per nursing. Will plan to evaluate patient Friday, September 06, 2024.
[2024-09-05] MEDS: Atorvastatin 20 MG TAB PO (20:10)
[2024-09-05] MEDS: Sodium Bicarbonate 650 MG TAB PO (20:10)
[2024-09-06] VITALS (7 sets, daily range): BP systolic 94–127; BP diastolic 40–74; PULSE 67–109; RESP 17–20; TEMP 36.7–38; O2SAT 92–98
[2024-09-06] MEDS: Acetaminophen 325 MG TAB PO (03:52)
[2024-09-06 06:36] LABS: Absolute Lymphocyte Count 0.98 10^3/uL (1.2-3.4); Basophils % 0.2 %; Eosinophils % 0.1 %; HCT 42.6 % (40.0-50.0); HGB 13.6 g/dL (13.5-17.5); Immature Grans % 0.5 %; Lymphocytes % 4.8 %; MCH 28.3 pg (27.0-33.0); MCHC 31.9 % (32.0-36.0); MCV 89 fL (80-95); MPV 10.4 fL (8.0-11.0); Monocytes % 10.6 %; Neutrophils % 83.8 %; Platelet Count 317 10^3/uL (130-400); RDW 14.5 % (11.8-14.1); RDW-SD 46.5 fL; WBC 20.43 10^3/uL (4.4-10.8)
[2024-09-06 06:41] LABS: INR 1.8 (0.9-1.1); Prothrombin Time 17.2 sec (9.1-11.1)
[2024-09-06 06:42] LABS: Absolute Basophil Count 0.04 10^3/uL (0.0-0.2); Absolute Eosinophil Count 0.02 10^3/uL (0.0-0.7); Absolute Monocyte Count 2.17 10^3/uL (0.1-0.8); Absolute Neutrophil Count 17.12 10^3/uL (1.2-6.7)
[2024-09-06 06:50] LABS: ALT 19 U/L (16-63); AST 20 U/L (15-37); Albumin 2.4 g/dL (3.4-5.0); Alkaline Phosphatase 88 U/L (46-116); BUN 42 mg/dL (7-18); Bilirubin, Total 2.01 mg/dL (0.2-1.0); CREATININE 2.6 mg/dL (0.70-1.30); Calcium 8.5 mg/dL (8.5-10.1); Chloride 104 mmol/L (98-107); Estimated GFR 24.02 (mL/min/1.73m2); Glucose 113 mg/dL (74-106); Potassium 4.2 mmol/L (3.5-5.1); Sodium 140 mmol/L (136-145); Total Protein 6.6 g/dL (6.4-8.2)
[2024-09-06 06:59] LABS: Diff Comment Diff Reviewed; RBC Morphology Normal
--- NOTE | 2024-09-06 07:36 | UCONE_ITS ---
Date of service: 09/06/24 Time of Service: 09:15 Assessment and Plan Assessment and plan (1) Kidney stones: Status: Chronic Assessment and plan: It would be unlikely for his ureteral stent to be infected and require urgent removal or change. More likely, I suspect that some of the Klebsiella previously identified on urine culture had penetrated into the kidney itself. Nitrofurantoin does not provide any tissue coverage. Appropriate antibiotics were chosen for his procedure, but perhaps the duration was not quite enough in his case. We may want to reinstitute the Zosyn or one of the antibiotics that showed effectiveness against his most recent Klebsiella UTI. The most recent culture was done down at [facility] and not here at [facility]. (2) Sepsis: Status: Acute History of Present Illness Narrative: Chief complaint: Sepsis This is an 83-year-old gentleman who has a history of kidney stones. His stones have been predominantly uric acid in composition. I am not aware of any previous struvite stones. He has a history of sepsis related to obstructing ureteral stones. We identified 2 fairly large nonobstructing left-sided kidney stones. The patient requested treatment and we sent him down to [facility] for his intervention. Instead of percutaneous nephrolithotomy, he underwent ureteroscopy with holmium laser lithotripsy of his stones. A vacuum device was utilized to help clear the stone debris. A ureteral stent was placed and it was recommended that the stent stay in place for about 10 days. He was discharged with some oral antibiotics and initially did well but he returned to our facility with signs and symptoms of sepsis. I have been asked to see him to help decide if his ureteral stent should be removed sooner than later. He does not have any current flank pain or gross hematuria. In reviewing his recent records from [facility], he had a positive urine culture that grew Klebsiella. He was treated with oral nitrofurantoin from 08/28 until 08/31 when he underwent ureteroscopy. He was given a prophylactic dose of piperacillin/tazobactam and then discharged on nitrofurantoin again. His bacteria was sensitive to the nitrofurantoin and the piperacillin/tazobactam. PFSH All Active Problems (Updated 09/05/24 @ 08:30 by Aron Villegas) Acute respiratory failure with hypoxia (Acute) Pyelonephritis (Acute) Sepsis (Acute) Acute UTI (Acute) Kidney stones (Chronic) Bacteremia (Acute) PVD (peripheral vascular disease) (Chronic) Cellulitis of leg (Acute) Atrial flutter (Acute) Obesity (Chronic) History of pulmonary embolism (Acute ~03/2019) Hyperlipidemia (Chronic) Medical History (Updated 09/05/24 @ 08:30 by Aron Villegas) CKD (chronic kidney disease) Cirrhosis of liver Hydronephrosis UTI (urinary tract infection) Hydronephrosis, right Hx of sepsis Hypertensive kidney disease with CKD stage III Chronic anticoagulation Hypertension COVID-19 (~11/12/21) Spinal stenosis Deep vein thrombosis (DVT) of popliteal vein of right lower extremity Sena classified according to extent of body surface involved Age 12, playing with matches, history of multiple skin grafting HNP (herniated nucleus pulposus), lumbar Right kidney stone (01/20/18) uric acid stone Surgical History History of skin graft Status post lumbar microdiscectomy (~2018) L3-4, at [facility] H/O ankle fusion S/P cystoscopy with ureteral stent placement Family History Mother , age 98 No problems noted. Father , age96 No problems noted. Sister No problems noted. Son , age 22 No problems noted. Daughter , age 40 Alcohol abuse Hypertension Sepsis Paternal Grandmother , age 102 No problems noted. Social History Smoking/Tobacco Use Status: Never Smoking risk assessment performed?: Yes Alcohol Intake: never Drug use: Never Substance use type: does not use Caregiver/Support person: Yes Household members: spouse Housing: house Do you need help understanding health information?: Rarely Pets and animals: Yes Pets and animals: dog(s) Sexually active: No Do you think of yourself as: straight/heterosexual Current gender identity: male What is your relationship status?: How often do you talk on the phone with friends or family?: three or more times per week How often do you get together with friends or relatives?: twice per week How often do you attend orthodox or denominational services?: decline to answer Do you belong to any clubs or organized social groups?: no Panel score (0-1 are the most socially isolated patients): 2 Duration: decline to answer Frequency: decline to answer Laurie/Christianity: No preference Special laurie needs: No Seatbelt use: sometimes Helmet use: Yes Helmet use: sometimes Drive intox 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 There is very little residual stone identified in the left lower pole. His ureteral stent is well-positioned. There is no evidence of perinephric abscess. Results Last Vital Signs Temp 36.8 C 09/06/24 06:02 Pulse 69 09/06/24 06:02 Resp 18 09/06/24 06:02 BP 100/64 09/06/24 06:02 Pulse Ox 98 09/06/24 06:02 Labs 09/06/24 05:50 09/06/24 05:50 Labs: Laboratory Results - last 24 hr 09/06/24 05:50 WBC 20.43 H RBC 4.80 Hgb 13.6 Hct 42.6 MCV 89 MCH 28.3 MCHC 31.9 L RDW 14.5 H Plt Count 317 MPV 10.4 Immature Gran % 0.5 Neutrophils % 83.8 Lymphocytes % 4.8 Monocytes % 10.6 Eosinophils % 0.1 Basophils % 0.2 Nucleated RBC % 0.0 Absolute Neutrophils 17.12 H Absolute Lymphocytes 0.98 L Absolute Monocytes 2.17 H Absolute Eosinophils 0.02 Absolute Basophils 0.04 RBC Morphology Normal PT 17.2 H INR 1.8 H Sodium 140 Potassium 4.2 Chloride 104 Carbon Dioxide 25.0 Anion Gap 11.0 BUN 42 H Creatinine 2.6 H Est GFR (CKD-EPI 2020) 24.02 Glucose 113 H Calcium 8.5 Total Bilirubin 2.01 H AST 20 ALT 19 Alkaline Phosphatase 88 Total Protein 6.6 Albumin 2.4 L
[2024-09-06] MEDS: LINEZOLID 600 MG/300 ML BAG 300 MG IVPB (08:27)
[2024-09-06] MEDS: dilTIAZem CD 120 MG CAPCR 240 MG PO (08:29)
[2024-09-06] MEDS: Sodium Bicarbonate 650 MG TAB PO ×2 (08:29→19:57)
[2024-09-06] MEDS: Valsartan 80 MG TAB PO (08:29)
[2024-09-06] MEDS: Normal Saline Flush 10 ML SYR IVP ×2 (08:29→19:56)
--- NOTE | 2024-09-06 10:49 | IN_ITS ---
PT Notes Visit Reasons: Sepsis Pyelonephritis Inpatient Physical Therapy Evaluation Date: 09/06/2024 Referring Doctor: Dr Villegas PT Orders: PT CONSULT: safety Consult for D/C Precautions: IV Access, Standard, FALL RISK Patient Profile/Admitting Diagnosis: Pt is 83 yo male presented to ED via EMS 4 days s/p [place]teral [place] [facility] Pt presented with lethargy, weakness and increased SOB. In ED pt was diagnosed with Sepsis, pyelonephritis and Acute respiratory hailure with hypoxia. Abdominal/pelvicCT showed perinephretic stranding that may be secondary to stent placement or pyelonephritis. Pt treated with IV ABX, and supplemental oxygen. Pt admitted to Med-Surg Unit PMHX: Acute respiratory failure with hypoxia (Acute) Pyelonephritis (Acute) Sepsis (Acute) Acute UTI (Acute) Kidney stones (Chronic) Bacteremia (Acute) PVD (peripheral vascular disease) (Chronic) Cellulitis of leg (Acute) Atrial flutter (Acute) Obesity (Chronic) History of pulmonary embolism (Acute ~03/2019) Hyperlipidemia (Chronic) Medical History (Updated 09/05/24 @ 06:46 by Forest Burton MD) Hydronephrosis UTI (urinary tract infection) Hydronephrosis, right Hx of sepsis Hypertensive kidney disease with CKD stage III Chronic anticoagulation Hypertension COVID-19 (~11/12/21) Spinal stenosis Deep vein thrombosis (DVT) of popliteal vein of right lower extremity Faulkner classified according to extent of body surface involved Age 12, playing with matches, history of multiple skin grafting HNP (herniated nucleus pulposus), lumbar Right kidney stone (01/20/18) uric acid stone Surgical History History of skin graft Status post lumbar microdiscectomy (~2018) L3-4, at [facility] H/O ankle fusion S/P cystoscopy with ureteral stent placement 08/2024 Social History/Home Situation: Pt resides with in double wide trailer with 4 SARI with 2 rails and a Grab bar at door frame to enter. Prior to hospitalization, Pt independent ambulation within home without device. He uti lizes a cane for out of home ambulation. He is independent with self care. He has grab bars at the bathroom door as well as near the shower. Equipment Owned/DME:cane Subjective: Initial approach pt declined to get out of bed stating he was too tired and I can do all of this ;I do not need to show you when I already know I can do it.. He was re-approached when his was present and he was agreeable. He denied pain at both attempts. Objective: General Observation: Pt presented supine in bed with HOB at 40 degrees. At second approach later in am pt was attempting to climb over the bed rail when asked if he was ready to try getting out of bed. Mental Status: Alert oriented to person and place. Pt resistive to participate when his was not present. Pt impulsive with poor safety awareness and poor insight into unsafe situations. Pt declines to follow instruction for safe transfers/ use of FWW Pain: denied Vital Signs: Monitored via telemetry. 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 Left Upper Extremity: grossly 3/5 earthmoving labourer good Right Lower Extremity: Hip flexion: 3- /5; hip abduction:2+ /5; hip extension: 3- /5; knee extension: 3 /5; knee flexion: 2+ /5 Left Lower Extremity: Hip flexion: 3- /5; hip abduction: 2+ /5; hip extension: 3- /5; knee extension: 3 /5; knee flexion: 2+ /5 Sensation: impaired to light touch along areas of faulkner to BLE Skin Integrity: Thick dry scaling noted to B lower leg/shins Bed Mobility/Transfers: supine to sit with rail min A at trunk sit to stand Min A from elevated bed bed to chair Mod A with FWW assist for FWW management to keep closer to his body and to reduce speed of movement Gait: pt ambulated 20 feet with FWW with mod A demonstrating the following deviations: forward flexed trunk, wide TAJ outside frame of FWW, impaired B knee flexion during swing phase, Pt Balance: [] Static Sitting: Good Dynamic Sitting: Fair Static Standing: Fair - with UE support Dynamic Standing: Poor + Special Tests: Mobility Limitations Standardized Measure [facility] AM-PAC 6 clicks Basic Mobility Inpatient Short Form: Raw Score: 11 CMS Score: 72.57% Informed Consent/Education: Patient instructed in purpose of PT consult and plan of care. Assessment: Patient is a 83 year old male referred to physical therapy services with the diagnosis of Sepsis. Patient presents with clinical signs and symptoms consistent with admitting diagnosis, as demonstrated by the following impairment level findings: 1. Impairment in strength BUE and BLE major musculature 2. impaired balance in standing 3. impaired functional activity tlerance in sitting and standing 4. impaired ankle ROM 5. poor safety awareness/ insight into unsafe situations. Impairments are contributing to the following functional limitations: 1. AMPAC score. 2. decline in bed mobility skills 3. decline in transfer skills 4. difficulty ambulating without assistance and assistive device 5. inability to perform stairs safely 6. risk for falls 7. Increased time to complete ADL/ mobility tasks Patient is assessed as a Moderate 75083 complexity based on the following: History: Pt is 83 yo male presenting with complex past medical history as outlined above Examination: demonstrates impairments in strength, ROM, balance and functional activity tolerance which impede his ability to perform functional mobility tasks safely without assistance as stated prior. Presentation: evolving Decision Making: moderate Goals: Goals X1 week 1. Supine-Sit supervision 2. Sit-Supine supervision 3. Sit-Stand supervision 4. Stand-Sit supervision 5. Bed-Chair supervision with least restrictive device 6. Chair-Bed supervision with least restrictive device 7. Ambulate with least restrictive device supervised > 150 feet on level surfaces including turns. 8. 4 six inch steps with 2 rails CGA to safely enter and exit his home Plan of Care/Treatment Plan: 1-2x/day, 7 days/week x 1 week. Plan of care has been reviewed with the NEPHROLOGY SOCIAL WORKER providing the service under Physical Therapy direction. Initiate Physical Therapy intervention for strengthening, bed mobility, transfers, gait, stairs, balance training, use of assistive device. DISCHARGE RECOMMENDATIONS: [] [] Home with no services [] [X] Home with services PT: Patient will benefit from home health PT services in order to progress mobility level using least restrictive assistive ambulatory device, assess home safety, identify additional equipment needs, and establish a functional maintenance program that will increase ability of patient to remain at home. [] Home with outpatient PT [] [] SNF for continued rehabilitation [] [] Rug Touch Up Painter [facility] [] [] SNF versus LTC based on ability to participate and progress [] TREATMENT CODE/TIME:22893/ [id number], [id number]
--- NOTE | 2024-09-06 11:35 | PDOC.CMPRO ---
Date of service: 09/06/24 Time of Service: 11:46 Care Management Progress Note Progress Note Text Progress Note Text: Josep was sleeping when CM attempted to meet with him; his RN asked to let him rest, as he had been up all day and was very tired. His RN stated that he was awake and alert all morning, and his was visiting, who is his caregiver. PT met with Josep and recommends PT. Per report, he was febrile overnight, and MD is considering changing his antibiotics today; he is not yet medically cleared. CM will continue to follow. Discharge Potential Discharge Needs: PCP F/U Appt Anticipated Barriers to Discharge: None Identified Patient/Family Education Needs: Review discharge instructions, discuss Ask Me Three Transportation: Private vehicle Plan: Anticipate Josep will return home once medically cleared. His will transport him home via private vehicle when ready. He will follow up with his PCP and discharge plan of care. CM will continue to follow. Social Determinants of Health Screening Will the Patient Participate in the Screening?: Declined to provide
--- NOTE | 2024-09-06 11:46 | NUR.NOTE ---
patient AxOx4 this shift, denies pain, up to chair with PT using x1 assist and walker. Pt has chronic BLE wound from childhood faulkner, wound care to be comlpeted by this RN later once orders clarified. Spouse at bedside to confirm home wound care routine. Patient switched to linezolid to zosyn based on urine cx growing gram neg rods and hx of positive klebsiella per MD Isaac. No plans for ureteral stent removal during active infection, VSS, monitoring for fever and sepsis. Voiding to urinal. In chair with chair alarm concrete journeyman fuentes in reach. Nursing Note:
--- NOTE | 2024-09-06 12:08 | W.PM.PROGNOT ---
Date of Service Date of service: 09/06/24 Time of Service: 10:00 Assessment and Plan Assessment and plan (1) Sepsis: Status: Acute Assessment and plan: -patient met sepsis criteria on admission with temp of 100.8oF, HR >100, WBC 14 and source being perinephric stranding s/p ureteral stent placement ~4 days prior to admission -started on zosyn and linezolid given recent procedure, zosyn was not continued but resumed this morning. Stop linazolid. -blood/urine cultures pending, old culture showed klebsiella sensitive to zosyn. -no signs of lung or skin infection. (2) Pyelonephritis: Status: Acute Assessment and plan: -likel source of infection as noted above -appreciate Dr. Isaac's consult, no need to remove stent now. (3) Atrial flutter: Status: Acute Assessment and plan: continue home dilt and warfarin, continue. INR still low, additional 2mg today, follow INR. (4) Hypertension: Assessment and plan: -continue home valsartan (5) Cirrhosis of liver: Assessment and plan: Noted on CT. He was not aware of this diagnosis. Liver/spleen reported as normal on 01/31/24 CT so should review with radiology. Precautions for now. No progressive liver dysfunction on labs. (6) CKD (chronic kidney disease): Assessment and plan: He is near baselin GFR around 30, continue to monitor Subjective Subjective Patient reports: denies diarrhea or shortness of breath Interval history since last seen: Feels a little better this morning. He did have fevers last night, vomited up orange juice after drinking 2-3 cups. Not nauseous now, but not much appetite. He is drinking. No abdominal pain or chest pain. Exam Narrative Exam Narrative: Fatigued, older gentleman laying in bed in no acute distress, alert and interactive, oriented to person/place/situation. CV: RRR, no M/G/R. Lungs clear to auscultation bilaterally, normal effort. abdomen soft, nontender, nondistended, no fluid wave. Extremities without edema, rogelio scaring and overlying scale below knees, wounds around ankles dressed rogelio, but no significant drainage or local redness. Objective Last Vital Signs Temp 36.8 C 09/06/24 11:18 Pulse 75 09/06/24 11:18 Resp 17 09/06/24 11:18 BP 96/60 L 09/06/24 11:18 Pulse Ox 95 09/06/24 11:18 Laboratory Results - last 24 hr 09/06/24 05:50 WBC 20.43 H RBC 4.80 Hgb 13.6 Hct 42.6 MCV 89 MCH 28.3 MCHC 31.9 L RDW 14.5 H Plt Count 317 MPV 10.4 Immature Gran % 0.5 Neutrophils % 83.8 Lymphocytes % 4.8 Monocytes % 10.6 Eosinophils % 0.1 Basophils % 0.2 Nucleated RBC % 0.0 Absolute Neutrophils 17.12 H Absolute Lymphocytes 0.98 L Absolute Monocytes 2.17 H Absolute Eosinophils 0.02 Absolute Basophils 0.04 RBC Morphology Normal PT 17.2 H INR 1.8 H Sodium 140 Potassium 4.2 Chloride 104 Carbon Dioxide 25.0 Anion Gap 11.0 BUN 42 H Creatinine 2.6 H Est GFR (CKD-EPI 2020) 24.02 Glucose 113 H Calcium 8.5 Total Bilirubin 2.01 H AST 20 ALT 19 Alkaline Phosphatase 88 Total Protein 6.6 Albumin 2.4 L Time Spent with Patient Time Spent with Patient: 35-49 minutes Time was spent: preparing to see the patient(eg.review tests), obtaining and/or reviewing separately otained hiistory, ordering medications,tests, procedures, referring, communicating with other health point of care specialist, indepentently interpreting results, counseling the patient and care coordination
--- NOTE | 2024-09-06 15:02 | NUR.NOTE ---
Reviewed documentation, agree with assessment performed by Sona Duggan LPN Student. Erin Zee, MSN, RNC-OB (clinical instructor)
[2024-09-06] MEDS: Bacitracin 30 GM TUBE TP ×2 (16:00→19:55)
--- NOTE | 2024-09-06 16:18 | PT.INTREAT ---
PT Notes Visit Reasons: Sepsis Pyelonephritis Inpatient Physical Therapy Treatment Note [facility] Date: 09/06/2024 PRECAUTIONS:fall risk, SUBJECTIVE: OBJECTIVE: Pt presented seated in chair requesting to go back to bed ? PAIN: denied VITALS: ?monitored by Nursing Therapeutic Activities (15976): Direct one-on-one instruction in dynamic activities to improve functional performance. ?? Provided skilled cues and instruction on performance and technique throughout for safety Transfers: pt required max A of 2 to stand from bedside chair. chair to bed Mod A of 2 and a 3rd person to guide FWW. Pt with increased forward flexed trunk, difficulty moving his feet during turn as approached bed. stand to sit Max A of 2. Sit to supine mod A of 1 to get BLE onto bed. ASSESSMENT:? Pt required significantly more assistance in the pm to get back to bed. Pt difficulty following instructions once in standing position. Pt resistive to turning for safe approach to bed attempting to sit prior to reaching bed / side saddle onto bed instead of turning to get BLE against bed then sitting. Nursing instructed to ensure at least 2 assist for transfers with FWW as pt can be inconsistent. Once in bed pt declined to participate in supine therex. PLAN: 1-2x/day, 7 days/week x 1 week. Plan of care has been reviewed with the OPTIMIZATION SPECIALIST providing the service under Physical Therapy direction. Initiate Physical Therapy intervention for strengthening, bed mobility, transfers, gait, stairs, balance training, use of assistive device. TREATMENT CODE/TIME: 34286/ [id number] DISCHARGE RECOMMENDATION: Home with services. Patient will benefit from home health PT services in order to progress mobility level using least restrictive assistive ambulatory device, assess home safety, identify additional equipment needs, and establish a functional maintenance program that will increase ability of patient to remain at home.
[2024-09-06] MEDS: Lactated Ringers 500 ML IV (18:33)
[2024-09-06] MEDS: Atorvastatin 20 MG TAB PO (19:56)
[2024-09-06] MEDS: Warfarin 5 MG TAB PO (19:57)
[2024-09-06] MEDS: Warfarin 1 MG TAB 2 MG PO (19:57)
[2024-09-07] MEDS: Normal Saline Flush 10 ML SYR IVP ×5 (00:17→23:45)
[2024-09-07 03:43] VITALS: BP 104/68; PULSE 75; RESP 18; TEMP 37.1; O2SAT 94
[2024-09-07 07:01] LABS: Abs Immature Grans 0.08 10^3/uL (0.0-0.06); Absolute Basophil Count 0.04 10^3/uL (0.0-0.2); Absolute Eosinophil Count 0.23 10^3/uL (0.0-0.7); Absolute Monocyte Count 1.38 10^3/uL (0.1-0.8); Absolute Neutrophil Count 10.52 10^3/uL (1.2-6.7); Basophils % 0.3 %; Eosinophils % 1.7 %; HCT 39.8 % (40.0-50.0); HGB 12.6 g/dL (13.5-17.5); Immature Grans % 0.6 %; Lymphocytes % 7.8 %; MCH 28.3 pg (27.0-33.0); MCHC 31.7 % (32.0-36.0); MCV 89 fL (80-95); MPV 10.6 fL (8.0-11.0); Monocytes % 10.4 %; Neutrophils % 79.2 %; Platelet Count 328 10^3/uL (130-400); RBC 4.45 10^6/uL (4.36-5.78); RDW 14.4 % (11.8-14.1); RDW-SD 46.6 fL; WBC 13.28 10^3/uL (4.4-10.8)
[2024-09-07 07:10] LABS: Absolute Lymphocyte Count 1.04 10^3/uL (1.2-3.4)
[2024-09-07 07:12] LABS: Anion Gap 8.2 mmol/L (3-11); BUN 47 mg/dL (7-18); CO2 25.8 mmol/L (21.0-32.0); CREATININE 3.1 mg/dL (0.70-1.30); Calcium 8.3 mg/dL (8.5-10.1); Chloride 104 mmol/L (98-107); Estimated GFR 19.45 (mL/min/1.73m2); Glucose 93 mg/dL (74-106); Potassium 3.7 mmol/L (3.5-5.1); Sodium 138 mmol/L (136-145)
[2024-09-07 07:16] LABS: INR 2.3 (0.9-1.1); Prothrombin Time 21.7 sec (9.1-11.1)
[2024-09-07 07:37] VITALS: BP 108/68; PULSE 79; RESP 20; TEMP 36.9; O2SAT 96
--- NOTE | 2024-09-07 10:06 | PDOC.CMPRO ---
Date of service: 09/07/24 Time of Service: 10:06 Care Management Progress Note Progress Note Text Progress Note Text: Josep was sitting up in bed when CCM met with him. He was polite but not talkative. When asked, Josep stated he thought he would be ready for discharge tomorrow. He said he is about there. PT has recommended PT but Josep does not feel he needs it. His PO intake had not been good however today he ate 75% of his lunch and had 720 ml of liquid intake. CM will follow. Discharge Potential Discharge Needs: PCP F/U Appt Anticipated Barriers to Discharge: None Identified Patient/Family Education Needs: Review discharge instructions, discuss Ask Me Three Transportation: Private vehicle Plan: Anticipate Josep will return home once medically cleared, possibly with new home health PT. His will transport him home via private vehicle when ready. He will follow up with his PCP and discharge plan of care. CM will continue to assess for discharge needs. Social Determinants of Health Screening Will the Patient Participate in the Screening?: Declined to provide
[2024-09-07] MEDS: dilTIAZem CD 120 MG CAPCR 240 MG PO (10:22)
[2024-09-07] MEDS: Sodium Bicarbonate 650 MG TAB PO ×2 (10:22→21:16)
[2024-09-07] MEDS: Valsartan 80 MG TAB PO (10:22)
[2024-09-07] MEDS: Lactated Ringers 1,000 ML 150 ML IV (10:26)
[2024-09-07 11:14] VITALS: BP 98/55; PULSE 73; RESP 18; TEMP 36.4; O2SAT 96
--- NOTE | 2024-09-07 12:24 | PT.INTREAT ---
PT Notes Visit Reasons: Sepsis Pyelonephritis Inpatient Physical Therapy Treatment Note [facility] Date: 09/07/2024 PRECAUTIONS:fall risk, SUBJECTIVE: Pt reports he feels good other than being in the hospital OBJECTIVE: Pt presented seated in chair visiting with his . IV fluids infusing in LUE (am) (pm) pt seated in chair with IV infusing B UE . ? PAIN: denied VITALS: ?monitored by Nursing Therapeutic Activities (79893): Direct one-on-one instruction in dynamic activities to improve functional performance. ?? Provided skilled cues and instruction on performance and technique throughout for safety Transfers: sit to stand x 3 from various surface heights 18-22 height with CGA (am/PM stand to sit at various surface heights. CGA (am/PM) surface to surface: with FWW CGA (am/pm) sit to supine CGA with rail (pm) Ambulation: (am)Facilitated safe and correct performance of level surface ambulation covering a distance of 150 feet level surfaces and turns using front wheeled walker with contact-guard assist and wheelchair follow for safety. Did not report of any increased pain. Denied headache, chest pain, and lightheadedness throughout activity. Minimal verbal cueing provided for AD management, directional changes, and posture. (pm) ambulation short distances with FWW to simulate mobility within home. Pt with CGA for distances <25 ft x 4. ASSESSMENT:? Pt with improved tolerance to standing tasks today in am and pm. Pt able to perform bed mobility with CGA and use of rails. static stand x 4 mins without sit rest, for hygiene d/t incontinent of bowel. PLAN: 1-2x/day, 7 days/week x 1 week. Plan of care has been reviewed with the ACID RETORT OPERATOR providing the service under Physical Therapy direction. Initiate Physical Therapy intervention for strengthening, bed mobility, transfers, gait, stairs, balance training, use of assistive device. TREATMENT CODE/TIME: 10045/1116am-1137am 49735/ 139pm- 155pm DISCHARGE RECOMMENDATION: Home with services. Patient will benefit from home health PT services in order to progress mobility level using least restrictive assistive ambulatory device, assess home safety, identify additional equipment needs, and establish a functional maintenance program that will increase ability of patient to remain at home.
--- NOTE | 2024-09-07 13:47 | NUR.NOTE ---
patient Axox4 throughout shift, denies pain, VSS on room air, occassional SOB with exertion. Patient's kidney functions continue to go up, LR at 150ml/hr started this AM for this, encouraged pt to push fluids. WBCs greatly improved and pt has overall better energy today. No s/s of infection acutely this shift. OOBTC this AM for breakfast and lunch, getting back to bed with Modesta from PT at this time. Discussed with pt and spouse per MD Villegas in rounds that pt will be with us inpatient until kidney functions improve. Pt is putting out more urine and more frequently on this shift than yesterday. Voiding to urinal, BM today, eating (low PO intake, states baseline is one meal per day). PIV intact, on IV zosyn Q6 hrs. Will continue to monitor urine output and s/s of infection, denies needs. Call fuentes in reach, bed alarm on. Wound care to be completed this afternoon on chronic wounds. Discussed with MD Villegas in rounds possible need for wound care order since bacitracin does not seem sufficient for chronic wounds which is what reports they do at home. Pt is followed by [facility] burn center but only sees them once a year or so. Nursing Note:
[2024-09-07] MEDS: Bacitracin 30 GM TUBE TP ×2 (14:59→21:17)
--- NOTE | 2024-09-07 15:22 | PHA.REVIEW2 ---
Pharmacy Admission Review Admission Clinical Review Admission Pharmacy Review: Acute respiratory failure with hypoxia (Acute) Pyelonephritis (Acute) Sepsis (Acute) Atrial flutter (Acute) tamsulosin Adverse Reaction (Intermediate, Verified 09/04/24 20:23) diarrhea Resuscitation Status DNR/DNI Height 5 ft 10 in Weight 121.109 kg Comments Comments/Follow Ups: Watch INR - within goal of 2-3 today, monitor renal function (Zosyn is renally adjusted) Pharmacy Admission Review Renal Dosing Renal Dosing: BUN 47 mg/dL (7-18) H 09/07/24 05:57 Creatinine 3.1 mg/dL (0.70-1.30) H 09/07/24 05:57 Medications needing adjustments: Intervened (CrCl 24.38 mL/min, BUN increased from 42 and SCr increased from 2.6) List of meds needing interventions: Changed Zosyn dose from 3.375g q6h to 2.25g q6h Anticoagulation Anticoagulation: Hgb 12.6 g/dL (13.5-17.5) L 09/07/24 05:57 Hct 39.8 % (40.0-50.0) L 09/07/24 05:57 Plt Count 328 10^3/uL (130-400) 09/07/24 05:57 INR 2.3 (0.9-1.1) H 09/07/24 05:57 Creatinine 3.1 mg/dL (0.70-1.30) H 09/07/24 05:57 DVT Prophylaxis: Reviewed (INR increased from 1.8, Hgb decreased from 13.6) Medications: Warfarin (5mg daily) Relevant Labs Relevant Labs: Sodium 138 mmol/L (136-145) 09/07/24 05:57 Potassium 3.7 mmol/L (3.5-5.1) 09/07/24 05:57 Chloride 104 mmol/L (98-107) 09/07/24 05:57 Magnesium 2.0 mg/dL (1.8-2.4) 09/05/24 05:55 Electrolytes, C-Reactive P, ESR: Reviewed Cardiac Review BP, HR, EF%: Reviewed (BP 98/55, HR WNL) List meds needing interventions: has order for diltiazem CD 240mg daily and valsartan 80mg daily QTc Review QTc: Reviewed (426 from 3/1/25) IV to PO Switch IV Medications: Reviewed (Zosyn) Home Meds Home Med List reviewed: Reviewed Relevent Home Meds Not ordered & why?: Vitamin D3 and vitamin B12 Current Meds Current Medication Order Review: Reviewed Pharmacy Antibiotic Review Relevant Labs: WBC 13.28 10^3/uL (4.4-10.8) H 09/07/24 05:57 Procalcitonin 0.85 ng/mL 09/04/24 20:26 Temperature 36.4 C Temperature 36.9 C Temperature 37.1 C Microbiology 09/04/24 20:57 Urine Culture - Preliminary Urine - Reflex from Ua Gram negative sangeetha 09/04/24 20:26 Blood Culture - Preliminary Blood NO GROWTH 48 HOURS 09/04/24 20:30 Blood Culture - Preliminary Blood NO GROWTH 48 HOURS Pharmacy Antibiotic Activity: C/S review and Renal function adjustment (Zosyn 3.375g to 2.25g) Comments: Patient is on Zosyn, day 2, for pyelonephritis/sepsis. WBC decreased from 20.43 and urine culture growing gram negative rods. Comments Comments/Follow Ups: Watch INR - within goal of 2-3 today, monitor renal function (Zosyn is renally adjusted)
[2024-09-07 16:06] VITALS: BP 118/59; PULSE 62; RESP 18; TEMP 36.8; O2SAT 95
--- NOTE | 2024-09-07 19:29 | PGE_ITS ---
Date of Service Date of service: 09/07/24 Time of Service: 09:40 Assessment and Plan Assessment and plan (1) Sepsis: Status: Acute Assessment and plan: -patient met sepsis criteria on admission with temp of 100.8oF, HR >100, WBC 14 and source being perinephric stranding s/p ureteral stent placement ~4 days prior to admission -started on zosyn and linezolid given recent procedure, zosyn was not continued initially but resumed 3/3 and stopped linazolid. Since then he has been improving, WBC down today. -blood/urine cultures pending, old culture showed klebsiella sensitive to zosyn -no signs of lung or skin infection. (2) Pyelonephritis: Status: Acute Assessment and plan: -likel source of infection as noted above -appreciate Dr. Isaac's consult, no need to remove stent now, plan 10 days after procedure. (3) Atrial flutter: Status: Acute Assessment and plan: continue home dilt and warfarin, continue. INR now at goal. (4) Hypertension: Assessment and plan: -continue home valsartan (5) Cirrhosis of liver: Assessment and plan: Noted on CT. He was not aware of this diagnosis. Liver/spleen reported as normal on 01/31/24 CT so should review with radiology. Precautions for now. No progressive liver dysfunction on labs, defer to outpatient. (6) CKD (chronic kidney disease): Assessment and plan: Getting mild STEVO on CKD with low urine output. I think pre-renal. He did respond to 500ml LR last night. Give another liter slowly today and encourage po, urine output picking up with this during the course of the day. (7) Candidal intertrigo: Status: Acute Assessment and plan: nystatin (8) Sena classified according to extent of body surface involved: Assessment and plan: severe dry skin. Will try emollient on skin. Subjective Subjective Patient reports: no new complaints; denies diarrhea, nausea, vomiting, shortness of breath or fever Interval history since last seen: He is feeling a little better. No fevers overnight. he still isn't eating much, poor appetite. Trying to drink. Exam Narrative Exam Narrative: Fatigued, older gentleman sitting up in bed in no acute distress, alert and interactive, oriented x4. CV: RRR, no M/G/R. Lungs clear to auscultation bilaterally, normal effort. abdomen soft, nontender, nondistended, no fluid wave. Redness under scrotum. Extremities without edema, rogelio scaring and overlying thick scale below knees, wounds around ankles dressed rogelio, but no significant drainage or local redness. Objective Last Vital Signs Temp 36.8 C 09/07/24 16:06 Pulse 62 09/07/24 16:06 Resp 18 09/07/24 16:06 BP 118/59 L 09/07/24 16:06 Pulse Ox 95 09/07/24 16:06 Laboratory Results - last 24 hr 09/07/24 05:57 WBC 13.28 H RBC 4.45 Hgb 12.6 L Hct 39.8 L MCV 89 MCH 28.3 MCHC 31.7 L RDW 14.4 H Plt Count 328 MPV 10.6 Immature Gran % 0.6 Neutrophils % 79.2 Lymphocytes % 7.8 Monocytes % 10.4 Eosinophils % 1.7 Basophils % 0.3 Nucleated RBC % 0.0 Absolute Neutrophils 10.52 H Absolute Lymphocytes 1.04 L Absolute Monocytes 1.38 H Absolute Eosinophils 0.23 Absolute Basophils 0.04 PT 21.7 H INR 2.3 H Sodium 138 Potassium 3.7 Chloride 104 Carbon Dioxide 25.8 Anion Gap 8.2 BUN 47 H Creatinine 3.1 H Est GFR (CKD-EPI 2020) 19.45 Glucose 93 Calcium 8.3 L Time Spent with Patient Time Spent with Patient: 35-49 minutes Time was spent: preparing to see the patient(eg.review tests), obtaining and/or reviewing separately otained hiistory, ordering medications,tests, procedures, referring, communicating with other health career placement specialist, indepentently interpreting results, counseling the patient and care coordination
[2024-09-07 20:17] VITALS: BP 114/70; PULSE 72; RESP 17; TEMP 36.5; O2SAT 95
[2024-09-07] MEDS: Atorvastatin 20 MG TAB PO (21:16)
[2024-09-07] MEDS: Warfarin 5 MG TAB PO (21:16)
[2024-09-07 22:45] VITALS: BP 116/58; PULSE 78; RESP 18; TEMP 36.6; O2SAT 97
[2024-09-08 03:14] VITALS: BP 119/76; PULSE 73; RESP 17; TEMP 36.4; O2SAT 95
[2024-09-08] MEDS: Normal Saline Flush 10 ML SYR IVP ×6 (06:10→23:49)
[2024-09-08 07:18] LABS: INR 3.8 (0.9-1.1); Prothrombin Time 34.4 sec (9.1-11.1)
[2024-09-08] MEDS: Valsartan 80 MG TAB PO (07:40)
[2024-09-08] MEDS: Sodium Bicarbonate 650 MG TAB PO ×2 (07:41→20:29)
[2024-09-08] MEDS: dilTIAZem CD 120 MG CAPCR 240 MG PO (07:42)
[2024-09-08 08:18] VITALS: BP 120/77; PULSE 64; RESP 22; TEMP 36.6; O2SAT 95
[2024-09-08 09:49] LABS: Anion Gap 9.3 mmol/L (3-11); BUN 40 mg/dL (7-18); CO2 24.7 mmol/L (21.0-32.0); CREATININE 2.6 mg/dL (0.70-1.30); Calcium 8.3 mg/dL (8.5-10.1); Chloride 106 mmol/L (98-107); Estimated GFR 24.02 (mL/min/1.73m2); Glucose 97 mg/dL (74-106); Potassium 3.7 mmol/L (3.5-5.1); Sodium 140 mmol/L (136-145)
[2024-09-08 11:34] VITALS: BP 106/61; PULSE 66; RESP 24; TEMP 36.7; O2SAT 97
--- NOTE | 2024-09-08 11:39 | PT.INTREAT ---
PT Notes Visit Reasons: Sepsis Pyelonephritis Date: 09/08/2024 PRECAUTIONS: Fall risk SUBJECTIVE: pt in bed when approached for therapy this morning, pt very displeased with this therapist and is annoyed that PT is trying get pt to participate with this morning session. this therapist explained to pt that it is his prerogative not to participate and that he is just being offered the chance to participate only if he wants to. pt eventually agreed to participate after pt had a time to vent out frustration. OBJECTIVE: IV fluids infusing in RUE ? PAIN: Denies VITALS: Monitored by nursing Therapeutic Activities 23066: Direct one-on-one instruction in dynamic activities to improve functional performance. ?? BED MOBILITY/TRANSFERS? Rolling L/R: independent Supine-sit: independent ? Sit-supine: independent? Sit-stand: SBA? Stand-sit: SBA? Bed-Chair:? SBA? Chair-bed: SBA Provided skilled cues and instruction on performance and technique throughout. Gait Training 22717: Direct one-on-one instruction and skilled instruction in: Employing an assistive device Modified weight-bearing status Movement sequencing Turning and movement with proper form Provided verbal cues for equipment management and technique Provided instruction in gait pattern Patient education regarding pacing and breathing techniques to maximize activity tolerance? GAIT? Assistive Device: ?FWW/ SPC ? Weight bearing: FWB Assist: ? SBA with FWW/ CGA with SPC? Distance:??300' with FWW, 50'with SPC ? Deviation: (FWW)WBOS, short step length, low step height, stoop forward posture, (SPC)Furniture surfing ? Therapeutic Exercises 75398: Direct one-on-one instruction in therapeutic exercises to develop strength, endurance, range of motion and flexibility. Exercises Sit to stand from EOB [id number] Seated marching [id number] Seated SAQ [id number] Seated LAQ [id number] Seated ankle pumping [id number] Provided skilled instruction in proper exercise performance Provided skilled manual cues to facilitate proper muscle recruitment and/or form: ASSESSMENT:?Pt insisted that he doesnt need to use the FWW at home, pt adamant that he only uses a quad cane at home hence the trial for SPC to establish his capacity to use one. pt requested to stay in recliner after session, Alarms was set for the recliner with pt setup for call fuentes and bedside table, nurse informed of pt positional change and alarm setup. PLAN: Continue with balance training, global strengthening and general conditioning for improved safety, mobility and activity tolerance until pt is ready for DC. TREATMENT CODE/TIME: therapeutic Activity [id number], therapeutic procedures [id number] 30mins (8:55-9:25am)
[2024-09-08 15:29] VITALS: BP 109/60; PULSE 59; RESP 18; TEMP 36.5; O2SAT 97
--- NOTE | 2024-09-08 15:44 | PDOC.CMPRO ---
Care Management Progress Note Progress Note Text Progress Note Text: Josep was sitting up on the side of the bed when CM met with him. He looked much brighter and more awake today and engaged well with CM. Josep informed CM that he hoped to be discharged home today. Unfortunately he has been found to have an ESBL in his urine (Klebsiella pneumoniae) which is highly resistant. Per his provider, he will need to remain hospitalized for another 7 days to receive IV antibiotics. CM informed Josep about this and while disappointed, stated he understood. Josep continues to work with PT and plans to accept home health services for PT at discharge. Discharge Potential Discharge Needs: PCP F/U Appt Anticipated Barriers to Discharge: Medical Status Patient/Family Education Needs: Review discharge instructions, discuss Ask Me Three Transportation: Private vehicle Plan: Anticipate Josep will return home once medically cleared, likely with new home health PT. His will transport him home via private vehicle when ready. He will follow up with his PCP and discharge plan of care. CM will continue to assess for discharge needs. Social Determinants of Health Screening Will the Patient Participate in the Screening?: Declined to provide
--- NOTE | 2024-09-08 15:45 | W.PM.PROGNOT ---
Date of Service Date of service: 09/08/24 Time of Service: 10:10 Assessment and Plan Assessment and plan (1) Sepsis: Status: Acute Assessment and plan: -patient met sepsis criteria on admission with temp of 100.8oF, HR >100, WBC 14 and source being pyelonephritis s/p ureteral stent placement ~4 days prior to admission -started on zosyn and linezolid given recent procedure, zosyn was not continued initially but resumed 3/3 and stopped linazolid. Since then he has been improving, WBC down. -Urine cultures confirm ESBL klebsiella sensitive to pip/tazo. He will need 7 days of IV antibiotics. At this point, should plan to stay until stents due to remove 10 days post-op (2) Pyelonephritis: Status: Acute Assessment and plan: -likel source of infection as noted above -appreciate Dr. Isaac's consult, no need to remove stent now, plan 10 days after procedure. (3) Atrial flutter: Status: Acute Assessment and plan: continue home dilt and warfarin, continue. INR now at goal. (4) Hypertension: Assessment and plan: -continue home valsartan (5) Cirrhosis of liver: Assessment and plan: Noted on CT. He was not aware of this diagnosis. Liver/spleen reported as normal on 01/31/24 CT so should review with radiology. Precautions for now. No progressive liver dysfunction on labs, defer to outpatient. (6) CKD (chronic kidney disease): Assessment and plan: Had mild STEVO on CKD with low urine output c/w pre-renal. He did respond to IV and oral fluids, improved GFR today. (7) Sena classified according to extent of body surface involved: Assessment and plan: severe dry skin. Emollient on thick skin, dressing on open areas, has outpatient f/u at burn center. Subjective Subjective Patient reports: no new complaints and tolerating a regular diet; denies diarrhea, nausea, vomiting, shortness of breath or fever Interval history since last seen: He is feeling much better for the past 2 days. Finally more of an appetite today. Exam Narrative Exam Narrative: Fatigued, older gentleman sitting up in chair in no acute distress, alert and interactive, oriented x4. CV: RRR, no M/G/R. Lungs clear to auscultation bilaterally, normal effort. abdomen soft, nontender, nondistended, no fluid wave. Extremities without edema, rogelio scaring and overlying thick scale below knees, wounds around ankles dressed rogelio, but no significant drainage or local redness. Objective Last Vital Signs Temp 36.5 C 09/08/24 15:29 Pulse 59 L 09/08/24 15:29 Resp 18 09/08/24 15:29 BP 109/60 09/08/24 15:29 Pulse Ox 97 09/08/24 15:29 Laboratory Results - last 24 hr 09/08/24 06:32 PT 34.4 H INR 3.8 H Sodium 140 Potassium 3.7 Chloride 106 Carbon Dioxide 24.7 Anion Gap 9.3 BUN 40 H Creatinine 2.6 H Est GFR (CKD-EPI 2020) 24.02 Glucose 97 Calcium 8.3 L Time Spent with Patient Time Spent with Patient: 35-49 minutes Time was spent: preparing to see the patient(eg.review tests), obtaining and/or reviewing separately otained hiistory, ordering medications,tests, procedures, referring, communicating with other health acute care occupational therapist, indepentently interpreting results, counseling the patient and care coordination
[2024-09-08] MEDS: Atorvastatin 20 MG TAB PO (20:28)
[2024-09-08] MEDS: Warfarin 5 MG TAB PO (20:29)
[2024-09-08] MEDS: Nystatin POWDER 60 GM JAR TP (20:42)
[2024-09-08] MEDS: Bacitracin 30 GM TUBE TP (20:43)
[2024-09-08 20:52] VITALS: BP 106/59; PULSE 68; RESP 18; TEMP 36.9; O2SAT 95
[2024-09-08 22:47] VITALS: BP 129/77; PULSE 72; RESP 16; TEMP 36.4; O2SAT 96
[2024-09-09] VITALS (70 sets, daily range): BP systolic 56–138; BP diastolic 28–80; PULSE 60–101; RESP 10–27; TEMP 35.6–37.3; O2SAT 94–99
[2024-09-09 07:25] LABS: Prothrombin Time 37.3 sec (9.1-11.1)
[2024-09-09 07:31] LABS: INR 4.1 (0.9-1.1)
[2024-09-09] MEDS: Bacitracin 30 GM TUBE TP ×2 (08:18→15:12)
[2024-09-09] MEDS: Valsartan 80 MG TAB PO (08:19)
[2024-09-09] MEDS: dilTIAZem CD 120 MG CAPCR 240 MG PO (08:19)
[2024-09-09] MEDS: Sodium Bicarbonate 650 MG TAB PO ×2 (08:19→21:34)
[2024-09-09] MEDS: Normal Saline Flush 10 ML SYR IVP ×3 (08:19→19:32)
[2024-09-09] MEDS: Nystatin POWDER 60 GM JAR TP ×2 (08:20→15:12)
--- NOTE | 2024-09-09 09:58 | PDOC.CMPRO ---
Date of service: 09/09/24 Time of Service: 09:58 Care Management Progress Note Progress Note Text Progress Note Text: Josep was lying in bed when CM met with him. This morning a rapid response was called when Josep's blood pressure dropped to 67/40 and he complained of feeling oozy. His oxygen saturation was 88% and he became unresponsive. A bolus of LR was hung and a short time later Josep opened his eyes and was responding to questions. He was incontinent of liquid stool and a stool for C. Difficile was sent and was found to be positive. Josep also vomited and his emesis was heme positive. CM met with Josep this afternoon and he was feeling better. He had some questions about C. difficile and CM was able to answer them. CM asked Josep about discharge planning but he asked that CM defer to his . He explained that she arranges everything and that he is unable to read. Josep did become a little teary during the conversation. His nurse shared that he was a bit emotional with his when she visited as well. Discharge Potential Discharge Needs: PCP F/U Appt Anticipated Barriers to Discharge: Medical Status (requiring a 7 day course of IV antibiotics and will need to return to surgery) Patient/Family Education Needs: Review discharge instructions, discuss Ask Me Three Transportation: Private vehicle Plan: Anticipate Josep will return home once medically cleared, likely with new home health PT. His will transport him home via private vehicle when ready. He will follow up with his PCP and discharge plan of care. CM will continue to assess for discharge needs. Social Determinants of Health Screening Will the Patient Participate in the Screening?: Declined to provide
--- NOTE | 2024-09-09 11:00 | RT.EKG_ITS ---
APPROVED REPORT Exam: Resting ECG Reason for Exam: syncope Patient Location: I HR:70 bpm ECG Measurements Heart Rate 70 AXIS SD 193 P 45 QRSd 133 QRS -53 QT 417 T 5 QTc 443 Conclusion Sinus rhythm...normal P axis, V-rate 60- 99 Atrial premature complex...SV complex w/ short R-R interval Right bundle branch block...QRSd>120, terminal axis(90,270) Inferior infarct, old...Q >35mS, II III aVF
[2024-09-09] MEDS: Lactated Ringers 1,000 ML 1000 ML IV ×2 (11:24→20:00)
[2024-09-09 11:38] LABS: Lactate 1.7 mmol/L (<or=2.0)
[2024-09-09 11:39] LABS: Abs Immature Grans 0.12 10^3/uL (0.0-0.06); Absolute Basophil Count 0.07 10^3/uL (0.0-0.2); Absolute Monocyte Count 1.24 10^3/uL (0.1-0.8); Absolute Neutrophil Count 8.36 10^3/uL (1.2-6.7); Basophils % 0.6 %; Eosinophils % 5.1 %; HCT 37.1 % (40.0-50.0); HGB 11.6 g/dL (13.5-17.5); Lymphocytes % 11.1 %; MCH 28.2 pg (27.0-33.0); MCHC 31.3 % (32.0-36.0); MCV 90 fL (80-95); MPV 9.8 fL (8.0-11.0); Monocytes % 10.6 %; Neutrophils % 71.6 %; Platelet Count 431 10^3/uL (130-400); RBC 4.12 10^6/uL (4.36-5.78); RDW 14.6 % (11.8-14.1); RDW-SD 48.7 fL; WBC 11.68 10^3/uL (4.4-10.8)
[2024-09-09 12:06] LABS: ALT 26 U/L (16-63); AST 25 U/L (15-37); Albumin 2.1 g/dL (3.4-5.0); Alkaline Phosphatase 62 U/L (46-116); BUN 43 mg/dL (7-18); Bilirubin, Total 0.59 mg/dL (0.2-1.0); CREATININE 2.4 mg/dL (0.70-1.30); Calcium 8.2 mg/dL (8.5-10.1); Chloride 110 mmol/L (98-107); Estimated GFR 26.44 (mL/min/1.73m2); Glucose 116 mg/dL (74-106); Magnesium 2.2 mg/dL (1.8-2.4); Potassium 4.5 mmol/L (3.5-5.1); Sodium 144 mmol/L (136-145); Total Protein 6.1 g/dL (6.4-8.2)
[2024-09-09 12:08] LABS: Troponin I 5 ng/L (<or=76)
[2024-09-09 13:19] LABS: C Diff PCR Positive (Negative)
--- NOTE | 2024-09-09 14:01 | PGE_ITS ---
Date of Service Date of service: 09/09/24 Time of Service: 14:01 Assessment and Plan Assessment and plan (1) C. difficile colitis: Status: Acute Assessment and plan: Unfortunate he developed diarrhea on antibiotics and has c. dif positive. Not severe based on WBC and Cr at baseline. Start Dificid orally. (2) Hypotension: Status: Acute Assessment and plan: This occured after loose BM, likely combination of vagal and some dehydration from frequent stooling. He responded immediately to fluids. Labs and EKG reassuring. I think he can stay floor status. (3) Sepsis: Status: Acute Assessment and plan: -patient met sepsis criteria on admission with temp of 100.8oF, HR >100, WBC 14 and source being pyelonephritis s/p ureteral stent placement ~4 days prior to admission -started on zosyn and linezolid given recent procedure, zosyn was not continued initially but resumed 3/3 and stopped linazolid. Since then he has been improving, WBC down. -Urine cultures confirm ESBL klebsiella sensitive to pip/tazo. He will need 7 days of IV antibiotics. At this point, should plan to stay until stents due to remove 10 days post-op -hypotensive today but no fever, WBC still improving, other vitals stable. (4) Pyelonephritis: Status: Acute Assessment and plan: -likel source of infection as noted above -appreciate Dr. Isaac's consult, no need to remove stent now, plan 10 days after procedure. (5) Atrial flutter: Status: Acute Assessment and plan: INR high, holding both dilt and warfarin today. (6) Hypertension: Assessment and plan: -holding home medications after episode of hypotension. (7) Cirrhosis of liver: Assessment and plan: Noted on CT. He was not aware of this diagnosis. Liver/spleen reported as normal on 01/31/24 CT so should review with radiology. Precautions for now. No progressive liver dysfunction on labs, defer to outpatient. (8) CKD (chronic kidney disease): Assessment and plan: Had mild STEVO on CKD with low urine output c/w pre-renal. He did respond to IV and oral fluids, improved GFR in the past two days despite developing diarrhea. Continue to monitor (9) Sena classified according to extent of body surface involved: Assessment and plan: severe dry skin. Emollient on thick skin, dressing on open areas, has outp atient f/u at burn center. (10) Anemia: Status: Chronic Assessment and plan: h/h drifting down. He may be loosing some blood in stool with c. dif. INR high, holding warfarin. Follow. Subjective Subjective Patient reports: tolerating a regular diet; denies nausea, vomiting or fever Interval history since last seen: Frequent loose stools started last night BP lower this morning 108/58 At around 11:15 was getting routine care sitting up in chair, stopped responding, BP 60s/40s, rapid response called. BP normalized after about 500 of 1000ml LR bolus. He was mildly confused, stated year 1924, couldn't say month, but was responsive the entire time when I evaluated him with the team. He denied pain in chest, abdomen, head, or otherwise. He was sitting in some loose stool. Exam Narrative Exam Narrative: Fatigued, older gentleman sitting up in chair in no acute distress, as above initially confused, somnolent, but becoming alert and responsive. Sitting in loose stool. CV: RRR, no M/G/R. Lungs clear to auscultation bilaterally, normal effort. abdomen soft, nontender, nondistended. Extremities without edema, rogelio scaring and overlying thick scale below knees, wounds around ankles dressed rogelio, but no significant drainage or local redness. Objective Last Vital Signs Temp 36.4 C L 09/09/24 12:23 Pulse 70 09/09/24 12:23 Resp 14 09/09/24 12:23 BP 108/58 L 09/09/24 12:23 Pulse Ox 98 09/09/24 12:23 Laboratory Results - last 24 hr 09/09/24 09/09/24 09/09/24 06:24 10:53 11:32 WBC 11.68 H RBC 4.12 L Hgb 11.6 L Hct 37.1 L MCV 90 MCH 28.2 MCHC 31.3 L RDW 14.6 H Plt Count 431 H MPV 9.8 Immature Gran % 1.0 Neutrophils % 71.6 Lymphocytes % 11.1 Monocytes % 10.6 Eosinophils % 5.1 Basophils % 0.6 Nucleated RBC % 0.0 Absolute Neutrophils 8.36 H Absolute Lymphocytes 1.30 Absolute Monocytes 1.24 H Absolute Eosinophils 0.60 Absolute Basophils 0.07 PT 37.3 H INR 4.1 H VBG Lactate 1.7 Sodium 144 Potassium 4.5 Chloride 110 H Carbon Dioxide 25.0 Anion Gap 9.0 BUN 43 H Creatinine 2.4 H Est GFR (CKD-EPI 2020) 26.44 Glucose 116 H Calcium 8.2 L Magnesium 2.2 Total Bilirubin 0.59 AST 25 ALT 26 Alkaline Phosphatase 62 Troponin I 5 Total Protein 6.1 L Albumin 2.1 L Stl C.difficile Tox PCR Positive A Time Spent with Patient Time Spent with Patient: >50 minutes Time was spent: preparing to see the patient(eg.review tests), obtaining and/or reviewing separately otained hiistory, ordering medications,tests, procedures, referring, communicating with other health field care advocate, indepentently interpreting results, counseling the patient, care coordination and other (20 minutes critical care time)
[2024-09-09] MEDS: Fidaxomicin 200 MG TAB PO ×2 (15:12→21:34)
--- NOTE | 2024-09-09 15:20 | PTTR_ITS ---
PT Notes Visit Reasons: Sepsis Pyelonephritis Inpatient Physical Therapy Treatment Note [facility] Date: 09/09/2024 PRECAUTIONS:fall risk, SUBJECTIVE: Pt reports he is frustrated that he has been in the hospital so long. Pt declined to do any standing tasks after getting into the chair OBJECTIVE: Pt presented seated at edge of bed with Nurse and CUSTOM STOCK MAKER present. . ? PAIN: denied VITALS: ?monitored by Nursing transfer to chair with FWW with SBA seated exercises BLE , marching, LAQ, Ankle pumps, hip abduction adduction BUE elevation , horizontal abduction, elbow flexion , scap retractionx 10 reps. seated pushups x 5 reps ASSESSMENT:? Pt declined to participate in functional mobility this session. He stated maybe later. Pt tolerated seated therex and was agreeable to w/c push u ps. He remained seated in chair at end of session and requested a glass of apple juice with lots of ice. which was provided (pm) Per Nurse treatment held d/t event in am . Pt now on IV Fluids. PLAN: 1-2x/day, 7 days/week x 1 week. Plan of care has been reviewed with the HAND II THERMAL CUTTER providing the service under Physical Therapy direction. Initiate Physical Therapy intervention for strengthening, bed mobility, transfers, gait, stairs, balance training, use of assistive device. TREATMENT CODE/TIME: 64262/ [id number] DISCHARGE RECOMMENDATION: Home with services. Patient will benefit from home health PT services in order to progress mobility level using least restrictive assistive ambulatory device, assess home safety, identify additional equipment needs, and establish a functional maintenance program that will increase ability of patient to remain at home.
[2024-09-09 17:31] LABS: HCT 33.1 % (40.0-50.0); HGB 10.3 g/dL (13.5-17.5); MCH 28.2 pg (27.0-33.0); MCHC 31.1 % (32.0-36.0); MCV 91 fL (80-95); Platelet Count 470 10^3/uL (130-400); RBC 3.65 10^6/uL (4.36-5.78); RDW 14.7 % (11.8-14.1); RDW-SD 49.1 fL; WBC 12.29 10^3/uL (4.4-10.8)
[2024-09-09] MEDS: PHYTONADIONE 10 MG in Normal Saline 50 ML 200 MG IVPB (18:29)
--- NOTE | 2024-09-09 18:46 | W.ANESVAS ---
Midline Placement Date Performed: 09/09/24 Procedure Time: 06:35 Requesting Provider: Aron Villegas Procedure Location: Med/Surg Sedation Given (Indicate Dose Given): No Sedation given Patient Mental Status: Awake Sterility: Hand Hygiene, Surgical Cap, Surgical Mask, Sterile Gloves, Sterile Drape/Sheet and Chlorhexidine Laterality: Left Insertion Site: Basilic Midline Device: PowerGlide Pro 18G Catheter Length: 10 cm Midline Procedure Procedure: 1% Lidocaine to skin and subcutaneous tissue with 25g needle and Catheter placed without resistance Dressing: Tegaderm Applied and Statlock Applied Blood Return: Present Flushes: Easily Ultrasound: Sterile probe cover and gel used Ultrasound Image Saved?: Yes Number of Attempts (See previous attempts in note section): 1 Procedure Tolerated: No Complications Procedure Outcome: Successful Performed By: Blanco Velez
[2024-09-09 20:15] LABS: HCT 27.6 % (40.0-50.0); HGB 8.6 g/dL (13.5-17.5)
[2024-09-09] MEDS: DEXTROSE 5%-LACTATED RINGERS 1,000 ML 100 ML IV (21:26)
[2024-09-09] MEDS: Atorvastatin 20 MG TAB PO (21:35)
[2024-09-09] MEDS: Lidocaine 2% Jelly 11 ML SYR UR (21:52)
[2024-09-10] VITALS (93 sets, daily range): BP systolic 77–136; BP diastolic 48–88; PULSE 65–117; RESP 8–28; TEMP 36.7–37.3; O2SAT 91–99
[2024-09-10] MEDS: Normal Saline Flush 10 ML SYR IVP ×4 (01:09→17:46)
[2024-09-10 05:09] LABS: Abs Immature Grans 0.46 10^3/uL (0.0-0.06); Absolute Eosinophil Count 0.51 10^3/uL (0.0-0.7); Absolute Lymphocyte Count 1.62 10^3/uL (1.2-3.4); Absolute Monocyte Count 1.21 10^3/uL (0.1-0.8); Absolute Neutrophil Count 9.81 10^3/uL (1.2-6.7); Basophils % 0.7 %; Eosinophils % 3.7 %; HCT 28.6 % (40.0-50.0); HGB 9.2 g/dL (13.5-17.5); Immature Grans % 3.4 %; Lymphocytes % 11.8 %; MCH 29.5 pg (27.0-33.0); MCHC 32.2 % (32.0-36.0); MCV 92 fL (80-95); MPV 10.1 fL (8.0-11.0); Monocytes % 8.8 %; Neutrophils % 71.6 %; Platelet Count 374 10^3/uL (130-400); RBC 3.12 10^6/uL (4.36-5.78); RDW 14.4 % (11.8-14.1); RDW-SD 48.1 fL
[2024-09-10 05:26] LABS: Anion Gap 6.4 mmol/L (3-11); BUN 53 mg/dL (7-18); CO2 27.6 mmol/L (21.0-32.0); CREATININE 2.4 mg/dL (0.70-1.30); Calcium 7.7 mg/dL (8.5-10.1); Chloride 111 mmol/L (98-107); Estimated GFR 26.44 (mL/min/1.73m2); Glucose 113 mg/dL (74-106); Potassium 4.1 mmol/L (3.5-5.1); Sodium 145 mmol/L (136-145)
[2024-09-10 05:28] LABS: INR 1.1 (0.9-1.1); Prothrombin Time 11.1 sec (9.1-11.1)
[2024-09-10] MEDS: DEXTROSE 5%-LACTATED RINGERS 1,000 ML 100 ML IV ×2 (07:14→17:46)
--- NOTE | 2024-09-10 09:41 | CMPROGNOTE_ITS ---
Date of service: 09/10/24 Time of Service: 09:41 Care Management Progress Note Progress Note Text Progress Note Text: Josep was transferred to the ICU last evening following an episode of lower GI bleeding and hypotension. He was sitting up in his bed in the ICU when CM met with him. He informed CM that neither he nor his really knew what had happened. CM explained he has developed C. difficile colitis (diarrhea) possibly associated with antibiotic therapy. That, along with the fact that he had a large bloody BM and lost a bit of blood likely contributed to a drop in blood pressure. He was successfully resuscitated with IV fluids and he received a bl ood transfusion. Josep stated that he is feeling better. He asked that CM explain what happened to his as well as she is the smart one. Discharge Potential Discharge Needs: PCP F/U Appt and Surgical F/U Appt Anticipated Barriers to Discharge: Medical Status Patient/Family Education Needs: Review discharge instructions, discuss Ask Me Three Transportation: Private vehicle Plan: Anticipate Josep will return home once medically cleared, likely with new home health PT. His will transport him home via private vehicle when ready. He will follow up with his PCP and discharge plan of care. CM will continue to assess for discharge needs. Social Determinants of Health Screening Will the Patient Participate in the Screening?: Declined to provide
--- NOTE | 2024-09-10 10:00 | DI.US_ITS ---
APPROVED REPORT EXAM: Comprehensive 2D, Doppler, and color-flow Echocardiogram Patient Location: In-Patient Room/Bed: 222 Manager Of Corporate: Man Bahena RDCS (AE) Indications: Hypotension Other Information Study Quality: Technically Limited. Technically limited study due to body habitus, inability to posit ion patient. Conclusion Technically limited study Normal left ventricular wall thickness chamber size and systolic function. Ejection fraction is appr oximately 60%. No segmental wall motion abnormalities are identified Mildly dilated right ventricle with normal systolic function Both atria are normal in size Aortic valve is sclerotic, probably trileaflet, without stenosis or regurgitation Estimated right ventricular systolic pressure is 31 mmHg Wall motion Left Ventricle The left ventricle is normal size. The left ventricular systolic function is normal. The left ventric ular ejection fraction is within the normal range. There is normal left ventricular wall thickness. T here is normal LV segmental wall motion. There is no ventricular septal defect visualized. LVEF is 60 %. Right Ventricle Right ventricle is mildly dilated. The right ventricular systolic function is normal. Atria The left atrium size is normal. The right atrium size is normal. The interatrial septum is intact wit h no evidence for an atrial septal defect. Aortic Valve The aortic valve is sclerotic. Aortic valve is probably trileaflet. There is no aortic valvular steno sis. No aortic regurgitation is present. Mitral Valve The mitral valve is normal in structure. No evidence of mitral valve stenosis. There is no mitral colt ve regurgitation noted. Tricuspid Valve The tricuspid valve is normal in structure. There is no tricuspid valve stenosis. Trace tricuspid reg urgitation. The RVSP is 31.2 mmHg. Pulmonic Valve The pulmonary valve is normal in structure. There is no pulmonic valvular stenosis. There is no pulmo markel valvular regurgitation. Great Vessels The aortic root is normal in size. Ascending aorta is not well visualized. Aortic arch is not well vi sualized. IVC is normal in size and collapses >50% with inspiration. Pericardium There is no pericardial effusion. 2D Dimensions IVSD d PLAX 0.82 cm M: 0.6-1.2 Ao Root d 3.57 cm M: 3.1 - 3.7 LVPW d PLAX 0.80 cm M: 0.6 - 1.2 LVID d PLAX 4.62 cm M: 4.2 - 5.8 LVDs 3.14 cm M: 2.5 - 4.0 LV EF Teichholz 60.1 % FS 31.95 % LV EDV (Teich) 98.2 mL LV ESV (Teich) 39.2 mL Stroke Vol Index (Teich) 48.76 Auto EF LV EDV A4C 63.8 mL LV EDV A2C 45.0 mL LV EDV BP 54.5 mL LV ESV A4C 25.7 mL LV ESV A2C 18.1 mL LV ESV BP 21.2 mL LVEF(%) A4C 59.6 % LVEF(%) A2C 59.7 % LVEF(%) BP 61.1 % LV SV A4C 38.0 ml LV SV A2C 26.8 ml LV SV BP 33.3 ml LV CO A4C 2.7 L/min LV CO A2C 2.2 L/min LV CO BP 2.4 L/min HR A4C 70.01 BPM HR A2C 81.08 BPM LV EDV Index (BP) LA Volume LA Length A4C 4.1 cm LA Length A2C 5.0 cm LA Area A4C s 10.05 cm2 LA Area A2C s 11.77 cm2 LA Vol A4C A-L 20.93 mL LA Vol A2C A-L 23.42 mL LA Vol Biplane A-L 24.5 mL LA Vol/BSA A4C A-L LA Vol/BSA A2C A-L LA Vol/BSA BP A-L 20.3 mL/m2 LA Vol A4C MOD 19.8 mL LA Vol A2C MOD 21.1 mL LA Vol BP MOD 22.5 mL RA Volume RA Area A4C 8.4 cm2 RA ESV A4C (A-L) 18.8mL RA Vol/BSA A4C A-L RA Length A4C 3.2 cm RA ESV A4C (MOD) 16.0mL LV Diastology MV E' medial 0.069 (>0.07 m/s) MV E Vmax 0.15 (0.4-1.3 m/s) MV E/E' MED 2.21 (<14) MV A Vmax 0.85 (0.4-1.3 m/s) MV E' lateral 0.082 (>0.1 m/s) E/A Ratio 0.2 MV E/E' LAT 1.85 (<14) MV E' Average 0.075 m/s MV E/E'(average) 2.01 Aortic Valve AoV Vmax 1.84 m/s LVOT Vmax 1.15 m/s AoV Peak Grad 13.5 mmHg LVOT Peak Grad 5.3 mmHg AoV Area (Vmax) 1.92 cm2 LVOT VTI 0.243 m AoV VTI 0.341 m LVOT Mean Grad 2.8 mmHg AoV Mean Silvio. 1.16 m/s LVOT SV 74.64 mL AoV Mean Grad 6.2 mmHg LVOT Diam s 1.95 cm AoV Area (VTI) 2.19 cm2 AV Regurg Peak Gr. 13.54 mmHg Velocity Ratio 0.63 Mitral Valve MV Vmax TIPS 0.89 m/s MV Mean Grad 1.5 (<2mmHg) MV VTI 0.249 m Pulmonary Valve PV Vmax 1.01 (0.5-1.5 m/s) RVOT Vmax 1.00 m/s PV Peak Grad 4.1 mmHg RVOT Peak Gr. 4.0 mmHg PV Mean Silvio 0.62 m/s RVOT VTI 0.185 m PV Mean Grad 1.8 mmHg RVOT Mean Gr. 1.9 mmHg Tricuspid Valve RA Pressure 3.00 mmHg TR Vmax 2.65 m/s TR Peak Grad 28.1 mmHg RVSP (TR) 31.2 mmHg
[2024-09-10] MEDS: Sodium Bicarbonate 650 MG TAB PO ×2 (10:28→19:33)
[2024-09-10] MEDS: Fidaxomicin 200 MG TAB PO ×2 (10:28→19:33)
[2024-09-10] MEDS: Nystatin POWDER 60 GM JAR TP ×3 (10:37→19:34)
[2024-09-10] MEDS: Bacitracin 30 GM TUBE TP ×2 (10:37→14:11)
--- NOTE | 2024-09-10 12:47 | PGE_ITS ---
Date of Service Date of service: 09/10/24 Time of Service: 12:47 Assessment and Plan Assessment and plan (1) C. difficile colitis: Status: Acute Assessment and plan: Unfortunate he developed diarrhea on antibiotics and has c. dif positive. Not severe based on WBC and Cr at baseline. Start Dificid orally. cw dificid (2) Hypotension: Status: Acute Assessment and plan: This occured after loose BM, likely combination of vagal and some dehydration from frequent stooling. He responded immediately to fluids. Labs and EKG reassuring. I think he can stay floor status. (3) Sepsis: Status: Acute Assessment and plan: -patient met sepsis criteria on admission with temp of 100.8oF, HR >100, WBC 14 and source being pyelonephritis s/p ureteral stent placement ~4 days prior to admission -started on zosyn and linezolid given recent procedure, zosyn was not continued initially but resumed 3 and stopped linazolid. Since then he has been improving, WBC down. -Urine cultures confirm ESBL klebsiella sensitive to pip/tazo. He will need 7 days of IV antibiotics. At this point, should plan to stay until stents due to remove 10 days post-op -hypotensive today but no fever, WBC still improving, other vitals stable. 3..25 zosyn wbc at 13.7 (4) Pyelonephritis: Status: Acute Assessment and plan: -likel source of infection as noted above -appreciate Dr. Isaac's consult, no need to remove stent now, plan 10 days after procedure. (5) Atrial flutter: Status: Acute Assessment and plan: INR high, holding both dilt and warfarin today. 09/10/24 will INR at 1.1 today. Secondary to recent bleed and mild/moderate anemia will hold coumadin for another day (6) Hypertension: Assessment and plan: -holding home medications after episode of hypotension. 09/10/24 pt's bp is currently 97/71. Continue to hold BP meds (7) Cirrhosis of liver: Assessment and plan: Noted on CT. He was not aware of this diagnosis. Liver/spleen reported as normal on 01/31/24 CT so should review with radiology. Precautions for now. No progressive liver dysfunction on labs, defer to outpatient. (8) CKD (chronic kidney disease): Assessment and plan: Had mild STEVO on CKD with low urine output c/w pre-renal. He did respond to IV and oral fluids, improved GFR in the past two days despite developing diarrhea. Continue to monitor (9) Sena classified according to extent of body surface involved: Assessment and plan: severe dry skin. Emollient on thick skin, dressing on open areas, has outpatient f/u at burn center. (10) Anemia: Status: Chronic Assessment and plan: h/h drifting down. He may be loosing some blood in stool with c. dif. INR high, holding warfarin. Follow. Subjective Subjective Interval history since last seen: Pt seen and examined in his room this am. POC d/w bedside nurse during icu huddle Exam Narrative Exam Narrative: 83 y/o male resting comfortably in bed no respiratory distress bilateral scaling and onychomycosis bilat ncat mmm appears stated age Objective Last Vital Signs Temp 36.7 C 09/10/24 07:22 Pulse 82 09/10/24 10:45 Resp 22 09/10/24 10:45 BP 114/71 09/10/24 10:45 Pulse Ox 96 09/10/24 10:45 Laboratory Results - last 24 hr 09/09/24 09/09/24 09/09/24 10:53 11:32 17:23 WBC 12.29 H RBC 3.65 L Hgb 10.3 L Hct 33.1 L MCV 91 MCH 28.2 MCHC 31.1 L RDW 14.7 H Plt Count 470 H MPV 10.0 Immature Gran % Neutrophils % Lymphocytes % Monocytes % Eosinophils % Basophils % Nucleated RBC % Absolute Neutrophils Absolute Lymphocytes Absolute Monocytes Absolute Eosinophils Absolute Basophils PT INR Sodium Potassium Chloride Carbon Dioxide Anion Gap BUN Creatinine Est GFR (CKD-EPI 2020) Glucose Calcium Stl C.difficile Tox PCR Positive A ABO/Rh AB Positive Blood Type Recheck AB Positive Antibody Screen NEGATIVE Crossmatch See Detail 09/09/24 09/10/24 20:12 05:00 WBC 13.70 H RBC 3.12 L Hgb 8.6 L 9.2 L Hct 27.6 L 28.6 L MCV 92 MCH 29.5 MCHC 32.2 RDW 14.4 H Plt Count 374 MPV 10.1 Immature Gran % 3.4 Neutrophils % 71.6 Lymphocytes % 11.8 Monocytes % 8.8 Eosinophils % 3.7 Basophils % 0.7 Nucleated RBC % 0.0 Absolute Neutrophils 9.81 H Absolute Lymphocytes 1.62 Absolute Monocytes 1.21 H Absolute Eosinophils 0.51 Absolute Basophils 0.10 PT 11.1 INR 1.1 Sodium 145 Potassium 4.1 Chloride 111 H Carbon Dioxide 27.6 Anion Gap 6.4 BUN 53 H Creatinine 2.4 H Est GFR (CKD-EPI 2020) 26.44 Glucose 113 H Calcium 7.7 L Stl C.difficile Tox PCR ABO/Rh Blood Type Recheck Antibody Screen Crossmatch Time Spent with Patient Time Spent with Patient: 35-49 minutes Time was spent: preparing to see the patient(eg.review tests), obtaining and/or reviewing separately otained hiistory, ordering medications,tests, procedures, referring, communicating with other health veterinarian laboratory animal care, indepentently interpreting results, counseling the patient and care coordination
--- NOTE | 2024-09-10 14:55 | W.SURGCON ---
Date of service: 09/10/24 Time of Service: 14:55 Assessment and Plan Assessment and plan (1) Anemia: Status: Chronic Assessment and plan: He has multiple risk factors for GI blood loss including therapeutic anticoagulation and C. difficile colitis. There does not seem to be any obvious active bleeding at this time, and hopefully the reversal of his therapeutic anticoagulation will help this. Is probably worth starting a proton pump inhibitor to help protect against stress-induced gastritis although I suspect that is less likely in this case. I would repeat the hemoglobin over the next few days and see how it trends. History of Present Illness History of Present Illness Chief Complaint: Gastrointestinal bleeding Narrative: Josep is 83 years old. He came to the emergency department after his called 911 because he was lethargic, not moving appropriately. Recent medical history included a kidney stone that required stenting at [facility]. It sounds like he had been prescribed some type of antibiotic associated with this. In the emergency department, he was febrile, with a leukocytosis. He underwent a CT scan that demonstrated some perinephric stranding, and he was admitted for presumed pyelonephritis. He was admitted to the hospital on September on linezolid and Zosyn. It sounds like he was improving and he was actually progressing towards discharge. Yesterday, however, he developed diarrhea. It sounds like there may have been some hematochezia associated with that, and upon further review, his hemoglobin had been downtrending since his admission. The low point yesterday was 8.6, but he did respond to transfusion of packed red blood cell products. Review of Systems Narrative: Josep is not able to provide a meaningful review of systems because of his mental status. PFSH All Active Problems (Updated 09/09/24 @ 14:15 by Aron Villegas) Anemia (Chronic) Hypotension (Acute) C. difficile colitis (Acute) History of ESBL Klebsiella pneumoniae infection (Acute) Candidal intertrigo (Acute) Acute respiratory failure with hypoxia (Acute) Pyelonephritis (Acute) Sepsis (Acute) Acute UTI (Acute) Kidney stones (Chronic) Bacteremia (Acute) PVD (peripheral vascular disease) (Chronic) Cellulitis of leg (Acute) Atrial flutter (Acute) Obesity (Chronic) History of pulmonary embolism (Acute ~03/2019) Hyperlipidemia (Chronic) Medical History (Updated 09/09/24 @ 14:15 by Aron Villegas) CKD (chronic kidney disease) Cirrhosis of liver Hydronephrosis UTI (urinary tract infection) Hydronephrosis, right Hx of sepsis Hypertensive kidney disease with CKD stage III Chronic anticoagulation Hypertension COVID-19 (~11/12/21) Spinal stenosis Deep vein thrombosis (DVT) of popliteal vein of right lower extremity Sena classified according to extent of body surface involved Age 12, playing with matches, history of multiple skin grafting HNP (herniated nucleus pulposus), lumbar Right kidney stone (01/20/18) uric acid stone Surgical History History of skin graft Status post lumbar microdiscectomy (~2018) L3-4, at [facility] H/O ankle fusion S/P cystoscopy with ureteral stent placement Family History Mother , age 98 No problems noted. Father , age96 No problems noted. Sister No problems noted. Son , age 22 No problems noted. Daughter , age 40 Alcohol abuse Hypertension Sepsis Paternal Grandmother , age 102 No problems noted. Social History Smoking/Tobacco Use Status: Never Smoking risk assessment performed?: Yes Alcohol Intake: never Drug use: Never Substance use type: does not use Caregiver/Support person: Yes Household members: spouse Housing: house Do you need help understanding health information?: Rarely Pets and animals: Yes Pets and animals: dog(s) Sexually active: No Do you think of yourself as: straight/heterosexual Current gender identity: male What is your relationship status?: How often do you talk on the phone with friends or family?: three or more times per week How often do you get together with friends or relatives?: twice per week How often do you attend yazidism or mormon services?: decline to answer Do you belong to any clubs or organized social groups?: no Panel score (0-1 are the most socially isolated patients): 2 Duration: decline to answer Frequency: decline to answer Laurie/Yarsani: No preference Special laurie needs: No Seatbelt use: sometimes Helmet use: Yes Helmet use: sometimes Drive intox 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 maintenance truck driver: No Exam Const General: comfortable and no acute distress Nutritional Appearance: overweight Limitations: altered mental status Other: He answer some questions appropriately, but is not able to provide any history [facility] Head: normal to inspection Eyes Other: He appears to have some difficulty opening his right eye,, but the rest of the exam is normal Neck Neck: normal visual inspection and full ROM Resp Auscultation: clear to auscultation bilaterally Cardio Heart Sounds: S1 normal and S2 normal GI Inspection: normal to inspection and large pannus Palpation: soft, no guarding and nontender Auscultation: normal bowel sounds Results Last Vital Signs Temp 98.6 F 09/10/24 12:01 Pulse 90 09/10/24 14:01 Resp 17 09/10/24 14:01 BP 108/66 09/10/24 14:01 Pulse Ox 99 09/10/24 14:01 Labs 09/10/24 05:00 09/10/24 05:00 Labs: Laboratory Results - last 24 hr 09/09/24 09/09/24 09/09/24 11:32 17:23 20:12 WBC 12.29 H RBC 3.65 L Hgb 10.3 L 8.6 L Hct 33.1 L 27.6 L MCV 91 MCH 28.2 MCHC 31.1 L RDW 14.7 H Plt Count 470 H MPV 10.0 Immature Gran % Neutrophils % Lymphocytes % Monocytes % Eosinophils % Basophils % Nucleated RBC % Absolute Neutrophils Absolute Lymphocytes Absolute Monocytes Absolute Eosinophils Absolute Basophils PT INR Sodium Potassium Chloride Carbon Dioxide Anion Gap BUN Creatinine Est GFR (CKD-EPI 2020) Glucose Calcium ABO/Rh AB Positive Blood Type Recheck AB Positive Antibody Screen NEGATIVE Crossmatch See Detail 09/10/24 05:00 WBC 13.70 H RBC 3.12 L Hgb 9.2 L Hct 28.6 L MCV 92 MCH 29.5 MCHC 32.2 RDW 14.4 H Plt Count 374 MPV 10.1 Immature Gran % 3.4 Neutrophils % 71.6 Lymphocytes % 11.8 Monocytes % 8.8 Eosinophils % 3.7 Basophils % 0.7 Nucleated RBC % 0.0 Absolute Neutrophils 9.81 H Absolute Lymphocytes 1.62 Absolute Monocytes 1.21 H Absolute Eosinophils 0.51 Absolute Basophils 0.10 PT 11.1 INR 1.1 Sodium 145 Potassium 4.1 Chloride 111 H Carbon Dioxide 27.6 Anion Gap 6.4 BUN 53 H Creatinine 2.4 H Est GFR (CKD-EPI 2020) 26.44 Glucose 113 H Calcium 7.7 L ABO/Rh Blood Type Recheck Antibody Screen Crossmatch
[2024-09-10] MEDS: Pantoprazole 40 MG VIAL IVP (17:46)
[2024-09-10] MEDS: Atorvastatin 20 MG TAB PO (19:33)
[2024-09-10] MEDS: Acetaminophen 325 MG TAB PO (19:34)
[2024-09-10 23:02] LABS: HCT 25.2 % (40.0-50.0); HGB 8.1 g/dL (13.5-17.5); MCH 29.5 pg (27.0-33.0); MCHC 32.1 % (32.0-36.0); MCV 92 fL (80-95); Platelet Count 419 10^3/uL (130-400); RBC 2.75 10^6/uL (4.36-5.78); RDW 14.6 % (11.8-14.1); RDW-SD 48.7 fL
[2024-09-11] VITALS (33 sets, daily range): BP systolic 79–122; BP diastolic 42–75; PULSE 61–107; RESP 15–26; TEMP 36.3–37.2; O2SAT 94–99
[2024-09-11] MEDS: Normal Saline Flush 10 ML SYR IVP ×5 (00:40→19:45)
[2024-09-11] MEDS: DEXTROSE 5%-LACTATED RINGERS 1,000 ML 100 ML IV ×3 (03:59→23:48)
[2024-09-11 05:59] LABS: Abs Immature Grans 0.49 10^3/uL (0.0-0.06); Absolute Eosinophil Count 0.65 10^3/uL (0.0-0.7); Absolute Monocyte Count 1.12 10^3/uL (0.1-0.8); Basophils % 0.7 %; Eosinophils % 4.7 %; HCT 25.8 % (40.0-50.0); HGB 8.2 g/dL (13.5-17.5); Immature Grans % 3.5 %; Lymphocytes % 13.6 %; MCH 29.5 pg (27.0-33.0); MCHC 31.8 % (32.0-36.0); MCV 93 fL (80-95); MPV 9.9 fL (8.0-11.0); Monocytes % 8.1 %; Neutrophils % 69.4 %; Platelet Count 408 10^3/uL (130-400); RBC 2.78 10^6/uL (4.36-5.78); RDW 14.6 % (11.8-14.1); RDW-SD 49.6 fL; WBC 13.85 10^3/uL (4.4-10.8)
[2024-09-11 06:06] LABS: Absolute Lymphocyte Count 1.88 10^3/uL (1.2-3.4); Absolute Neutrophil Count 9.61 10^3/uL (1.2-6.7)
[2024-09-11 06:16] LABS: INR 1.1 (0.9-1.1); Prothrombin Time 10.9 sec (9.1-11.1)
[2024-09-11 06:23] LABS: ALT 14 U/L (16-63); AST 16 U/L (15-37); Albumin 1.8 g/dL (3.4-5.0); Alkaline Phosphatase 49 U/L (46-116); BUN 41 mg/dL (7-18); Bilirubin, Total 0.6 mg/dL (0.2-1.0); CREATININE 2.3 mg/dL (0.70-1.30); Calcium 7.9 mg/dL (8.5-10.1); Chloride 114 mmol/L (98-107); Estimated GFR 27.83 (mL/min/1.73m2); Glucose 98 mg/dL (74-106); Potassium 4.2 mmol/L (3.5-5.1); Sodium 148 mmol/L (136-145); Total Protein 4.8 g/dL (6.4-8.2)
[2024-09-11] MEDS: Nystatin POWDER 60 GM JAR TP ×2 (08:17→19:57)
[2024-09-11] MEDS: Fidaxomicin 200 MG TAB PO ×2 (08:17→19:43)
[2024-09-11] MEDS: Bacitracin 30 GM TUBE TP (08:17)
[2024-09-11] MEDS: Sodium Bicarbonate 650 MG TAB PO ×2 (08:17→19:44)
--- NOTE | 2024-09-11 14:09 | W.PM.PROGNOT ---
Date of Service Date of service: 09/11/24 Time of Service: 14:09 Assessment and Plan Assessment and plan (1) C. difficile colitis: Status: Acute Assessment and plan: Unfortunate he developed diarrhea on antibiotics and has c. dif positive. Not severe based on WBC and Cr at baseline. Start Dificid orally. cw dificid (2) Hypotension: Status: Acute Assessment and plan: This occured after loose BM, likely combination of vagal and some dehydration from frequent stooling. He responded immediately to fluids. Labs and EKG reassuring. I think he can stay floor status. 09/11/24 vital signs are still a bit soft, pt is currently D51/2ns at 100 (3) Sepsis: Status: Acute Assessment and plan: -patient met sepsis criteria on admission with temp of 100.8oF, HR >100, WBC 14 and source being pyelonephritis s/p ureteral stent placement ~4 days prior to admission -started on zosyn and linezolid given recent procedure, zosyn was not continued initially but resumed 09/06 and stopped linazolid. Since then he has been improving, WBC down. -Urine cultures confirm ESBL klebsiella sensitive to pip/tazo. He will need 7 days of IV antibiotics. At this point, should plan to stay until stents due to remove 10 days post-op -hypotensive today but no fever, WBC still improving, other vitals stable. 09.10.24 zosyn wbc at 13.7 (4) Pyelonephritis: Status: Acute Assessment and plan: -likel source of infection as noted above -appreciate Dr. Isaac's consult, no need to remove stent now, plan 10 days after procedure. 09/11/24 In reviewing the admission H&P, the pt most likely had the stent placed on 08/31/24 so this will be day 11. Will reach out to Dr Isaac on Friday to see if the stent should come out. (5) Atrial flutter: Status: Acute Assessment and plan: INR high, holding both dilt and warfarin today. 09/10/24 will INR at 1.1 today. Secondary to recent bleed and mild/moderate anemia will hold coumadin for another day 09/11/24 INR still at 1/1 but pt still with loose stool and intermittent bleeding. Will hold anticoag meds until a decision is made in regards to procedures (6) Hypertension: Assessment and plan: -holding home medications after episode of hypotension. 09/10/24 pt's bp is currently 97/71. Continue to hold BP meds (7) Cirrhosis of liver: Assessment and plan: Noted on CT. He was not aware of this diagnosis. Liver/spleen reported as normal on 01/31/24 CT so should review with radiology. Precautions for now. No progressive liver dysfunction on labs, defer to outpatient. (8) CKD (chronic kidney disease): Assessment and plan: Had mild STEVO on CKD with low urine output c/w pre-renal. He did respond to IV and oral fluids, improved GFR in the past two days despite developing diarrhea. Continue to monitor (9) Sena classified according to extent of body surface involved: Assessment and plan: severe dry skin. Emollient on thick skin, dressing on open areas, has outpatient f/u at burn center. (10) Anemia: Status: Chronic Assessment and plan: h/h drifting down. He may be loosing some blood in stool with c. dif. INR high, holding warfarin. Follow. Subjective Subjective Interval history since last seen: Pt seen and examined in his room this am. POC d/w pt as well as with bedside nurse during MDR. Exam Narrative Exam Narrative: 83 y/o male resting comfortably in bed no respiratory distress bilateral scaling and onychomycosis bilat ncat mmm appears stated age Objective Last Vital Signs Temp 37.1 C 09/11/24 07:30 Pulse 86 09/11/24 12:00 Resp 15 09/11/24 12:00 BP 122/75 09/11/24 12:00 Pulse Ox 95 09/11/24 10:01 Laboratory Results - last 24 hr 09/09/24 09/10/24 09/11/24 17:23 22:55 05:50 WBC 15.00 H 13.85 H RBC 2.75 L 2.78 L Hgb 8.1 L 8.2 L Hct 25.2 L 25.8 L MCV 92 93 MCH 29.5 29.5 MCHC 32.1 31.8 L RDW 14.6 H 14.6 H Plt Count 419 H 408 H MPV 10.0 9.9 Immature Gran % 3.5 Neutrophils % 69.4 Lymphocytes % 13.6 Monocytes % 8.1 Eosinophils % 4.7 Basophils % 0.7 Nucleated RBC % 0.0 Absolute Neutrophils 9.61 H Absolute Lymphocytes 1.88 Absolute Monocytes 1.12 H Absolute Eosinophils 0.65 Absolute Basophils 0.10 PT 10.9 INR 1.1 Sodium 148 H Potassium 4.2 Chloride 114 H Carbon Dioxide 27.0 Anion Gap 7.0 BUN 41 H Creatinine 2.3 H Est GFR (CKD-EPI 2020) 27.83 Glucose 98 Calcium 7.9 L Total Bilirubin 0.6 AST 16 ALT 14 L Alkaline Phosphatase 49 Total Protein 4.8 L Albumin 1.8 L Crossmatch See Detail Time Spent with Patient Time Spent with Patient: 35-49 minutes Time was spent: preparing to see the patient(eg.review tests), obtaining and/or reviewing separately otained hiistory, ordering medications,tests, procedures, referring, communicating with other health critical care specialist, indepentently interpreting results, counseling the patient and care coordination
--- NOTE | 2024-09-11 15:01 | PGE_ITS ---
Date of Service Date of service: 09/11/24 Time of Service: 17:35 Objective Last Vital Signs Temp 37.1 C 09/11/24 07:30 Pulse 94 H 09/11/24 14:01 Resp 19 09/11/24 14:01 BP 109/57 L 09/11/24 14:01 Pulse Ox 98 09/11/24 14:01 Laboratory Results - last 24 hr 09/09/24 09/10/24 09/11/24 17:23 22:55 05:50 WBC 15.00 H 13.85 H RBC 2.75 L 2.78 L Hgb 8.1 L 8.2 L Hct 25.2 L 25.8 L MCV 92 93 MCH 29.5 29.5 MCHC 32.1 31.8 L RDW 14.6 H 14.6 H Plt Count 419 H 408 H MPV 10.0 9.9 Immature Gran % 3.5 Neutrophils % 69.4 Lymphocytes % 13.6 Monocytes % 8.1 Eosinophils % 4.7 Basophils % 0.7 Nucleated RBC % 0.0 Absolute Neutrophils 9.61 H Absolute Lymphocytes 1.88 Absolute Monocytes 1.12 H Absolute Eosinophils 0.65 Absolute Basophils 0.10 PT 10.9 INR 1.1 Sodium 148 H Potassium 4.2 Chloride 114 H Carbon Dioxide 27.0 Anion Gap 7.0 BUN 41 H Creatinine 2.3 H Est GFR (CKD-EPI 2020) 27.83 Glucose 98 Calcium 7.9 L Total Bilirubin 0.6 AST 16 ALT 14 L Alkaline Phosphatase 49 Total Protein 4.8 L Albumin 1.8 L Crossmatch See Detail Time Spent with Patient Time Spent with Patient: 25-34 minutes Time was spent: preparing to see the patient(eg.review tests), obtaining and/or reviewing separately otained hiistory, ordering medications,tests, procedures, referring, communicating with other health care program director, indepentently interpreting results, counseling the patient and care coordination
[2024-09-11] MEDS: Pantoprazole 40 MG VIAL IVP (18:24)
[2024-09-11] MEDS: Atorvastatin 20 MG TAB PO (19:43)
[2024-09-11] MEDS: Acetaminophen 325 MG TAB PO (19:44)
[2024-09-12] VITALS (33 sets, daily range): BP systolic 102–140; BP diastolic 62–77; PULSE 56–116; RESP 15–27; TEMP 37–37.2; O2SAT 95–98
[2024-09-12 06:59] LABS: Abs Immature Grans 0.59 10^3/uL (0.0-0.06); HCT 24.5 % (40.0-50.0); HGB 7.7 g/dL (13.5-17.5); MCH 29.3 pg (27.0-33.0); MCHC 31.4 % (32.0-36.0); MCV 93 fL (80-95); Platelet Count 473 10^3/uL (130-400); RBC 2.63 10^6/uL (4.36-5.78); RDW 14.6 % (11.8-14.1); RDW-SD 49.4 fL; WBC 15.09 10^3/uL (4.4-10.8)
[2024-09-12 07:07] LABS: INR 1.2 (0.9-1.1); Prothrombin Time 11.5 sec (9.1-11.1)
[2024-09-12 07:27] LABS: Absolute Eosinophil Count 1.06 10^3/uL (0.0-0.7); Absolute Lymphocyte Count 2.26 10^3/uL (1.2-3.4); Absolute Monocyte Count 0.91 10^3/uL (0.1-0.8); Absolute Neutrophil Count 10.56 10^3/uL (1.2-6.7); Atypical Lymphocytes % 2 %; Diff Comment Manual Differential; Hypochromasia 2+
[2024-09-12 07:35] LABS: ALT 21 U/L (16-63); AST 20 U/L (15-37); Alkaline Phosphatase 49 U/L (46-116); Anion Gap 5.5 mmol/L (3-11); BUN 32 mg/dL (7-18); Bilirubin, Total 0.5 mg/dL (0.2-1.0); CO2 28.5 mmol/L (21.0-32.0); CREATININE 1.9 mg/dL (0.70-1.30); Calcium 8.2 mg/dL (8.5-10.1); Chloride 113 mmol/L (98-107); Glucose 97 mg/dL (74-106); Potassium 4.4 mmol/L (3.5-5.1); Sodium 147 mmol/L (136-145)
[2024-09-12] MEDS: Sodium Bicarbonate 650 MG TAB PO ×2 (09:39→20:30)
[2024-09-12] MEDS: Bacitracin 30 GM TUBE TP (09:40)
[2024-09-12] MEDS: Nystatin POWDER 60 GM JAR TP ×2 (09:40→21:13)
[2024-09-12] MEDS: Normal Saline Flush 10 ML SYR IVP ×4 (09:40→20:30)
[2024-09-12] MEDS: Fidaxomicin 200 MG TAB PO ×2 (09:40→20:30)
--- NOTE | 2024-09-12 11:03 | PGE_ITS ---
Date of Service Date of service: 09/12/24 Time of Service: 11:03 Assessment and Plan Assessment and plan (1) C. difficile colitis: Status: Acute Assessment and plan: Unfortunate he developed diarrhea on antibiotics and has c. dif positive. Not severe based on WBC and Cr at baseline. Start Dificid orally. cw dificid (2) Hypotension: Status: Acute Assessment and plan: This occured after loose BM, likely combination of vagal and some dehydration from frequent stooling. He responded immediately to fluids. Labs and EKG reassuring. I think he can stay floor status. 09/11/24 vital signs are still a bit soft, pt is currently D51/2ns at 100 09/12/24 VSS (119/69) (3) Sepsis: Status: Acute Assessment and plan: -patient met sepsis criteria on admission with temp of 100.8oF, HR >100, WBC 14 and source being pyelonephritis s/p ureteral stent placement ~4 days prior to admission -started on zosyn and linezolid given recent procedure, zosyn was not continued initially but resumed 09/06 and stopped linazolid. Since then he has been improving, WBC down. -Urine cultures confirm ESBL klebsiella sensitive to pip/tazo. He will need 7 days of IV antibiotics. At this point, should plan to stay until stents due to remove 10 days post-op -hypotensive today but no fever, WBC still improving, other vitals stable. 09.10.24 zosyn wbc at 13.7 (4) Pyelonephritis: Status: Acute Assessment and plan: -likel source of infection as noted above -appreciate Dr. Isaac's consult, no need to remove stent now, plan 10 days after procedure. 09/11/24 In reviewing the admission H&P, the pt most likely had the stent placed on 08/31/24 so this will be day 11. Will reach out to Dr Isaac on Friday to see if the stent should come out. 09/12/24 Will need to reach out to Urology in AM in regards to removing the stent (5) Atrial flutter: Status: Acute Assessment and plan: INR high, holding both dilt and warfarin today. 09/10/24 will INR at 1.1 today. Secondary to recent bleed and mild/moderate anemia will hold coumadin for another day 09/11/24 INR still at 1/1 but pt still with loose stool and intermittent bleeding. Will hold anticoag meds until a decision is made in regards to procedures 09/12/24 Did get some more history and the pt is on coumadin 2/2 cost. Pt states that he had a PE/DVT as well in the past. Pt's states that his knows the details and I will try to reach out to her (6) Hypertension: Assessment and plan: -holding home medications after episode of hypotension. 09/10/24 pt's bp is currently 97/71. Continue to hold BP meds (7) Cirrhosis of liver: Assessment and plan: Noted on CT. He was not aware of this diagnosis. Liver/spleen reported as normal on 01/31/24 CT so should review with radiology. Precautions for now. No progressive liver dysfunction on labs, defer to outpatient. (8) CKD (chronic kidney disease): Assessment and plan: Had mild STEVO on CKD with low urine output c/w pre-renal. He did respond to IV and oral fluids, improved GFR in the past two days despite developing diarrhea. Continue to monitor (9) Sena classified according to extent of body surface involved: Assessment and plan: severe dry skin. Emollient on thick skin, dressing on open areas, has outpatient f/u at burn center. (10) Anemia: Status: Chronic Assessment and plan: h/h drifting down. He may be loosing some blood in stool with c. dif. INR high, holding warfarin. Follow. 09/12/24 Would like to see if GS is going to doing any procedures 2/2 BRBPR. Don't have a definitive time frame on the most appropriate time to restart his coumadin. Pt is in NSR now. EKG on this admission does not show afib/flutter either. I do question if the pt even needs anticoagulation. Subjective Subjective Interval history since last seen: Pt seen and examined in his room this am. Pt is anxious to go home. POC d/w pt and bedside nurse during ICU huddle Exam Narrative Exam Narrative: 83 y/o male resting comfortably in bed no respiratory distress ctab rrr no mrg bilateral scaling and onychomycosis bilat ncat mmm appears stated age gives linear history Objective Last Vital Signs Temp 37.1 C 09/12/24 05:25 Pulse 90 09/12/24 10:01 Resp 22 09/12/24 10:01 BP 109/68 09/12/24 10:01 Pulse Ox 97 09/12/24 10:01 Laboratory Results - last 24 hr 09/12/24 05:40 WBC 15.09 H RBC 2.63 L Hgb 7.7 L Hct 24.5 L MCV 93 MCH 29.3 MCHC 31.4 L RDW 14.6 H Plt Count 473 H MPV 10.0 Immature Gran % See Differential Neutrophils % 70.0 Lymphocytes % 13.0 Atypical Lymphs % 2 Monocytes % 6.0 Eosinophils % 7.0 Basophils % 2.0 Nucleated RBC % 0.0 Absolute Neutrophils 10.56 H Absolute Lymphocytes 2.26 Absolute Monocytes 0.91 H Absolute Eosinophils 1.06 H Absolute Basophils 0.30 H RBC Morphology See Below Hypochromasia 2+ PT 11.5 H INR 1.2 H Sodium 147 H Potassium 4.4 Chloride 113 H Carbon Dioxide 28.5 Anion Gap 5.5 BUN 32 H Creatinine 1.9 H Est GFR (CKD-EPI 2020) 35.00 Glucose 97 Calcium 8.2 L Total Bilirubin 0.5 AST 20 ALT 21 Alkaline Phosphatase 49 Total Protein 5.0 L Albumin 2.0 L Time Spent with Patient Time Spent with Patient: 35-49 minutes Time was spent: preparing to see the patient(eg.review tests), obtaining and/or reviewing separately otained hiistory, ordering medications,tests, procedures, referring, communicating with other health laboratory animal care veterinarian, indepentently interpreting results, counseling the patient and care coordination
[2024-09-12] MEDS: Pantoprazole 40 MG VIAL IVP (16:33)
[2024-09-12] MEDS: Normal Saline 10 ML VIAL IJ (16:33)
[2024-09-12] MEDS: Atorvastatin 20 MG TAB PO (20:30)
[2024-09-13] VITALS (13 sets, daily range): BP systolic 105–135; BP diastolic 57–80; PULSE 88–109; RESP 17–27; TEMP 36.6–37.7; O2SAT 94–98
[2024-09-13] MEDS: Normal Saline Flush 10 ML SYR IVP ×3 (06:27→15:35)
[2024-09-13 06:58] LABS: Abs Immature Grans 0.65 10^3/uL (0.0-0.06); Absolute Basophil Count 0.06 10^3/uL (0.0-0.2); Absolute Lymphocyte Count 1.58 10^3/uL (1.2-3.4); Absolute Monocyte Count 0.83 10^3/uL (0.1-0.8); Absolute Neutrophil Count 10.32 10^3/uL (1.2-6.7); Basophils % 0.4 %; Eosinophils % 5.6 %; HCT 24.3 % (40.0-50.0); HGB 7.6 g/dL (13.5-17.5); Immature Grans % 4.6 %; Lymphocytes % 11.1 %; MCH 29.2 pg (27.0-33.0); MCHC 31.3 % (32.0-36.0); MCV 94 fL (80-95); MPV 10.1 fL (8.0-11.0); Monocytes % 5.8 %; Neutrophils % 72.5 %; Nucleated RBC 0.1 % (0.0-0.3); Platelet Count 517 10^3/uL (130-400); RDW 14.7 % (11.8-14.1); RDW-SD 50.5 fL; WBC 14.24 10^3/uL (4.4-10.8)
[2024-09-13 07:26] LABS: ALT 16 U/L (16-63); AST 16 U/L (15-37); Albumin 1.9 g/dL (3.4-5.0); Alkaline Phosphatase 59 U/L (46-116); Anion Gap 5.4 mmol/L (3-11); BUN 24 mg/dL (7-18); Bilirubin, Total 0.4 mg/dL (0.2-1.0); CO2 28.6 mmol/L (21.0-32.0); Calcium 8.1 mg/dL (8.5-10.1); Chloride 112 mmol/L (98-107); Estimated GFR 32.91 (mL/min/1.73m2); Glucose 94 mg/dL (74-106); Potassium 5.2 mmol/L (3.5-5.1); Sodium 146 mmol/L (136-145); Total Protein 5.1 g/dL (6.4-8.2)
[2024-09-13 08:00] LABS: Anisocytosis 1+; Diff Comment RBC Morph Reviewed; Polychromasia Present
[2024-09-13 08:01] LABS: Poikilocytes 1+
[2024-09-13] MEDS: Bacitracin 30 GM TUBE TP (08:01)
[2024-09-13] MEDS: Fidaxomicin 200 MG TAB PO ×2 (08:01→20:46)
[2024-09-13] MEDS: Sodium Bicarbonate 650 MG TAB PO ×2 (08:01→20:46)
[2024-09-13] MEDS: Nystatin POWDER 60 GM JAR TP ×3 (08:02→20:48)
--- NOTE | 2024-09-13 09:25 | CMPROGNOTE_ITS ---
Date of service: 09/13/24 Time of Service: 09:25 Care Management Progress Note Progress Note Text Progress Note Text: Josep was sitting up in bed visiting with his Noemy Barrera when CM met with him. They were both very pleasant and engaged well with CM. Josep and Noemy Barrera had questions about his discharge plan, specifically about the removal of his stent. A Urology consult had been ordered but Dr. Isaac had not seen him yet. He did visit Josep around noon and successfully removed the stent. Josep will follow up with his providers at [facility]. Clinically, Josep is doing much better. His vital signs are stable as is his H&H has remained the same at 7.6/24. Discharge Potential Discharge Needs: PCP F/U Appt Anticipated Barriers to Discharge: None Identified Patient/Family Education Needs: Review discharge instructions, discuss Ask Me Three Transportation: Private vehicle Plan: Anticipate Josep will return home once medically cleared, likely with new home health PT. His will transport him home via private vehicle when ready. He will follow up with his PCP and discharge plan of care. CM will continue to assess for discharge needs. Social Determinants of Health Screening Will the Patient Participate in the Screening?: Declined to provide
--- NOTE | 2024-09-13 12:12 | PGE_ITS ---
Date of Service Date of service: 09/13/24 Time of Service: 12:46 Assessment and Plan Assessment and plan (1) Kidney stones: Status: Chronic Assessment and plan: His stent was successfully removed today. We will plan on checking a renal ultrasound in 6 to 8 weeks to rule out silent hydronephrosis. We can discuss his stone composition at that time as well. We will notify his providers at [facility] so that they are aware that his stent has been removed. Subjective Subjective Interval history since last seen: This is an 83-year-old gentleman who underwent ureteroscopy and holmium laser lithotripsy of left sided stones. He developed sepsis following the procedure. He has received antibiotics and has clinically improved. In reviewing his operative report, it was recommended that his stent to remain in place for 10 to 14 days. He is agreeable to having his stent removed before his discharge from the hospital. Objective Last Vital Signs Temp 37.2 C 09/13/24 04:25 Pulse 88 09/13/24 08:01 Resp 21 09/13/24 08:01 BP 124/67 09/13/24 08:01 Pulse Ox 95 09/13/24 08:01 Laboratory Results - last 24 hr 09/13/24 05:46 WBC 14.24 H RBC 2.60 L Hgb 7.6 L Hct 24.3 L MCV 94 MCH 29.2 MCHC 31.3 L RDW 14.7 H Plt Count 517 H MPV 10.1 Immature Gran % 4.6 Neutrophils % 72.5 Lymphocytes % 11.1 Monocytes % 5.8 Eosinophils % 5.6 Basophils % 0.4 Nucleated RBC % 0.1 Absolute Neutrophils 10.32 H Absolute Lymphocytes 1.58 Absolute Monocytes 0.83 H Absolute Eosinophils 0.80 H Absolute Basophils 0.06 RBC Morphology See Below Polychromasia Present Poikilocytosis 1+ Anisocytosis 1+ Sodium 146 H Potassium 5.2 H Chloride 112 H Carbon Dioxide 28.6 Anion Gap 5.4 BUN 24 H Creatinine 2.0 H Est GFR (CKD-EPI 2020) 32.91 Glucose 94 Calcium 8.1 L Total Bilirubin 0.4 AST 16 ALT 16 Alkaline Phosphatase 59 Total Protein 5.1 L Albumin 1.9 L Cystoscopy Text: The patient is seen at the bedside. He is placed in the supine position. His indwelling Best catheter balloon is deflated and the catheter was removed in its entirety. The urethral meatus is prepped with Betadine. 2% Xylocaine jelly is instilled into the urethra to act as a local anesthetic. A flexible cystoscope was passed through the urethra into the bladder. The urethra and bladder were inspected with the deflection of the scope. The pendulous, bulbar and membranous urethra appeared normal with no strictures. The prostatic urethra showed moderate lateral lobe enlargement. The bladder neck was entered and the bladder mucosa was inspected. A ureteral stent could be seen protruding from the left ureteral orifice. The stent was grasped and alligator forceps and removed in its entirety. The patient tolerated the procedure well. The urethral catheter was not replaced in this gentleman. Time Spent with Patient Time Spent with Patient: <25 minutes Time was spent: preparing to see the patient(eg.review tests), referring, communicating with other health women's health care nurse practitioner and counseling the patient
--- NOTE | 2024-09-13 13:33 | PGE_ITS ---
Date of Service Date of service: 09/13/24 Time of Service: 13:33 Assessment and Plan Assessment and plan (1) Sepsis: Status: Acute Assessment and plan: -patient met sepsis criteria on admission with temp of 100.8oF, HR >100, WBC 14 and source being pyelonephritis s/p ureteral stent placement ~4 days prior to admission -started on zosyn and linezolid given recent procedure, zosyn was not continued initially but resumed 09/06 and stopped linazolid. Since then he has been improving, WBC down. -Urine cultures confirm ESBL klebsiella sensitive to pip/tazo -ompleted 7 days and abx have been discontinued (2) Pyelonephritis: Status: Acute Assessment and plan: -likel source of infection as noted above -appreciate Dr. Isaac's consult, and stent to be removed on 09/13 (3) C. difficile colitis: Status: Acute Assessment and plan: -developed diarrhea on antibiotics and has c. dif positive. -Not severe based on WBC and Cr at baseline. -Started Dificid 09/09, will continue (4) Hypotension: Status: Acute Assessment and plan: -transient, occured after loose BM, likely combination of vagal and some dehydration from frequent stooling -BP have since been WNL (5) Atrial flutter: Status: Acute Assessment and plan: -INR high, hheld warfarin and dilt on 09/09 -09/10/24 INR 1.1 -Secondary to recent bleed and mild/moderate anemia will hold coumadin for another day -09/11/24 INR still at 1.1 but pt still with loose stool and intermittent bleeding. Will hold anticoag meds until a decision is made in regards 09/13 INR up to 1.2, will restart warfarin PM 09/13 (6) Hypertension: Assessment and plan: -holding home medications after episode of hypotension. -09/10/24 pt's bp 97/71. Continue to hold BP meds -09/13 BPs systolic 120's, will hold at rec f/u with PCP (7) Cirrhosis of liver: Assessment and plan: -Noted on CT. He was not aware of this diagnosis. -Liver/spleen reported as normal on 01/31/24 CT so should review with radiology. (8) CKD (chronic kidney disease): Assessment and plan: -Had mild STEVO on CKD with low urine output c/w pre-renal. -He did respond to IV and oral fluids, improved GFR in the past two days despite developing diarrhea. Continue to monitor (9) Sena classified according to extent of body surface involved: Assessment and plan: severe dry skin. Emollient on thick skin, dressing on open areas, has outpatient f/u at burn center. (10) Anemia: Status: Chronic Assessment and plan: -h/h drifting down to .7.7 from 12.6 on admission, though this was also in the setting of IV fluids -howver, patient did have c. diff as noted above as well as BRBPR (likely due to c. diff) -discusse with general surgery, no need for scope as bleeding resolved -Hb has since been stable in the mid 7's Subjective Subjective Interval history since last seen: Patient states that he is doing well today. He is happy to hear that Dr. Isaac will be removing his ureteral stent today and that the will be able to go home tomorrow. He has no complaints or concerns at this time. Exam Narrative Exam Narrative: well appearing older gentelman laying in bed in no acute distress, AOx4, heart, RRR, lungs CTAB, abdomen soft, non-tender, non-distended Objective Last Vital Signs Temp 98.6 F 09/13/24 13:00 Pulse 88 09/13/24 12:00 Resp 24 09/13/24 12:00 BP 124/58 L 09/13/24 12:00 Pulse Ox 98 09/13/24 12:00 Laboratory Results - last 24 hr 09/13/24 05:46 WBC 14.24 H RBC 2.60 L Hgb 7.6 L Hct 24.3 L MCV 94 MCH 29.2 MCHC 31.3 L RDW 14.7 H Plt Count 517 H MPV 10.1 Immature Gran % 4.6 Neutrophils % 72.5 Lymphocytes % 11.1 Monocytes % 5.8 Eosinophils % 5.6 Basophils % 0.4 Nucleated RBC % 0.1 Absolute Neutrophils 10.32 H Absolute Lymphocytes 1.58 Absolute Monocytes 0.83 H Absolute Eosinophils 0.80 H Absolute Basophils 0.06 RBC Morphology See Below Polychromasia Present Poikilocytosis 1+ Anisocytosis 1+ Sodium 146 H Potassium 5.2 H Chloride 112 H Carbon Dioxide 28.6 Anion Gap 5.4 BUN 24 H Creatinine 2.0 H Est GFR (CKD-EPI 2020) 32.91 Glucose 94 Calcium 8.1 L Total Bilirubin 0.4 AST 16 ALT 16 Alkaline Phosphatase 59 Total Protein 5.1 L Albumin 1.9 L Time Spent with Patient Time Spent with Patient: >50 minutes Time was spent: preparing to see the patient(eg.review tests), obtaining and/or reviewing separately otained hiistory, ordering medications,tests, procedures, referring, communicating with other health medical care manager, indepentently interpreting results, counseling the patient and care coordination
[2024-09-13] MEDS: Pantoprazole 40 MG VIAL IVP (15:35)
[2024-09-13] MEDS: Acetaminophen 325 MG TAB PO (20:46)
[2024-09-13] MEDS: Atorvastatin 20 MG TAB PO (20:47)
[2024-09-14 03:08] VITALS: BP 119/72; PULSE 89; RESP 18; TEMP 36.5; O2SAT 96
[2024-09-14] MEDS: Normal Saline Flush 10 ML SYR IVP ×2 (05:22→09:14)
[2024-09-14 07:39] VITALS: BP 128/74; PULSE 90; RESP 16; TEMP 36.8; O2SAT 98
[2024-09-14] MEDS: Fidaxomicin 200 MG TAB PO (09:14)
[2024-09-14] MEDS: Sodium Bicarbonate 650 MG TAB PO (09:14)
[2024-09-14] MEDS: Nystatin POWDER 60 GM JAR TP (09:15)
[2024-09-14] MEDS: Bacitracin 30 GM TUBE TP (09:15)
--- NOTE | 2024-09-14 09:23 | DSE_ITS ---
Date of service: 09/14/24 Time of Service: 09:23 DS: Diagnosis Discharge Diagnosis (1) Sepsis: Status: Acute (2) Pyelonephritis: Status: Acute (3) C. difficile colitis: Status: Acute (4) Hypotension: Status: Acute (5) Atrial flutter: Status: Acute (6) Hypertension: (7) Cirrhosis of liver: (8) CKD (chronic kidney disease): (9) Sena classified according to extent of body surface involved: (10) Anemia: Status: Chronic Discharge Plan Disposition Patient Disposition: Home Condition: Good Discharge Details Reason For Visit: Sepsis Pyelonephritis Admit Date/Time: 09/04/24 23:44 Admit Provider: Armen Patel Attending Provider: Armen Patel Primary Care Provider: Kareem Hart Hospital Course Hospital Course: Patient initially presented with signs and symptoms that were determined to be secondary to severe sepsis from pyelonephritis after ureteral stent placement. While patient was here he was treated with IV antibiotics but developed to see Abiamel for which she was treated with Dificid and had improvement of his symptoms. Also, patient was hospitalized along notes that he was able to have his ureteral stent removed by his urologist Dr. Isaac on 09/13/2024. During hospitalization patient completed his course of IV antibiotics, but will be discharged home with an additional 5 days of p.o. Dificid. Home Meds and New Rx's Prescriptions: New Dificid 200 mg Tablet 200 mg PO BID 5 Days Qty: 10 0RF Continued cyanocobalamin (vitamin B-12) 1,000 mcg capsule 1,000 mcg PO DAILY sodium bicarbonate 650 mg tablet 650 mg PO BID Patient Comments: TAKE ONE TABLET BY MOUTH TWICE A DAY cholecalciferol (vitamin D3) 10 mcg (400 unit) capsule 1,000 unit PO DAILY atorvastatin 20 mg tablet 20 mg PO QHS Qty: 90 3RF diltiazem HCl 240 mg capsule,extended release 24hr 240 mg PO DAILY Qty: 90 3RF valsartan 80 mg tablet 80 mg PO DAILY Qty: 90 3RF warfarin 5 mg tablet 5 mg PO DAILY Protocol: Dose Management Condition: Friday Dose/Route: 5 mg Instruction: 1 x 5 mg tablet Condition: Friday Dose/Route: 5 mg Instruction: 1 x 5 mg tablet Condition: Friday Dose/Route: 2.5 mg Instruction: 0.5 x 5 mg tablets Condition: Friday Dose/Route: 5 mg Instruction: 1 x 5 mg tablet Condition: Dose/Route: 2.5 mg Instruction: 0.5 x 5 mg tablets Condition: Friday Dose/Route: 5 mg Instruction: 1 x 5 mg tablet Condition: Friday Dose/Route: 5 mg Instruction: 1 x 5 mg tablet Protocol Text: Adjustment Start Date: Friday08/24/24 INR Value: 2.2 INR Date: 08/24/24 Recheck Date: 09/07/24 Rx Instructions: 5 mg everyday, except Friday and Friday is 2.5mg Discharge Instructions Instructions: C. difficile infection Referrals: Jsoiah Isaac MD [ [facility] STAFF PHYSICIAN] - 11/11/24 10:30 am Activity:: Activity as Tolerated Equipment/Supplies:: No Equipment Needed Diet:: As Tolerated Discharge Orders Discharge Orders: Discharge Order (Routine); Ordered 09/14/24 Ordered By: Forest Burton DS: Summary Time Spent with Patient providing and/or coordinating discharge services: Greater than 30 minutes Status at Discharge Functional status at discharge: independent ambulation Overall status at discharge: patient is back to baseline Mental Status: mental status grossly normal Speech and Movement: speech and movement normal Mood: congruent mood Affect: normal affect Quality:SDOH Health Related Social Needs: No Data to Display Exam Narrative Exam Narrative: well appearing older gentelman laying in bed in no acute distress, AOx4, heart, RRR, lungs CTAB, abdomen soft, non-tender, non-distended Psych Mental Status: mental status grossly normal Speech and Movement: speech and movement normal Mood: congruent mood Affect: normal affect DS: Data Vitals/I&O Vitals and I&O: Vital Signs Temperature 98.2 F 09/14/24 07:39 Temperature Source Temporal Artery Scan 09/14/24 07:39 Pulse 90 09/14/24 07:39 Pulse Rhythm Irregular 09/05/24 09:05 Pulse 94 H 09/13/24 16:00 Respiratory Rate 16 09/14/24 07:39 Respiratory Effort Normal 09/09/24 12:02 Respiratory Depth Normal 09/05/24 09:05 Respiratory Pattern Normal 09/05/24 09:05 Blood Pressure 128/74 09/14/24 07:39 Blood Pressure Mean 94 09/13/24 15:28 Blood Pressure Position Sitting 09/04/24 20:16 Pulse Oximetry 98 09/14/24 07:39 Respiratory End-tidal CO2 31 09/05/24 07:20 Oxygen Delivery Method Room Air 09/14/24 07:39 Oxygen Flow Rate 0 09/14/24 07:39 Pain Level 0 09/14/24 07:39 Comment Notifying RN 09/08/24 15:29 Intake & Output 09/13/24 09/14/24 09/14/24 17:59 05:59 17:59 Intake Total 1310 / 1310 510 / 1820 50 / 50 Output Total 1250 / 1250 800 / 2050 350 / 350 Balance 60 / 60 -290 / -230 -300 / -300 Intake: IV 130 / 130 110 / 240 50 / 50 Oral 1180 / 1180 400 / 1580 Output: Urine 1000 / 1000 800 / 1800 350 / 350 Stool 250 / 250 Other: Urine Color Yellow Light Ann Marie Yellow Urine Appearance Clear Clear Clear Urine Odor Normal Strong Comment D/c'd by Dr. Isaac Stool Size Moderate Stool Characteristics Soft Liquid PFSH All Active Problems (Updated 09/09/24 @ 14:15 by Aron Villegas) Anemia (Chronic) Hypotension (Acute) C. difficile colitis (Acute) History of ESBL Klebsiella pneumoniae infection (Acute) Candidal intertrigo (Acute) Acute respiratory failure with hypoxia (Acute) Pyelonephritis (Acute) Sepsis (Acute) Acute UTI (Acute) Kidney stones (Chronic) Bacteremia (Acute) PVD (peripheral vascular disease) (Chronic) Cellulitis of leg (Acute) Atrial flutter (Acute) Obesity (Chronic) History of pulmonary embolism (Acute ~03/2019) Hyperlipidemia (Chronic) Medical History (Updated 09/09/24 @ 14:15 by Aron Villegas) CKD (chronic kidney disease) Cirrhosis of liver Hydronephrosis UTI (urinary tract infection) Hydronephrosis, right Hx of sepsis Hypertensive kidney disease with CKD stage III Chronic anticoagulation Hypertension COVID-19 (~11/12/21) Spinal stenosis Deep vein thrombosis (DVT) of popliteal vein of right lower extremity Sena classified according to extent of body surface involved Age 12, playing with matches, history of multiple skin grafting HNP (herniated nucleus pulposus), lumbar Right kidney stone (01/20/18) uric acid stone Surgical History History of skin graft Status post lumbar microdiscectomy (~2019) L3-4, at [facility] H/O ankle fusion S/P cystoscopy with ureteral stent placement Family History Mother , age 98 No problems noted. Father , age96 No problems noted. Sister No problems noted. Son , age 22 No problems noted. Daughter , age 40 Alcohol abuse Hypertension Sepsis Paternal Grandmother , age 102 No problems noted. Social History Smoking/Tobacco Use Status: Never Smoking risk assessment performed?: Yes Alcohol Intake: never Drug use: Never Substance use type: does not use Caregiver/Support person: Yes Household members: spouse Housing: house Do you need help understanding health information?: Rarely Pets and animals: Yes Pets and animals: dog(s) Sexually active: No Do you think of yourself as: straight/heterosexual Current gender identity: male What is your relationship status?: How often do you talk on the phone with friends or family?: three or more times per week How often do you get together with friends or relatives?: twice per week How often do you attend buddhism or lutheran services?: decline to answer Do you belong to any clubs or organized social groups?: no Panel score (0-1 are the most socially isolated patients): 2 Duration: decline to answer Frequency: decline to answer Laurie/Orthodoxy: No preference Special laurie needs: No Seatbelt use: sometimes Helmet use: Yes Helmet use: sometimes Drive intox 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 truck driver's offsider: No Time Spent with Patient Time Spent with Patient: <45 minutes Time was spent: preparing to see the patient(eg.review tests), obtaining and/or reviewing separately otained hiistory, ordering medications,tests, procedures, referring, communicating with other health family day carer, indepentently interpreting results, counseling the patient and care coordination
--- NOTE | 2024-09-14 11:01 | PT.INIE ---
PT Notes Visit Reasons: Sepsis Pyelonephritis Inpatient Physical Therapy Evaluation Date: 09/14/2024 Referring Doctor: Dr Burton PT Orders: PT CONSULT:PT evaluation Precautions: IV Access, Standard, FALL RISK Patient Profile/Admitting Diagnosis: Pt is 83 yo male presented to ED via EMS 4 days s/p ureteral stent placement at [facility]. Pt presented with lethargy, weakness and increased SOB. In ED pt was diagnosed with Sepsis, pyelonephritis and Acute respiratory hailure with hypoxia. Abdominal/pelvicCT showed perinephretic stranding that may be secondary to stent placement or pyelonephritis. Pt treated with IV ABX, and supplemental oxygen. Pt admitted to Med-Surg Unit. Pt then with episode of hypotension requiring transfer to ICU unit. PT consult placed prior to discharge to home PMHX: Acute respiratory failure with hypoxia (Acute) Pyelonephritis (Acute) Sepsis (Acute) Acute UTI (Acute) Kidney stones (Chronic) Bacteremia (Acute) PVD (peripheral vascular disease) (Chronic) Cellulitis of leg (Acute) Atrial flutter (Acute) Obesity (Chronic) History of pulmonary embolism (Acute ~03/2019) Hyperlipidemia (Chronic) Medical History (Updated 09/05/24 @ 06:46 by Forest Burton MD) Hydronephrosis UTI (urinary tract infection) Hydronephrosis, right Hx of sepsis Hypertensive kidney disease with CKD stage III Chronic anticoagulation Hypertension COVID-19 (~11/12/21) Spinal stenosis Deep vein thrombosis (DVT) of popliteal vein of right lower extremity [place] classified according to extent of body surface involved Age 12, playing with matches, history of multiple skin grafting HNP (herniated nucleus pulposus), lumbar Right kidney stone (01/20/18) uric acid stone Surgical History History of skin graft Status post lumbar microdiscectomy (~2018) L3-4, at [facility] H/O ankle fusion S/P cystoscopy with ureteral stent placement 08/2024 Social History/Home Situation: Pt resides with in double wide trailer with 4 SARI with 2 rails and a Grab bar at door frame to enter. Prior to hospitalization, Pt independent ambulation within home without device. He utilizes a cane for out of home ambulation. He is independent with self care. He has grab bars at the bathroom door as well as near the shower. Equipment Owned/DME:cane Subjective: Objective: General Observation: Pt presented supine in bed with HOB at 40 degrees. Mental Status: Alert oriented to person and place. Pain: denied Vital Signs: Monitored via telemetry. 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 Right Lower Extremity: Hip flexion: 3- /5; hip abduction:2+ /5; hip extension: 3- /5; knee extension: 3 /5; knee flexion: 2+ /5 Left Lower Extremity: Hip flexion: 3- /5; hip abduction: 2+ /5; hip extension: 3- /5; knee extension: 3 /5; knee flexion: 2+ /5 Sensation: impaired to light touch along areas of faulkner to BLE Skin Integrity: Thick dry scaling noted to B lower leg/shins Bed Mobility/Transfers: supine to sit independent sit to stand CGA from elevated bed bed to chair CGA with FWW assist for FWW management to keep closer to his body and to reduce speed of movement Chair to bed min A with SPC Gait: pt ambulated 40 feet with FWW with CGA demonstrating the following deviations: forward flexed trunk, wide TAJ outside frame of FWW, impaired B knee flexion during swing phase, Pt mod A to taks 2 steps with SPC Balance: [] Static Sitting: Good Dynamic Sitting: Fair Static Standing: Fair - with UE support Dynamic Standing: Poor + with CGA Special Tests: Mobility Limitations Standardized Measure [facility] AM-PAC 6 clicks Basic Mobility Inpatient Short Form: Raw Score: 19 CMS Score: 41.77% Informed Consent/Education: Patient instructed in purpose of PT consult and plan of care. Assessment: Patient is a 83 year old male referred to physical therapy services with the diagnosis of Sepsis. Pt demonstrates instability with the cane during transfers and unable to safely advance LEs. Pt demonstrates improved mobility with use of FWW however continues to require CGA at this time. Pt would benefit from continued skilled PT within home setting as he is being dischargedto home. Patient presents with clinical signs and symptoms consistent with admitting diagnosis, as demonstrated by the following impairment level findings: 1. Impairment in strength BUE and BLE major musculature 2. impaired balance in standing 3. impaired functional activity tolerance in sitting and standing 4. impaired ankle ROM 5. poor safety awareness/ insight into unsafe situations. Impairments are contributing to the following functional limitations: 1. AMPAC score. 2. decline in bed mobility skills 3. decline in transfer skills 4. difficulty ambulating without assistance and assistive device 5. inability to perform stairs safely 6. risk for falls 7. Increased time to complete ADL/ mobility tasks Patient is assessed as a Moderate 58583 complexity based on the following: History: Pt is 83 yo male presenting with complex past medical history as outlined above Examination: demonstrates impairments in strength, ROM, balance and functional activity tolerance which impede his ability to perform functional mobility tasks safely without assistance as stated prior. Presentation: evolving Decision Making: moderate Goals: Plan of Care/Treatment Plan: DISCHARGE RECOMMENDATIONS: [] [] Home with no services [] [X] Home with services PT: Pt to utilize FWW for mobility at home the Cane is NOT appropriate at this time Patient will benefit from home health PT services in order to progress mobility level using least restrictive assistive ambulatory device, assess home safety, identify additional equipment needs, and establish a functional maintenance program that will increase ability of patient to remain at home. [] Home with outpatient PT [] [] SNF for continued rehabilitation [] [] [facility] [] [] SNF versus LTC based on ability to participate and progress [] TREATMENT CODE/TIME:85518/ [id number]
--- NOTE | 2024-09-14 11:22 | PDOC.HHF2F ---
Home Health Referral Home Health Orders Clinical synopsis of why skilled professionals are needed: Kidney stones, weakness, c. diff, severe sepsis Physical Therapist: Check all that apply Increase strength & endurance for safe mobility at home: Ordered To design/establish home maintenance program: Ordered Fall reduction therapy program for patient with history of frequent falls: Ordered Home safety evaluation and teaching/gait training including stair management (if applicable): Ordered Encounter Date and Reason: I certify that a FTF encounter for this patient was performed on September 14, 2024 and that such encounter was related to the primary reason the patient requires home health services. The encounter was conducted in the following manner: By me as the certifying physician, IT SERVICE DELIVERY MANAGER, PA or By an inpatient physician, IT SERVICE DELIVERY MANAGER or PA during an inpatient stay who communicated findings to me, Certification And Authentication I certify that I composed the above information based on my clinical judgment relating to this patient's medical condition and, if applicable, clinical findings communicated to me by the NPP or inpatient physician who performed the FTF encounter. Name of Provider that will be monitoring home health services: Kareem Hart
--- NOTE | 2024-09-14 11:23 | PDOC.CMDIS ---
Date of service: 09/14/24 Time of Service: 11:23 LACE Index Scoring Tool Questions: Length of Stay (in days): 7 - 13 Was the patient admitted via the E.D.?: Yes Comorbidities: PVD and Liver or Renal Disease E.D. Visits: 1 Answers: Total Score: 14 Risk of Readmission: High Risk Care Management Discharge Plan Reason for Hospitalization: Pyelonephritis Discharge Plan: Josep will return home with new home health services for PT. He will follow up with his PCP and plan of care and his will transport him home via private vehicle. Patient/Family Education Needs: Review discharge instructions, limitations, follow up plan and discuss Ask Me Three Services Needed at Discharge: Home Health Care Services SDOH Health Related Social Needs: No Data to Display
== END 2024-09-14 11:10 | disposition home health service (06) | DRG 871 ==
LOC: ER 23:44 → EDHOLD 23:55 → MS 09-05 08:37 → ICU 09-09 17:16 → MS 09-13 19:47
PROVIDERS: Family Medicine; Nurse Practitioner Acute Care; Admitting Provider Hospitalist; Emergency Provider Emergency Medicine; PCP Family Medicine; Responsible Provider Family Medicine; Visit Provider Hospitalist
DX: A41.9 Sepsis, unspecified organism (principal); J96.01 Acute respiratory failure with hypoxia; I48.3 Typical atrial flutter; A04.72 Enterocolitis due to Clostridium difficile, not specified as recurrent; N10 Acute pyelonephritis; N17.9 Acute kidney failure, unspecified; Z16.12 Extended spectrum beta lactamase (ESBL) resistance; K92.1 Melena; I12.9 Hypertensive chronic kidney disease with stage 1 through stage 4 chronic kidney disease, or unspecified chronic kidney disease; K74.60 Unspecified cirrhosis of liver; B37.2 Candidiasis of skin and nail; Z79.01 Long term (current) use of anticoagulants; I73.9 Peripheral vascular disease, unspecified; E66.9 Obesity, unspecified; Z86.711 Personal history of pulmonary embolism; E78.5 Hyperlipidemia, unspecified; N18.30 Chronic kidney disease, stage 3 unspecified; M48.00 Spinal stenosis, site unspecified; N20.0 Calculus of kidney; B96.1 Klebsiella pneumoniae [K. pneumoniae] as the cause of diseases classified elsewhere; M51.26 Other intervertebral disc displacement, lumbar region; M48.061 Spinal stenosis, lumbar region without neurogenic claudication; I95.9 Hypotension, unspecified; D64.9 Anemia, unspecified; R79.1 Abnormal coagulation profile; E86.0 Dehydration
CPT/HCPCS: 36410; 52310; 00123; 36415; 36430; 36592; 51701; 76942; 80048; 80053; 84145; 85027; 86850; 86900; 86901; 86920; 87040; 87077; 87493; 87637; 93005; 93306; 96365; 96366; 96367; 97110; 97162; 97530; 99222; 99232; 99285; 71046; 74176; 81003; 81015; 83605; 83735; 84484; 85014; 85018; 85025; 85610; 87086; 87186; 93010; 99223; 99233; 99239; J0131; J2020; J2470; J2543; J3430; J7168; J7620; P9016

== ENCOUNTER → 2024-09-06 07:56 | Outpatient (BNVA) | payer MEDICARE, BC, SELFPAY | PROVIDERS: PCP Family Medicine; Referring Provider Family Medicine; Visit Provider Urology ==

== ENCOUNTER 2024-09-22 14:24 | Inpatient (IN) | payer MEDICARE, BC, SELFPAY ==
[2024-09-22] VITALS (40 sets, daily range): BP systolic 88–133; BP diastolic 42–99; PULSE 71–174; RESP 15–24; TEMP 36.8–37.4; O2SAT 87–100
--- NOTE | 2024-09-22 14:30 | RT.EKG_ITS ---
APPROVED REPORT Exam: Resting ECG Reason for Exam: hypotension Patient Location: E HR:86 bpm ECG Measurements Heart Rate 86 AXIS [place] 209 P 23 QRSd 121 QRS -46 QT 371 T 9 QTc 445 Conclusion Sinus rhythm. 86 normal axis no stemi
[2024-09-22 15:52] LABS: Abs Immature Grans 0.11 10^3/uL (0.0-0.06); Absolute Eosinophil Count 0.12 10^3/uL (0.0-0.7); Basophils % 0.6 %; Eosinophils % 0.8 %; HCT 26.2 % (40.0-50.0); Immature Grans % 0.7 %; Lymphocytes % 5.5 %; MCH 28.4 pg (27.0-33.0); MCHC 30.5 % (32.0-36.0); MCV 93 fL (80-95); MPV 10.1 fL (8.0-11.0); Monocytes % 8.9 %; Neutrophils % 83.5 %; Platelet Count 635 10^3/uL (130-400); RBC 2.82 10^6/uL (4.36-5.78); RDW 14.2 % (11.8-14.1); RDW-SD 48.5 fL; WBC 15.58 10^3/uL (4.4-10.8)
[2024-09-22] MEDS: ACETAMINOPHEN 1,000 MG/100 ML BAG 400 MG IVPB (15:54)
[2024-09-22 15:57] LABS: Absolute Basophil Count 0.09 10^3/uL (0.0-0.2); Absolute Lymphocyte Count 0.86 10^3/uL (1.2-3.4); Absolute Monocyte Count 1.39 10^3/uL (0.1-0.8); Absolute Neutrophil Count 13.01 10^3/uL (1.2-6.7)
[2024-09-22 16:11] LABS: ALT 17 U/L (16-63); AST 15 U/L (15-37); Albumin 2.4 g/dL (3.4-5.0); Alkaline Phosphatase 85 U/L (46-116); Anion Gap 8.3 mmol/L (3-11); BUN 22 mg/dL (7-18); CO2 25.7 mmol/L (21.0-32.0); CREATININE 2.7 mg/dL (0.70-1.30); Calcium 8.3 mg/dL (8.5-10.1); Chloride 108 mmol/L (98-107); Estimated GFR 22.96 (mL/min/1.73m2); Glucose 112 mg/dL (74-106); Potassium 5.8 mmol/L (3.5-5.1); Sodium 142 mmol/L (136-145); Total Protein 6.8 g/dL (6.4-8.2)
[2024-09-22 16:13] LABS: Procalcitonin 0.18 ng/mL
[2024-09-22] MEDS: PIPERACILLIN/TAZO 4.5 GM in Normal Saline 100 ML IVPB (16:29)
[2024-09-22] MEDS: Furosemide 100 MG/10 ML VIAL 80 MG IVP (16:59)
[2024-09-22] MEDS: Insulin REGULAR-Human 100 UNITS/ML UNIT IV (17:00)
[2024-09-22] MEDS: Normal Saline 1,000 ML 1000 ML IV (17:01)
[2024-09-22] MEDS: VANCOMYCIN/WATER (PEG) 1.5 GM/300 ML BAG IVPB (17:01)
[2024-09-22] MEDS: Dextrose 50%-Water 25 GM/50 ML SYR IVP (17:01)
--- NOTE | 2024-09-22 19:09 | W.ED.GENAD ---
Discharge Plan Disposition Patient Disposition: Admit to [facility] Condition: Stable Discharge Details Chief Complaint: Dizzy/Sync Clinical Impression: Anemia, Bacteremia, Fever, Acute hypotension Primary Care Provider: Kareem Hart ED Provider: Kirti Gamez Home Meds and New Rx's Prescriptions: No Action cyanocobalamin (vitamin B-12) 1,000 mcg capsule 1,000 mcg PO DAILY cholecalciferol (vitamin D3) 10 mcg (400 unit) capsule 1,000 unit PO DAILY atorvastatin 20 mg tablet 20 mg PO QHS Qty: 90 3RF diltiazem HCl 240 mg capsule,extended release 24hr 240 mg PO DAILY Qty: 90 3RF valsartan 80 mg tablet 80 mg PO DAILY Qty: 90 3RF sodium bicarbonate 650 mg tablet 650 mg PO BID Qty: 180 4RF warfarin 5 mg tablet 5 mg PO DAILY Protocol: Dose Management Condition: Friday Dose/Route: 5 mg Instruction: 1 x 5 mg tablet Condition: Friday Dose/Route: 5 mg Instruction: 1 x 5 mg tablet Condition: Friday Dose/Route: 2.5 mg Instruction: 0.5 x 5 mg tablets Condition: Friday Dose/Route: 5 mg Instruction: 1 x 5 mg tablet Condition: Dose/Route: 2.5 mg Instruction: 0.5 x 5 mg tablets Condition: Friday Dose/Route: 5 mg Instruction: 1 x 5 mg tablet Condition: Friday Dose/Route: 5 mg Instruction: 1 x 5 mg tablet Protocol Text: Adjustment Start Date: Friday08/24/24 INR Value: 2.2 INR Date: 08/24/24 Recheck Date: 09/07/24 Rx Instructions: 5 mg everyday, except Friday and Friday is 2.5mg [facility] General Date/Time Provider Initiated Documentation: 09/22/24 14:32. Limitations to Documentation: physical limitation. Information obtained by: patient, EMS and old records reviewed. HPI Narrative: 83-year-old gentleman with past medical history of PVD, pulmonary embolism, recent Klebsiella UTI with lithotripsy performed at [facility], subsequent sepsis and C. difficile infections. Patient was discharged from the hospital on Dificid, but had completed antibiotic dose. The patient reports that today he went to the bathroom and he had to go poop, but he states that he sat down and he could not get back up and he just sat there on the toilet. He felt like he was going to pass out but he did not pass out or lose consciousness. Denies any chest pain shortness of breath, headache. Related Data Home Medications ?Medication ?Instructions ?Recorded ?Confirmed cyanocobalamin (vitamin B-12) 1,000 mcg PO DAILY 07/28/19 09/04/24 1,000 mcg capsule cholecalciferol (vitamin D3) 10 1,000 unit PO DAILY 03/30/21 09/04/24 mcg (400 unit) capsule atorvastatin 20 mg tablet 20 mg PO QHS #90 tabs 01/30/24 09/04/24 diltiazem HCl 240 mg 240 mg PO DAILY #90 caps 01/30/24 09/04/24 capsule,extended release 24 hr valsartan 80 mg tablet 80 mg PO DAILY #90 tabs 01/30/24 09/04/24 warfarin 5 mg tablet 5 mg PO DAILY 01/31/24 09/05/24 sodium bicarbonate 650 mg tablet 650 mg PO BID #180 tabs 09/17/24 Previous Rx's ?Medication ?Instructions ?Recorded atorvastatin 20 mg tablet 20 mg PO QHS #90 tabs 01/30/24 diltiazem HCl 240 mg 240 mg PO DAILY #90 caps 01/30/24 capsule,extended release 24 hr valsartan 80 mg tablet 80 mg PO DAILY #90 tabs 01/30/24 sodium bicarbonate 650 mg tablet 650 mg PO BID #180 tabs 09/17/24 Allergies Allergy/AdvReac Type Severity Reaction Status Date / Time tamsulosin AdvReac Intermediate diarrhea Verified 09/04/24 20:23 General Stated Complaint: Dizzy/Sync MAYELIN: 2 Exam Narrative Exam Narrative: Review of Systems: All systems reviewed & are unremarkable except as noted in HPI and below Obese, chronically ill-appearing Febrile NCAT RRR, hypotensive Unlabored respiratory effort, clear bilaterally Nondistended abdomen Course Vital Signs Vital signs: Vital Signs Temperature 37.4 C 09/22/24 14:28 Pulse 95 H 09/22/24 14:28 Respiratory Rate 20 09/22/24 14:28 Blood Pressure 96/65 L 09/22/24 14:28 Pulse Oximetry 97 09/22/24 14:28 Temperature 37.4 C 09/22/24 14:28 Temperature Source Oral 09/22/24 14:28 Pulse 83 09/22/24 18:50 Pulse 82 09/22/24 18:50 Respiratory Rate 23 09/22/24 18:50 Respiratory Effort Normal, Non-Labored 09/22/24 17:14 Respiratory Depth Normal 09/22/24 17:14 Respiratory Pattern Normal 09/22/24 17:14 Blood Pressure 121/99 H 09/22/24 18:46 Blood Pressure Mean 106 09/22/24 18:46 Pulse Oximetry 97 09/22/24 18:50 Oxygen Delivery Method Room Air 09/22/24 14:28 Oxygen Flow Rate 0 09/22/24 14:28 Lab/Test Results Lab/Test Results: 09/22/24 17:40 Urine - Cath Best Indwelling Urine Culture - Pending 09/22/24 16:20 Blood Blood Culture - Pending 09/22/24 15:23 Blood Blood Culture - Pending Laboratory Tests Range/Units 09/22/24 15:23 WBC (4.4-10.8) 10^3/uL 15.58 H RBC (4.36-5.78) 10^6/uL 2.82 L Hgb (13.5-17.5) g/dL 8.0 L Hct (40.0-50.0) % 26.2 L MCV (80-95) fL 93 MCH (27.0-33.0) pg 28.4 MCHC (32.0-36.0) % 30.5 L RDW (11.8-14.1) % 14.2 H Plt Count (130-400) 10^3/uL 635 H MPV (8.0-11.0) fL 10.1 Immature Gran % % 0.7 Neutrophils % % 83.5 Lymphocytes % % 5.5 Monocytes % % 8.9 Eosinophils % % 0.8 Basophils % % 0.6 Nucleated RBC % (0.0-0.3) % 0.0 Absolute Neutrophils (1.2-6.7) 10^3/uL 13.01 H Absolute Lymphocytes (1.2-3.4) 10^3/uL 0.86 L Absolute Monocytes (0.1-0.8) 10^3/uL 1.39 H Absolute Eosinophils (0.0-0.7) 10^3/uL 0.12 Absolute Basophils (0.0-0.2) 10^3/uL 0.09 Sodium (136-145) mmol/L 142 Potassium (3.5-5.1) mmol/L 5.8 H Chloride (98-107) mmol/L 108 H Carbon Dioxide (21.0-32.0) mmol/L 25.7 Anion Gap (3-11) mmol/L 8.3 BUN (7-18) mg/dL 22 H Creatinine (0.70-1.30) mg/dL 2.7 H Est GFR (CKD-EPI 2020) (mL/min/1.73m2) 22.96 Glucose (74-106) mg/dL 112 H Calcium (8.5-10.1) mg/dL 8.3 L Total Bilirubin (0.2-1.0) mg/dL 1.0 AST (15-37) U/L 15 ALT (16-63) U/L 17 Alkaline Phosphatase (46-116) U/L 85 Total Protein (6.4-8.2) g/dL 6.8 Albumin (3.4-5.0) g/dL 2.4 L Procalcitonin ng/mL 0.18 Medical Decision Making Emergent evaluation of hypotension fever and generalized weakness. Patient recently discharged from the hospital for urosepsis and C. difficile infection. Patient does not endorse any persistent vomiting. He is not currently on antibiotics. Initial differential includes recurrent urosepsis, dehydration, electrolyte abnormality. Patient's EKG independently interpreted: Sinus 86 right bundle branch block, no STEMI. Blood pressure is improving with IV fluids. Lab work and cultures have been obtained. He does have a slight leukocytosis of 15.5. This is up from hospital discharge. Anemia is at baseline, no indication for emergent transfusion. His creatinine is slightly up and his potassium is also elevated at 5.8. Medications for shifting including Lasix, insulin and glucose were given. Patient has not made urine and only has a small amount of urine in his bladder. Will continue fluid resuscitation as his blood pressure is continuing to improve and maps are above 65, so I will not start pressor support at this time. Patient is admitted to hospital medicine for further management. Quality:[facility] Health Related Social Needs: No Data to Display [facility] All Active Problems (Updated 09/22/24 @ 19:17 by Kirti Gamez MD) Acute hypotension (Acute) Fever (Acute) Anemia (Chronic) C. difficile colitis (Acute) History of ESBL Klebsiella pneumoniae infection (Acute) Candidal intertrigo (Acute) Acute UTI (Acute) Kidney stones (Chronic) Bacteremia (Acute) PVD (peripheral vascular disease) (Chronic) Cellulitis of leg (Acute) Atrial flutter (Acute) Obesity (Chronic) History of pulmonary embolism (Acute ~03/2019) Hyperlipidemia (Chronic) Medical History (Updated 09/22/24 @ 19:17 by Kirti Gamez MD) CKD (chronic kidney disease) Cirrhosis of liver Hydronephrosis UTI (urinary tract infection) Hydronephrosis, right Hx of sepsis Hypertensive kidney disease with CKD stage III Chronic anticoagulation Hypertension COVID-19 (~11/12/21) Spinal stenosis Deep vein thrombosis (DVT) of popliteal vein of right lower extremity [place] classified according to extent of body surface involved Age 12, playing with matches, history of multiple skin grafting HNP (herniated nucleus pulposus), lumbar Right kidney stone (01/20/18) uric acid stone Surgical History History of skin graft Status post lumbar microdiscectomy (~2018) L3-4, at [facility] H/O ankle fusion S/P cystoscopy with ureteral stent placement Family History Mother , age 98 No problems noted. Father , age96 No problems noted. Sister No problems noted. Son , age 22 No problems noted. Daughter , age 40 Alcohol abuse Hypertension Sepsis Paternal Grandmother , age 102 No problems noted. Social History Smoking/Tobacco Use Status: Never Smoking risk assessment performed?: Yes Alcohol Intake: never Drug use: Never Substance use type: does not use Caregiver/Support person: Yes Household members: spouse Housing: house Do you need help understanding health information?: Rarely Pets and animals: Yes Pets and animals: dog(s) Sexually active: No Do you think of yourself as: straight/heterosexual Current gender identity: male What is your relationship status?: How often do you talk on the phone with friends or family?: three or more times per week How often do you get together with friends or relatives?: twice per week How often do you attend episcopal or yazidi services?: decline to answer Do you belong to any clubs or organized social groups?: no Panel score (0-1 are the most socially isolated patients): 2 Duration: decline to answer Frequency: decline to answer Laurie/Sabianist: No preference Special laurie needs: No Seatbelt use: sometimes Helmet use: Yes Helmet use: sometimes Drive intox 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 nascar driver: No
[2024-09-22] MEDS: Sodium Zirconium Cyclosilicate 10 GM PKT PO (19:14)
[2024-09-22 19:50] LABS: Potassium 5.5 mmol/L (3.5-5.1)
[2024-09-22 20:15] LABS: INR 1.5 (0.9-1.1); Prothrombin Time 14.9 sec (9.1-11.1)
--- NOTE | 2024-09-22 20:23 | W.PCEDHO ---
Registration Status: Primary Language: Preferred Language: ED Information & Data Chief Complaint Dizzy/Sync 09/22/24 19:10 Triage Note reported to EMS PT was 09/22/24 14:28 not responding approp. had a near sync episode increased weakness today. received 500ml NS en route Medical / Surgical History (Last Updated 09/05/24 @ 08:30 by Aron Villegas) CKD (chronic kidney disease) Cirrhosis of liver Hydronephrosis UTI (urinary tract infection) Hydronephrosis, right Hx of sepsis Hypertensive kidney disease with CKD stage III Chronic anticoagulation Hypertension COVID-19 (~11/12/21) Spinal stenosis Deep vein thrombosis (DVT) of popliteal vein of right lower extremity [place] classified according to extent of body surface involved HNP (herniated nucleus pulposus), lumbar Right kidney stone (01/20/18) (Last Reviewed 11/03/23 @ 06:48 by Corinne Rahman) History of skin graft Status post lumbar microdiscectomy (~2018) H/O ankle fusion S/P cystoscopy with ureteral stent placement Most Recent Vital Signs Temperature 37.4 C 09/22/24 14:28 Temperature Source Oral 09/22/24 14:28 Pulse 83 09/22/24 18:50 Pulse 82 09/22/24 18:50 Respiratory Rate 23 09/22/24 18:50 Respiratory Effort Normal, Non-Labored 09/22/24 17:14 Respiratory Depth Normal 09/22/24 17:14 Respiratory Pattern Normal 09/22/24 17:14 Blood Pressure 121/99 H 09/22/24 18:46 Blood Pressure Mean 106 09/22/24 18:46 Pulse Oximetry 97 09/22/24 18:50 Oxygen Delivery Method Room Air 09/22/24 14:28 Oxygen Flow Rate 0 09/22/24 14:28 Allergies tamsulosin Adverse Reaction (Intermediate, Verified 09/04/24 20:23) diarrhea IV IV Catheter Type [Left Saline Lock Antecubital] IV Catheter Type [Left Forearm Saline Lock ] IV Catheter Gauge [Left 148 Antecubital] IV Catheter Gauge [Left 20 Forearm] Diet Orders Category Date Time Status Regular/Normal [DIET] Nutrition 09/23/24 Breakfast Ordered Diagnostics 09/22/24 09/22/24 09/22/24 Range/Units 20:08 19:09 15:23 WBC 15.58 H (4.4-10.8) 10^3/uL RBC 2.82 L (4.36-5.78) 10^6/uL Hgb 8.0 L (13.5-17.5) g/dL Hct 26.2 L (40.0-50.0) % MCV 93 (80-95) fL MCH 28.4 (27.0-33.0) pg MCHC 30.5 L (32.0-36.0) % RDW 14.2 H (11.8-14.1) % Plt Count 635 H (130-400) 10^3/uL MPV 10.1 (8.0-11.0) fL Immature Gran % 0.7 % Neutrophils % 83.5 % Lymphocytes % 5.5 % Monocytes % 8.9 % Eosinophils % 0.8 % Basophils % 0.6 % Nucleated RBC % 0.0 (0.0-0.3) % Absolute Neutrophils 13.01 H (1.2-6.7) 10^3/uL Absolute Lymphocytes 0.86 L (1.2-3.4) 10^3/uL Absolute Monocytes 1.39 H (0.1-0.8) 10^3/uL Absolute Eosinophils 0.12 (0.0-0.7) 10^3/uL Absolute Basophils 0.09 (0.0-0.2) 10^3/uL PT 14.9 H (9.1-11.1) sec INR 1.5 H (0.9-1.1) Sodium 142 (136-145) mmol/L Potassium 5.5 H 5.8 H (3.5-5.1) mmol/L Chloride 108 H (98-107) mmol/L Carbon Dioxide 25.7 (21.0-32.0) mmol/L Anion Gap 8.3 (3-11) mmol/L BUN 22 H (7-18) mg/dL Creatinine 2.7 H (0.70-1.30) mg/dL Est GFR (CKD-EPI 2020) 22.96 (mL/min/1.73m2) Glucose 112 H (74-106) mg/dL Calcium 8.3 L (8.5-10.1) mg/dL Total Bilirubin 1.0 (0.2-1.0) mg/dL AST 15 (15-37) U/L ALT 17 (16-63) U/L Alkaline Phosphatase 85 (46-116) U/L Total Protein 6.8 (6.4-8.2) g/dL Albumin 2.4 L (3.4-5.0) g/dL Procalcitonin 0.18 ng/mL Urine Color Pending Urine Clarity Pending Urine pH Pending Ur Specific [place] Pending Urine Protein Pending Urine Ketones Pending Urine Blood Pending Urine Nitrite Pending Urine Bilirubin Pending Urine Urobilinogen Pending Ur Leukocyte Esterase Pending Urine Glucose Pending 09/22/24 20:08 Urine Culture - Pending Urine - Cath Best Indwelling 09/22/24 16:20 Blood Culture - Pending Blood 09/22/24 15:23 Blood Culture - Pending Blood [id number] Documentation Fingerstick Glucose Start: 09/22/24 14:32 Freq: .Stat Status: Active Protocol: Activity Type Activity Date Activity User E-sign Co-sign Detail Recorded Client Recorded Date Recorded By Document 09/22/24 14:33 BKG DAEMON(10) [id number] 09/22/24 14:36 BKG DAEMON(10) Intake and Output - 24 Hour Total 09/22/24 14:16 thru 09/22/24 20:09 Intake Total 1500 Output Total 500 Balance 1000 Weight 117 kg Intake: IV 1500 Output: Urine 500 Falls Risk Assessment History of Falls Previous History 09/22/24 17:14 Contributing Factors Unstable,Impairments 09/22/24 17:14 Ambulatory Aids Uses ambulatory device + 09/22/24 17:14 Tubes/Lines With any additional score 09/22/24 17:14 Cognition No cognitive impairment 09/22/24 17:14 Fall Total Score 71 09/22/24 17:14 Level of Risk High Risk 09/22/24 17:14 Problems (Last Updated 09/05/24 @ 08:30 by Aron Villegas) Acute hypotension (Acute) Fever (Acute) Anemia (Chronic) Bacteremia (Acute) v v v v v v v v v Sending and/or Receiving Nurses: Please use comment section below to note any information pertinent to the patient hand-off not included above. Information / Comments:no questions. Report received from:Bam HERNANDEZ
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
[2024-09-22 20:29] LABS: Clarity Clear (Clear); Specific Gravity 1.015 (1.005-1.025)
[2024-09-22 20:30] LABS: Bilirubin Negative (Negative); Blood Small (Negative); Glucose Negative (Negative); Ketones Negative (Negative); Leukocyte Esterase Large (Negative); Nitrite Negative (Negative); Urobilinogen 0.2 mg/dL (Up to 0.2)
[2024-09-22 20:34] LABS: WBC >50 HPF (0-5)
[2024-09-22 20:35] LABS: C & S Indicated? C&S Done As Ordered
[2024-09-22] MEDS: Normal Saline Flush 10 ML SYR IVP (21:10)
[2024-09-22] MEDS: Atorvastatin 20 MG TAB PO (21:10)
[2024-09-22] MEDS: Sodium Bicarbonate 650 MG TAB PO (22:40)
[2024-09-22] MEDS: Vancomycin 125 MG CAP PO (22:40)
[2024-09-23] VITALS (8 sets, daily range): BP systolic 91–171; BP diastolic 51–150; PULSE 76–98; RESP 15–24; TEMP 35.8–37.4; O2SAT 95–98
[2024-09-23] MEDS: Sodium Zirconium Cyclosilicate 10 GM PKT PO ×4 (01:05→23:10)
[2024-09-23] MEDS: Vancomycin 125 MG CAP PO ×4 (03:40→20:54)
[2024-09-23] MEDS: Normal Saline Flush 10 ML SYR IVP ×3 (05:13→20:55)
[2024-09-23 07:07] LABS: Abs Immature Grans 0.08 10^3/uL (0.0-0.06); Absolute Basophil Count 0.11 10^3/uL (0.0-0.2); Absolute Monocyte Count 1.44 10^3/uL (0.1-0.8); Basophils % 0.9 %; Eosinophils % 3.4 %; HCT 25.9 % (40.0-50.0); Immature Grans % 0.7 %; Lymphocytes % 10.4 %; MCHC 30.5 % (32.0-36.0); MCV 92 fL (80-95); MPV 10.2 fL (8.0-11.0); Monocytes % 12.1 %; Neutrophils % 72.5 %; Platelet Count 527 10^3/uL (130-400); RBC 2.82 10^6/uL (4.36-5.78); RDW 14.4 % (11.8-14.1); RDW-SD 48.6 fL; WBC 11.88 10^3/uL (4.4-10.8)
[2024-09-23 07:11] LABS: Absolute Lymphocyte Count 1.24 10^3/uL (1.2-3.4); Absolute Neutrophil Count 8.61 10^3/uL (1.2-6.7)
[2024-09-23 07:24] LABS: Anion Gap 11.6 mmol/L (3-11); BUN 22 mg/dL (7-18); CO2 23.4 mmol/L (21.0-32.0); CREATININE 2.8 mg/dL (0.70-1.30); Calcium 8.2 mg/dL (8.5-10.1); Chloride 107 mmol/L (98-107); Estimated GFR 21.98 (mL/min/1.73m2); Glucose 89 mg/dL (74-106); Potassium 4.9 mmol/L (3.5-5.1); Sodium 142 mmol/L (136-145)
[2024-09-23 07:39] LABS: INR 1.6 (0.9-1.1); Prothrombin Time 15.5 sec (9.1-11.1)
[2024-09-23 07:50] LABS: HGB 7.9 g/dL (13.5-17.5)
[2024-09-23] MEDS: Cholecalciferol (Vitamin D3) 1,000 UNIT TAB 1000 UNITS PO (09:07)
[2024-09-23] MEDS: Sodium Bicarbonate 650 MG TAB PO ×2 (09:07→20:54)
[2024-09-23] MEDS: Cyanocobalamin 500 MCG TAB 1000 MCG PO (09:07)
[2024-09-23] MEDS: dilTIAZem CD 180 MG CAPCR PO (09:07)
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
--- NOTE | 2024-09-23 16:13 | W.PM.PROGNOT ---
Date of Service Date of service: 09/23/24 Time of Service: 16:13 Assessment and Plan Assessment and plan (1) Acute hypotension: Status: Acute Assessment and plan: General weakness a/w hypotension. Better after fluids in the ED. Etiology is uncertain. WBC is high but not septic picture overall. WBC is about the same as discharge level. Recent ESBL, should cover this until we figure this out. He doesn't have UTI symptoms however. Low procal reassuring. I don't think he needs to continue vancomycin IV. Recent C. diff, but stools have been improving. Will cover with oral vanco while on IV antibiotics in effort to avoid recurrence. His leg wounds do not appear infected This could be as simple as low BPs related to resuming his losartan. His BPs were running low inpatient and we had be holding them. 09/23/24 Will recheck orthostatics in am (2) C. difficile colitis: Status: Acute Assessment and plan: s/p appropriate treatment and syptoms had improved. Covering with oral vanco for now as above. (3) Atrial flutter: Status: Acute Assessment and plan: Currently in sinus. Continue diltiazem, but cut dose to 180 given low BP on presentation. Continue warfarin, INR below goal (had vitamin K last admission, also has h/o PE). Follow. 09/23/24 Recheck INR in am, cw coumadin (4) Anemia: Status: Chronic Assessment and plan: Similar to dicharge h/h with no active bleeding. Continue iron orally. Follow. (5) Hypertension: Assessment and plan: Holding losartan and givign lower dose dilt given low BPs (6) CKD (chronic kidney disease): Assessment and plan: Cr slightly above baseline, should improve with hydration and bringing BP up 09/23/24 Renal fx has had some decrease showing a gfr from 2.0-2.7-2.8 since 09/13/24. In reviewing older data though, his CcCl actually appears a bit better (Cr at 3.1 on 09/07/24) Subjective Subjective Interval history since last seen: Pt without significant complaint today. Exam Narrative Exam Narrative: GEN: Alert and oriented x 4, pleasant and cooperative, gives linear but not detailed history. No acute distress at rest. HEENT: Head atraumatic. Conjunctiva clear, no icterus. PEERL, EOMI. no rhinorrhea. MMM, OP benign. Neck is supple with no masses or lymphadenopathy, trachea midline LUNGS: CTAB with normal effort CV: RRR with no murmurs, gallops, or rubs. ABD: active bowel sounds, soft, nontender and nondistended. No masses. EXT: no cyanosis, clubbing, or edema MSK: No joint redness or swelling. No CVAT NEURO: CN 2-12 grossly intact. Normal movement of 4 extremities. Normal speech and coordination. No tremor SKIN: No rashes x chronic wasting/scaring in rogelio legs with open wounds on ankles, no change from previous. no drainage. PSYCH: normal mood and affect Objective Last Vital Signs Temp 36.9 C 09/23/24 15:21 Pulse 87 09/23/24 15:21 Resp 24 09/23/24 15:21 BP 111/70 09/23/24 15:21 Pulse Ox 96 09/23/24 15:21 Laboratory Results - last 24 hr 09/22/24 09/22/24 09/22/24 15:23 19:09 20:08 WBC RBC Hgb Hct MCV MCH MCHC RDW Plt Count MPV Immature Gran % Neutrophils % Lymphocytes % Monocytes % Eosinophils % Basophils % Nucleated RBC % Absolute Neutrophils Absolute Lymphocytes Absolute Monocytes Absolute Eosinophils Absolute Basophils PT 14.9 H INR 1.5 H Sodium 142 Potassium 5.8 H 5.5 H Chloride 108 H Carbon Dioxide 25.7 Anion Gap 8.3 BUN 22 H Creatinine 2.7 H Est GFR (CKD-EPI 2020) 22.96 Glucose 112 H Calcium 8.3 L Total Bilirubin 1.0 AST 15 ALT 17 Alkaline Phosphatase 85 Total Protein 6.8 Albumin 2.4 L Procalcitonin 0.18 Urine Color Yellow Urine Clarity Clear Urine pH 5.0 Ur Specific [place] 1.015 Urine Protein Trace Urine Ketones Negative Urine Blood Small H Urine Nitrite Negative Urine Bilirubin Negative Urine Urobilinogen 0.2 Ur Leukocyte Esterase Large Urine RBC TNP Urine WBC >50 H Ur Epithelial Cells TNP Urine Crystals TNP Urine Bacteria TNP Urine Casts TNP Urine Mucus TNP Ur Culture Indicated? C&S Done As Ordered Urine Glucose Negative 09/23/24 09/23/24 06:11 07:21 WBC 11.88 H RBC 2.82 L Hgb 7.9 L Hct 25.9 L MCV 92 MCH 28.0 MCHC 30.5 L RDW 14.4 H Plt Count 527 H MPV 10.2 Immature Gran % 0.7 Neutrophils % 72.5 Lymphocytes % 10.4 Monocytes % 12.1 Eosinophils % 3.4 Basophils % 0.9 Nucleated RBC % 0.0 Absolute Neutrophils 8.61 H Absolute Lymphocytes 1.24 Absolute Monocytes 1.44 H Absolute Eosinophils 0.40 Absolute Basophils 0.11 PT Cancelled 15.5 H INR Cancelled 1.6 H Sodium 142 Potassium 4.9 Chloride 107 Carbon Dioxide 23.4 Anion Gap 11.6 H BUN 22 H Creatinine 2.8 H Est GFR (CKD-EPI 2020) 21.98 Glucose 89 Calcium 8.2 L Total Bilirubin AST ALT Alkaline Phosphatase Total Protein Albumin Procalcitonin Urine Color Urine Clarity Urine pH Ur Specific [place] Urine Protein Urine Ketones Urine Blood Urine Nitrite Urine Bilirubin Urine Urobilinogen Ur Leukocyte Esterase Urine RBC Urine WBC Ur Epithelial Cells Urine Crystals Urine Bacteria Urine Casts Urine Mucus Ur Culture Indicated? Urine Glucose Time Spent with Patient Time Spent with Patient: 25-34 minutes Time was spent: preparing to see the patient(eg.review tests), obtaining and/or reviewing separately otained hiistory, ordering medications,tests, procedures, referring, communicating with other health pet care technician, indepentently interpreting results, counseling the patient and care coordination
[2024-09-23] MEDS: Warfarin 5 MG TAB PO (20:54)
[2024-09-23] MEDS: Atorvastatin 20 MG TAB PO (20:54)
[2024-09-24] VITALS (7 sets, daily range): BP systolic 100–126; BP diastolic 58–78; PULSE 87–101; RESP 15–20; TEMP 36.5–37.4; O2SAT 94–97
[2024-09-24] MEDS: Vancomycin 125 MG CAP PO ×4 (03:20→21:46)
[2024-09-24] MEDS: Sodium Zirconium Cyclosilicate 10 GM PKT PO ×2 (06:49→14:19)
[2024-09-24 07:04] LABS: Abs Immature Grans 0.04 10^3/uL (0.0-0.06); Absolute Eosinophil Count 0.58 10^3/uL (0.0-0.7); Absolute Monocyte Count 1.15 10^3/uL (0.1-0.8); Absolute Neutrophil Count 7.15 10^3/uL (1.2-6.7); Eosinophils % 5.7 %; HCT 24.9 % (40.0-50.0); HGB 7.7 g/dL (13.5-17.5); Immature Grans % 0.4 %; Lymphocytes % 11.7 %; MCH 27.9 pg (27.0-33.0); MCHC 30.9 % (32.0-36.0); MCV 90 fL (80-95); MPV 10.3 fL (8.0-11.0); Monocytes % 11.3 %; Neutrophils % 69.9 %; Platelet Count 577 10^3/uL (130-400); RBC 2.76 10^6/uL (4.36-5.78); RDW 14.4 % (11.8-14.1); RDW-SD 47.6 fL; WBC 10.22 10^3/uL (4.4-10.8)
[2024-09-24 07:17] LABS: INR 1.6 (0.9-1.1); Prothrombin Time 15.8 sec (9.1-11.1)
[2024-09-24 07:32] LABS: ALT 12 U/L (16-63); AST 13 U/L (15-37); Albumin 2.1 g/dL (3.4-5.0); Alkaline Phosphatase 73 U/L (46-116); Anion Gap 9.1 mmol/L (3-11); BUN 21 mg/dL (7-18); Bilirubin, Total 0.8 mg/dL (0.2-1.0); CO2 25.9 mmol/L (21.0-32.0); CREATININE 2.6 mg/dL (0.70-1.30); Calcium 8.3 mg/dL (8.5-10.1); Chloride 107 mmol/L (98-107); Estimated GFR 24.02 (mL/min/1.73m2); Glucose 102 mg/dL (74-106); Sodium 142 mmol/L (136-145); Total Protein 6.4 g/dL (6.4-8.2)
[2024-09-24] MEDS: Sodium Bicarbonate 650 MG TAB PO ×2 (07:52→20:13)
[2024-09-24] MEDS: Cyanocobalamin 500 MCG TAB 1000 MCG PO (07:52)
[2024-09-24] MEDS: Cholecalciferol (Vitamin D3) 1,000 UNIT TAB 1000 UNITS PO (07:52)
[2024-09-24] MEDS: dilTIAZem CD 180 MG CAPCR PO (07:53)
[2024-09-24] MEDS: Normal Saline Flush 10 ML SYR IVP ×5 (07:54→20:14)
--- NOTE | 2024-09-24 12:27 | PDOC.CMPRO ---
Date of service: 09/24/24 Time of Service: 12:28 Care Management Progress Note Progress Note Text Progress Note Text: Josep was sitting up in bed, visiting with his Noemy Barrera when CM arrived. Both were pleasant and willing to engage in conversation. Josep stated that he was feeling better and was able to walk to the bathroom today. Noemy Barrera expressed her concern about taking Josep before he is ready as she feels that she wouldn't be able to lift him, if he were to experience weakness again. The two were inquiring about speaking to the provider regarding discharge, the RN gave the provider their contact. Discharge Plan: Anticipate a resumption of HH RN/PT pending consult. He will f/u with his PCP and continue with his plan of care. CM will continue to follow and adjust as needed. Social Determinants of Health Screening Social Determinants of Health last assessed: 09/24/24 Will the Patient Participate in the Screening?: Yes Do you worry about having a steady place to live?: no Problems where you live: no known problems In the past 12 months, have you had to go without electric, gas, oil or water in your home?: no Have you or anyone in your house had to go without enough food to eat?: no Has lack of transportation kept you from medical appointments or from doing things needed for daily living?: no Has anyone in your life made you feel unsafe or unsupported?: no How hard is it for you to pay for the very basics like food, housing, medical care, and heating? Would you say it is:: Not hard at all Do you want help finding or keeping work or a job?: I do not need or want help If for any reason you need help with day-to-day activities such as bathing, preparing meals, shopping, managing finances, etc., do you get the help you need?: I don?t need any help How often do you feel lonely or isolated from those around you?: Never Do you speak a language other than [place] at home?: No Does the patient want assistance with any of the above?: No Health Related Social Needs Health related social needs: housing instability, housed, with risk of homelessness (Z59.811) Anticipated HH Services Anticipated HH Services at Discharge [facility] Resumption, PT and RN.
--- NOTE | 2024-09-24 13:17 | W.PM.PROGNOT ---
Date of Service Date of service: 09/24/24 Time of Service: 13:17 Assessment and Plan Assessment and plan (1) Acute hypotension: Status: Acute Assessment and plan: General weakness a/w hypotension. Better after fluids in the ED. Etiology is uncertain. WBC is high but not septic picture overall. WBC is about the same as discharge level. Recent ESBL, should cover this until we figure this out. He doesn't have UTI symptoms however. Low procal reassuring. I don't think he needs to continue vancomycin IV. Recent C. diff, but stools have been improving. Will cover with oral vanco while on IV antibiotics in effort to avoid recurrence. His leg wounds do not appear infected This could be as simple as low BPs related to resuming his losartan. His BPs were running low inpatient and we had be holding them. 09/23/24 Will recheck orthostatics in am 09/24/24 BP improved, will cw PT (2) C. difficile colitis: Status: Acute Assessment and plan: s/p appropriate treatment and syptoms had improved. Covering with oral vanco for now as above. 09/24/24 Pt will continue with Vanc for now (3) Atrial flutter: Status: Acute Assessment and plan: Currently in sinus. Continue diltiazem, but cut dose to 180 given low BP on presentation. Continue warfarin, INR below goal (had vitamin K last admission, also has h/o PE). Follow. 09/23/24 Recheck INR in am, cw coumadin (4) Anemia: Status: Chronic Assessment and plan: Similar to dicharge h/h with no active bleeding. Continue iron orally. Follow. Hg low but stable, will see if pt is iron deficient. If not, will check an Fe/TIBC. Consider aranesp (5) Hypertension: Assessment and plan: Holding losartan and givign lower dose dilt given low BPs (6) CKD (chronic kidney disease): Assessment and plan: Cr slightly above baseline, should improve with hydration and bringing BP up 09/23/24 Renal fx has had some decrease showing a gfr from 2.0-2.7-2.8 since 09/13/24. In reviewing older data though, his CcCl actually appears a bit better (Cr at 3.1 on 09/07/24) 09/24/24 Cr is 2.6 which is a small improvement from before (7) UTI (urinary tract infection): Assessment and plan: Pt's urine cultures show GNR with over 100k CFU's. Pt on zosyn and awaiting sensitivities Subjective Subjective Interval history since last seen: Pt seen and examined in his room, resting comfortably Exam Narrative Exam Narrative: GEN: Alert and oriented x 4, pleasant and cooperative, gives linear but not detailed history. No acute distress at rest. HEENT: Head atraumatic. Conjunctiva clear, no icterus. PEERL, EOMI. no rhinorrhea. MMM, OP benign. Neck is supple with no masses or lymphadenopathy, trachea midline LUNGS: CTAB with normal effort CV: RRR with no murmurs, gallops, or rubs. ABD: active bowel sounds, soft, nontender and nondistended. No masses. EXT: no cyanosis, clubbing, or edema MSK: No joint redness or swelling. No CVAT NEURO: CN 2-12 grossly intact. Normal movement of 4 extremities. Normal speech and coordination. No tremor SKIN: No rashes x chronic wasting/scaring in rogelio legs with open wounds on ankles, no change from previous. no drainage. PSYCH: normal mood and affect Objective Last Vital Signs Temp 36.5 C 09/24/24 10:47 Pulse 87 09/24/24 10:47 Resp 20 09/24/24 10:47 BP 112/71 09/24/24 10:47 Pulse Ox 97 09/24/24 10:47 Laboratory Results - last 24 hr 09/24/24 06:02 WBC 10.22 RBC 2.76 L Hgb 7.7 L Hct 24.9 L MCV 90 MCH 27.9 MCHC 30.9 L RDW 14.4 H Plt Count 577 H MPV 10.3 Immature Gran % 0.4 Neutrophils % 69.9 Lymphocytes % 11.7 Monocytes % 11.3 Eosinophils % 5.7 Basophils % 1.0 Nucleated RBC % 0.0 Absolute Neutrophils 7.15 H Absolute Lymphocytes 1.20 Absolute Monocytes 1.15 H Absolute Eosinophils 0.58 Absolute Basophils 0.10 PT 15.8 H INR 1.6 H Sodium 142 Potassium 4.0 Chloride 107 Carbon Dioxide 25.9 Anion Gap 9.1 BUN 21 H Creatinine 2.6 H Est GFR (CKD-EPI 2020) 24.02 Glucose 102 Calcium 8.3 L Total Bilirubin 0.8 AST 13 L ALT 12 L Alkaline Phosphatase 73 Total Protein 6.4 Albumin 2.1 L Time Spent with Patient Time Spent with Patient: 25-34 minutes Time was spent: preparing to see the patient(eg.review tests), obtaining and/or reviewing separately otained hiistory, ordering medications,tests, procedures, referring, communicating with other health wound care specialist, indepentently interpreting results, counseling the patient and care coordination
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
[2024-09-24] MEDS: Warfarin 5 MG TAB PO (20:13)
[2024-09-24] MEDS: Atorvastatin 20 MG TAB PO (20:14)
[2024-09-25 04:02] VITALS: BP 129/70; PULSE 97; RESP 16; TEMP 36.8; O2SAT 96
[2024-09-25] MEDS: Vancomycin 125 MG CAP PO ×4 (04:05→21:38)
[2024-09-25 07:00] LABS: WBC 11.31 10^3/uL (4.4-10.8)
[2024-09-25 07:01] LABS: Abs Immature Grans 0.05 10^3/uL (0.0-0.06); Absolute Basophil Count 0.08 10^3/uL (0.0-0.2); Absolute Eosinophil Count 0.52 10^3/uL (0.0-0.7); Absolute Monocyte Count 1.12 10^3/uL (0.1-0.8); Absolute Neutrophil Count 8.29 10^3/uL (1.2-6.7); Basophils % 0.7 %; Eosinophils % 4.6 %; HCT 25.5 % (40.0-50.0); HGB 8.1 g/dL (13.5-17.5); Immature Grans % 0.4 %; Lymphocytes % 11.1 %; MCHC 31.8 % (32.0-36.0); MCV 88 fL (80-95); MPV 10.4 fL (8.0-11.0); Monocytes % 9.9 %; Neutrophils % 73.3 %; Platelet Count 613 10^3/uL (130-400); RBC 2.89 10^6/uL (4.36-5.78); RDW 14.5 % (11.8-14.1); RDW-SD 47.4 fL
[2024-09-25 07:05] LABS: Absolute Lymphocyte Count 1.26 10^3/uL (1.2-3.4)
[2024-09-25 07:14] LABS: Prothrombin Time 14.2 sec (9.1-11.1)
[2024-09-25 07:16] LABS: INR 1.4 (0.9-1.1)
[2024-09-25 07:23] LABS: ALT 16 U/L (16-63); AST 16 U/L (15-37); Albumin 2.1 g/dL (3.4-5.0); Alkaline Phosphatase 74 U/L (46-116); Anion Gap 9.7 mmol/L (3-11); BUN 22 mg/dL (7-18); Bilirubin, Total 0.7 mg/dL (0.2-1.0); CO2 27.3 mmol/L (21.0-32.0); CREATININE 2.6 mg/dL (0.70-1.30); Calcium 8.6 mg/dL (8.5-10.1); Chloride 106 mmol/L (98-107); Estimated GFR 24.02 (mL/min/1.73m2); Glucose 101 mg/dL (74-106); Sodium 143 mmol/L (136-145); Total Protein 6.6 g/dL (6.4-8.2)
[2024-09-25] MEDS: Normal Saline Flush 10 ML SYR IVP ×4 (08:02→19:53)
[2024-09-25] MEDS: Cyanocobalamin 500 MCG TAB 1000 MCG PO (08:03)
[2024-09-25] MEDS: dilTIAZem CD 180 MG CAPCR PO (08:03)
[2024-09-25] MEDS: Sodium Bicarbonate 650 MG TAB PO ×2 (08:03→19:51)
[2024-09-25] MEDS: Cholecalciferol (Vitamin D3) 1,000 UNIT TAB 1000 UNITS PO (08:03)
--- NOTE | 2024-09-25 11:10 | PGE_ITS ---
Date of Service Date of service: 09/25/24 Time of Service: 11:10 Assessment and Plan Assessment and plan (1) Acute hypotension: Status: Acute Assessment and plan: General weakness a/w hypotension. Better after fluids in the ED. Etiology is uncertain. WBC is high but not septic picture overall. WBC is about the same as discharge level. Recent ESBL, should cover this until we figure this out. He doesn't have UTI symptoms however. Low procal reassuring. I don't think he needs to continue vancomycin IV. Recent C. diff, but stools have been improving. Will cover with oral vanco while on IV antibiotics in effort to avoid recurrence. His leg wounds do not appear infected This could be as simple as low BPs related to resuming his losartan. His BPs were running low inpatient and we had be holding them. 09/23/24 Will recheck orthostatics in am 09/24/24 BP improved, will cw PT 09/25/24 BP is 129/70 this am. Imagine we will be able to restart some home bp meds in t he near future. Pt is currently on cardizem cd 180 daily down from outpatient dose of 240 daily. Pt not on valsartan at this time (2) C. difficile colitis: Status: Acute Assessment and plan: s/p appropriate treatment and syptoms had improved. Covering with oral vanco for now as above. 09/24/24 Pt will continue with Vanc for now (3) Atrial flutter: Status: Acute Assessment and plan: Currently in sinus. Continue diltiazem, but cut dose to 180 given low BP on presentation. Continue warfarin, INR below goal (had vitamin K last admission, also has h/o PE). Follow. 09/23/24 Recheck INR in am, cw coumadin 09/25/24 Daily check of INR while inpatient. Pt is below goal at this point, but also on abx which can predispose to rapid elevations of INR. In reviewing old lab data, pt does have labile values in regards to his INR (4.1 on 09/09/24) (4) Anemia: Status: Chronic Assessment and plan: Similar to dicharge h/h with no active bleeding. Continue iron orally. Follow. Hg low but stable, will see if pt is iron deficient. If not, will check an Fe/TIBC. Consider aranesp 09/25/24 Hg is low at 8 but no clear indication for xfusion at this point. Iron level pending (5) Hypertension: Assessment and plan: Holding losartan and givign lower dose dilt given low BPs (6) CKD (chronic kidney disease): Assessment and plan: Cr slightly above baseline, should improve with hydration and bringing BP up 09/23/24 Renal fx has had some decrease showing a gfr from 2.0-2.7-2.8 since 09/13/24. In reviewing older data though, his CcCl actually appears a bit better (Cr at 3.1 on 09/07/24) 09/24/24 Cr is 2.6 which is a small improvement from before 09/25/24 Cr remains at 2.6 (7) UTI (urinary tract infection): Assessment and plan: Pt's urine cultures show GNR with over 100k CFU's. Pt on zosyn and awaiting sensitivities 09/25/24 Pt with significant resistance and only sensitive to zosyn and imipenem. Plan to treat for a total of 7-10 days Urine Culture Final 09/25/24-0740 Day 1 Result ISOLATES BELOW ISOLATE 1 COLONY COUNT >100,000 COLONIES/ML ISOLATE 1 APPEARANCE Gram Negative Kadeem ISOLATE 1 ACTION ID AND SUSCEPTIBILITY TO FOLLOW Day 2 Result ISOLATES BELOW ISOLATE 1 COLONY COUNT >100,000 COLONIES/ML ISOLATE 1 APPEARANCE Gram Negative Kadeem Multidrug resistant organism(MDRO) showing Extended-spectrum beta-lactamases(ESBL) activity. Extended-spectrum beta-lactamases are enzymes that confer resistance to most beta-lactam antibiotics, including penicillins, cephalosporins, and the monobactam aztreonam. Reported ESBL results to and read back from MARY JOSÉ (M/S) 09/25/24 at 0736 by [email or web address] Organism 1 Klebsiella pneumoniae COLONY COUNT >100,000 COLONIES/ML Kleb pneu Result Ampicillin R Ampicillin/Sulbactam R Cefazolin R Ceftazidime R CEFTRIAXONE R Ciprofloxacin R Gentamicin R Nitrofurantoin R Imipenem S Levofloxacin R Tobramycin I Trimethoprim/Sulfamethoxazole R Piperacillin/Tazobactam S Subjective Subjective Interval history since last seen: Pt seen and examined. POC d/w pt and who was at bedside. Also, dw bedside nurse Lakia during MDR. Urine culture results noted Exam Narrative Exam Narrative: GEN: Alert and oriented x 4, pleasant and cooperative, gives linear but not detailed history. No acute distress at rest. HEENT: Head atraumatic. Conjunctiva clear, no icterus. PEERL, EOMI. no rhinorrhea. MMM, OP benign. Neck is supple with no masses or lymphadenopathy, trachea midline LUNGS: CTAB with normal effort CV: RRR with no murmurs, gallops, or rubs. ABD: active bowel sounds, soft, nontender and nondistended. No masses. EXT: no cyanosis, clubbing, or edema MSK: No joint redness or swelling. No CVAT NEURO: CN 2-12 grossly intact. Normal movement of 4 extremities. Normal speech and coordination. No tremor SKIN: No rashes x chronic wasting/scaring in rogelio legs with open wounds on ankles, no change from previous. no drainage. PSYCH: normal mood and affect Objective Last Vital Signs Temp 36.8 C 09/25/24 04:02 Pulse 97 H 09/25/24 04:02 Resp 16 09/25/24 04:02 BP 129/70 09/25/24 04:02 Pulse Ox 96 09/25/24 04:02 Laboratory Results - last 24 hr 09/25/24 06:20 WBC 11.31 H RBC 2.89 L Hgb 8.1 L Hct 25.5 L MCV 88 MCH 28.0 MCHC 31.8 L RDW 14.5 H Plt Count 613 H MPV 10.4 Immature Gran % 0.4 Neutrophils % 73.3 Lymphocytes % 11.1 Monocytes % 9.9 Eosinophils % 4.6 Basophils % 0.7 Nucleated RBC % 0.0 Absolute Neutrophils 8.29 H Absolute Lymphocytes 1.26 Absolute Monocytes 1.12 H Absolute Eosinophils 0.52 Absolute Basophils 0.08 PT 14.2 H INR 1.4 H Sodium 143 Potassium 4.0 Chloride 106 Carbon Dioxide 27.3 Anion Gap 9.7 BUN 22 H Creatinine 2.6 H Est GFR (CKD-EPI 2020) 24.02 Glucose 101 Calcium 8.6 Total Bilirubin 0.7 AST 16 ALT 16 Alkaline Phosphatase 74 Total Protein 6.6 Albumin 2.1 L Time Spent with Patient Time Spent with Patient: 25-34 minutes Time was spent: preparing to see the patient(eg.review tests), obtaining and/or reviewing separately [place] ordering medications,tests, procedures, referring, communicating with other health floor care technician, indepentently interpreting results and counseling the patient
[2024-09-25 11:15] VITALS: BP 102/75; PULSE 104; RESP 16; TEMP 37; O2SAT 94
[2024-09-25 15:34] VITALS: BP 118/52; PULSE 98; RESP 16; TEMP 36.8; O2SAT 98
--- NOTE | 2024-09-25 16:15 | PT.INTREAT ---
PT Notes Visit Reasons: Hypotension, hyperkalemia Inpatient Physical Therapy Treatment Note [facility] Date: 09/25/2024 PRECAUTIONS:fall risk, SUBJECTIVE: Patient reports right foot pain when attempting to weight-bear OBJECTIVE: Pt presented supine in bed? PAIN: denied VITALS: ?monitored by Nursing Therapeutic Activities (84297): Direct one-on-one instruction in dynamic activities to improve functional performance. ?? Provided skilled cues and instruction on performance and technique throughout for safety Transfers: Supine to sit with head of bed elevated mod assist for trunk pt required mod A of 2 to stand from bed Bed to commode mod A of 2 Pt with increased forward flexed trunk, difficulty moving his feet during turn as approached bed. stand to sit Mod A of 2. Sit to supine with bed rail and head of bed flat patient contact-guard to get lower extremities into bed Stand balance at FWW with mod assist of 1 difficulty weightbearing through right lower extremity reporting pain in forefoot patient tolerated stand for toilet hygiene 2 minutes x 2 due to incontinence ASSESSMENT:? Pt required significantly more assistance this session as compared to evaluation. Pt difficulty weightbearing on right lower extremity in standing position. Patient reports right lower extremity is usually his strong leg nurse notified of pain PLAN: 1-2x/day, 7 days/week x 1 week. Plan of care has been reviewed with the CLINICAL NEUROPSYCHOLOGIST providing the service under Physical Therapy direction. Initiate Physical Therapy intervention for strengthening, bed mobility, transfers, gait, stairs, balance training, use of assistive device. TREATMENT CODE/TIME: 94151, 14426/1:05?1:45 PM DISCHARGE RECOMMENDATION: Home with services versus SNF if unable to progress back to supervised level which she was on evaluation
[2024-09-25 19:30] VITALS: BP 92/57; PULSE 101; RESP 16; TEMP 37.2; O2SAT 95
[2024-09-25 19:45] VITALS: BP 107/57
[2024-09-25] MEDS: Atorvastatin 20 MG TAB PO (19:51)
[2024-09-25] MEDS: Warfarin 5 MG TAB PO (19:52)
[2024-09-25 22:42] VITALS: BP 114/70; PULSE 92; RESP 16; TEMP 37; O2SAT 95
[2024-09-26 02:40] VITALS: BP 121/55; PULSE 93; RESP 16; TEMP 37; O2SAT 95
[2024-09-26] MEDS: Vancomycin 125 MG CAP PO ×4 (04:17→20:48)
[2024-09-26 06:54] LABS: Abs Immature Grans 0.05 10^3/uL (0.0-0.06); Absolute Eosinophil Count 0.73 10^3/uL (0.0-0.7); Absolute Lymphocyte Count 1.65 10^3/uL (1.2-3.4); Absolute Monocyte Count 1.28 10^3/uL (0.1-0.8); Basophils % 0.9 %; Eosinophils % 6.5 %; HCT 24.1 % (40.0-50.0); HGB 7.6 g/dL (13.5-17.5); Immature Grans % 0.4 %; Lymphocytes % 14.6 %; MCH 28.1 pg (27.0-33.0); MCHC 31.5 % (32.0-36.0); MCV 89 fL (80-95); Monocytes % 11.3 %; Neutrophils % 66.3 %; Platelet Count 558 10^3/uL (130-400); RDW 14.7 % (11.8-14.1); RDW-SD 47.5 fL; WBC 11.29 10^3/uL (4.4-10.8)
[2024-09-26 06:58] LABS: Absolute Neutrophil Count 7.49 10^3/uL (1.2-6.7)
[2024-09-26 07:14] LABS: INR 1.3 (0.9-1.1)
[2024-09-26 07:26] VITALS: BP 124/76; PULSE 94; RESP 20; TEMP 37.2; O2SAT 99
[2024-09-26 07:30] LABS: Iron 12 ug/dL (65-175); Total Iron Binding Capacity 196 ug/dL (250-450); Transferrin Sat 6 % (20-55)
[2024-09-26 07:38] LABS: ALT 17 U/L (16-63); AST 18 U/L (15-37); Alkaline Phosphatase 64 U/L (46-116); Anion Gap 7.6 mmol/L (3-11); BUN 20 mg/dL (7-18); Bilirubin, Total 0.7 mg/dL (0.2-1.0); CO2 27.4 mmol/L (21.0-32.0); CREATININE 2.3 mg/dL (0.70-1.30); Calcium 8.5 mg/dL (8.5-10.1); Chloride 107 mmol/L (98-107); Estimated GFR 27.83 (mL/min/1.73m2); Glucose 100 mg/dL (74-106); Potassium 3.9 mmol/L (3.5-5.1); Sodium 142 mmol/L (136-145); Total Protein 6.3 g/dL (6.4-8.2)
[2024-09-26] MEDS: Normal Saline Flush 10 ML SYR IVP ×2 (08:37→20:48)
[2024-09-26] MEDS: dilTIAZem CD 180 MG CAPCR PO (08:37)
[2024-09-26] MEDS: Cyanocobalamin 500 MCG TAB 1000 MCG PO (08:37)
[2024-09-26] MEDS: Sodium Bicarbonate 650 MG TAB PO ×2 (08:37→20:48)
[2024-09-26] MEDS: Cholecalciferol (Vitamin D3) 1,000 UNIT TAB 1000 UNITS PO (08:37)
[2024-09-26] MEDS: IRON SUCROSE COMPLEX 200 MG in Normal Saline 100 ML 400 MG IVPB (09:32)
[2024-09-26 11:09] LABS: INR 1.3 (0.9-1.1); Prothrombin Time 13.1 sec (9.1-11.1)
--- NOTE | 2024-09-26 11:52 | PGE_ITS ---
Date of Service Date of service: 09/26/24 Time of Service: 11:53 Assessment and Plan Assessment and plan (1) Acute hypotension: Status: Acute Assessment and plan: General weakness a/w hypotension. Better after fluids in the ED. Etiology is uncertain. WBC is high but not septic picture overall. WBC is about the same as discharge level. Recent ESBL, should cover this until we figure this out. He doesn't have UTI symptoms however. Low procal reassuring. I don't think he needs to continue vancomycin IV. Recent C. diff, but stools have been improving. Will cover with oral vanco while on IV antibiotics in effort to avoid recurrence. His leg wounds do not appear infected This could be as simple as low BPs related to resuming his losartan. His BPs were running low inpatient and we had be holding them. 09/23/24 Will recheck orthostatics in am 09/24/24 BP improved, will cw PT 09/25/24 BP is 129/70 this am. Imagine we will be able to restart some home bp meds in t he near future. Pt is currently on cardizem cd 180 daily down from outpatient dose of 240 daily. Pt not on valsartan at this time 09/26/24 BP is on cardizem and at goal. Will hold on Valsartan at this time (2) C. difficile colitis: Status: Acute Assessment and plan: s/p appropriate treatment and syptoms had improved. Covering with oral vanco for now as above. 09/24/24 Pt will continue with Vanc for now 09/26/24 Pt on oral vanc 125mg po q6 (3) Atrial flutter: Status: Acute Assessment and plan: Currently in sinus. Continue diltiazem, but cut dose to 180 given low BP on presentation. Continue warfarin, INR below goal (had vitamin K last admission, also has h/o PE). Follow. 09/23/24 Recheck INR in am, cw coumadin 09/25/24 Daily check of INR while inpatient. Pt is below goal at this point, but also on abx which can predispose to rapid elevations of INR. In reviewing old lab data, pt does have labile values in regards to his INR (4.1 on 09/09/24) 09/26/24 PT still below INR goal. Will increase coumadin to 5mg po qday. Once again, this is concern for overcorrection in light of abx use. Pt's HR is below 100. Pt also with hem postive stool on 09/10/2024. Most recent EKG 09/22/2024 shows NSR. At this point, I believe the risks of therapeutic lovenox outweighs the benefits (4) Anemia: Status: Chronic Assessment and plan: Similar to dicharge h/h with no active bleeding. Continue iron orally. Follow. Hg low but stable, will see if pt is iron deficient. If not, will check an Fe/TIBC. Consider aranesp 09/25/24 Hg is low at 8 but no clear indication for xfusion at this point. Iron level pending 09/26/24 Iron level is 12, replace with venofer. (5) Hypertension: Assessment and plan: Holding losartan and givign lower dose dilt given low BPs (6) CKD (chronic kidney disease): Assessment and plan: Cr slightly above baseline, should improve with hydration and bringing BP up 09/23/24 Renal fx has had some decrease showing a gfr from 2.0-2.7-2.8 since 09/13/24. In reviewing older data though, his CcCl actually appears a bit better (Cr at 3.1 on 09/07/24) 09/24/24 Cr is 2.6 which is a small improvement from before 09/25/24 Cr remains at 2.6 (7) UTI (urinary tract infection): Assessment and plan: Pt's urine cultures show GNR with over 100k CFU's. Pt on zosyn and awaiting sensitivities 09/25/24 Pt with significant resistance and only sensitive to zosyn and imipenem. Plan to treat for a total of 7-10 days Urine Culture Final 09/25/24-0740 Day 1 Result ISOLATES BELOW ISOLATE 1 COLONY COUNT >100,000 COLONIES/ML ISOLATE 1 APPEARANCE Gram Negative Kadeem ISOLATE 1 ACTION ID AND SUSCEPTIBILITY TO FOLLOW Day 2 Result ISOLATES BELOW ISOLATE 1 COLONY COUNT >100,000 COLONIES/ML ISOLATE 1 APPEARANCE Gram Negative Kadeem Multidrug resistant organism(MDRO) showing Extended-spectrum beta-lactamases(ESBL) activity. Extended-spectrum beta-lactamases are enzymes that confer resistance to most beta-lactam antibiotics, including penicillins, cephalosporins, and the monobactam aztreonam. Reported ESBL results to and read back from MARY JOSÉ (M/S) 09/25/24 at 0736 by [email or web address] Organism 1 Klebsiella pneumoniae COLONY COUNT >100,000 COLONIES/ML Kleb pneu Result Ampicillin R Ampicillin/Sulbactam R Cefazolin R Ceftazidime R CEFTRIAXONE R Ciprofloxacin R Gentamicin R Nitrofurantoin R Imipenem S Levofloxacin R Tobramycin I Trimethoprim/Sulfamethoxazole R Piperacillin/Tazobactam S Subjective Subjective Interval history since last seen: Pt seen and examined in his room this am. Still easily fatigues. POC d/w pt and his who was at bedside. POC also d/w bedside nurse during MDR. Exam Narrative Exam Narrative: GEN: Alert and oriented x 4, pleasant and cooperative, gives linear but not detailed history. No acute distress at rest. HEENT: Head atraumatic. Conjunctiva clear, no icterus. PEERL, EOMI. no rhinorrhea. MMM, OP benign. Neck is supple with no masses or lymphadenopathy, trachea midline LUNGS: CTAB with normal effort CV: RRR with no murmurs, gallops, or rubs. ABD: active bowel sounds, soft, nontender and nondistended. No masses. EXT: no cyanosis, clubbing, or edema MSK: No joint redness or swelling. No CVAT NEURO: CN 2-12 grossly intact. Normal movement of 4 extremities. Normal speech and coordination. No tremor SKIN: No rashes x chronic wasting/scaring in rogelio legs with open wounds on ankles, no change from previous. no drainage. PSYCH: normal mood and affect Objective Last Vital Signs Temp 37.2 C 09/26/24 07:26 Pulse 94 H 09/26/24 07:26 Resp 20 09/26/24 07:26 BP 124/76 09/26/24 07:26 Pulse Ox 99 09/26/24 07:26 Laboratory Results - last 24 hr 09/26/24 09/26/24 06:30 10:48 WBC 11.29 H RBC 2.70 L Hgb 7.6 L Hct 24.1 L MCV 89 MCH 28.1 MCHC 31.5 L RDW 14.7 H Plt Count 558 H MPV 10.0 Immature Gran % 0.4 Neutrophils % 66.3 Lymphocytes % 14.6 Monocytes % 11.3 Eosinophils % 6.5 Basophils % 0.9 Nucleated RBC % 0.0 Absolute Neutrophils 7.49 H Absolute Lymphocytes 1.65 Absolute Monocytes 1.28 H Absolute Eosinophils 0.73 H Absolute Basophils 0.10 PT 13.0 H 13.1 H INR 1.3 H 1.3 H Sodium 142 Potassium 3.9 Chloride 107 Carbon Dioxide 27.4 Anion Gap 7.6 BUN 20 H Creatinine 2.3 H Est GFR (CKD-EPI 2020) 27.83 Glucose 100 Calcium 8.5 Iron 12 L TIBC 196 L Transferrin % Sat 6 L Total Bilirubin 0.7 AST 18 ALT 17 Alkaline Phosphatase 64 Total Protein 6.3 L Albumin 2.0 L Time Spent with Patient Time Spent with Patient: 35-49 minutes Time was spent: preparing to see the patient(eg.review tests), obtaining and/or reviewing separately otained hiistory, ordering medications,tests, procedures, referring, communicating with other health director career services, indepentently interpreting results, counseling the patient and care coordination
[2024-09-26 12:04] VITALS: BP 96/74; PULSE 94; RESP 16; TEMP 37; O2SAT 95
--- NOTE | 2024-09-26 12:32 | PGE_ITS ---
Date of Service Date of service: 11/07/24 Time of Service: 13:42 Objective Last Vital Signs Temp 37 C 09/26/24 12:04 Pulse 94 H 09/26/24 12:04 Resp 16 09/26/24 12:04 BP 96/74 L 09/26/24 12:04 Pulse Ox 95 09/26/24 12:04 Laboratory Results - last 24 hr 09/26/24 09/26/24 06:30 10:48 WBC 11.29 H RBC 2.70 L Hgb 7.6 L Hct 24.1 L MCV 89 MCH 28.1 MCHC 31.5 L RDW 14.7 H Plt Count 558 H MPV 10.0 Immature Gran % 0.4 Neutrophils % 66.3 Lymphocytes % 14.6 Monocytes % 11.3 Eosinophils % 6.5 Basophils % 0.9 Nucleated RBC % 0.0 Absolute Neutrophils 7.49 H Absolute Lymphocytes 1.65 Absolute Monocytes 1.28 H Absolute Eosinophils 0.73 H Absolute Basophils 0.10 PT 13.0 H 13.1 H INR 1.3 H 1.3 H Sodium 142 Potassium 3.9 Chloride 107 Carbon Dioxide 27.4 Anion Gap 7.6 BUN 20 H Creatinine 2.3 H Est GFR (CKD-EPI 2020) 27.83 Glucose 100 Calcium 8.5 Iron 12 L TIBC 196 L Transferrin % Sat 6 L Total Bilirubin 0.7 AST 18 ALT 17 Alkaline Phosphatase 64 Total Protein 6.3 L Albumin 2.0 L Time Spent with Patient Time Spent with Patient: <25 minutes Time was spent: preparing to see the patient(eg.review tests), obtaining and/or reviewing separately otained hiistory, ordering medications,tests, procedures, referring, communicating with other health manager critical care, indepentently interpreting results, counseling the patient and care coordination
--- NOTE | 2024-09-26 12:37 | PT.INTREAT ---
PT Notes Visit Reasons: Hypotension, hyperkalemia Inpatient Physical Therapy Treatment Note [facility] Date: 09/26/2024 PRECAUTIONS:fall risk, IV access SUBJECTIVE: Patient reports being very tired and having no energy. Patient reports right foot pain is less and he was able to stand on it to get into the chair. OBJECTIVE: Pt presented seated in bedside chair and present ? PAIN: denied VITALS: ?monitored by Nursing Therapeutic Activities (72202): Direct one-on-one instruction in dynamic activities to improve functional performance. ?? Provided skilled cues and instruction on performance and technique throughout for safety Transfers: Sit to stand mod assist of 1 x 2 trials from 18 inch height chair patient requiring 2 attempts on each trial before achieving full upright standing position Step turn transfers with FWW toward right with mod assist of 1 and continuous cues for hand placements to keep upper extremities on rolling walker as patient attempting to reach for chair prior to fully aligning self appropriately cues also for upright trunk Step turn transfers with FWW toward the left with min assist of 1 cues for upright trunk Stand tolerance with FWW with min assist of 1 x 30 seconds x 2 ASSESSMENT: Patient received iron supplement via IV prior to session per nurse and MD iron level low. Pt continues to require significantly more assistance for transfers as compared to evaluation. Pt continues with difficulty weightbearing on right lower extremity in standing position although better than prior session. PLAN: 1-2x/day, 7 days/week x 1 week. Plan of care has been reviewed with the PROJECTS MANAGER providing the service under Physical Therapy direction. Initiate Physical Therapy intervention for strengthening, bed mobility, transfers, gait, stairs, balance training, use of assistive device. TREATMENT CODE/TIME: 82553, / 1050?1115 DISCHARGE RECOMMENDATION: Home with services versus SNF if unable to progress back to supervised level which she was on evaluation
[2024-09-26 15:38] VITALS: BP 113/69; PULSE 89; RESP 15; TEMP 37; O2SAT 97
[2024-09-26 20:26] VITALS: BP 105/65; PULSE 90; RESP 19; TEMP 37.1; O2SAT 97
[2024-09-26] MEDS: Atorvastatin 20 MG TAB PO (20:47)
[2024-09-26] MEDS: Warfarin 5 MG TAB PO (20:48)
[2024-09-26 23:01] VITALS: BP 106/69; PULSE 89; RESP 18; TEMP 37; O2SAT 98
[2024-09-27 03:11] VITALS: BP 111/78; PULSE 95; RESP 18; TEMP 37; O2SAT 97
[2024-09-27] MEDS: Vancomycin 125 MG CAP PO ×4 (03:56→20:32)
[2024-09-27] MEDS: Normal Saline Flush 10 ML SYR IVP ×4 (03:57→23:58)
[2024-09-27 06:52] LABS: Abs Immature Grans 0.07 10^3/uL (0.0-0.06); Absolute Basophil Count 0.09 10^3/uL (0.0-0.2); Absolute Eosinophil Count 1.04 10^3/uL (0.0-0.7); Absolute Lymphocyte Count 1.39 10^3/uL (1.2-3.4); Absolute Monocyte Count 1.11 10^3/uL (0.1-0.8); Absolute Neutrophil Count 8.73 10^3/uL (1.2-6.7); Basophils % 0.7 %; Eosinophils % 8.4 %; HCT 26.5 % (40.0-50.0); HGB 8.1 g/dL (13.5-17.5); Immature Grans % 0.6 %; Lymphocytes % 11.2 %; MCH 27.4 pg (27.0-33.0); MCHC 30.6 % (32.0-36.0); MCV 90 fL (80-95); MPV 10.3 fL (8.0-11.0); Monocytes % 8.9 %; Neutrophils % 70.2 %; Platelet Count 574 10^3/uL (130-400); RBC 2.96 10^6/uL (4.36-5.78); RDW 14.6 % (11.8-14.1); RDW-SD 47.8 fL; WBC 12.43 10^3/uL (4.4-10.8)
[2024-09-27 07:02] LABS: INR 1.3 (0.9-1.1); Prothrombin Time 12.9 sec (9.1-11.1)
[2024-09-27 07:24] VITALS: BP 124/69; PULSE 98; RESP 18; TEMP 37.3; O2SAT 97
[2024-09-27 07:29] LABS: ALT 18 U/L (16-63); AST 22 U/L (15-37); Albumin 2.1 g/dL (3.4-5.0); Alkaline Phosphatase 68 U/L (46-116); Anion Gap 6.6 mmol/L (3-11); BUN 21 mg/dL (7-18); Bilirubin, Total 0.7 mg/dL (0.2-1.0); CO2 28.4 mmol/L (21.0-32.0); CREATININE 2.2 mg/dL (0.70-1.30); Calcium 8.7 mg/dL (8.5-10.1); Chloride 107 mmol/L (98-107); Estimated GFR 29.36 (mL/min/1.73m2); Glucose 92 mg/dL (74-106); Potassium 4.5 mmol/L (3.5-5.1); Sodium 142 mmol/L (136-145); Total Protein 6.6 g/dL (6.4-8.2)
[2024-09-27] MEDS: Cholecalciferol (Vitamin D3) 1,000 UNIT TAB 1000 UNITS PO (08:09)
[2024-09-27] MEDS: Cyanocobalamin 500 MCG TAB 1000 MCG PO (08:09)
[2024-09-27] MEDS: dilTIAZem CD 180 MG CAPCR PO (08:09)
[2024-09-27] MEDS: Sodium Bicarbonate 650 MG TAB PO ×2 (08:09→20:32)
[2024-09-27 11:33] VITALS: BP 113/66; PULSE 85; RESP 16; TEMP 36.5; O2SAT 98
[2024-09-27 11:39] LABS: Lab Add On Test DONE
--- NOTE | 2024-09-27 14:31 | PTTR_ITS ---
Date of service: 09/27/24 Time of Service: 09:25 PT Notes Visit Reasons: Hypotension, hyperkalemia Inpatient Physical Therapy Treatment Note [facility] Date: 09/27/2024 PRECAUTIONS: Fall, IV Access, Activities as tolerated SUBJECTIVE: Does not want to do anything but stand with walker this morning, is tired! OBJECTIVE: ? PAIN: Right foot pain is not as bad today. Therapeutic Activities (64309x4): Direct one-on-one instruction in dynamic activities to improve functional performance. ?? BED MOBILITY/TRANSFERS Reclined in chair when I arrived to patients room? Stand-sit: SBA x 2 ? Sit - stand: SBA x 2 ? Able to protective signal superintendent walker for 1.5 minutes x 1 and for 20 seconds x 1. GAIT - Not willing to try. Indicated he was too tired. ? Provided skilled instruction in proper exercise performance ASSESSMENT:?Unable to get patient to do anymore than protective signal superintendent walker today. Became irritated that I was asking for him to try to do more. PLAN: Continue with current POC, advancing as able to tolerate. TREATMENT CODE/TIME: 73544, 9:25 to 9:40 am DISCHARGE RECOMMENDATION: PT versus SNF
[2024-09-27 15:27] VITALS: BP 109/70; PULSE 89; RESP 16; TEMP 36.9; O2SAT 98
--- NOTE | 2024-09-27 15:39 | PT.INTREAT ---
PT Notes Visit Reasons: Hypotension, hyperkalemia Inpatient Physical Therapy Treatment Note [facility] Date: 09/27/2024 p.m. session PRECAUTIONS: Fall, IV Access, Activities as tolerated SUBJECTIVE: Patient states he will only stand he still too tired he will do walking tomorrow OBJECTIVE: Patient presented reclined in chair. ? PAIN: Reports foot only hurts a little Therapeutic Activities (21278u1): Direct one-on-one instruction in dynamic activities to improve functional performance. ? BED MOBILITY/TRANSFERS ? Stand-sit: SBA x 2 from elevated seat height ? ?min assist of 1 to commode to control descent ? Sit - stand: SBA x 2 ? from elevated seat height ? ?min assist of 1 from commode ?step turn transfer with FWW min assist of 1 x 2 transfers ? ? ? Able to outdoor adventure instructor walker for 1.5 minutes x 1 GAIT - Not willing to try. ? ASSESSMENT:?Patient with poor motivation to participate in functional tasks requiring max cues and encouragement. Patient agreeable to participate in ambulation tomorrow. PLAN: 1-2x/day, 7 days/week x 1 week. Plan of care has been reviewed with the BINITROTOLUENE OPERATOR providing the service under Physical Therapy direction. Initiate Physical Therapy intervention for strengthening, bed mobility, transfers, gait, stairs, balance training, use of assistive device. TREATMENT CODE/TIME: 23118/3:05 PM?3:21 PM DISCHARGE RECOMMENDATION: PT versus SNF
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
--- NOTE | 2024-09-27 16:56 | CMPROGNOTE_ITS ---
Date of service: 09/27/24 Time of Service: 12:00 Care Management Progress Note Progress Note Text Progress Note Text: Josep was sitting up in the chair when CM met with him today. He was pleasant with CM. CM asked about his reluctance to work with PT. He stated that he was sleeping when approached by PT yesterday, and so he refused. CM let him know that PT is recommending SNF after discharge, and he is adamant that he will go home. CM will keep encouraging Josep to increase his activity in order for safe discharge home. Discharge Potential Discharge Needs: PCP F/U Appt Anticipated Barriers to Discharge: None Identified Patient/Family Education Needs: Review discharge instructions, discuss Ask Me Three Transportation: Private vehicle Plan: Anticipate that Josep will be discharged home with continuation of his HH PT and RN. He will f/u with his PCP and continue per his plan of care. CM will continue to follow and to encourage Josep to increase his activity. Social Determinants of Health Screening Social Determinants of Health last assessed: 09/27/24 Will the Patient Participate in the Screening?: Yes Do you worry about having a steady place to live?: no Problems where you live: no known problems In the past 12 months, have you had to go without electric, gas, oil or water in your home?: no Have you or anyone in your house had to go without enough food to eat?: no Has lack of transportation kept you from medical appointments or from doing th ings needed for daily living?: no Has anyone in your life made you feel unsafe or unsupported?: no How hard is it for you to pay for the very basics like food, housing, medical care, and heating? Would you say it is:: Not hard at all Do you want help finding or keeping work or a job?: I do not need or want help If for any reason you need help with day-to-day activities such as bathing, preparing meals, shopping, managing finances, etc., do you get the help you need?: I don?t need any help How often do you feel lonely or isolated from those around you?: Never Do you speak a language other than [place] Verdean at home?: No Does the patient want assistance with any of the above?: No Health Related Social Needs Health related social needs: housing instability, housed, with risk of homelessness (Z59.811)
--- NOTE | 2024-09-27 18:51 | W.PM.PROGNOT ---
Date of Service Date of service: 09/27/24 Time of Service: 18:51 Assessment and Plan Assessment and plan (1) Acute hypotension: Status: Acute Assessment and plan: etiology unclear improving did receive IVF in ED resumed home cardizem, valsartan still on hold 09.27.24 Latest BP 109/70 continue with cardizem still hold valsartan (2) C. difficile colitis: Status: Acute Assessment and plan: continue oral vanc (3) CKD (chronic kidney disease): Assessment and plan: Cr remaining 2.6, around baseline need for further review (4) Hydronephrosis: Assessment and plan: w/recent stents placed prior to previous hospitalization w/sepsis c/b actute pyelo f/b urology (5) Hx of sepsis: (6) Sena classified according to extent of body surface involved: Assessment and plan: does wound care (7) Palliative care encounter: Status: Acute Assessment and plan: PC visit to introduce self today, Josep was grumpy and not interested in engaging in converstations today; he defers to his for most if not all planning, decision making, etc - his plan is to return home on discharge w/HH supports arranged with his - he trusts his to make decisions regarding his health, will defer HCA until Fri, attempt again w/ present, consider reviewing AD preferences w/her present - need for review of COLST from 2019 which indicated DNR/I, transfer, yes abx, no FT/IVF, limited interventions - he has received IVF x2 at least during this month; review what he means by limited interventions as able - continue terminal computer operator planning with present plan for f/u on Friday 09/29 (8) History of ESBL Klebsiella pneumoniae infection: Status: Acute Assessment and plan: Pt with significant resistance continue zosyn for 3-4 more days Urine Culture Final 09/25/24-0740 Day 1 Result ISOLATES BELOW ISOLATE 1 COLONY COUNT >100,000 COLONIES/ML ISOLATE 1 APPEARANCE Gram Negative Kadeem ISOLATE 1 ACTION ID AND SUSCEPTIBILITY TO FOLLOW Day 2 Result ISOLATES BELOW ISOLATE 1 COLONY COUNT >100,000 COLONIES/ML ISOLATE 1 APPEARANCE Gram Negative Kadeem Multidrug resistant organism(MDRO) showing Extended-spectrum beta-lactamases(ESBL) activity. Extended-spectrum beta-lactamases are enzymes that confer resistance to most beta-lactam antibiotics, including penicillins, cephalosporins, and the monobactam aztreonam. Reported ESBL results to and read back from MARY JOSÉ (M/S) 09/25/24 at 0736 by MICHAEL Organism 1 Klebsiella pneumoniae COLONY COUNT >100,000 COLONIES/ML Kleb pneu Result Ampicillin R Ampicillin/Sulbactam R Cefazolin R Ceftazidime R CEFTRIAXONE R Ciprofloxacin R Gentamicin R Nitrofurantoin R Imipenem S Levofloxacin R Tobramycin I Trimethoprim/Sulfamethoxazole R Piperacillin/Tazobactam S (9) Chronic anticoagulation: Assessment and plan: INR remains below goal. Have increased his coumadin to 5mg po daily but consider increasing if INR is not improving. Concern for overshooting with current abx Subjective Subjective Interval history since last seen: No new complaints Exam Narrative Exam Narrative: General: older adult male, obese, sitting in recliner in MS room, legs elevated HEENT: hearing grossly WNL, normocephalic, atraumatic Resp: even resp effort at rest, labored w/speech w/accessory muscle use GI: large pannus Psych: refuses to answer, confused, blunted, avoids eye contact Objective Last Vital Signs Temp 36.9 C 09/27/24 15:27 Pulse 89 09/27/24 15:27 Resp 16 09/27/24 15:27 BP 109/70 09/27/24 15:27 Pulse Ox 98 09/27/24 15:27 Laboratory Results - last 24 hr 09/27/24 09/27/24 06:17 11:38 WBC 12.43 H RBC 2.96 L Hgb 8.1 L Hct 26.5 L MCV 90 MCH 27.4 MCHC 30.6 L RDW 14.6 H Plt Count 574 H MPV 10.3 Immature Gran % 0.6 Neutrophils % 70.2 Lymphocytes % 11.2 Monocytes % 8.9 Eosinophils % 8.4 Basophils % 0.7 Nucleated RBC % 0.0 Absolute Neutrophils 8.73 H Absolute Lymphocytes 1.39 Absolute Monocytes 1.11 H Absolute Eosinophils 1.04 H Absolute Basophils 0.09 PT 12.9 H INR 1.3 H Sodium 142 Potassium 4.5 Chloride 107 Carbon Dioxide 28.4 Anion Gap 6.6 BUN 21 H Creatinine 2.2 H Est GFR (CKD-EPI 2020) 29.36 Glucose 92 Calcium 8.7 Total Bilirubin 0.7 AST 22 ALT 18 Alkaline Phosphatase 68 Total Protein 6.6 Albumin 2.1 L Add-On Test Request DONE Time Spent with Patient Time Spent with Patient: 25-34 minutes Time was spent: preparing to see the patient(eg.review tests), obtaining and/or reviewing separately otained hiistory, ordering medications,tests, procedures, referring, communicating with other health pet care worker, indepentently interpreting results, counseling the patient and care coordination
[2024-09-27] MEDS: Atorvastatin 20 MG TAB PO (20:32)
[2024-09-27] MEDS: Warfarin 5 MG TAB PO (20:32)
[2024-09-27 21:06] LABS: PSA, Screening 1.2 ng/mL (<=6.5)
[2024-09-27 23:22] VITALS: BP 113/72; PULSE 90; RESP 22; TEMP 36.9; O2SAT 97
--- NOTE | 2024-09-28 | DI.CT_ITS ---
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 TECHNIQUE: Imaging Protocol: Axial computed tomography images with coronal and sagittal reformatted images were created and reviewed. Oral: / no COMPARISON: CT CT ABDOMEN PELVIS WO from 09/04/2024 FINDINGS: Lung Bases: No acute findings. Liver: Normal density. No suspicious mass. Gallbladder and biliary tract: Cholelithiasis. No biliary dilation. Pancreas: Normal density. No abnormal calcifications or inflammatory process. Spleen: Normal. Kidneys: Normal size, contour and axis. No radiodense stones. No obstructive uropathy. Renal cysts. No suspicious masses seen. Status post removal of left ureteral stent. Adrenal glands: No masses seen. Lymph nodes: Within normal limits. Vasculature: Abdominal aorta non-dilated. Soft tissues: Small fat containing left inguinal hernia. Bladder: The ureteral stent has been removed. No wall thickening. No mass or calculi. Bowel: Diverticulum of the descending duodenum. No obstruction or bowel wall thickening. Appendix n ormal. Normal quantity of stool. Peritoneal cavity: No ascites. No focal collection. No mesenteric inflammatory response. Reproductive organs: Unremarkable. Bones: Unremarkable for age. IMPRESSION: Status post removal of left ureteral stent. No significant perinephric stranding. No hydronephrosis . The bladder appears normal. RADIATION DOSE DELIVERED: Total DLP DATA REPOSITORY: All CT scans at this facility are submitted to the National Radiology Data Registry (NRDR) Dose Index Registry (DIR) with the [employer] (ACR). RADIATION OPTIMIZATION: All CT scans at this facility use at least one of these dose optimization te chniques: automated exposure control; mA and/or kV adjustment per patient size (includes targeted exa ms where dose is matched to clinical indication); or iterative reconstruction.
[2024-09-28] MEDS: Vancomycin 125 MG CAP PO ×2 (04:40→10:57)
[2024-09-28 07:19] LABS: Abs Immature Grans 0.09 10^3/uL (0.0-0.06); Absolute Basophil Count 0.09 10^3/uL (0.0-0.2); Absolute Eosinophil Count 1.24 10^3/uL (0.0-0.7); Absolute Lymphocyte Count 1.76 10^3/uL (1.2-3.4); Absolute Monocyte Count 0.95 10^3/uL (0.1-0.8); Absolute Neutrophil Count 7.16 10^3/uL (1.2-6.7); Basophils % 0.8 %; HCT 28.5 % (40.0-50.0); HGB 8.7 g/dL (13.5-17.5); Immature Grans % 0.8 %; Lymphocytes % 15.6 %; MCH 27.4 pg (27.0-33.0); MCHC 30.5 % (32.0-36.0); MCV 90 fL (80-95); MPV 10.1 fL (8.0-11.0); Monocytes % 8.4 %; Neutrophils % 63.4 %; Platelet Count 654 10^3/uL (130-400); RBC 3.17 10^6/uL (4.36-5.78); RDW 15.1 % (11.8-14.1); RDW-SD 49.8 fL; WBC 11.29 10^3/uL (4.4-10.8)
[2024-09-28 07:30] LABS: INR 1.4 (0.9-1.1); Prothrombin Time 13.5 sec (9.1-11.1)
[2024-09-28 07:39] LABS: ALT 23 U/L (16-63); AST 24 U/L (15-37); Albumin 2.3 g/dL (3.4-5.0); Alkaline Phosphatase 74 U/L (46-116); Anion Gap 8.9 mmol/L (3-11); BUN 22 mg/dL (7-18); Bilirubin, Total 0.7 mg/dL (0.2-1.0); CO2 25.1 mmol/L (21.0-32.0); CREATININE 2.1 mg/dL (0.70-1.30); Calcium 9.3 mg/dL (8.5-10.1); Chloride 105 mmol/L (98-107); Estimated GFR 31.04 (mL/min/1.73m2); Glucose 98 mg/dL (74-106); Potassium 5.1 mmol/L (3.5-5.1); Sodium 139 mmol/L (136-145); Total Protein 7.2 g/dL (6.4-8.2)
[2024-09-28 08:06] VITALS: BP 129/82; PULSE 94; RESP 17; TEMP 36.7; O2SAT 94
--- NOTE | 2024-09-28 08:57 | PDOC.CMPRO ---
Date of service: 09/28/24 Time of Service: 12:45 Care Management Progress Note Progress Note Text Progress Note Text: Josep was awake in his chair when CM arrived. He was tired but willing to engage in conversation. CM encouraged Josep to continue with an increase in activity, and an increase in food intake to discharge home, safely. Josep's Noemy Barrera was in the room at this time and expressed concerns of Josep feeling tired all the time and refusing to eat. At times during the visit, Josep nodded off in his chair and raised his voice when encouragement of these things were given. Josep stated that he doesn't have a plan for moving forward and he does not want to go to rehab because What are they gonna do. Noemy Barrera informed CM that Josep has made comments of I might as well just , and others to that nature. CM will continue to follow. Discharge Potential Discharge Needs: PCP F/U Appt Anticipated Barriers to Discharge: None Identified Patient/Family Education Needs: Review discharge instructions, discuss Ask Me Three Transportation: Private vehicle ( (Noemy Barrera) will take him ) Plan: Anticipate that Josep will be discharged home with continuation of his HH PT and RN. He will f/u with his PCP and continue per his plan of care. CM will continue to follow and to encourage Josep to increase his activity Social Determinants of Health Screening Social Determinants of Health last assessed: 09/28/24 Will the Patient Participate in the Screening?: Yes Do you worry about having a steady place to live?: no Problems where you live: no known problems In the past 12 months, have you had to go without electric, gas, oil or water in your home?: no Have you or anyone in your house had to go without enough food to eat?: no Has lack of transportation kept you from medical appointments or from doing things needed for daily living?: no Has anyone in your life made you feel unsafe or unsupported?: no How hard is it for you to pay for the very basics like food, housing, medical care, and heating? Would you say it is:: Not hard at all Do you want help finding or keeping work or a job?: I do not need or want help If for any reason you need help with day-to-day activities such as bathing, preparing meals, shopping, managing finances, etc., do you get the help you need?: I don?t need any help How often do you feel lonely or isolated from those around you?: Never Do you speak a language other than Bulgarian at home?: No Does the patient want assistance with any of the above?: No Anticipated HH Services Anticipated HH Services at Discharge [facility].
[2024-09-28] MEDS: Cholecalciferol (Vitamin D3) 1,000 UNIT TAB 1000 UNITS PO (09:22)
[2024-09-28] MEDS: Cyanocobalamin 500 MCG TAB 1000 MCG PO (09:22)
[2024-09-28] MEDS: Sodium Bicarbonate 650 MG TAB PO ×2 (09:22→20:29)
[2024-09-28] MEDS: dilTIAZem CD 180 MG CAPCR PO (09:22)
[2024-09-28] MEDS: Normal Saline Flush 10 ML SYR IVP ×2 (09:24→20:32)
[2024-09-28 11:25] VITALS: BP 127/63; PULSE 100; TEMP 36.9; O2SAT 94
[2024-09-28 15:01] VITALS: BP 135/70; PULSE 104; TEMP 36.6; O2SAT 93
--- NOTE | 2024-09-28 15:11 | PT.INTREAT ---
PT Notes Visit Reasons: Hypotension, hyperkalemia Inpatient Physical Therapy Treatment Note [facility] Date: 09/28/24 SUBJECTIVE: Josep is agreeable to PT for me this am. Too tired to ambulate this pm but willing to do exercises in chair. OBJECTIVE: []? PAIN: none VITALS: ?monitored by [facility] Therapeutic Activities ([id number]): Direct one-on-one instruction in dynamic activities to improve functional performance. ? BED MOBILITY/TRANSFERS? seated in recliner.? Sit-stand: CGA? Stand-sit: CGA ? GAIT? Assistive Device: FWW ? Weight bearing: FWB Assist: CGA ? Distance:?7'x2? Deviation: slow jenny ? Therapeutic Exercises ([id number]): Direct one-on-one instruction in therapeutic exercises to develop strength, endurance, range of motion and flexibility. ? Exercises AM session: sit to stand x3 PM session: AP, LAQ, marching, hip ab/add, SLR x10 each. Sit to stand x10. Toileted this am due to loose stools. The clean up process tired him out and unable to continue ambulation.? ASSESSMENT:?did well with me today. He needed some encouragement and reminders that walking and exercise will get him home quicker. Seemed to be receptive to that. He put forth good effort in both am and pm sessions. PLAN: will continue to progress his strength and functional mobility to tolerance. TREATMENT CODE/TIME: 30 min in am/ 20 min in pm. ([id number], [id number]) DISCHARGE RECOMMENDATION: home with
--- NOTE | 2024-09-28 15:55 | W.PM.PROGNOT ---
Date of Service Date of service: 09/28/24 Time of Service: 15:55 Assessment and Plan Assessment and plan (1) Acute hypotension: Status: Acute Assessment and plan: In setting of recurrent UTI and loose stools with c. diff positive improvingd after fluids, but BP still low normal holding his losartan. Follow. (2) Urinary tract infection due to extended-spectrum beta lactamase (ESBL)-producing Klebsiella: Status: Acute Assessment and plan: Back on pip/tazo, culture again the same klebsiella, sensitive to pip/tazo. Should have reimaging for persistent stones or other complicating factors given we have had trouble clearing this infection. CT A/P w/o ordered. (3) C. difficile colitis: Status: Acute Assessment and plan: Partially treated with fidoxomicin, then oral vanco. Never fully resolved. Has been on oral vanco since readmission. Will change back to fidaxomicin for now, consider pulsed or tapered vanco on discharge. (4) CKD (chronic kidney disease): Assessment and plan: Cr stable at 2.1, around baseline, continue to monitor every few days. (5) Chronic anticoagulation: Assessment and plan: For h/o DVT/PE and atrial fibrillation, goal INR 2-3 INR remains below goal. Have increased his coumadin to 5mg po daily. Given additional 4mg for 9mg today and follow. Concern for overshooting with current abx, following daily (6) Anemia: Status: Chronic Assessment and plan: iron deficient after GI bleeding. Had trouble with oral iron. s/p one dose of iron dextran. Consider repeat to get close to 1000mg total dose, though some concern for promoting bacterial growth. Subjective Subjective Patient reports: denies nausea, vomiting, shortness of breath or fever Interval history since last seen: 24 hr: Received iron dextrose dose He still is very fatigued. He has felt down since the stent was put in and he ended up sick. He didn't notice a significant difference after iron dextrose. Energy lower after large loose BMs, 1-2 day, still haven't normalized. He has no chest pain. Appetite is still not good. Exam Narrative Exam Narrative: General: older adult male, obese, sitting in recliner in MS room, legs elevated. present CV: RRR, no m/g Resp: even resp effort at rest, CTAB GI: large pannus, NT/ND, soft ext: 1+ rogelio edema. Not tender Psych: oriented, appropriate, follows commands with exam. Objective Last Vital Signs Temp 36.6 C 09/28/24 15:01 Pulse 104 H 09/28/24 15:01 Resp 17 09/28/24 08:06 BP 135/70 09/28/24 15:01 Pulse Ox 93 09/28/24 15:01 Laboratory Results - last 24 hr 09/26/24 09/28/24 09/28/24 06:30 05:35 06:38 WBC 11.29 H RBC 3.17 L Hgb 8.7 L Hct 28.5 L MCV 90 MCH 27.4 MCHC 30.5 L RDW 15.1 H Plt Count 654 H MPV 10.1 Immature Gran % 0.8 Neutrophils % 63.4 Lymphocytes % 15.6 Monocytes % 8.4 Eosinophils % 11.0 Basophils % 0.8 Nucleated RBC % 0.0 Absolute Neutrophils 7.16 H Absolute Lymphocytes 1.76 Absolute Monocytes 0.95 H Absolute Eosinophils 1.24 H Absolute Basophils 0.09 PT Cancelled 13.5 H INR Cancelled 1.4 H Sodium 139 Potassium 5.1 Chloride 105 Carbon Dioxide 25.1 Anion Gap 8.9 BUN 22 H Creatinine 2.1 H Est GFR (CKD-EPI 2020) 31.04 Glucose 98 Calcium 9.3 Total Bilirubin 0.7 AST 24 ALT 23 Alkaline Phosphatase 74 Total Protein 7.2 Albumin 2.3 L PSA Screen 1.2 09/28/24 08:35 WBC RBC Hgb Hct MCV MCH MCHC RDW Plt Count MPV Immature Gran % Neutrophils % Lymphocytes % Monocytes % Eosinophils % Basophils % Nucleated RBC % Absolute Neutrophils Absolute Lymphocytes Absolute Monocytes Absolute Eosinophils Absolute Basophils PT Cancelled INR Cancelled Sodium Potassium Chloride Carbon Dioxide Anion Gap BUN Creatinine Est GFR (CKD-EPI 2020) Glucose Calcium Total Bilirubin AST ALT Alkaline Phosphatase Total Protein Albumin PSA Screen Time Spent with Patient Time Spent with Patient: 35-49 minutes Time was spent: preparing to see the patient(eg.review tests), obtaining and/or reviewing separately otained hiistory, ordering medications,tests, procedures, referring, communicating with other health career development facilitator, indepentently interpreting results, counseling the patient and care coordination
[2024-09-28] MEDS: Fidaxomicin 200 MG TAB PO (20:29)
[2024-09-28] MEDS: Warfarin 5 MG TAB PO (20:29)
[2024-09-28] MEDS: Warfarin 4 MG TAB PO (20:29)
[2024-09-28] MEDS: Atorvastatin 20 MG TAB PO (20:31)
[2024-09-29 03:39] VITALS: BP 112/65; PULSE 87; RESP 16; TEMP 36.5; O2SAT 96
[2024-09-29 08:08] VITALS: BP 111/77; PULSE 95; RESP 18; TEMP 36.8; O2SAT 94
[2024-09-29 08:11] LABS: HCT 24.8 % (40.0-50.0); HGB 7.8 g/dL (13.5-17.5)
[2024-09-29 08:20] LABS: INR 1.4 (0.9-1.1); Prothrombin Time 13.7 sec (9.1-11.1)
[2024-09-29] MEDS: Sodium Bicarbonate 650 MG TAB PO ×2 (08:31→19:23)
[2024-09-29] MEDS: Fidaxomicin 200 MG TAB PO ×2 (08:32→19:23)
[2024-09-29] MEDS: Cyanocobalamin 500 MCG TAB 1000 MCG PO (08:32)
[2024-09-29] MEDS: Cholecalciferol (Vitamin D3) 1,000 UNIT TAB 1000 UNITS PO (08:32)
[2024-09-29] MEDS: dilTIAZem CD 180 MG CAPCR PO (08:33)
[2024-09-29] MEDS: Normal Saline Flush 10 ML SYR IVP ×2 (08:33→19:24)
--- NOTE | 2024-09-29 09:22 | CMPROGNOTE_ITS ---
Date of service: 09/29/24 Time of Service: 09:22 Care Management Progress Note Progress Note Text Progress Note Text: Josep was sitting up in his chair dozing off when CM arrived, he responded to voice and was very pleasant and willing to engage in conversation. He stated that he was feeling better this morning and that he ate breakfast today. Josep told CM that he participated in PT both times yesterday and would do it again today. Noemy Barrera arrived later in the morning, and CM informed both Josep and her that palliative would be in, to see them today. Per Josep, he did not want lunch but does want a frappe and he would prefer to just eat breakfast and supper today. CM coordinated the request with the kitchen and provided Josep with the kitchen's extension. Discharge Potential Discharge Needs: PCP F/U Appt Anticipated Barriers to Discharge: None Identified Patient/Family Education Needs: Review discharge instructions, discuss Ask Me Three Transportation: Private vehicle ( Noemy Barrera will transport) Plan: Anticipate that Josep will be discharged home with continuation of his HH PT and RN. He will f/u with his PCP and continue per his plan of care. CM will continue to follow and encourage Josep to increase his activity and allow care. Social Determinants of Health Screening Social Determinants of Health last assessed: 09/29/24 Will the Patient Participate in the Screening?: Yes Do you worry about having a steady place to live?: no Problems where you live: no known problems In the past 12 months, have you had to go without electric, gas, oil or water in your home?: no Have you or anyone in your house had to go without enough food to eat?: no Has lack of transportation kept you from medical appointments or from doing things needed for daily living?: no Has anyone in your life made you feel unsafe or unsupported?: no How hard is it for you to pay for the very basics like food, housing, medical care, and heating? Would you say it is:: Not hard at all Do you want help finding or keeping work or a job?: I do not need or want help If for any reason you need help with day-to-day activities such as bathing, preparing meals, shopping, managing finances, etc., do you get the help you need?: I don?t need any help How often do you feel lonely or isolated from those around you?: Never Do you speak a language other than [place]itanian at home?: No Does the patient want assistance with any of the above?: No
[2024-09-29] MEDS: IRON SUCROSE COMPLEX 300 MG in Normal Saline 250 ML 167 MG IVPB (10:28)
[2024-09-29 11:12] VITALS: BP 125/72; PULSE 102; RESP 18; TEMP 36.7; O2SAT 95
--- NOTE | 2024-09-29 13:17 | W.PALPGNOTE ---
Date of service: 09/29/24 Time of Service: 12:15 Assessment and Plan Assessment and plan (1) Acute hypotension: Status: Acute Assessment and plan: resumed home cardizem, valsartan remains on hold improving, but still low a/w UTI/C diff - dehydration, did see improvement s/p IVF (2) Urinary tract infection due to extended-spectrum beta lactamase (ESBL)-producing Klebsiella: Status: Acute Assessment and plan: continues on pip/tazo CT A/P r/o stones/inflammation (3) C. difficile colitis: Status: Acute Assessment and plan: transition back to fidoxomicin w/vanco puls/taper continues to have loose stools, potentially reducing (4) CKD (chronic kidney disease): Assessment and plan: Cr stable at 2.1 need for further review in future outpatient visits (5) Hx of sepsis: Assessment and plan: w/hospitalization 09/04-05/31 (6) Sena classified according to extent of body surface involved: Assessment and plan: does wound care (7) Chronic anticoagulation: Assessment and plan: considering transition from warfarin to apixaban, pending financial burden (8) Palliative care encounter: Status: Acute Assessment and plan: PC will continue to follow Josep, f/u inpatient on Friday pending updates in care goal of outpatient visit in next 2-4wks (9) ACP (advance care planning): Status: Acute Assessment and plan: reviewed palliative care, goals of care and future conversation goals reviewed existing COLST: DNR/I, transfer to hospital, yes abx; no feed tube, no IVF; reviewed recent use of IVF during this hospitalization he is okay with this, we will review this again once he is out of the hospital, as he is currently not requiring IVF reviewed and completed HCA form, Howard is his stated HCA spent 20m w/ACP Subjective Subjective Interval history since last seen: Josep remains hospitalized at [facility] 2/2 hypotension, C diff s/p recent pyelonephritis Josep deferred PC visit 2 days ago 09/27, preferring his Noemy Barrera to be present. He has been improving over last few days, more accepting of care, pleasant, improved appetite, 1 person assist to stand by, using walker, did go to commode w/PT; has been sleeping in recliner, now w/broken skin, plan to return to bed today and offload pressure CT A/P yesterday w/no concerns, reassuring continues to have loose stools, 4 overnight, potentially reducing today fecal test today positive for heme, H/H counts down trending, received iron; - considering transitoin from warfarin to apixaban - plan to stop IV abx w/goal of reducing diarrheal sxs; consider outpatient colo Josep defers most of visit to Howard, but does engage intermittently; mostly, he feels better, improved energy and appetite, wants to go home. He denies any pain Howard shares that they had two children, sadly both have predeceased them, one from aneurysm, another w/gallbladder complications ultimately leading to life support interventions. This made a significant impact on their care preferences Never completed AD; COLST from 2019 indicated no IVF, however he is okay that he received them during this hospitalization. I don't care Howard states yesterday he told her I might as well as just , which frustrated her. it was not in relation to anything specifically. Today he clarifies statement more related to that is inevitable. he does not feel close to dying today Exam Narrative Exam Narrative: General: older adult male, obese, sitting in recliner in MS room, legs elevated; intermittently closes eyes, re-engages when asked HEENT: hearing grossly WNL, normocephalic, atraumatic Resp: even resp effort at rest, speaks full sentences, limited to 1-2 before labored GI: large pannus Psych: refuses to answer, labile mood, guarded; insight/judgment limited to poor Objective Last Vital Signs Temp 98.1 F 09/29/24 11:12 Pulse 102 H 09/29/24 11:12 Resp 18 09/29/24 11:12 BP 125/72 09/29/24 11:12 Pulse Ox 95 09/29/24 11:12 Laboratory Results - last 24 hr 09/29/24 07:35 Hgb 7.8 L Hct 24.8 L PT 13.7 H INR 1.4 H
--- NOTE | 2024-09-29 13:22 | PT.INTREAT ---
PT Notes Visit Reasons: Hypotension, hyperkalemia Inpatient Physical Therapy Treatment Note [facility] Date: 09/29/24 SUBJECTIVE: I was all set to go this morning, now I am too tired. He was agreeable to participate with my persistence. OBJECTIVE: []? PAIN:no complaints. VITALS: ?monitored by nsg. Therapeutic Activities ([id number]): Direct one-on-one instruction in dynamic activities to improve functional performance. ? BED MOBILITY/TRANSFERS? seated in recliner? Sit-stand: CGA? Stand-sit: CGA? GAIT? Assistive Device: FWW ? Weight bearing: FWB Assist: CGA/SBA ? Distance:?25' and 20'? Deviation: slow jenny, fwd flex? He then wheeled himself in wc 120' ? ASSESSMENT:? steady on feet. No LOB and significant fatigue during ambulation. He does prefer to Get his work done earlier. PLAN: continue to work on strength and functional mobility, following PT POC. TREATMENT CODE/TIME: 20 min. ([id number]) DISCHARGE RECOMMENDATION: home with
--- NOTE | 2024-09-29 13:37 | PGE_ITS ---
Date of Service Date of service: 09/29/24 Time of Service: 13:37 Assessment and Plan Assessment and plan (1) Acute hypotension: Status: Acute Assessment and plan: In setting of recurrent UTI and loose stools with c. diff positive improvingd after fluids, but BP still low normal holding his losartan. Follow. (2) Urinary tract infection due to extended-spectrum beta lactamase (ESBL)- producing Klebsiella: Status: Acute Assessment and plan: He is now s/p 7 more days of IV pip/tazo, culture again the same klebsiella, sensitive to pip/tazo. CT done 09/28 did not show peristent inflammation or stone fragments or other complicating factors. Given downside of ongoing antibiotics with c. diff, will stop now. (3) C. difficile colitis: Status: Acute Assessment and plan: Partially treated with fidoxomicin, then oral vanco. Never fully resolved. Was on oral vanco since readmission 09/22 to 09/28. Changed back to fidaxomicin 09/28, seems to be imrpoving stopping IV pip/tazo should help. consider pulsed or tapered vanco on discharge. (4) CKD (chronic kidney disease): Assessment and plan: Cr stable at 2.1, around baseline, continue to monitor every few days, ordered for AM (5) Chronic anticoagulation: Assessment and plan: For h/o DVT/PE and atrial fibrillation, goal INR 2-3 INR remains below goal on coumadin 5mg po daily. 9mg 09/28, INR still low. 10mg today. FOB+ stool but not gross bleeding, follow. Concern for overshooting with current abx, following daily Discussed DOAC, sent apixaban to outpatient pharmacy to check ruiz. (6) Anemia: Status: Chronic Assessment and plan: iron deficient after GI bleeding. Had trouble with oral iron. s/p 400mg of iron dextran. Additional 300mg today, full dose would be about 1000mg total dose. Some concern for promoting bacterial growth with IV iron, but I think he needs it. Subjective Subjective Patient reports: feels better and tolerating a regular diet; denies nausea, vomiting, shortness of breath or fever Interval history since last seen: Events: Oral abx changed to fidaxomicin FOB positive today, not grossly bloody stool Still having 3-4 stool/24 hours, runny. He feels a little more energy today, eating a little more, working with PT. encouraging him helps. urinating okay, no pain. Exam Narrative Exam Narrative: General: older adult male, sitting in recliner in MS room, legs Resp: even resp effort, speaks full sentences, lungs CTAB CV: RRR no m/g/r GI: +BS, soft, NT/ND ext: no edema, no changes in ankle wounds (dressings changed today) Psych: appropriate, answers questions, normal thought process Objective Last Vital Signs Temp 36.7 C 09/29/24 11:12 Pulse 102 H 09/29/24 11:12 Resp 18 09/29/24 11:12 BP 125/72 09/29/24 11:12 Pulse Ox 95 09/29/24 11:12 Laboratory Results - last 24 hr 09/29/24 07:35 Hgb 7.8 L Hct 24.8 L PT 13.7 H INR 1.4 H Time Spent with Patient Time Spent with Patient: 35-49 minutes Time was spent: preparing to see the patient(eg.review tests), obtaining and/or reviewing separately otained hiistory, ordering medications,tests, procedures, referring, communicating with other health healthcare administrative assistant, indepentently interpreting results, counseling the patient and care coordination
--- NOTE | 2024-09-29 13:52 | CHAPLAIN ---
Josep was sitting up in the chair when I visited. His Noemy Baker was with him. Josep said he is here because [place] [facility] [place], instead of taking it out, and he's had problems ever since then. He said he's been here or at [facility] for two weeks. They are from [facility] and retired to the [facility]. Josep is clear that he doesn't want to be here. I explained my role and offered support. Sahwna thanked me for praying for them.
--- NOTE | 2024-09-29 15:03 | PT.INTREAT ---
PT Notes Visit Reasons: Hypotension, hyperkalemia Inpatient Physical Therapy Treatment Note [facility] Date: 09/29/24 PRECAUTIONS:[] SUBJECTIVE: [] OBJECTIVE: []? PAIN: [] VITALS: ? Pre-Treatment: [] ? Post-Treatment: []? Therapeutic Activities (17044j[]): Direct one-on-one instruction in dynamic activities to improve functional performance. ? BED MOBILITY/TRANSFERS? Rolling L/R: [] Supine-sit: []? Sit-supine: [] ? Sit-stand: []? Stand-sit: [] ? Bed-Chair: [] ? Chair-bed: [] Provided skilled cues and instruction on performance and technique throughout. Gait Training (45706o[]): Direct one-on-one instruction and skilled instruction in: [] employing an assistive device [] modified weight-bearing status [] movement sequencing [] turning and movement with proper form [] Provided verbal cues for equipment management and technique [] Provided instruction in gait pattern [] Patient education regarding pacing and breathing techniques to maximize activity tolerance? GAIT? Assistive Device: []? Weight bearing: [] Assist: [] ? Distance:? [] ? Deviation: [] ? STAIRS:[] ? Therapeutic Exercises (47477l[]): Direct one-on-one instruction in therapeutic exercises to develop strength, endurance, range of motion and flexibility. ? Exercises ? [] Ambulation ? Assistive Device: []? Weight bearing: [] Assist: [] ? Distance:? [] ? Deviation: [] ? Provided skilled instruction in proper exercise performance Provided skilled manual cues to facilitate proper muscle recruitment and/or form: [] Neuromuscular Re-education (46245g[]): Activities that facilitate re-education of movement balance, posture, coordination, and proprioception or kinesthetic sense, requiring skilled tactile and verbal cues ? Exercises/techniques: ? [] ASSESSMENT:? [] PLAN: [] TREATMENT CODE/TIME: [] DISCHARGE RECOMMENDATION: []
[2024-09-29 17:21] VITALS: BP 132/72; PULSE 100; RESP 20; TEMP 37; O2SAT 95
[2024-09-29] MEDS: Atorvastatin 20 MG TAB PO (19:23)
[2024-09-29] MEDS: Warfarin 5 MG TAB PO ×2 (19:24)
[2024-09-29 20:35] VITALS: BP 132/83; PULSE 101; RESP 20; TEMP 36.9; O2SAT 93
[2024-09-29 23:25] VITALS: BP 126/78; PULSE 78; RESP 20; TEMP 36.4; O2SAT 93
[2024-09-30] VITALS (13 sets, daily range): BP systolic 107–144; BP diastolic 43–83; PULSE 83–105; RESP 14–24; TEMP 36.2–37.4; O2SAT 94–97
[2024-09-30 06:39] LABS: HCT 26.9 % (40.0-50.0); HGB 8.2 g/dL (13.5-17.5)
[2024-09-30 06:50] LABS: INR 1.6 (0.9-1.1); Prothrombin Time 15.4 sec (9.1-11.1)
[2024-09-30 06:54] LABS: Anion Gap 8.5 mmol/L (3-11); BUN 27 mg/dL (7-18); CO2 24.5 mmol/L (21.0-32.0); CREATININE 2.1 mg/dL (0.70-1.30); Calcium 9.1 mg/dL (8.5-10.1); Chloride 109 mmol/L (98-107); Estimated GFR 31.04 (mL/min/1.73m2); Glucose 92 mg/dL (74-106); Potassium 5.9 mmol/L (3.5-5.1); Sodium 142 mmol/L (136-145)
[2024-09-30] MEDS: Fidaxomicin 200 MG TAB PO ×2 (07:54→20:59)
[2024-09-30] MEDS: dilTIAZem CD 180 MG CAPCR PO (07:54)
[2024-09-30] MEDS: Cyanocobalamin 500 MCG TAB 1000 MCG PO (07:54)
[2024-09-30] MEDS: Sodium Bicarbonate 650 MG TAB PO ×2 (07:54→20:59)
[2024-09-30] MEDS: Cholecalciferol (Vitamin D3) 1,000 UNIT TAB 1000 UNITS PO (07:54)
[2024-09-30] MEDS: Normal Saline Flush 10 ML SYR IVP ×2 (08:39→20:59)
--- NOTE | 2024-09-30 13:09 | PT.INTREAT ---
PT Notes Visit Reasons: Hypotension, hyperkalemia Inpatient Physical Therapy Treatment Note [facility] Date: 09/30/2024 SUBJECTIVE: Pt initially only agreeable to walk short distance in room.He reported he is just tired. On reapproach later in am , pt agreeable to walk longer distance when present. Patient did perform longer distance with present on second approach later in the a.m. OBJECTIVE: []? PAIN:no complaints. VITALS: ?monitored by nsg. Therapeutic Activities (55151r0): Direct one-on-one instruction in dynamic activities to improve functional performance. ? BED MOBILITY/TRANSFERS? seated in recliner? Sit-stand: CGA?from bed chair and wheelchair ? Stand-sit: CGA from bed, chair, wheelchair? GAIT? Assistive Device: FWW ? Weight bearing: FWB Assist: CGA/SBA ? Distance:?10' x 2 then 30' x 2 and 40'x1? ? ?seated rests between all distances ? Deviation: slow jenny, fwd flex? ASSESSMENT:?Pt ambulate with FWW with no LOB and no report of pain in his feet. He can become easily agitated when encouraged to do more. PLAN: continue to work on strength and functional mobility, following PT POC. TREATMENT CODE/TIME:94627p80 mins for 3 units / 920-824, 1623-7317 DISCHARGE RECOMMENDATION: home with HHPT
--- NOTE | 2024-09-30 13:13 | CMPROGNOTE_ITS ---
Date of service: 09/30/24 Time of Service: 13:13 Care Management Progress Note Progress Note Text Progress Note Text: Josep was laying in bed, awake when CM arrived. Josep was cheerful and very willing to engage in conversation. Per Josep he is feeling the same (with what he considers to be less diarrhea), but now has a more positive mindset about being at [facility], which allows him to work hard, in order to get better. Josep was able to eat some breakfast, and have a strawberry frappe (which he enjoys) today. He mentioned working with PT, helps his legs feel stronger. CM will continue to follow. Discharge Potential Discharge Needs: PCP F/U Appt Anticipated Barriers to Discharge: None Identified Transportation: Private vehicle ( - Noemy Barrera) Plan: Anticipate that Josep will be discharged home with continuation of his HH PT and RN. He will f/u with his PCP and continue per his plan of care. CM will continue to follow and encourage Josep to increase his activity and allow care. Social Determinants of Health Screening Social Determinants of Health last assessed: 09/30/24 Will the Patient Participate in the Screening?: Yes Do you worry about having a steady place to live?: no Problems where you live: no known problems In the past 12 months, have you had to go without electric, gas, oil or water in your home?: no Have you or anyone in your house had to go without enough food to eat?: no Has lack of transportation kept you from medical appointments or from doing things needed for daily living?: no Has anyone in your life made you feel unsafe or unsupported?: no How hard is it for you to pay for the very basics like food, housing, medical care, and heating? Would you say it is:: Not hard at all Do you want help finding or keeping work or a job?: I do not need or want help If for any reason you need help with day-to-day activities such as bathing, preparing meals, shopping, managing finances, etc., do you get the help you need?: I don?t need any help How often do you feel lonely or isolated from those around you?: Never Do you speak a language other than [place] at home?: No Does the patient want assistance with any of the above?: No
--- NOTE | 2024-09-30 13:13 | PHA.REVIEW2 ---
Pharmacy Admission Review Admission Clinical Review Admission Pharmacy Review: ACP (advance care planning) (Acute) Urinary tract infection due to extended-spectrum beta lactamase (ESBL)-producing Klebsiella (Acute) Palliative care encounter (Acute) Acute hypotension (Acute) Fever (Acute) C. difficile colitis (Acute) Bacteremia (Acute) Atrial flutter (Acute) tamsulosin Adverse Reaction (Intermediate, Verified 09/04/24 20:23) diarrhea Resuscitation Status DNR/DNI Height 5 ft 11 in Weight 243.4 kg Pharmacy Admission Review Renal Dosing Renal Dosing: BUN 27 mg/dL (7-18) H 09/30/24 06:05 Creatinine 2.1 mg/dL (0.70-1.30) H 09/30/24 06:05 Medications needing adjustments: Reviewed (CrCl 55.6 mL/min, BUN increased from 22) List of meds needing interventions: Current medications are okay Anticoagulation Anticoagulation: Hgb 8.2 g/dL (13.5-17.5) L 09/30/24 06:05 Hct 26.9 % (40.0-50.0) L 09/30/24 06:05 Plt Count 654 10^3/uL (130-400) H 09/28/24 06:38 INR 1.6 (0.9-1.1) H 09/30/24 06:05 Creatinine 2.1 mg/dL (0.70-1.30) H 09/30/24 06:05 DVT Prophylaxis: Reviewed (Hgb increased from 7.8, INR increased from 1.4 but still subtherapeutic.) Medications: Warfarin (5mg daily, an additional 5mg was given last night as a now one order due to subtherapeutic INR) Relevant Labs Relevant Labs: Sodium 142 mmol/L (136-145) 09/30/24 06:05 Potassium 5.9 mmol/L (3.5-5.1) H 09/30/24 06:05 Chloride 109 mmol/L (98-107) H 09/30/24 06:05 Electrolytes, C-Reactive P, ESR: Reviewed (K 5.9) Cardiac Review BP, HR, EF%: Reviewed (BP WNL, HR 92) List meds needing interventions: Has order for diltiazem CD 180mg daily QTc Review QTc: Reviewed (445 from 09/22/24) IV to PO Switch IV Medications: Reviewed Home Meds Home Med List reviewed: Reviewed Relevent Home Meds Not ordered & why?: valsartan Current Meds Current Medication Order Review: Reviewed Pharmacy Antibiotic Review Relevant Labs: WBC 11.29 10^3/uL (4.4-10.8) H 09/28/24 06:38 Procalcitonin 0.18 ng/mL 09/22/24 15:23 Temperature 36.6 C Temperature 36.2 C Temperature 36.4 C Urine culture 09/25/24 = Klebsiella Pneumoniae Organism 1 Klebsiella pneumoniae COLONY COUNT >100,000 COLONIES/ML Kleb pneu Result Ampicillin R Ampicillin/Sulbactam R Cefazolin R Ceftazidime R CEFTRIAXONE R Ciprofloxacin R Gentamicin R Nitrofurantoin R Imipenem S Levofloxacin R Tobramycin I Trimethoprim/Sulfamethoxazole R Piperacillin/Tazobactam S Pharmacy Antibiotic Activity: C/S review and Antibiotic de-escalation (Zosyn discontinued) Comments: Zosyn order was discontinued yesterday, patient completed 7 days of treatment. Patient was also 0n vancomycin 125mg PO q6h for C. diff started on 09/22, this was switched to Dificid on 09/28/24.
--- NOTE | 2024-09-30 14:30 | RT.EKG_ITS ---
APPROVED REPORT Exam: Resting ECG Reason for Exam: hyperkalemia Patient Location: I HR:95 bpm ECG Measurements Heart Rate [address] 193 P 61 QRSd 121 QRS -58 QT 356 T 26 QTc 448 Conclusion Sinus rhythm...normal P axis, V-rate 50- 99 Right bundle branch block...QRSd>120, terminal axis(90,270) Left anterior fascicular block
--- NOTE | 2024-09-30 14:40 | PGE_ITS ---
Date of Service Date of service: 09/30/24 Time of Service: 14:40 Assessment and Plan Assessment and plan (1) Hyperkalemia: Status: Acute Assessment and plan: Developed in the past 2 days, though trend was up prevoiusly. Not on any meds that would classically cause this, He had this last admission but a/w a bump in Cr which made more sense. EKG showes some higher Ts, will given IV calcium gluconate Give a dose of insulin and D50 start Lokelma for now. Stop when normalizes. Taking a lot of shakes. Change to renal diet. (2) Acute hypotension: Status: Acute Assessment and plan: In setting of recurrent UTI and loose stools with c. diff positive improved after fluids BP normal off losartan, will not resume for now. (3) Urinary tract infection due to extended-spectrum beta lactamase (ESBL)- producing Klebsiella: Status: Acute Assessment and plan: As of 09/29 he is s/p 7 more days of IV pip/tazo, culture again the same klebsiella, sensitive to pip/tazo. CT done 09/28 did not show persistent inflammation or stone fragments or other complicating factors. Continue off antibiotic given ongoing c diff diarrhea (4) C. difficile colitis: Status: Acute Assessment and plan: Partially treated with fidoxomicin, then oral vanco. Never fully resolved. Was on oral vanco since readmission 09/22 to 09/28. Changed back to fidaxomicin 09/28, seems to be imrpoving but loose stools persist despite stopping IV pip/tazo. I'd like to see this improve before discharge. consider pulsed or tapered vanco on discharge. (5) CKD (chronic kidney disease): Assessment and plan: Cr stable at 2.1, around baseline, continue to monitor (6) Chronic anticoagulation: Assessment and plan: For h/o DVT/PE and atrial fibrillation, goal INR 2-3 INR remains below goal on coumadin 5mg po daily. 9mg 09/28, 10mg 09/29 but it is going up FOB+ stool but not gross bleeding. Concern for overshooting with current abx, following daily Discussed DOAC, sent apixaban to outpatient pharmacy to check ruiz. 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 (7) Anemia: Status: Chronic Assessment and plan: iron deficient after GI bleeding. Had trouble with oral iron. s/p 700mg of iron dextran. Could use another 300mg, full dose would be about 1000mg total dose, but hold off today. Some concern for promoting bacterial growth with IV iron, but I think there is overall benefit Subjective Subjective Patient reports: no new complaints, tolerating liquids well and voiding w/o difficulty; denies diarrhea, nausea, vomiting, shortness of breath or fever Interval history since last seen: 24hr events: Another 300mg iron dextran given Pip/tazo stopped after full 7 day course He feels okay. Still having some loose stools with leakage at times. No isabel bleeding or melena. He ate breakfast, but he didn't like lunch so didn't eat much. Exam Narrative Exam Narrative: General: older adult male, sitting in bed, appropriately responsive, NAD Resp: even resp effort, lungs CTAB CV: RRR. 1/6 systolic murmur at apex, no g/r GI: +BS, soft, NT/ND ext: no edema, no changes in ankle wounds (dressings not taken down) Objective Last Vital Signs Temp 36.6 C 09/30/24 11:30 Pulse 92 H 09/30/24 11:30 Resp 24 09/30/24 11:30 BP 115/75 09/30/24 11:30 Pulse Ox 96 09/30/24 11:30 Laboratory Results - last 24 hr 09/30/24 06:05 Hgb 8.2 L Hct 26.9 L PT 15.4 H INR 1.6 H Sodium 142 Potassium 5.9 H Chloride 109 H Carbon Dioxide 24.5 Anion Gap 8.5 BUN 27 H Creatinine 2.1 H Est GFR (CKD-EPI 2020) 31.04 Glucose 92 Calcium 9.1 Time Spent with Patient Time Spent with Patient: >50 minutes Time was spent: preparing to see the patient(eg.review tests), obtaining and/or reviewing separately otained hiistory, ordering medications,tests, procedures, referring, communicating with other health laboratory animal care veterinarian, indepentently interpreting results, counseling the patient, care coordination and other (managing acute hyperkalemia)
[2024-09-30] MEDS: Dextrose 50%-Water 25 GM/50 ML SYR IVP (15:54)
[2024-09-30] MEDS: Sodium Zirconium Cyclosilicate 10 GM PKT PO ×2 (15:54→20:58)
[2024-09-30] MEDS: CALCIUM GLUCONATE in NaCl 1 GM/50 ML BAG IVPB (15:56)
[2024-09-30] MEDS: Insulin REGULAR-Human 100 UNITS/ML UNIT 10 UNITS SC (16:01)
--- NOTE | 2024-09-30 16:19 | PT.INTREAT ---
PT Notes Visit Reasons: Hypotension, hyperkalemia Inpatient Physical Therapy Treatment Note [facility] Date: 09/30/2024 p.m. session SUBJECTIVE: Patient agreeable to walk. OBJECTIVE: Patient presented supine in bed agreeable to participate? PAIN:no complaints. VITALS: ?monitored by nsg. Therapeutic Activities (28984m3): Direct one-on-one instruction in dynamic activities to improve functional performance. ? BED MOBILITY/TRANSFERS? Supine to sit CGA with cues as patient was asking this greeting card writer to pull him up however with cueing he was able to perform without physical assistance. ? Sit-stand: CGA?from bed chair and wheelchair ? Stand-sit: CGA from bed, chair, wheelchair cues to reach back? Sit to supine min assist to get right lower extremity into bed patient able to get left lower extremity onto bed Ambulation? Assistive Device: FWW ? Weight bearing: FWB Assist: CGA/SBA ? Distance:?30 feet x 1, 50 feet x 1, 40 feet x 2 ? ?seated rests between all distances ? Deviation: slow jenny, fwd flex, reduced step height bilaterally? ASSESSMENT:?Patient tolerated session well. Patient motivated to walk multiple times this session without present. Pt ambulate with FWW with no LOB and no report of pain in his feet. Patient with episode of incontinence of bowel at end of session. Patient appeared to not recognize that he had bowel movement. PLAN: continue to work on strength and functional mobility, following PT POC. TREATMENT CODE/TIME:08068 /3:17 PM?3:46 PM DISCHARGE RECOMMENDATION: home with HHPT
[2024-09-30 18:21] LABS: Potassium 5.9 mmol/L (3.5-5.1)
[2024-09-30] MEDS: Warfarin 5 MG TAB PO ×2 (20:58→20:59)
[2024-09-30] MEDS: Atorvastatin 20 MG TAB PO (20:59)
[2024-10-01 02:57] VITALS: BP 116/75; PULSE 93; RESP 20; TEMP 36.9; O2SAT 95
[2024-10-01 06:42] LABS: Abs Immature Grans 0.37 10^3/uL (0.0-0.06); Absolute Eosinophil Count 1.08 10^3/uL (0.0-0.7); Absolute Lymphocyte Count 2.27 10^3/uL (1.2-3.4); Absolute Monocyte Count 1.26 10^3/uL (0.1-0.8); Absolute Neutrophil Count 8.91 10^3/uL (1.2-6.7); Basophils % 0.9 %; Eosinophils % 7.7 %; HCT 26.3 % (40.0-50.0); Immature Grans % 2.6 %; Lymphocytes % 16.2 %; MCH 27.8 pg (27.0-33.0); MCHC 30.4 % (32.0-36.0); MCV 91 fL (80-95); MPV 10.1 fL (8.0-11.0); Neutrophils % 63.6 %; Nucleated RBC 0.1 % (0.0-0.3); Platelet Count 540 10^3/uL (130-400); RBC 2.88 10^6/uL (4.36-5.78); RDW 16.1 % (11.8-14.1); RDW-SD 52.8 fL; WBC 14.01 10^3/uL (4.4-10.8)
[2024-10-01 06:49] LABS: INR 1.6 (0.9-1.1); Prothrombin Time 15.9 sec (9.1-11.1)
[2024-10-01 06:51] LABS: Absolute Basophil Count 0.13 10^3/uL (0.0-0.2)
[2024-10-01 06:55] LABS: Anion Gap 10.5 mmol/L (3-11); BUN 29 mg/dL (7-18); CO2 24.5 mmol/L (21.0-32.0); Calcium 8.9 mg/dL (8.5-10.1); Chloride 107 mmol/L (98-107); Estimated GFR 32.91 (mL/min/1.73m2); Glucose 87 mg/dL (74-106); Potassium 5.8 mmol/L (3.5-5.1); Sodium 142 mmol/L (136-145)
[2024-10-01 08:11] VITALS: BP 134/77; PULSE 94; RESP 20; TEMP 36.9; O2SAT 95
[2024-10-01] MEDS: Normal Saline Flush 10 ML SYR IVP ×3 (08:30→20:30)
[2024-10-01] MEDS: Sodium Bicarbonate 650 MG TAB PO ×2 (08:43→20:29)
[2024-10-01] MEDS: Sodium Zirconium Cyclosilicate 10 GM PKT PO ×3 (08:43→22:07)
[2024-10-01] MEDS: Fidaxomicin 200 MG TAB PO ×2 (08:43→20:29)
[2024-10-01] MEDS: Cyanocobalamin 500 MCG TAB 1000 MCG PO (08:45)
[2024-10-01] MEDS: dilTIAZem CD 180 MG CAPCR PO (08:45)
[2024-10-01] MEDS: Cholecalciferol (Vitamin D3) 1,000 UNIT TAB 1000 UNITS PO (08:45)
--- NOTE | 2024-10-01 10:18 | INPN_ITS ---
PT Notes Visit Reasons: Hypotension, hyperkalemia Inpatient Physical Therapy Progress Note Date: 10/01/2024 Dates of Service: 09/24/2024-10/01/2024 PRECAUTIONS:Cdiff, contact precautions, IV access, incontinence SUBJECTIVE: Pt reports he continues to be unaware of bowel incontinence. OBJECTIVE PAIN: RLE 2-3/10; buttocks 3/10 BED MOBILITY/TRANSFERS Rolling L/R: CGA with rails Supine-sit:min A / CGA depending on level of discomfort in RLE Sit-supine: min A at times for LEs Sit-stand: CGA Stand-sit:CGA Bed-Chair: CGA FWW Chair-bed: CGA FWW GAIT Assistive Device: FWW Weight bearing: full Assist: CGA Distance: 30-50 feet x 2 Deviation: decreased step length BLE, early heel off on right, impaired knee flesion during swing phase. impaired foot clearance on right , toes first on weight acceptance, impaired knee extension at midstance on right. THEREX: seated therex, marching, LAQ, hip abd/add 10 reps STAIRS: deferred Assessment: Josep demonstrated an initial decline in his functional mobility. He required supplemental IV iron which appears to have improved his ability to participate. He remains limited by SOB/CRUZ . Patient presents with clinical signs and symptoms consistent with current/admitting diagnoses that have resulted to mobility limitations, gait instability, generalized weakness, and overall ADL decline as demonstrated by the following impairment level findings: 1. Decreased strength to B UE/LE major muscle groups 2. Impaired sitting/standing balance 3. Impaired activity tolerance 4. Limitation of joint range of motion in B LE joints 5. Shortness of breath 6. incontinence of loose stool/ impaired bowel control 7. open areas/excoriation to left gluteal area. Impairments are contributing to the following functional limitations: 1. Decline in bed mobility skills 2. Decline in transfer skills 3. Difficulty with ambulation without assistive device and physical assistance 4. Increased completion time for mobility ADL performance 5. Increased risk for falls 6. Difficulty with managing steps alone safely Patient is assessed as a 77009 moderate complexity based on the following: History: 83-year-old male with past medical history as indicated above Examination: Demonstrable impairment in strength, balance, and mobility level with underlying impairments and functional limitations as exhibited above as well as deficit score of 29% utilizing the [facility] Mobility Inpatient Short Form Presentation: Evolving Decision Makin moderate complexity Goals:[MET/NOT MET] Continue all goals x 1 week 1. Supine-Sit independent - [NOT MET] 2. Sit-Supine independent -[NOT MET] 3. Sit-Stand independent - [NOT MET] 4. Stand-Sit independent with FWW [NOT MET] 5. Bed-Chair independent with FWW [NOT MET] 6. Chair-Bed independent with FWW [NOT MET] 7. Independent gait on level surface with use of FWW for at least 300 feet without report of pain nor dyspnea [NOT MET] 8. Independent stair negotiation while holding onto B rails for at least 3 steps without report of pain nor dyspnea [NOT MET] 9. Independent with home exercise program [NOT MET] 10. Good static and dynamic standing balance/tolerance [NOT MET] Plan of Care/Treatment Plan: 1-2x/day, 7 days/week x 1 week. Plan of care has been reviewed with the MANAGER COMMUNITY providing the service under Physical Therapy direction. Initiate Physical Therapy intervention for pain management as needed, strengthening, bed mobility, transfers, gait, stairs, balance training, and use of assistive device. DISCHARGE RECOMMENDATIONS: [] Home with no services [] [X] Home with services. Patient will benefit from home health PT services in order to progress mobility level using least restrictive assistive ambulatory device, assess home safety, identify additional equipment needs, and establish a functional maintenance program that will increase ability of patient to remain at home. [] Home with outpatient PT [] [] SNF for continued rehabilitation [] [] [facility] [] [] SNF versus LTC based on ability to participate and progress [] TREATMENT CODE/TIME: 47604 / 5450-3250 Modesta Shukla PT
[2024-10-01] MEDS: Furosemide 20 MG/2 ML VIAL IVP (10:19)
[2024-10-01 11:28] VITALS: BP 120/72; PULSE 65; RESP 20; TEMP 36.6; O2SAT 92
--- NOTE | 2024-10-01 13:34 | PCPN_ITS ---
Date of service: 10/01/24 Time of Service: 13:34 Assessment and Plan Assessment and plan (1) Hyperkalemia: Status: Acute (2) Acute hypotension: Status: Acute Assessment and plan: In setting of recurrent UTI and loose stools with c. diff positive Improved. (3) Urinary tract infection due to extended-spectrum beta lactamase (ESBL)-producing Klebsiella: Status: Acute Assessment and plan: Continue off antibiotic given ongoing c diff diarrhea (4) C. difficile colitis: Status: Acute Assessment and plan: Back on fidaxomicin, seems to be improving but loose stools persist, he has only had 2 stools so far today. (5) CKD (chronic kidney disease): Assessment and plan: Cr around baseline, continue to monitor (6) Chronic anticoagulation: Assessment and plan: For h/o DVT/PE and atrial fibrillation, goal INR 2-3 On Warfarin. His reports they tried to get DOAC but it was cost prohibitive. (7) Anemia: Status: Chronic Assessment and plan: iron deficient after GI bleeding. Had trouble with oral iron. s/p 700mg of iron dextran. (8) Palliative care encounter: Status: Acute Assessment and plan: Josep was seen by Palliative earlier on this admission. His was present for the visit. He was seen for f/u today. He was alone at the time of the visit. Spoke to his via phone as well. He engaged to a limited extent today. He is a DNR/DNI, has COLST. HCA form was completed with Holly Oseguera NP earlier this week. His would prefer he go to rehab to get stronger before going home but he declines. His goal is to be home. His plans to support him staying home through the end of his life. They just started with HH before this admission, they would like HH again upon discharge. They are agreeable to Palliative f/u after discharge home. Will have office call to schedule f/u once he is home. No plans for discharge home yet. Subjective Subjective Interval history since last seen: Josep was seen earlier on this admission for Palliative care by Holly Oseguera NP. His was present for the visit. He was seen for f/u today. He was alone at the time of the visit. Spoke to his via phone as well. He shows limited engagement and appears agitated at times during the visit. He states he is not good today. He reports that he is not eating well because he does not like the food offered here. Review of the record shows he has been eating 100% of most meals with the exception of breakfast today, which he did not eat any of. He reports that his loose stools are decreasing. He reports having only 2 stools so far today. He denies n/v. He wants to get home. His helps him with care at home. He does his own showers. He sits to shower. Noemy Barrera helps him get dressed. They have grab bars around the house. He had HH before this hospitalization, the plan will be to resume HH when he ret urns home. Noemy Barrera would prefer that he go to rehab to get stronger but he declines. Exam Narrative Exam Narrative: General: older adult male, well-nourished, laying in the hospital bed with eyes closed, he engaged minimally. He is alert and oriented. HEENT: hearing grossly WNL, normocephalic, atraumatic Resp: respirations appear even and unlabored at rest, no coughing or audible wheezing noted. Ext: moves all 4 extremities freely. Psych: refuses to answer, labile mood, guarded; insight/judgment limited to poor Objective Last Vital Signs Temp 36.6 C 10/01/24 11:28 Pulse 65 10/01/24 11:28 Resp 20 10/01/24 11:28 BP 120/72 10/01/24 11:28 Pulse Ox 92 10/01/24 11:28 Laboratory Results - last 24 hr 09/30/24 10/01/24 18:06 05:52 WBC 14.01 H RBC 2.88 L Hgb 8.0 L Hct 26.3 L MCV 91 MCH 27.8 MCHC 30.4 L RDW 16.1 H Plt Count 540 H MPV 10.1 Immature Gran % 2.6 Neutrophils % 63.6 Lymphocytes % 16.2 Monocytes % 9.0 Eosinophils % 7.7 Basophils % 0.9 Nucleated RBC % 0.1 Absolute Neutrophils 8.91 H Absolute Lymphocytes 2.27 Absolute Monocytes 1.26 H Absolute Eosinophils 1.08 H Absolute Basophils 0.13 PT 15.9 H INR 1.6 H Sodium 142 Potassium 5.9 H 5.8 H Chloride 107 Carbon Dioxide 24.5 Anion Gap 10.5 BUN 29 H Creatinine 2.0 H Est GFR (CKD-EPI 2020) 32.91 Glucose 87 Calcium 8.9
--- NOTE | 2024-10-01 14:01 | CMPROGNOTE_ITS ---
Date of service: 10/01/24 Time of Service: 14:09 Care Management Progress Note Progress Note Text Progress Note Text: Josep was laying in bed dozing off when CM arrived. He awoke to a verbal hello. Josep stated he did not want to talk too much today as he is feeling very tired. He declined wanted any drinks, or crossword books. CM will continue to follow Discharge Potential Discharge Needs: PCP F/U Appt Anticipated Barriers to Discharge: Medical Status Patient/Family Education Needs: Review discharge instructions, discuss Ask Me Three Transportation: Private vehicle ( Noemy Barrera ) Plan: Anticipate that Josep will be discharged home with continuation of his HH PT and RN. He will f/u with his PCP and continue per his plan of care. CM will continue to follow and encourage Josep to increase his activity and allow care. Social Determinants of Health Screening Social Determinants of Health last assessed: 10/01/24 Will the Patient Participate in the Screening?: Yes Do you worry about having a steady place to live?: no Problems where you live: no known problems In the past 12 months, have you had to go without electric, gas, oil or water in your home?: no Have you or anyone in your house had to go without enough food to eat?: no Has lack of transportation kept you from medical appointments or from doing things needed for daily living?: no Has anyone in your life made you feel unsafe or unsupported?: no How hard is it for you to pay for the very basics like food, housing, medical care, and heating? Would you say it is:: Not hard at all Do you want help finding or keeping work or a job?: I do not need or want help If for any reason you need help with day-to-day activities such as bathing, preparing meals, shopping, managing finances, etc., do you get the help you need?: I don?t need any help How often do you feel lonely or isolated from those around you?: Never Do you speak a language other than [place] at home?: No Does the patient want assistance with any of the above?: No Anticipated HH Services Anticipated HH Services at Discharge [facility].
--- NOTE | 2024-10-01 14:49 | PT.INNT ---
PT Notes Visit Reasons: Hypotension, hyperkalemia refused bed exercises this pm. He did sit EOB and made 2-3 attempts to stand. I just don't have it in me this afternoon. I am too tired. Will check in with him tomorrow.
[2024-10-01 15:46] VITALS: BP 112/76; PULSE 90; RESP 14; TEMP 37.1; O2SAT 95
--- NOTE | 2024-10-01 16:23 | W.PM.PROGNOT ---
Date of Service Date of service: 10/01/24 Time of Service: 16:23 Assessment and Plan Assessment and plan (1) Hyperkalemia: Status: Acute Assessment and plan: Developed on labs 09/02.in the past 2 days, though trend was up prevoiusly. Not on any meds that would classically cause this, He had this last admission but a/w a bump in Cr which made more sense. EKG showed some higher Ts 09/02, given IV calcium gluconate, insulin and D50 started Lokelma for now but K+ still high this morning Added fluids and a dose of furosemide x1, K still high so will repeat higher dose 40mg given CKD Taking a lot of shakes. Changed to renal diet, ask for nutrition help. Has CKD but no worse (2) Urinary tract infection due to extended-spectrum beta lactamase (ESBL)-producing Klebsiella: Status: Acute Assessment and plan: As of 09/29 he was s/p 7 days of IV pip/tazo, culture again the same klebsiella, sensitive to pip/tazo. Had 7 days at last admission but had stent until the day before he left CT done 09/28 did not show persistent inflammation or stone fragments or other complicating factors. Continue off antibiotic given ongoing c diff diarrhea (3) C. difficile colitis: Status: Acute Assessment and plan: Partially treated with fidoxomicin, then oral vanco. Never fully resolved. Was on oral vanco since readmission 09/22 to 09/28. Changed back to fidaxomicin 09/28, seemed to be imrpoving but loose stools persist despite stopping IV pip/tazo. I'd like to see this improve before discharge. WBC slightly up today. Cotinue to monitor. consider pulsed or tapered vanco on discharge. (4) CKD (chronic kidney disease): Assessment and plan: Cr stable at 2.1, around baseline, continue to monitor (5) Chronic anticoagulation: Assessment and plan: For h/o DVT/PE and atrial fibrillation, goal INR 2-3 INR remains below goal on coumadin 5mg po daily. 9mg 09/28, 10mg 09/29-. Another 10mg today FOB+ stool but not gross bleeding. Concern for overshooting with current abx, following daily Discussed DOAC, sent apixaban to outpatient pharmacy to check ruiz. Would be lower risk, but too expensive. (6) Anemia: Status: Chronic Assessment and plan: iron deficient after GI bleeding. Had trouble with oral iron. s/p 700mg of iron dextran. Could use another 300mg, full dose would be about 1000mg total dose, but hold off today. Some concern for promoting bacterial growth with IV iron, but I think there is overall benefit. consider last 300mg tomorrow. Subjective Subjective Patient reports: no new complaints, tolerating a regular diet and voiding w/o difficulty; denies nausea, vomiting or fever Interval history since last seen: He is feeling low energy again today, though was worse this morning. He didn't do much with PT. He does say the stools are a little less. Hasn't noted bleeding. No chest pain. No SOB at rest but gets CRUZ. not dizzy. Eating, but doesn't like a lot of foods, likes corn flakes. Exam Narrative Exam Narrative: General: older adult male, sitting in bed, appropriately responsive, NAD Resp: even respiratory effort, lungs CTAB CV: RRR. No murmur audilble today, no g/r GI: +BS, soft, NT/ND ext: no edema, no changes in ankle wounds (dressings not taken down) Objective Last Vital Signs Temp 37.1 C 10/01/24 15:46 Pulse 90 10/01/24 15:46 Resp 14 10/01/24 15:46 BP 112/76 10/01/24 15:46 Pulse Ox 95 10/01/24 15:46 Laboratory Results - last 24 hr 09/30/24 10/01/24 18:06 05:52 WBC 14.01 H RBC 2.88 L Hgb 8.0 L Hct 26.3 L MCV 91 MCH 27.8 MCHC 30.4 L RDW 16.1 H Plt Count 540 H MPV 10.1 Immature Gran % 2.6 Neutrophils % 63.6 Lymphocytes % 16.2 Monocytes % 9.0 Eosinophils % 7.7 Basophils % 0.9 Nucleated RBC % 0.1 Absolute Neutrophils 8.91 H Absolute Lymphocytes 2.27 Absolute Monocytes 1.26 H Absolute Eosinophils 1.08 H Absolute Basophils 0.13 PT 15.9 H INR 1.6 H Sodium 142 Potassium 5.9 H 5.8 H Chloride 107 Carbon Dioxide 24.5 Anion Gap 10.5 BUN 29 H Creatinine 2.0 H Est GFR (CKD-EPI 2020) 32.91 Glucose 87 Calcium 8.9 Time Spent with Patient Time Spent with Patient: 35-49 minutes Time was spent: preparing to see the patient(eg.review tests), obtaining and/or reviewing separately otained hiistory, ordering medications,tests, procedures, referring, communicating with other health elderly caregiver, indepentently interpreting results, counseling the patient and care coordination
[2024-10-01 16:30] LABS: Potassium 5.9 mmol/L (3.5-5.1)
[2024-10-01] MEDS: Furosemide 40 MG/4 ML VIAL IVP (17:50)
[2024-10-01 19:23] VITALS: BP 122/81; PULSE 98; RESP 18; TEMP 37.2; O2SAT 93
[2024-10-01] MEDS: Warfarin 5 MG TAB PO ×2 (20:29→20:30)
[2024-10-01] MEDS: Atorvastatin 20 MG TAB PO (20:30)
[2024-10-01 22:13] VITALS: BP 128/69; PULSE 102; RESP 20; TEMP 37.1; O2SAT 96
[2024-10-02] MEDS: Sodium Zirconium Cyclosilicate 10 GM PKT PO (06:40)
[2024-10-02 07:00] LABS: HCT 26.9 % (40.0-50.0); HGB 8.4 g/dL (13.5-17.5); MCH 28.5 pg (27.0-33.0); MCHC 31.2 % (32.0-36.0); MCV 91 fL (80-95); Platelet Count 538 10^3/uL (130-400); RBC 2.95 10^6/uL (4.36-5.78); RDW 16.4 % (11.8-14.1); RDW-SD 52.8 fL
[2024-10-02 07:09] LABS: INR 1.7 (0.9-1.1); Prothrombin Time 16.9 sec (9.1-11.1)
[2024-10-02 07:15] LABS: ALT 28 U/L (16-63); AST 30 U/L (15-37); Albumin 2.3 g/dL (3.4-5.0); Alkaline Phosphatase 80 U/L (46-116); Anion Gap 6.4 mmol/L (3-11); BUN 40 mg/dL (7-18); Bilirubin, Total 0.5 mg/dL (0.2-1.0); CO2 28.6 mmol/L (21.0-32.0); CREATININE 2.4 mg/dL (0.70-1.30); Chloride 106 mmol/L (98-107); Estimated GFR 26.44 (mL/min/1.73m2); Glucose 97 mg/dL (74-106); Potassium 5.3 mmol/L (3.5-5.1); Sodium 141 mmol/L (136-145); Total Protein 6.7 g/dL (6.4-8.2)
[2024-10-02 09:28] VITALS: BP 112/82; PULSE 115; RESP 16; TEMP 36.3; O2SAT 97
[2024-10-02] MEDS: dilTIAZem CD 180 MG CAPCR PO (10:11)
[2024-10-02] MEDS: Normal Saline Flush 10 ML SYR IVP ×3 (10:11→19:50)
[2024-10-02] MEDS: Sodium Bicarbonate 650 MG TAB PO ×2 (10:12→19:50)
[2024-10-02] MEDS: Cyanocobalamin 500 MCG TAB 1000 MCG PO (10:12)
[2024-10-02] MEDS: Cholecalciferol (Vitamin D3) 1,000 UNIT TAB 1000 UNITS PO (10:12)
[2024-10-02] MEDS: Fidaxomicin 200 MG TAB PO ×2 (10:12→19:50)
--- NOTE | 2024-10-02 11:47 | PGE_ITS ---
Date of Service Date of service: 10/02/24 Time of Service: 11:47 Assessment and Plan Assessment and plan (1) Hyperkalemia: Status: Acute Assessment and plan: Developed on labs 09/02 though trend was up prevoiusly. Not on any meds that would classically cause this, He had this last admission but a/w a bump in Cr which made more sense. EKG showed some more prominent Ts 09/02, given IV calcium gluconate, insulin and D50 started Lokelma 09/02 but K+ still high 09/03 He got 2 doses of furosemide 20mg and 40mg , ordered with liters of LR at 150/hr, but apparently the fluid was never given. even so, potassium finally down close to normal. Taking a lot of shakes. Changed to renal diet, ask for nutrition help. Has CKD was stable until today, slightly up a/w furosemide without hydration. (2) Urinary tract infection due to extended-spectrum beta lactamase (ESBL)- producing Klebsiella: Status: Acute Assessment and plan: As of 09/29 he was s/p 7 days of IV pip/tazo, culture again the same klebsiella, sensitive to pip/tazo. Had 7 days at last admission but had stent until the day before he left CT done 09/28 did not show persistent inflammation or stone fragments or other complicating factors. Continue off antibiotic given ongoing c diff diarrhea (3) C. difficile colitis: Status: Acute Assessment and plan: Partially treated with fidoxomicin, then oral vanco. Never fully resolved. Was on oral vanco since readmission 09/22 to 09/28. Changed back to fidaxomicin 09/28, seemed to be imrpoving but loose stools persist despite stopping IV pip/tazo. I'd like to see this improve before discharge. WBC slightly up today. Cotinue to monitor. consider pulsed or tapered vanco on discharge. (4) CKD (chronic kidney disease): Assessment and plan: Cr had been stable at 2.1, around baseline, up today. It turns out the ordered fluids 10/01 were never administered. Will give one of the liters now. (5) Chronic anticoagulation: Assessment and plan: For h/o DVT/PE and atrial fibrillation, goal INR 2-3 INR remained below goal on coumadin 5mg po daily. 9mg 09/28, 10mg . Another 10mg today FOB+ stool but not gross bleeding. Concern for overshooting with current abx, following daily Discussed DOAC, sent apixaban to outpatient pharmacy to check ruiz. Would be lower risk, but too expensive. (6) Anemia: Status: Chronic Assessment and plan: iron deficient after GI bleeding. Had trouble with oral iron. s/p 700mg of iron sucrose. Could use another 300mg, full dose would be about 1000mg total dose. Some concern for promoting bacterial growth with IV iron, but I think there is overall benefit. Give another 300mg today. Subjective Subjective Patient reports: no new complaints; denies nausea, vomiting, shortness of breath or fever Interval history since last seen: finished 6 doses of lokelma 2 dose of furosemide 20mg and 40mg and 2 liters of LR yesterday for hyperkalemia still having loose stools overnight, not this morning. Still tired. He is hung ry, eating corn flakes with sugar. Loves sugar, never had diabetes. No abdominal pain. Exam Narrative Exam Narrative: General: older adult male, sitting in bed, appropriately responsive, NAD Resp: even respiratory effort, lungs CTAB CV: RRR. 2/6 murmur audilble at apex, no g/r GI: +BS, soft, NT/ND ext: no edema, no changes in ankle wounds (dressings not taken down) Objective Last Vital Signs Temp 36.3 C L 10/02/24 09:28 Pulse 115 H 10/02/24 09:28 Resp 16 10/02/24 09:28 BP 112/82 10/02/24 09:28 Pulse Ox 97 10/02/24 09:28 Laboratory Results - last 24 hr 10/01/24 10/02/24 16:14 06:20 WBC 14.50 H RBC 2.95 L Hgb 8.4 L Hct 26.9 L MCV 91 MCH 28.5 MCHC 31.2 L RDW 16.4 H Plt Count 538 H MPV 10.0 PT 16.9 H INR 1.7 H Sodium 141 Potassium 5.9 H 5.3 H Chloride 106 Carbon Dioxide 28.6 Anion Gap 6.4 BUN 40 H Creatinine 2.4 H Est GFR (CKD-EPI 2020) 26.44 Glucose 97 Calcium 9.0 Total Bilirubin 0.5 AST 30 ALT 28 Alkaline Phosphatase 80 Total Protein 6.7 Albumin 2.3 L Time Spent with Patient Time Spent with Patient: 35-49 minutes Time was spent: preparing to see the patient(eg.review tests), obtaining and/or reviewing separately otained hiistory, ordering medications,tests, procedures, referring, communicating with other health respiratory care assistant, indepentently interpreting results, counseling the patient and care coordination
[2024-10-02] MEDS: Lactated Ringers 1,000 ML 150 ML IV (12:12)
[2024-10-02 12:14] VITALS: BP 107/74; PULSE 104; RESP 16; TEMP 37.3; O2SAT 98
[2024-10-02] MEDS: IRON SUCROSE COMPLEX 300 MG in Normal Saline 250 ML 167 MG IVPB (12:36)
[2024-10-02 15:40] VITALS: BP 124/70; PULSE 92; RESP 16; TEMP 36.8; O2SAT 98
--- NOTE | 2024-10-02 17:04 | PT.INTREAT ---
PT Notes Visit Reasons: Hypotension, hyperkalemia Inpatient Physical Therapy Treatment Note [facility] Date: 10/02/2024 PRECAUTIONS:Cdiff, contact precautions, IV access, incontinence SUBJECTIVE: Patient agreeable to walk, but requests IV out, nursing staff just started it. He is does not understand why I would not allow him to walk in the hallway, I explained due to precautions, he exclaimed that it is 'stupid' OBJECTIVE: Patient presented supine in bed agreeable to participate? PAIN:no complaints. VITALS: ?monitored by nsg. Therapeutic Activities ([id number]): Direct one-on-one instruction in dynamic activities to improve functional performance. ? BED MOBILITY/TRANSFERS? Supine to sit CGA with cues , he insisted on pulling head of bed fully upright? ? Sit-stand: CGA?from bed to RW ? Stand-sit: CGA from RW to chair cues to reach back? (Sit to supine min assist to get right lower extremity into bed patient able to get left lower extremity onto bed)not performed today Ambulation? Assistive Device: FWW ? Weight bearing: FWB Assist: CGA/SBA ? Distance:?20 feet x 1 as limited to in room ambulation, able to maneuver around in the room, refuses to do more as he states this is 'stupid' he should be allowed to go into hallway.? Deviation: slow jenny, fwd flex, reduced step height bilaterally? ASSESSMENT:?Patient tolerated session well. Patient agrees to do 1 time ambulation in room and then sitting in chair. Pt ambulate with FWW with no LOB and no report of pain. Pt continues to be on CDiff precautions and should not be ambulated outside of the room until cleared. PLAN: continue to work on strength and functional mobility, following PT POC. TREATMENT CODE/TIME:32639 /4:35-4:50 PM(treatment time 10 min) remainder of time donning/doffing and convincing patient to ambulate, transfer and participate. DISCHARGE RECOMMENDATION: home with HHPT
[2024-10-02 19:44] VITALS: BP 126/70; PULSE 94; RESP 16; TEMP 36.7; O2SAT 95
[2024-10-02] MEDS: Atorvastatin 20 MG TAB PO (19:50)
[2024-10-02] MEDS: Warfarin 5 MG TAB PO (19:50)
[2024-10-02 23:08] VITALS: BP 124/72; PULSE 99; RESP 16; TEMP 37.2; O2SAT 94
[2024-10-03 06:44] LABS: HCT 27.4 % (40.0-50.0); HGB 8.6 g/dL (13.5-17.5)
[2024-10-03 06:59] LABS: Anion Gap 8.9 mmol/L (3-11); BUN 39 mg/dL (7-18); CO2 27.1 mmol/L (21.0-32.0); CREATININE 2.3 mg/dL (0.70-1.30); Calcium 8.8 mg/dL (8.5-10.1); Chloride 105 mmol/L (98-107); Estimated GFR 27.83 (mL/min/1.73m2); Glucose 89 mg/dL (74-106); Potassium 5.1 mmol/L (3.5-5.1); Sodium 141 mmol/L (136-145)
[2024-10-03 07:00] LABS: INR 1.7 (0.9-1.1); Prothrombin Time 16.5 sec (9.1-11.1)
[2024-10-03 08:16] VITALS: BP 122/69; PULSE 99; RESP 19; TEMP 36.8; O2SAT 97
[2024-10-03] MEDS: Cholecalciferol (Vitamin D3) 1,000 UNIT TAB 1000 UNITS PO (08:43)
[2024-10-03] MEDS: Sodium Bicarbonate 650 MG TAB PO ×2 (08:43→20:44)
[2024-10-03] MEDS: dilTIAZem CD 180 MG CAPCR PO (08:43)
[2024-10-03] MEDS: Fidaxomicin 200 MG TAB PO ×2 (08:43→20:42)
[2024-10-03] MEDS: Cyanocobalamin 500 MCG TAB 1000 MCG PO (08:43)
[2024-10-03] MEDS: Normal Saline Flush 10 ML SYR IVP ×2 (08:43→20:44)
[2024-10-03 11:09] VITALS: BP 125/59; PULSE 89; RESP 18; TEMP 37.2; O2SAT 96
--- NOTE | 2024-10-03 11:10 | W.PM.PROGNOT ---
Date of Service Date of service: 10/03/24 Time of Service: 11:10 Assessment and Plan Assessment and plan (1) Hyperkalemia: Status: Acute Assessment and plan: -Developed on labs 09/30 though trend was up prevoiusly. -Not on any meds that would classically cause this, He had this last admission but a/w a bump in Cr which made more sense. -EKG showed some more prominent Ts 09/30, given IV calcium gluconate, insulin and D50 -started Lokelma 09/30 but K+ still high 10/01 -He got 2 doses of furosemide 20mg and 40mg 10/02, ordered with liters of LR at 150/hr, but apparently the fluid was never given. -even so, potassium finally down close to normal at 5.1 on AM 10/03 -Changed to renal diet, ask for nutrition help. (2) Urinary tract infection due to extended-spectrum beta lactamase (ESBL)-producing Klebsiella: Status: Acute Assessment and plan: -As of 09/29 he was s/p 7 days of IV pip/tazo, culture again the same klebsiella, sensitive to pip/tazo. -Had 7 days at last admission but had stent until the day before he left -CT done 09/28 did not show persistent inflammation or stone fragments or other complicating factors. -Continue off antibiotic given ongoing c diff diarrhea (3) C. difficile colitis: Status: Acute Assessment and plan: -Partially treated with fidoxomicin, then oral vanco at discharge at Insurance did not cover fidoxomicin -aparently diarrhea never fully resolved. -Was on oral vanco since readmission 09/22 to 09/28. -Changed back to fidaxomicin 09/28, seemed to be improving but loose stools persist despite stopping IV pip/tazo. -will DC with pulse dose vancomycin course (4) CKD (chronic kidney disease): Assessment and plan: -Cr had been stable at 2.1, around baseline -Cr was up to 2.4 on 10/02 and 2/3 on 10/03 though this is still within patients recent baseline range (5) Chronic anticoagulation: Assessment and plan: -For h/o DVT/PE and atrial fibrillation, goal INR 2-3 -INR remained below goal on coumadin 5mg po daily. 9mg 09/28, 10mg 09/29-. Another 10mg 10/02 -INR 1.7 on 10/03, will increase coumadin to 11mg -FOB+ stool but not gross bleeding. -Concern for overshooting with current abx, following daily -Discussed DOAC, sent apixaban to outpatient pharmacy to check ruiz. Would be lower risk, but too expensive. (6) Anemia: Status: Chronic Assessment and plan: -iron deficient after GI bleeding. -Had trouble with oral iron. -s/p 700mg of iron sucrose. -Could use another 300mg, full dose would be about 1000mg total dose. -Some concern for promoting bacterial growth with IV iron, but I think there is overall benefit. -Gave another 300mg 10/03 Subjective Subjective Interval history since last seen: Patient states that he is feeling much better and is happy to hear that he is ready for discharge home tomorrow, 10/04. Exam Narrative Exam Narrative: well appearing older gentelman laying in bed in no acute distress, AOx4, heart, RRR, lungs CTAB, abdomen soft, non-tender, non-distended Objective Last Vital Signs Temp 98.2 F 10/03/24 08:16 Pulse 99 H 10/03/24 08:16 Resp 19 10/03/24 08:16 BP 122/69 10/03/24 08:16 Pulse Ox 97 10/03/24 08:16 Laboratory Results - last 24 hr 10/03/24 06:15 Hgb 8.6 L Hct 27.4 L PT 16.5 H INR 1.7 H Sodium 141 Potassium 5.1 Chloride 105 Carbon Dioxide 27.1 Anion Gap 8.9 BUN 39 H Creatinine 2.3 H Est GFR (CKD-EPI 2020) 27.83 Glucose 89 Calcium 8.8 Time Spent with Patient Time Spent with Patient: >50 minutes Time was spent: preparing to see the patient(eg.review tests), obtaining and/or reviewing separately otained hiistory, ordering medications,tests, procedures, referring, communicating with other health home health care respiratory therapist, indepentently interpreting results, counseling the patient and care coordination
--- NOTE | 2024-10-03 15:28 | PTTR_ITS ---
PT Notes Visit Reasons: Hypotension, hyperkalemia Inpatient Physical Therapy Treatment Note [facility] Date: 10/03/2024 PRECAUTIONS:Cdiff, contact precautions, IV access, incontinence SUBJECTIVE: Plan is for D/C tomorrow. Patient agreeable to walk but only will do a short amount and unwilling to do any additional exercises. He does struggle with maneuvering in bed using head rails and elevating HOB, he states he'll be fine at home. Ambulation and sit to stand he is SBA for safety but manages short distances and states this will be fine when he is at home. He does understand huey he is weak from being in the hospital. OBJECTIVE: Patient presented supine in bed agreeable to participate? PAIN:no complaints. VITALS: ?monitored by nsg. Therapeutic Activities (56118k3): Direct one-on-one instruction in dynamic activities to improve functional performance. ? BED MOBILITY/TRANSFERS? Supine to sit SBA , he insisted on pulling head of bed fully upright? ? Sit-stand: SBA?from bed to RW ? Stand-sit: SBA from RW to chair cues to reach back? (Sit to supine was min assist to get right lower extremity into bed patient able to get left lower extremity onto bed)not performed today Ambulation? Assistive Device: FWW ? Weight bearing: FWB Assist: SBA ? Distance:?20 feet x 1 as limited to in room ambulation, able to maneuver around in the room, refuses to do more. He still does not understand why he cannot go out in [facility], explained purpose and he seemed to accept.? Deviation: slow jenny, fwd flex, reduced step height bilaterally? ASSESSMENT:?Patient tolerated session well. Patient agrees to do 1 time ambulation in room and then sitting in chair. Pt ambulate with FWW with no LOB and no report of pain. Pt continues to be on CDiff precautions and should not be ambulated outside of the room until cleared to do so. PLAN: continue to work on strength and functional mobility, following PT POC. TREATMENT CODE/TIME:37148 3:10-3:20(treatment time 10 min) remainder of time donning/doffing and convincing patient to ambulate, transfer and participate. DISCHARGE RECOMMENDATION: home with HHPT for continued strength progression and functional activity progression
[2024-10-03 15:42] VITALS: BP 110/68; PULSE 90; RESP 18; TEMP 37.1; O2SAT 96
[2024-10-03 19:43] VITALS: BP 122/70; PULSE 100; RESP 18; TEMP 37.2; O2SAT 94
[2024-10-03] MEDS: Warfarin 5 MG TAB PO (20:43)
[2024-10-03] MEDS: WARFARIN 5 MG, WARFARIN 1 MG 6 MG PO (20:43)
[2024-10-03] MEDS: Atorvastatin 20 MG TAB PO (20:43)
[2024-10-03 23:00] VITALS: BP 126/74; PULSE 100; RESP 18; TEMP 37.4; O2SAT 95
[2024-10-04 04:35] VITALS: BP 114/78; PULSE 77; RESP 18; TEMP 37.2; O2SAT 94
[2024-10-04 06:50] LABS: INR 1.7 (0.9-1.1); Prothrombin Time 16.2 sec (9.1-11.1)
[2024-10-04 08:37] VITALS: BP 128/61; PULSE 107; RESP 18; TEMP 37; O2SAT 94
[2024-10-04] MEDS: Cholecalciferol (Vitamin D3) 1,000 UNIT TAB 1000 UNITS PO (09:12)
[2024-10-04] MEDS: Cyanocobalamin 500 MCG TAB 1000 MCG PO (09:12)
[2024-10-04] MEDS: Sodium Bicarbonate 650 MG TAB PO (09:12)
[2024-10-04] MEDS: dilTIAZem CD 180 MG CAPCR PO (09:13)
[2024-10-04] MEDS: Fidaxomicin 200 MG TAB PO (09:13)
--- NOTE | 2024-10-04 09:23 | PDOC.HHF2F_ITS ---
Home Health Referral Home Health Orders Clinical synopsis of why skilled professionals are needed: A-oscarer, cheo. diff, ESBL UTI/bacteremia, HTN Registered Nurse: Check all that apply Instruct on new or changed medication(s)/assess compliance: Ordered Physical Therapist: Check all that apply Increase strength & endurance for safe mobility at home: Ordered To design/establish home maintenance program: Ordered Fall reduction therapy program for patient with history of frequent falls: Ordered Home safety evaluation and teaching/gait training including stair management (if applicable): Ordered Encounter Date and Reason: I certify that a FTF encounter for this patient was performed on October 04, 2024 and that such encounter was related to the primary reason the patient requires home health services. The encounter was conducted in the following manner: * By me as the certifying physician, QUANTITATIVE RESEARCHER, PA or * By an inpatient physician, QUANTITATIVE RESEARCHER or PA during an inpatient stay who communicated findings to me, Certification And Authentication I certify that I composed the above information based on my clinical judgment relating to this patient's medical condition and, if applicable, clinical findings communicated to me by the NPP or inpatient physician who performed the FTF encounter. Name of Provider that will be monitoring home health services: Kareem Hart
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
--- NOTE | 2024-10-04 09:39 | PDOC.CMDIS ---
Date of service: 10/04/24 Time of Service: 09:40 LACE Index Scoring Tool Questions: Length of Stay (in days): 7 - 13 (12) Was the patient admitted via the E.D.?: Yes Comorbidities: PVD and Liver or Renal Disease E.D. Visits: 2 Answers: Total Score: 15 Risk of Readmission: High Risk Care Management Discharge Plan Reason for Hospitalization: Hypotension, hyperkalemia Discharge Plan: Josep will return home with a resumption of home health services for PT/RN and new OT. He will follow up with his PCP and plan of care. His will transport him home via private vehicle and utilize a lift assist with [facility], as coordinated by CM upon arrival at home. Patient/Family Education Needs: Review discharge instructions, limitations, follow up plan and discuss Ask Me Three Services Needed at Discharge: Home Health Care Services (RN), Occupational Therapy and Physical Therapy SDOH Health Related Social Needs: Health related social needs housing instability, housed, with risk of homelessness (Z59.811)
--- NOTE | 2024-10-04 10:14 | W.NUTCONSULT ---
Date of service: 10/04/24 Time of Service: 10:00 Nutritional Consult ASSESSMENT: received consult regarding patient's persistent hyperkalemia and request for education. Pt is 83yo male who has been treated for complicated UTI and recent C Diff infection. Potassium lab 5.1 today but has been persistently high despite not being on meds that would traditionally contribute to this. Pt with limited and inadequate intake at home. mostly dairy based items, low produce intake. Wt has been pretty stable this admission with fair intake - picky eater per kitchen staff and they have offered a variety of foods and ONS drinks/jellos/etc... Pt was sleeping on visit and was arousable slightly - declined education on balanced diet NUTRITIONAL DIAGNOSIS: inadequate intake of produce/fiber, sources of n-3 FA's per usual diet. INTERVENTION: would suggest phosphorus lab, vitamin D lab (even though supplements it is only 1,000per day). Pt not interested in K+ in food or general diet education today. Will continue to support with regular meals, and any accepted ONS at meals or nourishment times. MONITORING AND EVALUATION: will monitor labs, weight, po intake Time Spent in Nutritional Counseling and Treatment: 5 min
[2024-10-04 11:06] VITALS: BP 118/56; PULSE 100; RESP 18; TEMP 37; O2SAT 96
--- NOTE | 2024-10-04 11:11 | PT.INTREAT ---
PT Notes Visit Reasons: Hypotension, hyperkalemia Inpatient Physical Therapy Treatment Note [facility] Date: 10/04/2024 PRECAUTIONS:Cdiff, contact precautions, IV access, incontinence SUBJECTIVE: Pt reports he is not feeling well today. He states he felt better yesterday. OBJECTIVE: Patient presented fully reclined in chair incontinent of bowel. Nursing reports he is being discharged to home today. ? PAIN:no complaints. VITALS: ?122/57; HR 108, oxygen sat 95 Therapeutic Activities ([id number]): Direct one-on-one instruction in dynamic activities to improve functional performance. ? BED MOBILITY/TRANSFERS? Sit-stand: min A?from bed at 19 height to FWW x 2 trials, CGA from >21 height x 2 trials ? Stand-sit: SBA from FWW to chair and bed cues to reach back? Ambulation? Assistive Device: FWW ? Weight bearing: FWB Assist: CGA ? Distance:?20 feet x 2 as limited to in room ambulation, ?RLE instability noted during ambulation ? with sit rest between distances? Deviation: slow jenny, fwd flex, reduced step height bilaterally?static standing at FWW x 3 minutes for incontinence care with contact-guard assist/SBA ? ASSESSMENT:?Pt with noted decrease in ability to perform sit to stand transfers from lower surfaces. Pt. requiring increase assistance and close CGA for short distance ambulation d/t instability in RLE. Pt will require physical assist at home as well as being dependent for incontinence care as he continues to not alert staff to need to use the bathroom for bowel mgmt. or for hygiene after incontinent unless staff asks him if he needs to be cleaned up. PLAN: continue to work on strength and functional mobility, following PT POC. TREATMENT CODE/TIME:10048/1021?[id number] DISCHARGE RECOMMENDATION: home with HHPT for continued strength progression and functional activity progression
== END 2024-10-04 11:57 | disposition home health service (06) | DRG 372 ==
LOC: ER 19:17 → MS 20:30
PROVIDERS: Family Medicine; Hospitalist; Nurse Practitioner Family; Admitting Provider Family Medicine; Emergency Provider Emergency Medicine; PCP Family Medicine; Responsible Provider Family Medicine; Visit Provider Family Medicine
DX: A04.72 Enterocolitis due to Clostridium difficile, not specified as recurrent (principal); I48.3 Typical atrial flutter; N39.0 Urinary tract infection, site not specified; Z16.24 Resistance to multiple antibiotics; Z16.12 Extended spectrum beta lactamase (ESBL) resistance; N13.30 Unspecified hydronephrosis; I95.9 Hypotension, unspecified; I12.9 Hypertensive chronic kidney disease with stage 1 through stage 4 chronic kidney disease, or unspecified chronic kidney disease; D64.9 Anemia, unspecified; Z79.01 Long term (current) use of anticoagulants; E87.5 Hyperkalemia; B96.1 Klebsiella pneumoniae [K. pneumoniae] as the cause of diseases classified elsewhere; I73.9 Peripheral vascular disease, unspecified; Z86.711 Personal history of pulmonary embolism; R50.9 Fever, unspecified; R53.1 Weakness; L30.4 Erythema intertrigo; E66.9 Obesity, unspecified; E78.5 Hyperlipidemia, unspecified; K74.60 Unspecified cirrhosis of liver; N18.30 Chronic kidney disease, stage 3 unspecified; M48.00 Spinal stenosis, site unspecified; D72.829 Elevated white blood cell count, unspecified; E61.1 Iron deficiency; Z86.718 Personal history of other venous thrombosis and embolism; Z68.33 Body mass index [BMI] 33.0-33.9, adult
CPT/HCPCS: 00123; 36415; 36416; 51798; 80048; 80053; 82962; 84145; 84153; 85027; 87040; 87077; 93005; 96361; 96365; 96367; 96375; 97110; 97112; 97162; 97530; 99285; 74176; 81003; 81015; 83540; 83550; 84132; 85014; 85018; 85025; 85610; 87086; 87186; 93010; 99223; 99232; 99233; 99239; J0131; J0613; J1756; J1815; J1940; J1941; J2543; J3372

== ENCOUNTER 2024-10-05 14:32 | Observation (INO) | payer MEDICARE, BC, SELFPAY ==
[2024-10-05 14:33] VITALS: BP 108/63; PULSE 97; RESP 17; TEMP 37.2; O2SAT 99
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
[2024-10-05 15:26] VITALS: BP 110/68; PULSE 72
[2024-10-05 15:32] LABS: Abs Immature Grans 0.22 10^3/uL (0.0-0.06); Absolute Basophil Count 0.07 10^3/uL (0.0-0.2); Absolute Monocyte Count 1.17 10^3/uL (0.1-0.8); Basophils % 0.5 %; HCT 28.7 % (40.0-50.0); HGB 8.8 g/dL (13.5-17.5); Immature Grans % 1.7 %; Lymphocytes % 12.8 %; MCH 28.3 pg (27.0-33.0); MCHC 30.7 % (32.0-36.0); MCV 92 fL (80-95); MPV 10.2 fL (8.0-11.0); Monocytes % 8.8 %; Neutrophils % 70.2 %; Platelet Count 549 10^3/uL (130-400); RBC 3.11 10^6/uL (4.36-5.78); RDW 17.2 % (11.8-14.1); RDW-SD 56.8 fL; WBC 13.25 10^3/uL (4.4-10.8)
[2024-10-05 15:43] LABS: INR 1.9 (0.9-1.1); Prothrombin Time 18.6 sec (9.1-11.1)
[2024-10-05 16:16] LABS: ALT 29 U/L (16-63); AST 31 U/L (15-37); Albumin 2.4 g/dL (3.4-5.0); Alkaline Phosphatase 90 U/L (46-116); Anion Gap 4.1 mmol/L (3-11); BUN 44 mg/dL (7-18); Bilirubin, Total 0.5 mg/dL (0.2-1.0); CO2 29.9 mmol/L (21.0-32.0); CREATININE 2.7 mg/dL (0.70-1.30); Chloride 107 mmol/L (98-107); Estimated GFR 22.96 (mL/min/1.73m2); Glucose 107 mg/dL (74-106); Sodium 141 mmol/L (136-145); Total Protein 6.9 g/dL (6.4-8.2)
[2024-10-05 16:20] LABS: Bilirubin Negative (Negative); Blood Small (Negative); Clarity Cloudy (Clear); Glucose Negative (Negative); Ketones Negative (Negative); Leukocyte Esterase Large (Negative); Nitrite Positive (Negative); Urobilinogen 0.2 mg/dL (Up to 0.2)
[2024-10-05 16:27] LABS: Procalcitonin 0.28 ng/mL
[2024-10-05 16:30] LABS: Bacteria Many HPF (Negative); C & S Indicated? Yes; Casts Negative LPF (Negative); Crystals Negative HPF (Negative); Epithelial Cells Rare HPF (Negative); Mucus Negative (Negative); Other Cells Negative (Negative); WBC >50 HPF (0-5)
[2024-10-05 16:53] VITALS: BP 116/84; PULSE 95
[2024-10-05] MEDS: ACETAMINOPHEN 1,000 MG/100 ML BAG 400 MG IVPB (16:54)
[2024-10-05] MEDS: Normal Saline 500 ML IV (16:54)
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
[2024-10-05] MEDS: PIPERACILLIN/TAZO 4.5 GM in Normal Saline 100 ML IVPB (17:36)
[2024-10-05 18:09] VITALS: BP 115/80; PULSE 99; RESP 20; TEMP 37.1; O2SAT 98
--- NOTE | 2024-10-05 18:28 | W.PC.ACHO ---
Registration Status: Primary Language: Preferred Language: ED Information & Data Chief Complaint Recheck 10/05/24 15:14 Triage Note Pt discharge yesterday- per 10/05/24 14:33 HH, his vitals were unstable . EMS got vitals that were all WNLs, patient has no complaints. Medical / Surgical History (Last Updated 09/28/24 @ 16:02 by Aron Villegas) History of ESBL Klebsiella pneumoniae infection CKD (chronic kidney disease) Cirrhosis of liver Hydronephrosis UTI (urinary tract infection) Hydronephrosis, right Hx of sepsis Hypertensive kidney disease with CKD stage III Chronic anticoagulation Hypertension COVID-19 (~11/12/21) Spinal stenosis Deep vein thrombosis (DVT) of popliteal vein of right lower extremity [place] classified according to extent of body surface involved HNP (herniated nucleus pulposus), lumbar Right kidney stone (01/20/18) (Last Reviewed 09/22/24 @ 21:03 by Aron Villegas) History of skin graft Status post lumbar microdiscectomy (~2018) H/O ankle fusion S/P cystoscopy with ureteral stent placement Most Recent Vital Signs Temperature 37.1 C 10/05/24 18:09 Temperature Source Temporal Artery Scan 10/05/24 18:09 Pulse 99 H 10/05/24 18:09 Respiratory Rate 20 10/05/24 18:09 Blood Pressure 115/80 10/05/24 18:09 Blood Pressure Mean 94 10/05/24 16:53 Blood Pressure Position Sitting 10/05/24 14:33 Pulse Oximetry 98 10/05/24 18:09 Oxygen Delivery Method Room Air 10/05/24 18:09 Oxygen Flow Rate 0 10/05/24 18:09 Pain Level 0 10/05/24 14:33 Allergies tamsulosin Adverse Reaction (Intermediate, Verified 10/05/24 14:40) diarrhea Precautions Isolation Standard precaution 10/05/24 14:37 IV IV Catheter Type [Right Peripheral IV Antecubital] IV Catheter Gauge [Right 18 Antecubital] Diet Orders Category Date Time Status Heart Healthy Eating [DIET] Nutrition 10/05/24 Dinner Active Diagnostics 10/05/24 10/05/24 10/05/24 Range/Units 16:00 15:55 15:21 WBC 13.25 H (4.4-10.8) 10^3/uL RBC 3.11 L (4.36-5.78) 10^6/uL Hgb 8.8 L (13.5-17.5) g/dL Hct 28.7 L (40.0-50.0) % MCV 92 (80-95) fL MCH 28.3 (27.0-33.0) pg MCHC 30.7 L (32.0-36.0) % RDW 17.2 H (11.8-14.1) % Plt Count 549 H (130-400) 10^3/uL MPV 10.2 (8.0-11.0) fL Immature Gran % 1.7 % Neutrophils % 70.2 % Lymphocytes % 12.8 % Monocytes % 8.8 % Eosinophils % 6.0 % Basophils % 0.5 % Nucleated RBC % 0.0 (0.0-0.3) % Absolute Neutrophils 9.30 H (1.2-6.7) 10^3/uL Absolute Lymphocytes 1.70 (1.2-3.4) 10^3/uL Absolute Monocytes 1.17 H (0.1-0.8) 10^3/uL Absolute Eosinophils 0.80 H (0.0-0.7) 10^3/uL Absolute Basophils 0.07 (0.0-0.2) 10^3/uL PT 18.6 H (9.1-11.1) sec INR 1.9 H (0.9-1.1) Sodium 141 (136-145) mmol/L Potassium 5.0 (3.5-5.1) mmol/L Chloride 107 (98-107) mmol/L Carbon Dioxide 29.9 (21.0-32.0) mmol/L Anion Gap 4.1 (3-11) mmol/L BUN 44 H (7-18) mg/dL Creatinine 2.7 H (0.70-1.30) mg/dL Est GFR (CKD-EPI 2020) 22.96 (mL/min/1.73m2) Glucose 107 H (74-106) mg/dL Calcium 9.0 (8.5-10.1) mg/dL Total Bilirubin 0.5 (0.2-1.0) mg/dL AST 31 (15-37) U/L ALT 29 (16-63) U/L Alkaline Phosphatase 90 (46-116) U/L Total Protein 6.9 (6.4-8.2) g/dL Albumin 2.4 L (3.4-5.0) g/dL Procalcitonin 0.28 ng/mL Urine Color Yellow (Yellow) Urine Clarity Cloudy (Clear) Urine pH 6.0 (5-8) Ur Specific [place] 1.020 (1.005-1.025) Urine Protein 100 H (Neg-Trace) mg/dL Urine Ketones Negative (Negative) mg/dL Urine Blood Small H (Negative) Urine Nitrite Positive H (Negative) Urine Bilirubin Negative (Negative) Urine Urobilinogen 0.2 (Up to 0.2) mg/dL Ur Leukocyte Esterase Large H (Negative) Urine RBC 5-10 H (0-2) HPF Urine WBC >50 H (0-5) HPF Ur Epithelial Cells Rare (Negative) HPF Urine Crystals Negative (Negative) HPF Urine Bacteria Many (Negative) HPF Urine Casts Negative (Negative) LPF Urine Mucus Negative (Negative) Urine Other Negative (Negative) Ur Culture Indicated? Yes Urine Glucose Negative (Negative) mg/dL 10/05/24 17:00 Blood Culture - Pending Blood 10/05/24 16:44 Blood Culture - Pending Blood 10/05/24 16:00 Urine Culture - Pending Urine - Reflex from [facility] Intake and Output - 24 Hour Total 10/05/24 14:20 thru 10/05/24 18:16 Intake Total 600 Balance 600 Weight 100 kg Intake: IV 600 Falls Risk Assessment History of Falls Previous History 10/05/24 15:25 Contributing Factors Confusion,Unstable, 10/05/24 15:25 Impairments,Incontinence, Medications Ambulatory Aids Uses ambulatory device + 10/05/24 15:25 Tubes/Lines With any additional score 10/05/24 15:25 Gait Evaluation W/any additional score 10/05/24 15:25 Cognition Cognitive impairment 10/05/24 15:25 Fall Total Score 115 10/05/24 15:25 Level of Risk Maximum Risk 10/05/24 15:25 Problems (Last Updated 09/28/24 @ 16:02 by Aron Villegas) Acute UTI (Acute) Acute hypotension (Acute) Anemia (Chronic) C. difficile colitis (Acute) v v v v v v v v v Sending and/or Receiving Nurses: Please use comment section below to note any information pertinent to the patient hand-off not included above. Information / Comments: Neuro: AxOx4 (slightly cantankerous) Cardiac: Tachycardia (Telemetry) Resp: Clear, RA GI: FER : FER Skin: No gross abnormalities noted Mobility: FER LDA: US 18g Right Arm Admitted for URO/Sepsis and Home Health felt patient required IV ABX. Afefrible since admission to ED. Pip/Patricio currently running. Report received from: AMRY Stevens (ED) 15:46
[2024-10-05 19:05] VITALS: BP 126/82; PULSE 105; RESP 19; TEMP 36.9; O2SAT 97
[2024-10-05] MEDS: Sodium Bicarbonate 650 MG TAB PO (19:45)
[2024-10-05] MEDS: Atorvastatin 20 MG TAB PO (19:45)
[2024-10-05] MEDS: Normal Saline Flush 10 ML SYR IVP ×2 (19:46)
[2024-10-05] MEDS: Vancomycin 125 MG CAP PO (20:18)
[2024-10-05] MEDS: Warfarin 5 MG TAB PO (20:18)
[2024-10-06 03:19] VITALS: BP 123/81; PULSE 114; RESP 18; TEMP 37.1; O2SAT 96
[2024-10-06 06:25] LABS: HGB 8.5 g/dL (13.5-17.5); MCH 27.8 pg (27.0-33.0); MCHC 30.4 % (32.0-36.0); MCV 92 fL (80-95); Platelet Count 521 10^3/uL (130-400); RBC 3.06 10^6/uL (4.36-5.78); RDW 17.3 % (11.8-14.1); RDW-SD 58.1 fL; WBC 11.88 10^3/uL (4.4-10.8)
[2024-10-06 06:34] LABS: INR 1.9 (0.9-1.1); Prothrombin Time 18.2 sec (9.1-11.1)
[2024-10-06 06:35] LABS: BUN 39 mg/dL (7-18); CREATININE 2.7 mg/dL (0.70-1.30); Calcium 8.9 mg/dL (8.5-10.1); Chloride 106 mmol/L (98-107); Estimated GFR 22.96 (mL/min/1.73m2); Glucose 99 mg/dL (74-106); Magnesium 2.3 mg/dL; Potassium 5.1 mmol/L (3.5-5.1); Sodium 142 mmol/L (136-145)
[2024-10-06 07:14] VITALS: BP 120/77; PULSE 91; RESP 16; TEMP 36.9; O2SAT 99
[2024-10-06] MEDS: Sodium Bicarbonate 650 MG TAB PO (08:25)
[2024-10-06] MEDS: dilTIAZem CD 180 MG CAPCR PO (08:26)
[2024-10-06] MEDS: Vancomycin 125 MG CAP PO (08:27)
[2024-10-06] MEDS: Normal Saline Flush 10 ML SYR IVP (08:30)
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
--- NOTE | 2024-10-06 10:47 | PDOC.HHF2F_ITS ---
Home Health Referral Home Health Orders Clinical synopsis of why skilled professionals are needed: C. diff, recent UTI, anemia, HTN Registered Nurse: Check all that apply Instruct on new or changed medication(s)/assess compliance: Ordered Physical Therapist: Check all that apply Increase strength & endurance for safe mobility at home: Ordered To design/establish home maintenance program: Ordered Fall reduction therapy program for patient with history of frequent falls: Ordered Home safety evaluation and teaching/gait training including stair management (if applicable): Ordered Business Applications Developer: Assist with community resources: Ordered Assist with termite exterminator helper care planning: Ordered Encounter Date and Reason: I certify that a FTF encounter for this patient was performed on October 06, 2024 and that such encounter was related to the primary reason the patient requires home health services. The encounter was conducted in the following manner: * By me as the certifying physician, FITNESS SPECIALIST, PA or * By an inpatient physician, FITNESS SPECIALIST or PA during an inpatient stay who communicated findings to me, Certification And Authentication I certify that I composed the above information based on my clinical judgment relating to this patient's medical condition and, if applicable, clinical findings communicated to me by the NPP or inpatient physician who performed the FTF encounter. Name of Provider that will be monitoring home health services: Kareem Hart
--- NOTE | 2024-10-06 10:55 | CMDISCH_ITS ---
Date of service: 10/06/24 Time of Service: 10:55 LACE Index Scoring Tool Questions: Length of Stay (in days): 1 Was the patient admitted via the E.D.?: Yes Comorbidities: PVD and Liver or Renal Disease E.D. Visits: 3 Answers: Total Score: 12 Risk of Readmission: High Risk Care Management Discharge Plan Reason for Hospitalization: Hypotension, hyperkalemia Discharge Plan: Josep will return home with a resumption of home health services for OT/PT/RN and new [employer]. He will follow up with his PCP, plan of care and with palliative in his home on 10/26/24. His will transport him home via private vehicle and utilize a lift assist with [facility], as coordinated by CM upon arrival at home. Patient/Family Education Needs: Review discharge instructions, limitations, follow up plan and discuss Ask Me Three Services Needed at Discharge: Home Health Care Services (RN/PT/OT/[employer] ) SDOH Health Related Social Needs: Health related social needs housing instability, house d, with risk of homelessness (Z59.811)
== END 2024-10-06 11:31 | disposition home health service (06) ==
LOC: ER 16:37 → MS 17:55
PROVIDERS: Admitting Provider Family Medicine; Emergency Provider Emergency Medicine; PCP Family Medicine; Responsible Provider Family Medicine; Visit Provider Family Medicine
DX: A04.72 Enterocolitis due to Clostridium difficile, not specified as recurrent (principal); Z79.01 Long term (current) use of anticoagulants; D64.9 Anemia, unspecified; I95.9 Hypotension, unspecified; R50.9 Fever, unspecified; B37.2 Candidiasis of skin and nail; I73.9 Peripheral vascular disease, unspecified; E66.9 Obesity, unspecified; I48.92 Unspecified atrial flutter; E78.5 Hyperlipidemia, unspecified; Z86.711 Personal history of pulmonary embolism; I12.9 Hypertensive chronic kidney disease with stage 1 through stage 4 chronic kidney disease, or unspecified chronic kidney disease; N18.30 Chronic kidney disease, stage 3 unspecified; K74.60 Unspecified cirrhosis of liver; N13.30 Unspecified hydronephrosis
CPT/HCPCS: 00123; 36415; 80048; 80053; 84145; 85027; 87040; 87077; 96365; 96375; 99285; 81003; 81015; 83735; 85025; 85610; 87086; 87186; 99223; 99239; G0378; J0131; J2543

== ENCOUNTER → 2024-11-18 09:57 | Outpatient (BNVA) | payer MEDICARE, BC, SELFPAY | PROVIDERS: PCP Family Medicine; Referring Provider Family Medicine; Visit Provider Nurse Practitioner Gerontology | DX: N20.0 Calculus of kidney (principal) | CPT/HCPCS: 99213 ==

== ENCOUNTER → 2025-05-20 09:46 | Outpatient (BNVA) | payer MEDICARE, BC, SELFPAY | PROVIDERS: PCP Family Medicine; Referring Provider Family Medicine; Visit Provider Urology | DX: N20.0 Calculus of kidney (principal); I12.9 Hypertensive chronic kidney disease with stage 1 through stage 4 chronic kidney disease, or unspecified chronic kidney disease; N18.30 Chronic kidney disease, stage 3 unspecified; N13.30 Unspecified hydronephrosis; N39.0 Urinary tract infection, site not specified | CPT/HCPCS: 76775 ==

== ENCOUNTER 2025-05-20 10:55 | Outpatient (CLI) | payer MEDICARE, SELFPAY ==
[2025-05-20 11:10] LABS: Abs Immature Grans 0.02 10^3/uL (0.0-0.06); HCT 42.6 % (40.0-50.0); HGB 13.3 g/dL (13.5-17.5); Immature Grans % 0.2 %; MCH 26.8 pg (27.0-33.0); MCHC 31.2 % (32.0-36.0); MCV 86 fL (80-95); MPV 9.4 fL (8.0-11.0); Platelet Count 460 10^3/uL (130-400); RBC 4.96 10^6/uL (4.36-5.78); RDW 16.0 % (11.8-14.1); RDW-SD 50.5 fL; WBC 8.32 10^3/uL (4.4-10.8)
[2025-05-20 12:34] LABS: ALT 33 U/L (10-49); AST 49 U/L (<34); Albumin 3.9 g/dL (3.4-5.0); Alkaline Phosphatase 140 U/L (46-116); Anion Gap 9.4 mmol/L (3-11); BUN 20 mg/dL (9-23); Bilirubin, Total 1.30 mg/dL (0.2-1.2); CO2 24.6 mmol/L (20.0-31.0); Calcium 8.9 mg/dL (8.3-10.6); Chloride 110 mmol/L (98-107); Glucose 93 mg/dL (74-106); Potassium 4.7 mmol/L (3.5-5.1); Sodium 144 mmol/L (136-145); Total Protein 7.1 g/dL (5.7-8.2)
== END 2025-05-20 10:56 | disposition home or self-care (01) ==
LOC: LBO 10:55
PROVIDERS: PCP Family Medicine; Visit Provider Urology
DX: I12.9 Hypertensive chronic kidney disease with stage 1 through stage 4 chronic kidney disease, or unspecified chronic kidney disease (principal); N18.30 Chronic kidney disease, stage 3 unspecified
CPT/HCPCS: 36415; 80053; 85025